=== PATIENT | female | born 1940 | race Caucasian/White ===

== ENCOUNTER 2021-02-28 09:11 | Outpatient (REF) | payer MEDICARE, MEDICAID, SELFPAY ==
[2021-02-28 10:56] LABS: MANUAL DIFF FLAG NO
[2021-02-28 11:04] LABS: Basophils Percent Auto 0.4 % (0-2); Eosinophils Absolute Auto 0.2 X10*3/uL (0.0-0.4); Eosinophils Percent Auto 2.7 % (0-4); Hematocrit 40.5 % (37-47); Hemoglobin 13.1 g/dl (12.0-16.0); Imm Gran Abs Auto 0.03 X10*3/uL (0.00-0.03); Imm Gran Pct Auto 0.4 % (0.0-0.4); Lymphocytes Absolute Auto 2.5 X10*3/uL (1.2-4.9); Lymphocytes Percent Auto 31.7 % (20-40); Mean Corpuscular HGB Conc 32.3 g/dl (31.0-35.0); Mean Corpuscular Hemoglobin 31.6 pg (27.0-33.0); Mean Corpuscular Volume 97.6 fL (80-98); Mean Platelet Volume 11.1 fL (9.4-12.3); Monocytes Absolute Auto 0.6 X10*3/uL (0.1-1.2); Monocytes Percent Auto 7.5 % (2-11); Neutrophils Absolute Auto 4.5 X10*3/uL (2.0-8.3); Neutrophils Percent Auto 57.3 % (45-73); Platelet Count 240 X10*3/uL (160-400); Red Blood Count 4.15 X10*6/uL (4.20-5.50); White Blood Count 7.9 X10*3/uL (4.8-10.8)
[2021-02-28 11:58] LABS: Alanine Aminotransferase 20 U/L (0-31); Albumin Level 4.1 g/dL (3.5-5.0); Alkaline Phosphatase 103 U/L (39-117); Anion Gap 14 (12-20); Aspartate Amino Transferase 18 U/L (5-31); Bilirubin Total 0.6 mg/dL (0.0-1.0); Blood Urea Nitrogen 16 mg/dL (9-16); Calcium 9.3 mg/dL (8.4-10.2); Carbon Dioxide 29 mmol/L (22-29); Chloride 104 mmol/L (96-108); Cholesterol 158 mg/dL; Estimated Glomerular Filt Rate > 60; Glucose Fasting 97 mg/dL (60-99); HDL Cholesterol 40 mg/dL; LDL Cholesterol Calculated 69 mg/dl; Potassium 4.3 mmol/L (3.3-5.1); Sodium 143 mmol/L (135-145); Triglycerides 247 mg/dL
[2021-02-28 12:26] LABS: Free T4 (Free Thyroxine) 0.93 ng/dL (0.71-1.85); Thyroid Stimulating Hormone 0.35 uIU/mL (0.32-4.0)
== END 2021-02-28 09:12 | disposition home or self-care (01) ==
LOC: HO.MANLDS 09:11
PROVIDERS: PCP Internal Medicine; Visit Provider Physician Assistant
DX: E03.9 Hypothyroidism, unspecified (principal); E78.00 Pure hypercholesterolemia, unspecified
CPT/HCPCS: 36415; 80053; 80061; 84439; 84443; 85025

== ENCOUNTER 2021-08-08 11:35 | Outpatient (REF) | payer MEDICARE, OTHER, SELFPAY ==
[2021-08-08 12:44] LABS: MANUAL DIFF FLAG NO
[2021-08-08 12:49] LABS: Basophils Percent Auto 0.4 % (0-2); Eosinophils Absolute Auto 0.3 X10*3/uL (0.0-0.4); Eosinophils Percent Auto 3.9 % (0-4); Hematocrit 38.1 % (37-47); Hemoglobin 12.6 g/dl (12.0-16.0); Imm Gran Abs Auto 0.02 X10*3/uL (0.00-0.03); Imm Gran Pct Auto 0.2 % (0.0-0.4); Lymphocytes Absolute Auto 3.1 X10*3/uL (1.2-4.9); Lymphocytes Percent Auto 36.9 % (20-40); Mean Corpuscular HGB Conc 33.1 g/dl (31.0-35.0); Mean Corpuscular Hemoglobin 31.9 pg (27.0-33.0); Mean Corpuscular Volume 96.5 fL (80-98); Mean Platelet Volume 10.9 fL (9.4-12.3); Monocytes Absolute Auto 0.7 X10*3/uL (0.1-1.2); Monocytes Percent Auto 8.5 % (2-11); Neutrophils Absolute Auto 4.2 X10*3/uL (2.0-8.3); Neutrophils Percent Auto 50.1 % (45-73); Platelet Count 224 X10*3/uL (160-400); Red Blood Count 3.95 X10*6/uL (4.20-5.50); Red Cell Distribution Width 13.3 % (11.0-16.0); White Blood Count 8.4 X10*3/uL (4.8-10.8)
[2021-08-08 13:01] LABS: Prothrombin Time 11.4 SEC (9.9-13.0)
[2021-08-08 13:24] LABS: Iron 86 mcg/dL (30-160)
[2021-08-08 13:38] LABS: Percent Iron Saturation 28 % (15-50); Total Iron Binding Capacity 312 mcg/dL (228-428); Unsaturated Iron Binding 226 ug/dL
[2021-08-08 13:50] LABS: Folate 12.3 ng/mL (> or = 4.0); Vitamin B12 1957 pg/mL (200-900)
[2021-08-08 13:58] LABS: Ferritin 153 ng/mL (10-250)
== END 2021-08-08 11:36 | disposition home or self-care (01) ==
LOC: HO.MANLDS 11:35
PROVIDERS: PCP Physician Assistant; Visit Provider Physician Assistant
DX: R58 Hemorrhage, not elsewhere classified (principal)
CPT/HCPCS: 36415; 82306; 82607; 82728; 82746; 83540; 85025; 85610

== ENCOUNTER 2023-05-07 10:25 | Outpatient (REF) | payer MEDICARE, OTHER, SELFPAY ==
[2023-05-07 13:05] LABS: MANUAL DIFF FLAG NO
[2023-05-07 13:41] LABS: Basophils Absolute Auto 0.1 X10*3/uL (0.0-0.2); Basophils Percent Auto 0.6 % (0-2); Eosinophils Absolute Auto 0.3 X10*3/uL (0.0-0.4); Eosinophils Percent Auto 3.4 % (0-4); Hematocrit 38.7 % (37.0-47.0); Hemoglobin 12.5 g/dl (12.0-16.0); Imm Gran Abs Auto 0.02 X10*3/uL (0.00-0.03); Imm Gran Pct Auto 0.3 % (0.0-0.4); Lymphocytes Absolute Auto 2.6 X10*3/uL (1.2-4.9); Lymphocytes Percent Auto 33.1 % (20-40); Mean Corpuscular HGB Conc 32.3 g/dl (31.0-35.0); Mean Corpuscular Hemoglobin 31.7 pg (27.0-33.0); Mean Corpuscular Volume 98.2 fL (80.0-98.0); Mean Platelet Volume 12.3 fL (9.4-12.3); Monocytes Absolute Auto 0.8 X10*3/uL (0.1-1.2); Monocytes Percent Auto 10.4 % (2-11); Neutrophils Absolute Auto 4.1 x10*3/uL (2.0-8.3); Neutrophils Percent Auto 52.2 % (45-73); Platelet Count 218 X10*3/uL (160-400); Red Blood Count 3.94 X10*6/uL (4.20-5.50); Red Cell Distribution Width 13.4 % (11.0-16.0); White Blood Count 7.9 X10*3/uL (4.8-10.8)
[2023-05-07 15:20] LABS: Estimated Average Glucose 120 mg/dL; Hemoglobin A1c % 5.8 %
[2023-05-08 01:56] LABS: Alanine Aminotransferase 19 U/L (0-31); Albumin Level 3.8 g/dL (3.5-5.0); Alkaline Phosphatase 106 U/L (39-117); Anion Gap 11 (12-20); Aspartate Amino Transferase 24 U/L (5-31); Bilirubin Total 0.4 mg/dL (0.0-1.0); Blood Urea Nitrogen 15 mg/dL (9-16); Carbon Dioxide 28 mmol/L (22-29); Chloride 104 mmol/L (96-108); Estimated Glomerular Filt Rate > 60; Glucose Random 92 mg/dL (60-115); Sodium 139 mmol/L (135-145)
[2023-05-08 02:22] LABS: Free T4 (Free Thyroxine) 0.99 ng/dL (0.71-1.85)
== END 2023-05-07 10:26 | disposition home or self-care (01) ==
LOC: HO.MANLDS 10:25
PROVIDERS: Visit Provider Physician Assistant
DX: E78.2 Mixed hyperlipidemia (principal); E03.8 Other specified hypothyroidism; R73.01 Impaired fasting glucose
CPT/HCPCS: 36415; 80053; 83036; 84439; 84443; 85025

== ENCOUNTER 2024-01-28 14:05 | Outpatient (REF) | payer MEDICARE, OTHER, SELFPAY ==
[2024-01-28 17:45] LABS: MANUAL DIFF FLAG NO
[2024-01-28 17:54] LABS: Basophils Percent Auto 0.4 % (0-2); Eosinophils Absolute Auto 0.6 X10*3/uL (0.0-0.4); Eosinophils Percent Auto 6.7 % (0-4); Hematocrit 40.3 % (37.0-47.0); Hemoglobin 13.2 g/dl (12.0-16.0); Imm Gran Abs Auto 0.03 X10*3/uL (0.00-0.03); Imm Gran Pct Auto 0.4 % (0.0-0.4); Lymphocytes Absolute Auto 2.6 X10*3/uL (1.2-4.9); Lymphocytes Percent Auto 30.9 % (20-40); Mean Corpuscular HGB Conc 32.8 g/dl (31.0-35.0); Mean Corpuscular Hemoglobin 31.1 pg (27.0-33.0); Mean Corpuscular Volume 94.8 fL (80.0-98.0); Mean Platelet Volume 11.6 fL (9.4-12.3); Monocytes Absolute Auto 0.4 X10*3/uL (0.1-1.2); Monocytes Percent Auto 5.2 % (2-11); Neutrophils Absolute Auto 4.8 x10*3/uL (2.0-8.3); Neutrophils Percent Auto 56.4 % (45-73); Platelet Count 211 X10*3/uL (160-400); Red Blood Count 4.25 X10*6/uL (4.20-5.50); Red Cell Distribution Width 13.7 % (11.0-16.0); White Blood Count 8.5 X10*3/uL (4.8-10.8)
[2024-01-28 18:39] LABS: Parathyroid Hormone Intact 77.6 pg/mL (8.7-77.1)
[2024-01-28 18:42] LABS: Erythrocyte Sedimentation Rate 20 MM/HR (0-20)
[2024-01-28 18:44] LABS: Alanine Aminotransferase 18 U/L (0-31); Albumin Level 4.2 g/dL (3.5-5.0); Alkaline Phosphatase 113 U/L (39-117); Anion Gap 13 (12-20); Aspartate Amino Transferase 21 U/L (5-31); Bilirubin Total 0.5 mg/dL (0.0-1.0); Blood Urea Nitrogen 17 mg/dL (9-16); C Reactive Protein 1.09 mg/dL (< or = 0.50); Calcium 9.8 mg/dL (8.4-10.2); Carbon Dioxide 27 mmol/L (22-29); Chloride 105 mmol/L (96-108); Estimated Glomerular Filt Rate > 60; Magnesium 2.1 mg/dL (1.6-2.6); Sodium 141 mmol/L (135-145); Total Protein 7.7 g/dL (6.5-8.0)
[2024-01-28 19:04] LABS: Free T4 (Free Thyroxine) 0.63 ng/dL (0.71-1.85); Thyroid Stimulating Hormone 2.84 uIU/mL (0.32-4.0); Vitamin D 25-OH Total 43.8 ng/mL (>30)
[2024-01-28 19:05] LABS: Folate 8.9 ng/mL (> or = 4.0); Vitamin B12 > 2000 pg/mL (200-900)
[2024-01-28 19:28] LABS: Glucose Random 90 mg/dL (60-115)
== END 2024-01-28 14:06 | disposition home or self-care (01) ==
LOC: HO.MANLDS 14:05
PROVIDERS: Visit Provider Physician Assistant
DX: G25.81 Restless legs syndrome (principal); R25.2 Cramp and spasm
CPT/HCPCS: 36415; 80053; 82306; 82550; 82607; 82746; 83735; 83970; 84439; 84443; 85025; 85652; 86140

== ENCOUNTER 2024-01-30 13:30 | Outpatient (REF) | payer MEDICARE, OTHER, SELFPAY ==
[2024-01-30 17:58] LABS: Appearance Urine Clear; Color Urine Yellow; Glucose Urine UA Negative (Negative); Leukocyte Esterase Urine Trace (Negative); Nitrite Urine Negative (Negative); PH 5.5 (5.0-9.0); UMIC TRIGGER UACC YES; Urine Blood Negative (Negative); Urine Ketones Negative (Negative); Urine Protein Negative (Neg-Trace)
[2024-01-30 18:00] LABS: Bacteria Urine None Seen (None Seen); Hyaline Casts Urine 0-2 /LPF (0-2); RBC Urine 0-2 /HPF (0-2); WBC Urine 0-5 /HPF (0-5)
== END 2024-01-30 13:31 | disposition home or self-care (01) ==
LOC: HO.MANLNP 13:30
PROVIDERS: Visit Provider Physician Assistant
DX: G25.81 Restless legs syndrome (principal)
CPT/HCPCS: 81001

== ENCOUNTER 2024-06-25 08:55 | Outpatient (AMB) | payer MEDICARE, SELFPAY ==
--- NOTE | 2024-06-25 08:59 | HO.SPINEOV ---
Intake Visit Reasons: lumbar radiculopathy Intake Note: Ms. Andrade is here today c/o Jumping nerves. 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 She is a very nice 83-year-old female underwent an L4-5, L5-S1 posterior lumbar interbody fusion in [address] Valentino and Dr[address] Medina. Preoperatively she had back pain that was going down her right leg into her big toe. Immediately after surgery she said she has an relief of the symptoms for a number of months but ultimately the symptoms came back. She has bilateral buttock pain as well as right leg pain that goes down into her big toe. It is particularly worse as the day goes on. She was seen postoperatively by Dr. Valentino, subsequent MRIs showed no residual compression of the nerves. She was sent to therapy, it sounds like she was also sent to pain management, chiropractic and acupuncture as well. Nothing gives her significant relief. She is a difficult historian. Her daughter is here with her today who helps with some of the details. It sounds like she may have tried gabapentin at 1 point but I believe there may have been some side effects. 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 There are some mention of seeing a neurologist and it sounds like she had a nerve conduction study and was told there is old damage to the nerve but nothing new currently going on. I do not have that EMG in front of me to confirm this however. PMH: The patient reports a history of high cholesterol, depression, arthritis, hypothyroidism, GERD, back surgery, eye surgeries Social hx: She has not smoke, drink use any recreational drugs Medications: Lipitor, baclofen, Celebrex, citalopram, diazepam, diclofenac, dicyclomine, levothyroxine, mirabegron, Motegrity, torsemide, tramadol, omeprazole, vitamin B12 and vitamin B12 Allergies: None Physical exam: She is awake alert oriented no acute distress, she is able to get up out of a chair on her own walk to the examining table and get up independently. Strength in bilateral upper and lower extremities is full. Reflexes 3+ and symmetric in the upper extremities, 2+ in the patella and the Achilles. No clonus, no Rivera's sign. Negative straight leg raise. Imaging review: Lumbar MRI done at [facility] shows postsurgical changes from L4-S1 with evidence of decompression centrally as well as in both foramina. There appears to be a solid fusion construct in the interbody spaces. There is no residual central foraminal canal stenosis at this level despite with the radiology report says, I can easily see perineural fat around the nerves on both sides so while there may be some residual narrowing there is no nerve compression. 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 Probably more mild to moderate. I do not see any evidence of nerve compression anywhere in the rest of the spine. Impression: 83-year-old female presents for evaluation of persistent right leg pain and bilateral buttock pain after posterior lumbar interbody fusion done from L4-S1 in 2019. This is the same pain that she had before surgery. It does correlate with the L5 dermatome so that would make sense. Per the daughter's report there was some kind of nerve conduction study done showing chronic nerve damage this area. That is what it sounds like based on her story and the postoperative imaging that does not show any evidence of recurrent compression of nerves. The radiology report think is slightly over exaggerated when they report the amount of stenosis seen above fusion. I agree with Dr. Valentino and Dr. Gallegos, there is nothing residual here to operate on her fix. 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 There is a device called a spinal cord stimulator which is a possible option for her, bu the patient does not want to consider any operations at her age and I think this is certainly reasonable if the pain is manageable and livable. Thank you for allowing us to care for your patient. The total time spent with this visit with this patient was 45 minutes reviewing history, physical exam, lumbar imaging review, and implementation of treatment plan or further diagnostic testing Nikolay Hull MD,PhD [facility] Coding Level of Care Code New Pt Level 4 (81616) Diagnoses Lumbar degenerative disc disease M51.36
== END 2024-06-25 09:46 | disposition home or self-care (01) ==
PROVIDERS: PCP Physician Assistant; Referring Provider Physician Assistant; Visit Provider Physician Assistant
DX: M51.36 Other intervertebral disc degeneration, lumbar region (principal)
CPT/HCPCS: 99204

== ENCOUNTER → 2024-06-25 08:55 | Outpatient (BNVA) | payer MEDICARE, OTHER, SELFPAY | PROVIDERS: PCP Physician Assistant; Visit Provider Physician Assistant | DX: M54.16 Radiculopathy, lumbar region (principal) | CPT/HCPCS: 99202 ==

== ENCOUNTER 2025-02-24 11:05 | Outpatient (REF) | payer MEDICARE, SELFPAY | END 2025-02-24 11:06 | disposition home or self-care (01) | LOC: HO.LAB 11:05 | PROVIDERS: PCP Physician Assistant; Visit Provider Urology | DX: N81.10 Cystocele, unspecified (principal); N32.81 Overactive bladder; R33.9 Retention of urine, unspecified; R35.1 Nocturia; R32 Unspecified urinary incontinence; Z13.9 Encounter for screening, unspecified | CPT/HCPCS: 51702; 81003; 99202 ==

== ENCOUNTER 2025-02-24 11:05 | Outpatient (AMB) | payer MEDICARE, SELFPAY ==
--- NOTE | 2025-02-24 11:27 | MHC.OFFVIS ---
Intake Visit Reasons: OAb with bladder prolapse Intake Note: New patient presents today for initial visit for OAB with bladder prolapse Urology Medication:Vitamin B12 Blood Thinner:None Antibiotic Allergies:None PVR:186ml Allergies No Known Allergies Allergy (Verified 02/24/25 11:36) Results AMB Urinalysis, Automated UA Leukoctes 0 Freddy/uL Last Edit by Karen Petersen on 02/24/25 16:46 UA Nitrite Negative Last Edit by Karen Petersen on 02/24/25 16:46 UA Urobilinogen 0.2 mg/dL Last Edit by Karen Petersen on 02/24/25 16:46 UA Protein 15 mg/dL Last Edit by Karen Petersen on 02/24/25 16:46 UA pH 6.0 Last Edit by Karen Petersen on 02/24/25 16:46 UA Blood 0 Leonel/uL Last Edit by Karen Petersen on 02/24/25 16:46 UA Specific [place] 1.015 Last Edit by Karen Petersen on 02/24/25 16:46 UA Ketone Negative Last Edit by Karen Petersen on 02/24/25 16:46 UA Bilirubin 0 mg/dL Last Edit by Karen Petersen on 02/24/25 16:46 UA Glucose 0 mg/dL Last Edit by Karen Petersen on 02/24/25 16:46 Assessment & Plan Assessment & Plan Orders: Orders AMB Urinalysis Automated Today Z13.9 - Encounter for screening, unspecified Urine Culture Today N39.0 - Urinary tract infection, site not specified Coding
--- OUTSIDE RECORDS SUMMARY | 2025-02-24 12:36 | XMS_ITS | Data Portability ---
Author Organization [facility], [facility] Address [address] [place] [address] Care Team Providers Care Emr Analyst Name Role Phone ESTHER CLIFFORD Phys. Med. & Rehab Unavailable BOB CASTILLO Primary Care Provide r Assessment Encounter Date Assessment Date Assessment LastModified by Organization Details LastModified Time 05/12/2014 05/12/2014 A: Persistent shoulder pain which pt. attributes to a lot of yardwork, unable to tolerate much in the way of strengthening, manual treatment provided with min. gains. P: Cont. Not available 05/12/2014 09:52:47 05/25/2014 05/25/2014 A:? ? ?Reports she can have days without pain and then days with pain in L upper arm.? ? ?Tension L upper trap/neck, limited ROM with L neck? ? ?rotation.? ? ? As much as her neck could be contributing to this, there is definitely pain with isolated L shoulder PROM as well (ER loss).? ? ? May need to address tension in L neck.? ? ? Needs guidance to do HEP correctly. P: Cont. Not available 05/25/2014 10:08:09 Plan of Treatment Reminders Order Date Submit Date Provider Last Modified By Organization Details Last Modified Time Details Appointments None recorde d. Lab PPD (purifi ed protein derivat jerson), skin test [email or web address] [place] [address], [address] [place] [address], [address], 5 09:32:55 lipid panel, serum 2013 015 [facility], [address] [place], [address], 5 11:24:31 BMP, serum or plasma 2013 014 [facility], [address] [place], [address], 4 10:49:46 TSH, serum or plasma 2013 014 [facility], [address] [place], [address], 4 12:55:33 Referral None recorde d. Procedures None recorde d. Surgeries None recorde d. Imaging bone density study - prolong ed use of PPI 2013 014 [facility] (Imaging), [address], [place], [address], 5 23:07:06 Medication Orders None recorde d. Patient TargetsNo targets recorded. Patient Instructions Encounter Date Encounter Id Patient Instructions Last Modified By Organization Details Last Modified Time 06/23/2014 [id number] advance directives: care instructions [email or web address] Not available 06/23/2014 18:43:03 preventing falls: care instructions [email or web address] Not available 06/23/2014 18:43:03 hearing loss: care instructions [email or web address] Not available 06/23/2014 18:43:03 well visit, over 65: care instructions [email or web address] Not available 06/23/2014 18:43:03 My Health To Do List As we discussed and agreed upon at your visit please work on the followin. discussed TSH - not in range; please take your thyroid medicine at bedtime by itself with only water; and repeat labs? ? ?in 6 wks. 2. discussed labs elevated triglycerides, pt will decrease intake of carbohydrates - breads, pasta, rice, baked goods. repeat labs in 6 mos. 3. will take ibuprofen with meals for now for shoulder pain and if continues to persists after 2 wks will refer to orthopedics. 4 pt will go to [facility] for shingles vaccine 5. updated flu shot today at [facility] 6. PHA next year; bone density this year 7. pt information on gas and bloating, will try pepto-bismol 8. depression - stable on citalopram 9. GERD - stable on omeprazole. shanna Not available 06/23/2014 10:46:15 12/01/2014 [id number] 1. discussed all questions on form, specially physical capability of patient and how it would affect her at her job. 2. form filled for caregiver , copy in chart, will get PPD at nurse visit. 3. more than 50% of 15 min spent on discussing and completing form,? ? ? shanna Not available 12/02/2014 17:49:39 Reason for Referral None Reported. Results Created Date Observation Date Name Description Value Unit Range Abnormal Flag Note LastModifiedBy Organization Detail LastModifiedTime 06/16/20 14 06/16/2014 lipid panel , serum cholesterol 129 mg/dL <200 mg/dl Dk able 200-2 39 mg/dl Borde rline High >240 mg/dl High Not Available [address], [address], 06/16/2014 11:20:45 06/16/20 14 06/16/2014 lipid panel , serum triglyceride s 204 mg/dL <150 mg/dL Jazmyn l 150-1 99 mg/dL Borde rline High 200-4 99 mg/dL High >500 mg/dL Very High Not Available [address], [address], 06/16/2014 11:20:45 06/16/20 14 06/16/2014 lipid panel , serum direct HDL 39 mg/dL Not Available [address], [address], 06/16/2014 11:20:45 06/16/20 14 06/16/2014 LDL, calcu lated , serum (OBS) LDL - calculated 49.2 RISK CATEG ORY LDL GOAL _ CHD or CHD Risk Equiv alent s <100 mg/dl (10-y ear risk >20%) 2+ Risk Facto rs <130 mg/dl (10-y ear risk <= 20%) 0-1 Risk Facto r? <160 mg/dl ? Almos t all peopl e with 0-1 risk facto r have a 10 year risk <10%, thus 10 year risk asses ment in peopl e with 0-1 risk facto r is not patrick dailey. Not Available [address], [address], 06/16/2014 11:20:47 06/16/20 14 06/16/2014 TSH, serum or plasm a TSH 0.01 uIU/m L 0.50-6 .00 low The Ameri can Colle ge of Endoc rinol ogy and Ameri can Thyro id Assoc iatio n recom mend goal TSH value s betwe en 1.0-2 .5 mIU/m L. Not Available [address], [address], 06/16/2014 11:37:56 08/01/20 14 08/01/2014 BMP, serum or plasm a glucose 89 mg/dL 70-100 Not Available [address], [address], 08/01/2014 10:49:46 08/01/20 14 08/01/2014 BMP, serum or plasm a BUN 15 mg/dL 7-18 Not Available [address], [address], 08/01/2014 10:49:46 08/01/20 14 08/01/2014 BMP, serum or plasm a creatinine 1.1 mg/dL 0.8-1. 3 Not Available [address], [address], 08/01/2014 10:49:46 08/01/20 14 08/01/2014 BMP, serum or plasm a B/C 13.6 ratio Not Available [address], [address], 08/01/2014 10:49:46 08/01/20 14 08/01/2014 BMP, serum or plasm a GFR 54.2 mL/mi n Recom summer d GFR by the Natio nal Kidne y Found ation >60 mL/mi n/1.7 3m2 - Jazmyn l <60 mL/mi n/1.7 3m2 - Chron ic Kidne y Disea se <15 mL/mi n/1.7 3m2 - Kidne y Failu re Not Available [address], [address], 08/01/2014 10:49:46 08/01/20 14 08/01/2014 BMP, serum or plasm a GFR - if 62.4 mL/mi n For Afric an Ameri can patie nts: Resul ts Multi plied by 1.21 Not Available [address], [address], 08/01/2014 10:49:46 08/01/20 14 08/01/2014 BMP, serum or plasm a sodium 144 mmol/ L 136-14 5 Not Available [address], [address], 08/01/2014 10:49:46 08/01/20 14 08/01/2014 BMP, serum or plasm a potassium 4.2 mmol/ L 3.5-5. 1 Not Available [address], [address], 08/01/2014 10:49:46 08/01/20 14 08/01/2014 BMP, serum or plasm a chloride 105 mmol/ L 96-107 Not Available [address], [address], 08/01/2014 10:49:46 08/01/20 14 08/01/2014 BMP, serum or plasm a anion gap 8.2 5.0-15 .0 Not Available [address], [address], 08/01/2014 10:49:46 08/01/20 14 08/01/2014 BMP, serum or plasm a CO2 31 mmol/ L 21-32 Not Available [address], [address], 08/01/2014 10:49:46 08/01/20 14 08/01/2014 BMP, serum or plasm a calcium 9.2 mg/dL 8.5-10 .3 Not Available [address], [address], 08/01/2014 10:49:46 08/01/20 14 08/01/2014 TSH, serum or plasm a TSH 0.05 uIU/m L 0.50-6 .00 low The Ameri can Colle ge of Endoc rinol ogy and Ameri can Thyro id Assoc iatio n recom mend goal TSH value s betwe en 1.0-2 .5 mIU/m L. Not Available [address], [address], 08/01/2014 12:55:33 09/13/20 14 09/13/2014 TSH, serum or plasm a TSH 1.59 uIU/m L 0.50-6 .00 The Ameri can Colle ge of Endoc rinol ogy and Ameri can Thyro id Assoc iatio n recom mend goal TSH value s betwe en 1.0-2 .5 mIU/m L. Not Available [address], [address], 09/13/2014 13:49:24 12/09/19 15 12/09/2014 PPD (ruth fied prote in deriv ative ), skin test TB negati ve Not Available [address], [address], 12/07/2014 09:32:24 12/30/19 15 12/29/2014 lipid panel , serum cholesterol 139 mg/dL <200 mg/dl Dk able 200-2 39 mg/dl Borde rline High >240 mg/dl High Not Available [address], [address], 12/29/2014 11:24:31 12/30/19 15 12/29/2014 lipid panel , serum triglyceride s 222 mg/dL <150 mg/dL Jazmyn l 150-1 99 mg/dL Borde rline High 200-4 99 mg/dL High >500 mg/dL Very High Not Available [address], [address], 12/29/2014 11:24:31 12/30/19 15 12/29/2014 lipid panel , serum direct HDL 39 mg/dL Not Available [address], [address], 12/29/2014 11:24:31 12/30/19 15 12/29/2014 LDL, calcu lated , serum (OBS) LDL - calculated 55.6 RISK CATEG ORY LDL GOAL _ CHD or CHD Risk Equiv alent s <100 mg/dl (10-y ear risk >20%) 2+ Risk Facto rs <130 mg/dl (10-y ear risk <= 20%) 0-1 Risk Facto r? <160 mg/dl ? Almos t all peopl e with 0-1 risk facto r have a 10 year risk <10%, thus 10 year risk asses ment in peopl e with 0-1 risk facto r is not neces asim. Not Available [address], [address], 12/29/2014 11:24:32 02/27/20 15 02/22/2015 bone densi ty study OBSERV ATION: Your patien t comple zina a bone minera l densit y test at our facili ty on 2014. The indica tions were bilate ral oophor ectomy and hyster ectomy , Caucas gonzalo race, rheuma toid arthri tis, and post menopa use. There were no prior studie s availa ble for compar sharron. Her AP lumbar spine T score averag e is -1.0. Her femora l neck T score mean is -1.3. At this time, your patien t is in an osteop enic range. Her FRAX data shows a 10 year probab ility of a major osteop orotic fractu re at 13.9%, and risk of hip fractu re at 2.8%. This is below the thresh old for consid eratio n of antire sorpti ve therap y. A repeat study in 5 years should be done to assess for stabil ity. is -1.0. Her femora l neck T score mean is -1.3. At this time, your patien t is in an osteop enic range. Her FRAX data shows a 10 year probab ility of a major osteop orotic fractu re at 13.9%, and risk of hip fractu re at 2.8%. This is below the thresh old for consid eratio n of antire sorpti ve therap y. A repeat study in 5 years should be done to assess for stabil ity. FRAX data shows a 10 year probab ility of a major osteop orotic fractu re at 13.9%, and risk of hip fractu re at 2.8%. This is below the thresh old for consid eratio n of antire sorpti ve therap y. A repeat study in 5 years should be done to assess for stabil ity. Electr onical ly signed Christelle ames Physic gonzalo: Efrain Marrero MD [facility] (Imaging) [address] [place] [address] , [place], [address], 03/16/2015 16:19:10 Result Notes None recorded. Problems Name Problem SNOMED Code Status Onset Date Resolution Date Notes Provider Name and Address Organization Details Recorded Time Sprain of sacroiliac ligament 08527635 Completed 09/08/2013 Not Available [facility] 3 02:04:08 Sciatica 37532854 Active Not Available [facility] 3 03:15:29 Mixed hyperlipid emia 751596939 Active Bob Valladares MD [address] [place] [address], [address] , [facility] 4 18:43:03 Nervous system symptoms Completed 09/08/2013 Not Available [facility] 3 02:03:49 Benign paroxysmal positional vertigo 450825555 Active Not Available [facility] 3 03:15:29 Low back pain 621261325 Active Not Available [facility] 3 03:15:29 Allergic rhinitis 20478464 Active Not Available [facility] 3 03:15:29 Hypothyroi dism 07500788 Active Bob Valladares MD [address] [place], [address] , [facility] 4 15:59:19 Problem Notes None recorded. Procedures Surgical History Date Name Laterality Status Provider Name and Address Organization Details Recorded Time 06/23/20 14 Medicare Wellness Visit completed Tasha Kauffman CMA [facility] 06/23/2014 09:54:13 04/27/20 14 Treatment and Advice completed Esther Clifford Ms, PT [address] [place], [address], [facility] 04/27/2014 08:01:30 06/15/20 13 Medicare Wellness Visit completed Tasha Kauffman CMA [facility] 06/15/2013 11:09:42 Total Hysterectomy completed Not Available [facility] 09/05/2011 06:06:16 Imaging Results Imaging Date Name Status LastModified by Organiz ation Details LastModified Time 02/22/2015 bone density study completed [facility] ([facility]) [address], [place], [address], 03/16/2015 16:19:10 Procedure Notes None recorded. Medical Equipment None Reported. Allergies Allergen ID Allergen Name Allergen Category Reaction Reaction Severity Criticality Documentation Date Start Date Code Code System Note Provider Name and Address Organization Details Recorded Time 68554 naproxen medicatio n vomiting Not available Not available 04/23/20112010 7258 RxNorm Not Available [facility] 1 06:05:41 10235 ibuprofen medicatio n vomiting Not available Not available 05/06/2011 5640 RxNorm Tasha Kauffman CMA [facility] 4 07:44:15 Medications Name Sig Start Date Stop Date Status Note LastModified by Organization Details LastModified Time Miralax 17 gram/dose oral powder Take 17 grams powder mixed with 8 oz. water, juice, soda, coffee, or tea by oral route once daily. 2010 active Not Available Not Available Not Avai lable levothyro xine 137 mcg tablet take 1 tablet by mouth once daily active Not Available Not Available No t Available ofloxacin 0.3 % eye drops active Not Available Not Available Not Available citalopra m 10 mg tablet take 1 tablet by mouth once daily active Not Available Not Available No t Available simvastat in 40 mg tablet TAKE 1 TABLET BY MOUTH ONCE A DAY FOR 90 DAYS active Not Available Not Available No t Available levothyro xine 100 mcg tablet take 1 tablet by mouth once daily active Not Available Not Available No t Available prednisol one acetate 1 % eye drops,akshat pension active Not Available Not Available Not Available meclizine 25 mg tablet Take 1 tablet 3 times a day by oral route as needed for 5 days. 08/07 completed Not Available Not Available Not Available gemfibroz il 600 mg tablet Take 1 tablet twice a day by oral route for 30 days. active Not Available Not Available No t Available levothyro xine 125 mcg tablet Take 1 tablet every day by oral route for 90 days. active Not Available Not Available No t Available omeprazol e 20 mg capsule,d elayed release TAKE 1 CAPSULE BY MOUTH TWICE A DAY FOR 90 DAYS active Not Available Not Available No t Available gabapenti n 100 mg capsule Take 1 capsule 3 times a day by oral route for 60 days. 2010 active Not Available Not Available Not Avai lable ibuprofen 600 mg tablet Take 1 tablet every 6-8 hours by oral route with meals. 2010 active Not Available Not Available Not Avai lable Tessalon 200 mg capsule Take 1 capsule 3 times a day by oral route as needed for 10 days. 03/07 completed Not Available Not Available Not Available Percocet 5 mg-325 mg tablet Take 1 tablet every 6 hours by oral route as needed for 15 days. 08/09 completed pt wants call when this is done Not Available Not Available Not Available fluticaso ne propionat e 50 mcg/actua tion nasal spray,akshat pension 2 sprays each nostril once daily during allergy season active Not Available Not Available No t Available ketorolac 0.4 % eye drops active Not Available Not Available Not Available Zostavax (PF) 19,400 unit/0.65 mL subcutane ous suspensio n active Not Available Not Available Not Available krill oil 3 times a day 300 mg active switched to fish oil once a day 1200 mg Not Available Not Available Not Available Vitals Date Recorded Body weight Heart rate Body mass index (BMI) Body height Systolic blood pressure Diastolic blood pressure Provider Name and Address Organization Details Last Updated DateTime 4 40522.5 52316 g 72 /min 32.2 kg/m2 146.05 cm 114 mm[Hg] 62 mm[Hg] Tasha Kauffman [facility] 4 09:58:04 Date Recorded Body height Body mass index (BMI) Body weight Heart rate Systolic blood pressure Diastolic blood pressure Provider Name and Address Organization Details Last Updated DateTime 5 146.05 cm 32.2 kg/m2 82861.5 52639 g 68 /min 100 mm[Hg] 60 mm[Hg] Tasah Kauffman [facility] 5 14:01:14 Social History Question Answer Notes LastModified by Organizat ion Details LastModified Time Tobacco Smoking Status Never Smoker Not Available [facility] 09/05/2011 04:56:30 What Is Your Level Of Alcohol Consumption? 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 Information not available 06/23/2014 How Many Days In The Past Year Have You Had A Heavy Drinking Consumption (4+ Female, 5+ Male)? 0 Information not available 06/15/2013 Live Alone Or With Others? With Others Rivera Loev (both Are Disabled). yolanda Information not available 04/15/2011 Patient Has Health Care Proxy Signed And In Chart Yes Daughter Lyric [id number] Information not available 09/05/2011 Marital Status Has Partner X 17 Yrs Information not available 06/15/2013 How Many Children Do You Have? 6 Had 7, 1 Was Killed In MVA [email or web address] Information not available 04/15/2011 Sex: Unknown Functional Status None recorded. Mental Status None recorded. Family History Relationship Description Onset Age of this Age Resolved Age Notes LastModified by Organization Details LastModified Time Daughter Seizure previo usly record ed as Seizur es klopezdelcast illo Not available 06/23/2014 10:21:40 Daughter Diabetes mellitus previo usly record ed as Diabet es klopezdelcast illo Not available 06/23/2014 10:21:40 Father Problem 36 indust rial accide nt klopezdelcast illo Not available 06/23/2014 10:21:40 Mother Asthma 90 klopezdelcast illo Not available 06/23/2014 10:21:40 Medical History Condition Response Hyperlipidemia Y Thyroid Disease Y Hypothyroid Y Depression Y GERD Y Gynecological History Statement/Question Response Hysterectomy Y History of Abnormal Pap N Obstetrics History GPAL:G 0 P 0 0 0 0 Immunizations Vaccine Type Date Status Note Provider Nam e and Address Organization Details Recorded Time Td (adult), 5 Lf tetanus toxoid, preservative free, adsorbed 1 completed Not Available [facility] 11/06/2019 02:16:59 Influenza, split virus, trivalent, preservative 1 completed Not Available [facility] 11/06/2019 02:39:39 Influenza, split virus, trivalent, preservative 2 completed Not Available [facility] 11/06/2019 02:18:37 Tdap 3 completed Not Available [facility] 11/06/2019 02:16:07 Influenza, split virus, quadrivalent, PF 3 completed Not Available [facility] 11/06/2019 02:37:18 Influenza, split virus, quadrivalent, PF 4 completed Not Available [facility] 11/06/2019 02:36:27 Past Encounters Encounter ID Performer Location Encounter Start Date Encounter Closed Date Diagnosis/Indication Diagnosis SNOMED-CT Code Diagnosis ICD10 Code Diagnosis Note [id number] Terrell Lord MD FP, [facility], OFFICE [address] [place] [address] 04/15/2011 09:10:27 04/15/2011 10:26:37 [id number] [facility] HAND Radiology , [facility] [address] [place] [address] 04/16/2011 13:06:50 04/17/2011 11:08:09 [id number] Cami Robles NP FP, [facility], OFFICE [address] [facility] [address] 04/23/2011 16:16:03 04/25/2011 13:57:43 [id number] Maggy Keith PT Physical Therapy, [facility] [address] [place] [place] [address] 05/02/2011 08:43:49 05/02/2011 12:31:42 [id number] Bob Valladares MD FP, [facility], OFFICE [address] [place] [facility] [address] 05/06/2011 13:29:27 05/06/2011 14:01:38 [id number] Maggy Keith, PT Physical Therapy, [facility] [address] [place] [facility] [address] 05/07/2011 08:13:36 05/07/2011 09:28:26 [id number] Maggy Keith, PT Physical Therapy, [facility] [address] [place] [facility] [address] 05/10/2011 10:41:11 05/10/2011 11:38:17 [id number] Maggy Keith, PT Physical Therapy, [facility] [address] [place] [facility] [address] 05/14/2011 10:20:42 05/14/2011 11:03:39 [id number] Maggy Keith, PT Physical Therapy, [facility] [address] [place] [facility] [address] 05/16/2011 11:40:25 05/16/2011 14:00:43 [id number] Bob Valladares MD , [facility], OFFICE [address] [place] [address] 05/20/2011 13:05:20 05/20/2011 13:48:51 [id number] [facility] STRUCTURAL DRAFTER Radiology , [facility] [address] [place] [facility] [address] 05/20/2011 13:51:40 05/22/2011 13:32:48 [id number] MD LALA Mendez, [facility], OFFICE [address] [place] [facility] [address] 06/20/2011 10:40:31 06/20/2011 11:49:50 [id number] [facility] FP TREATMENT NURSE FP, [facility], OFFICE [address] [facility] on [facility] [place] [address] 08/23/2011 09:23:33 08/26/2011 14:37:35 [id number] Bob Valladares MD FP, [facility], OFFICE [address] [facility] on [facility] [place] [address] 12/10/2011 15:05:10 12/10/2011 16:04:51 [id number] Lucina Tomas MD FP, [facility], OFFICE [address] [facility] on [facility] [place] [address] 01/14/2012 15:14:21 01/14/2012 16:26:52 [id number] Dina Clark Mph, LPT Physical Therapy, [address] on [facility] [place] [address] 01/16/2012 15:10:31 01/17/2012 07:59:19 [id number] Bob Valladares MD , [facility], OFFICE [address] [facility] on [facility] [place] [address] 03/10/2012 15:00:26 03/10/2012 18:51:24 [id number] Bob Valladares MD , [facility], OFFICE [address] [facility] on [facility] [place] [address] 04/27/2012 13:38:28 04/27/2012 14:32:23 [id number] [facility] FP TREATMENT NURSE , [facility], OFFICE [address] [place] [address] on [facility] [address] 09/25/2012 14:09:17 09/25/2012 15:21:39 [id number] Bob Valladares MD FP, [facility], OFFICE [address] [facility] on [facility] [place] [address] 02/16/2013 09:53:58 02/16/2013 10:38:19 [id number] MD LALA Mendez, [facility], OFFICE [address] [facility] on [facility] [place] [address] 06/15/2013 10:36:30 06/15/2013 12:13:50 Adult health examination [id number] see Risk Assessment and Lifestyle Change Counseling section above Counseling [id number] Screening mammography 80272807 Flatulence symptom 072861773 Hypothyroidism 92683184 Administra tion of diphtheria, pertussis, and tetanus vaccine [id number] Kinga Dutton NP FP, [facility], OFFICE [address] [place] [address] 06/18/2013 16:00:57 06/18/2013 16:40:52 Vaccine adverse reaction 303721842 Local reaction to Tdap. [id number] Bob Valladares MD , [facility], OFFICE [address] [place] [address] 08/13/2013 06:46:48 08/13/2013 11:48:08 Influenza vaccine needed [id number] Bob Valladares MD , [facility], OFFICE [address] [place] [address] 12/07/2013 11:36:19 12/07/2013 12:50:48 Muscle strain 78704812 Tight chest 21039445 [id number] Bob Valladares MD , [facility], OFFICE [address] [place] [address] 04/14/2014 07:31:49 04/14/2014 08:07:27 Shoulder joint painful on movement [id number] Esther Clifford Ms, PT Physical Therapy, [address] [address] 04/27/2014 07:25:01 04/27/2014 12:22:10 Shoulder joint painful on movement 639828774 [id number] Esther Clifford Ms, PT Physical Therapy, [address] [address] 05/10/2014 07:33:01 05/10/2014 08:37:47 Shoulder joint painful on movement [id number] Esther Clifford Ms, PT Physical Therapy, [address] [address] 05/12/2014 07:30:55 05/12/2014 10:19:50 Shoulder joint painful on movement 127280768 [id number] Esther Clifford Ms, PT Physical Therapy, [facility] [address] [place] [address] 05/25/2014 07:40:39 05/25/2014 10:50:22 Shoulder joint painful on movement [id number] Bob Valladares MD , [facility], OFFICE [address] [place] [phone] 6 06/23/2014 09:31:53 06/23/2014 10:46:09 Adult health examination [id number] see Risk Assessment and Lifestyle Change Counseling section above Counseling [id number] Influenza vaccine needed 6508213036 106 Shoulder j oint painful on movement 540228513 Hypothyroidism 72205346 Mixed hyperlipidemia 926335459 Recurrent major depression 39117314 Gastroesop hageal reflux disease 687445212 [id number] Bob Valladares MD , [facility], OFFICE [address] [place] [phone] 6 12/01/2014 13:37:29 12/01/2014 14:26:39 [id number] Bob Valladares MD , [facility], OFFICE [address] [place] [phone] 6 12/07/2014 09:03:59 12/07/2014 12:01:35 Tuberculosis screening 692856543 Health Concerns Section Related Observation LastModified by Organization Detai ls LastModified Time None Recorded Concern Status LastModified by Organization Details LastModified Time None Recorded Advance Directives Directive None Recorded Payers Encounter Date Sequence Insurance Name Policy Number Policy Cordova Covered Member ID Cordova Member ID Guarantor Name 05/12/2014 1 [facility]: MEDICARE PPO BLUE (MEDICARE REPLACEMENT PPO) [id number] Joycegrace Roaana [id number] Joyce Lupe 05/25/2014 1 [facility]: MEDICARE PPO BLUE (MEDICARE REPLACEMENT PPO) [id number] Joycegrace Roaana [id number] Joyce Lupe 06/23/2014 1 [facility]: MEDICARE PPO BLUE (MEDICARE REPLACEMENT PPO) [id number] Joycegrace Roaana [id number] Joyce Lupe 12/01/2014 1 [place] PPO) [id number] Joyce Andrade [id number] Joyce Andrade 12/07/2014 1 [facility] ([place]ICARE [place]PLACEMENT PPO) [id number] Joyce Roaana [id number] Joyce Andrade Notes Date Note Type Note Provider Name and Address Organization Details Recorded Time 05/12/2014 text/html I think I may nelson ve overdone it yesterday with yardwork and moving around the patio furniture, L arm sore today. Esther Clifford Ms, PT [address] [place], [address], [facility] 05/12/2014 09:53:21 05/25/2014 text/html Some days no keyshawn n at all and then days with pain. I feel it right now in the biceps and I tend to feel it more there than anywhere else. I was fine when I got up this morning but since sitting in the waiting room it started in the arm. Esther Clifford Ms, PT [address] [place], [address], [facility] 05/25/2014 10:09:12 12/01/2014 text/html Pt here for fill out a form from a caregiver agency. 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 Independent, lives with her, works during the day. Pt states all she has to do is supervise him, drive him to places and appointments, cook his meals and do laundry for him and make sure he washes out all the soap in his hair. She takes care of her son, who does everything himself, ambulatory. Pt does not have to lift her client or do any personal hygiene care. Bob Valladares MD [address] [place], [address], [facility] 12/02/2014 17:49:41 OBGyn Episode No OBEpisode recorded.
--- OUTSIDE RECORDS SUMMARY | 2025-02-24 12:36 | XMS_ITS | Data Portability ---
Author Organization [facility] [employer] [facility], Main Office Address [address], [address] [place] [address] Care Team Providers Care Economics Lecturer Name Role Phone LEO AVILA ([facility]) OTHER Assessment Encounter Date Assessment Date Assessment LastModified by Organization Details LastModified Time 01/01/2019 01/01/2019 3/: wbc 14.97, hgb 8.6, hct 25.9 glord Not available 01/01/2019 11:33:15 Plan of Treatment Reminders Order Date Submit Date Provider Last Modified By Organization Details Last Modified Time Details Appointments None record ed. Lab None record ed. Referral None record ed. Procedures None record ed. Surgeries None record ed. Imaging None record ed. Medication Orders None record ed. Patient TargetsNo targets recorded. Patient InstructionsNo instructions recorded. Reason for Referral None Reported. Problems Name Problem SNOMED Code Status Onset Date Resolution Date Notes Provider Name and Address Organization Details Recorded Time Spinal stenosis 38698753 Active [address], [address], [place], [address], [facility] [employer] [facility] 9 11:21:13 Arthritis 0528521 Active [address], [address], [place], [address], [facility] [employer] [facility] 9 11:21:34 Gastroesoph ageal reflux disease 554895636 Active [address], [address], [place], [address], [facility] [employer] 9 11:21:38 Hyperlipide montez 38400060 Active [address], [address], [place], [address], [facility] [employer] 9 11:21:45 Hypothyroid ism 74191310 Active [address], [address], [place], [address], [facility] 9 11:21:51 Pain of right hip joint 0696810772767 02 Active [address], [address], [place], [address], [facility] 9 11:22:02 Inflammatio n of sacroiliac joint 39147106 Active [address], [address], [place], [address], [facility] 9 11:23:14 Seasonal allergy 800539793 Active [address], [address], [place], [address], [facility] 9 11:23:25 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 Procedures Surgical History Date Name Laterality Status Provider Name and Address Organization Details Recorded Time 3 hysterectomy completed [address], [address], [place], [address], [facility] 01/01/2019 11:23:53 Imaging Results None recorded. Procedure Notes None recorded. Medical Equipment None Reported. Allergies No known drug allergies Vitals Date Recorded Heart rate Respiratory rate Body temperature Oxygen saturation Oxygen saturation in Arterial blood by Pulse oximetry Body height Body mass index (BMI) Body weight Systolic blood pressure Diastolic blood pressure Provider Name and Address Organization Details Last Updated DateTime 9 86 /min 20 /min 98.8 [degF] 91 % 91 % 147.32 cm 33.2 kg/m2 64713.1 9 g 122 mm[Hg] 64 mm[Hg] VLADISLAV [address], [address], [place], [address], [facility] 9 11:19:24 Date Recorded Body height Heart rate Respiratory rate Body temperature Systolic blood pressure Diastolic blood pressure Provider Name and Address Organization Details Last Updated DateTime 9 147.32 cm 61 /min 20 /min 98.4 [degF] 100 mm[Hg] 45 mm[Hg] [address], [address], [place], [address], [facility] 9 08:54:35 Date Recorded Body height Systolic blood pressure Diastolic blood pressure Provider Name and Address Organization Details Last Updated DateTime 01/05/2019 147.32 cm 108 mm[Hg] 58 mm[Hg] Lavon Bowie MD [address] [facility], [address], [place], [address], [facility] 01/05/2019 11:44:03 Date Recorded Body height Heart rate Respiratory rate Body temperature Systolic blood pressure Diastolic blood pressure Provider Name and Address Organization Details Last Updated DateTime 9 147.32 cm 61 /min 20 /min 99.1 [degF] 108 mm[Hg] 45 mm[Hg] [address], [facility] [address], [place], [address], [facility] 9 16:04:03 Social History Question Answer Notes LastModified by Organizat ion Details LastModified Time Tobacco Smoking Status Never Smoker Not Available [employer] 08/15/2020 03:13:20 Do You Have An Advance Directive? Yes Full Code [id number] Information not available 08/15/2020 What Is Your Level Of Alcohol Consumption? None [id number] Information not available 08/15/2020 How Much Tobacco Do You Chew? None [id number] Information not available 08/15/2020 What Was The Date Of Your Most Recent Tobacco Screening? 01/11/2019 [id number] Information not available 08/15/2020 How Much Tobacco Do You Smoke? No [id number] Information not available 08/15/2020 Has Tobacco Cessation Counseling Been Provided? No [id number] Information not available 08/15/2020 How Many Years Have You Smoked Tobacco? 0 [id number] Information not available 08/15/2020 Sex: Unknown Functional Status None recorded. Mental Status None recorded. Family History Relationship Description Onset Age of this Age Resolved Age Notes LastModified by Organization Details LastModified Time Father No current problems or disability glord Not available 01/04 08:59:44 Mother No current problems or disability glord Not available 01/04 08:59:44 Notes:N/C Medical History No medical history recorded. Gynecological HistoryNo gynecological history recorded. Obstetrics History GPAL:G 0 P 0 0 0 0 Past Encounters Encounter ID Performer Location Encounter Start Date Encounter Closed Date Diagnosis/Indication Diagnosis SNOMED-CT Code Diagnosis ICD10 Code Diagnosis Note [id number] VLADISLAV [address] [place] [address] 01/01/2019 11:16:40 01/07/2019 11:38:30 Pain of right hip joint 1763327161 88746 M25.551 See HPI s/p fusionPT/O T eval and treat-alex ent appears very drowsy and sedated today, will decrease oxycodone to only 5 mg q 4 hours PRN, had 10 this morning and overnight. Spinal stenosis 58346891 M48.04 gabapentin 100 mg TIDoxycodo ne as needed, monitor for pain control Hypothyroidism 80805521 E03.8 levothyrox ine 50 mcg daily, monitor TSH as needed Gastroesop hageal reflux disease 965220756 K21.9 Prilosec 20 mg daily, monitor for reflux Depressive disorder 3548 9007 F33.8 Celexa 10 mg daily, monitor mood and consult NEG if needed Constipation 61325971 K5 9.03 Add colace 100 mg BID [id number] VLADISLAV [address]A [address] [place] [address] 01/04/2019 08:46:18 01/07/2019 11:53:38 Pain of right hip joint 3105398173 45852 M25.551 See HPI s/p fusionObta in STAT xrays of lumbo sacral region 2 viewsCall ortho and inform him of pain statusgive one time increased oxy dose of 10 mg now [id number] MD LEO Griffin [address] [place] [address] 01/05/2019 11:16:35 01/07/2019 12:46:07 Spinal stenosis 48467093 M48.062 see HPILumbar spinal stenosis with radiculopa thyunderwe ntexcision of L4-5 extradural massexcisi on of right L5-S1 foraminal disc herniation L4-5 and L5-S1 posterior and lateral fusion with segmental screw fixation and bone graftfollo w surgery recsmonito r for pain control and constipati onPT OT eval and treat Anemia due to blood loss 674752586 D50.0 Post op anemiarepe at cbcmonitor need for tx Unsteady gait 974295933 R26.81 PT OT eval and treatmonit or fall risk Gastroesop hageal reflux disease 346932253 K21.9 omeprazole 20 mg qdmonitor for sx relief Hypothyroidism 57691811 E03.8 synthroid 50 mcg qdmonitor tsh prn Hyperlipidemia 34456647 E78.49 carrying dxnot maintained on statin at baselineap pears diet controlled [id number] VLADISLAV LORD LEO AVILA [address] [place] [address] 01/11/2019 15:35:26 01/21/2019 13:36:24 Spinal stenosis 19496664 M48.062 see HPILumbar spinal stenosis with radiculopa thyunderwe nt excision of L4-5 extradural mass, excision of right L5-S1 foraminal disc herniation L4-5 and L5-S1 posterior and lateral fusion with segmental screw fixation and bone graftoxyco done 5 mg q 6 hours PRN for pain control, pt was taking prior to admission at home, should taper off this outpt as ableVNA to continue PT/OT at home Anemia due to blood loss 187513310 D50.0 resolved Gastroesop hageal reflux disease 161283977 K21.9 omeprazole 20 mg qd Hypothyroidism 33554823 E03.8 synthroid 50 mcg qdmonitor tsh outpt Hyperlipidemia 42419299 E78.49 carrying dxnot maintained on statin at baselineap pears diet controlled Health Concerns Section Related Observation LastModified by Organization Detai ls LastModified Time None Recorded Concern Status LastModified by Organization Details LastModified Time None Recorded Advance Directives Directive Y: Full Code Payers Encounter Date Sequence Insurance Name Policy Number Policy Cordova Covered Member ID Cordova Member ID Guarantor Name 01/01/2019 1 [facility] - MEDICARE PREFERRED (MEDICARE REPLACEMENT HMO) HAMPS Joyce Lupe [id number] Joyce Lupe 01/04/2019 1 [facility] - MEDICARE PREFERRED (MEDICARE REPLACEMENT HMO) HAMPS Joyce Lupe [id number] Joyce Lupe 01/05/2019 1 [facility] - MEDICARE PREFERRED (MEDICARE REPLACEMENT HMO) HAMPS Joyce Lupe [id number] Joyce Lupe 01/11/2019 1 [facility] - MEDICARE PREFERRED (MEDICARE REPLACEMENT HMO) HAMPS Joyce Lupe [id number] Joyce Lupe Notes Date Note Type Note Provider Name and Address Organization Details Recorded Time 01/01/2019 text/html This is an 78 ye ar old female seen today for initial intake visit. She underwent elective fusion of L4-5, L5-S1 with iliac crest bone graft with cages and screws. She tolerated the procedure well, pain in leg immediately went away after procedure. She did well with therapy but it was felt she needed inpatient rehab. Admitted to facility for continued care and therapy PMH significant for allergies, hypothyroid, HLD, GERD, arthritis and spinal stenosis VLADISLAV ABEBE [address] [place] [address], [address], [place], [address], [facility] 01/05/2019 16:30:48 01/04/2019 text/html This is an 78 ye ar old female seen today for acute rounding visit. Nursing staff reports she had a fall over the weekend and they found her on her right side lying on the floor. She is complaining of severe pain in her mid low back today and is concerned she disrupted her healing. She is s/p elective fusion of L4-5, L5-S1 with iliac crest bone graft with cages and screws. Her ortho was called over the weekend and he asked they just do watchful waiting as pain was to be expected. VLADISLAV ABEBE [address] [place] [address], [address], [place], [address], [facility] 01/04/2019 08:59:48 01/05/2019 text/html Patient is an 78 yo female admit from hospital after presenting with lumbar spinal stenosis and right lumbar radiculopathy. Under the care of Dr. Chan underwent excision of L4-5 extradural mass, excision of right L5-S1 foraminal disc herniation, L4-5 and L5-S1 posterior and lateral fusion, with segmental screw fixation and bone graft. Hct post op 26.6 however does not appear to have required transfusion. Symptoms by report improved post operatively. Of note patient had fall shortly after arrival at SNF, ortho was updated and x ray negative for acute change PMH significant forOA gerdhldhypothyroid spinal stenosis admit to facility for continued care and therapy Lavon Bowie MD [address] [place] [address], [place], [address], [facility] 01/05/2019 11:44:28 01/11/2019 text/html This patient is an 78 yo female admit from the hospital after presenting with lumbar spinal stenosis and right lumbar radiculopathy. Under the care of Dr. Chan underwent excision of L4-5 extradural mass, excision of right L5-S1 foraminal disc herniation, L4-5 and L5-S1 posterior and lateral fusion, with segmental screw fixation and bone graft. Patient had fall shortly after arrival at [facility], ortho was updated and x ray negative for acute change. Since then her stay has been uneventful, she did well with therapy but did have continued pain. She feels the pain is most likely due to her moving so much but she feels it is much better than before her surgery. She would like to go home with her oxy as she was taking it before and feels like she needs it just for a little longer while she is adjusting back home. Otherwise no concerns at this visit, ok to discharge home tomorrow with meds, narcs and services. PMH significant for OA, gerd, hld, hypothyroid, spinal stenosis, VLADISLAV LORD [address] [facility], [address], [place], [address], [facility] 01/21/2019 12:41:10 OBGyn Episode No OBEpisode recorded.
--- OUTSIDE RECORDS SUMMARY | 2025-02-24 12:36 | XMS_ITS | Data Portability ---
Author Organization [facility], Home Service Address [address] [place] [address] Assessment Encounter Date Assessment Date Assessment LastModified by Organization Details LastModified Time 05/07/2023 05/07/2023 The patient denies recent falls or recurrent falls. Denies instability, weakness, abnormal gait, or difficulties with movement. The patient wears correct, supportive shoes and is not otherwise severely visually impaired. The patient is full weight bearing and if using the assistance of a cane or walker feels supported and stable with the use of such devices. All medical conditions have been taken into account that may pose a risk for the patient for falls. Home umesh, carpets and/or rugs do not pose a challenge for the patient. The patient has been educated about the use of vitamin D supplementation for bone health and prevention of hypotensive episodes that may increase risk for fall. All question and concerns were answered to the patient's satisfaction. [email or web address] Not available 05/07/2023 10:16:45 Plan of Treatment Reminders Order Date Submit Date Provider Last Modified By Organization Details Last Modified Time Details Appointments None recorded . Lab magnesiu m, serum or plasma 2023 [facility], [address] [place] [address], [address], 4 13:49:03 PTH (parathy roid hormone) , intact + calcium, serum or plasma 2023 [facility], [address] [place] [address], [address], 4 13:49:03 phosphor us, serum or plasma 2023 [facility], [address] [place] [address], [address], 4 13:49:02 TSH + free T4, serum 2023 [facility], [address] [place] [address], [address], 4 13:49:03 ESR (erythro cyte sediment ation rate), blood 2023 [facility], [address] [place] [address], [address], 4 13:49:03 C reactive protein, QN, serum or plasma 2023 [facility], [address] [place] [address], [address], 4 13:49:03 urinalys is complete , reflex culture 2023 [facility], [address] [place] [address], [address], 4 11:16:26 vitamin B12 + folate, serum or blood 2023 [facility], [address] [place] [address], [address], 4 11:39:15 vitamin D, 25-hydro xy, total, serum 2023 [facility], [address] [place] [address], [address], 4 13:55:47 CK (creatin e kinase), total, serum 2023 [facility], [address] [place] [address], [address], 4 13:49:03 CMP, serum or plasma 2023 024 [facility], [address] [place] [address], [address], 4 13:49:02 CBC w/ diff 2023 024 [facility], [address] [place] [address], [address], 4 08:11:27 CMP, serum or plasma 2023 024 [facility], [address] [place] [address], [address], 4 09:29:41 BNP (B-type natriure tic peptide) , serum or plasma 2023 024 [facility], [address] [place] [address], 67[address], 4 11:17:33 ESR (erythro cyte sediment ation rate), blood 2023 024 [facility], [address] [place] [address], [address], 4 14:26:39 C reactive protein, QN, serum or plasma 2023 024 [facility], [address] [place] [address], 99[address], 4 11:18:41 hemoglob in A1c, QN, blood 2022 023 [facility], [address] [place] [address], 98[address], 3 10:20:35 CMP, serum or plasma 2022 023 [facility], [address] [place] [address], [address], 3 11:27:09 CBC w/ auto diff 2022 023 [facility], [address] [place] [address], [place], [address], 3 11:27:09 lipid panel, blood 2022 023 [facility], [address] [place] [address], [place], [address], 3 10:20:35 TSH + free T4, serum 2022 023 [facility], [address] [place] [address], [address], 3 11:27:09 Referral dermatol ogist referral 2023 024 [email or web address] 10 [facility], [address] , [place], [address], 4 08:31:32 neurolog ical surgeon referral - hx of lumbar surgery 2023 024 allen Anthony MD, [address], [address], [address], 4 09:19:38 Procedures None recorded . Surgeries None recorded . Imaging XR, shoulder , 2 or more view 2023 024 [email or web address] Not available 4 13:15:48 MRI, lumbar spine, w/o contrast 2023 024 allen Not available 4 09:17:43 electrom yogram + nerve conducti on study 2023 024 allen Kwong MD, [address] [place] [address], [address], 4 08:11:51 US, duplex, arterial , lower extremit y, complete 2023 024 [email or web address] [facility], [address], [place], [address], 4 14:25:19 XR, lumbosac ral spine, 2 or 3 view 2023 024 [email or web address] Not available 4 14:25:19 US, bladder 2022 023 [email or web address] Not available 3 08:20:00 Medication Orders diclofen ac sodium 75 mg tablet,d elayed release 2023 024 [facility] #2024, [address] [place], [address], 4 16:33:29 levothyr oxine 75 mcg tablet 2023 024 [facility] [address] [place], [address], 4 16:38:42 celecoxi b 100 mg capsule 2023 024 [facility] [address] [place], [address], 4 16:28:11 diazepam 2 mg tablet 2023 024 [facility] [address] [place], [address], 4 14:53:21 baclofen 10 mg tablet 2023 024 [email or web address] [facility]acy #2024, [address] [place], [address], 4 16:37:23 torsemid e 10 mg tablet 2023 024 [facility] #2024, [address] [place], [address], 4 16:38:19 tramadol 50 mg tablet 2023 024 [email or web address] [facility], [address] [place], [address], 16:27:52 dicyclom ine 20 mg tablet 2022 023 POPPY [facility], [address] [place], [address], 10:09:54 atorvast atin 80 mg tablet 2022 023 POPPY [facility], [address] [place], [address], 10:08:05 Patient TargetsNo targets recorded. 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 [address], [address], 07/04/2023 13:32:39 12/13/19 24 12/12/2023 XR, lumbo sacra l spine , 2 or 3 view No observ ation record ed. [address], [address], 12/15/2023 09:59:57 02/13/20 24 02/12/2024 XR, lumbo sacra l spine , 2 or 3 view No observ ation record ed. [facility] (Scheduling Dept) [address] [place] [address], [address], 02/13/2024 08:59:36 02/13/20 24 02/12/2024 US, duple x, arter ial, lower extre mity, compl ete No observ ation record ed. [address] [facility] [address] [place] [address], [address], 02/13/2024 09:29:31 03/10/20 24 03/07/2024 MRI, lumba r spine , w/o contr ast No observ ation record ed. [address], [address], 03/10/2024 08:51:16 03/10/20 24 03/07/2024 MRI, lumba r spine , w/o contr ast No observ ation record ed. [facility] (Scheduling Dept) [address] [place] [address], [address], 03/10/2024 15:10:01 03/10/20 24 03/07/2024 MRI, lumba r spine , w/o contr ast No observ ation record ed. [email or web address] [facility] [address] [place] [address], [address], 03/10/2024 16:19:33 03/19/20 24 03/18/2024 elect romyo gram + nerve condu ction study No observ ation record ed. [email or web address] Not Available 2023 08:40:39 04/21/20 24 04/21/2024 XR, shoul patricia, 2 or more view No observ ation record ed. [address], [address], 06/14/2024 16:43:21 09/20/20 24 09/20/2024 XR, knee, 3 view No observ ation record ed. [email or web address] [address], [address], 09/20/2024 15:45:56 11/04/19 25 03/07/2024 MRI, lumba r spine , w/o contr ast No observ ation record ed. [email or web address] [facility] (Scheduling Dept) [address] [place] [address], [address], 11/05/2024 11:57:55 01/05/20 25 12/31/2024 MRI, pancr eas, w/wo contr ast No observ ation record ed. [email or web address] [address], [address], 01/04/2025 13:50:08 Result Notes None recorded. Problems Name Problem SNOMED Code Status Onset Date Resolution Date Notes Provider Name and Address Organization Details Recorded Time Restless legs 45086620 Active 2021 Not Available [facility] 4 06:50:20 Osteoarth ritis 113200721 Active 2022 Not Available [facility] 4 06:50:20 Hyperchol esterolem ia 67519511 Active 2017 Not Available [facility] 4 06:50:20 Hypothyro idism 37987526 Active 2017 Not Available [facility] 4 06:50:20 Gastroeso phageal reflux disease 041698736 Active 2017 Not Available [facility] 4 06:50:20 Anxiety 76408418 Active 2017 Not Available [facility] 4 06:50:20 Depressiv e disorder 89592755 Active 2017 Not Available [facility] 4 06:50:20 History of total hysterect frieda with bilateral salpingo- oophorect frieda 726503522 Active 2017 1984 Not Available [facility] 4 06:50:20 Rheumatic fever 31615459 Active 03/27/ 2018 age 26 Not Available [facility] 4 06:50:20 Arthritis 1869118 Active 2017 Not Available [facility] 4 06:50:20 Mild recurrent major depressio n 17283273 Active 2022 Not Available [facility] 4 06:50:20 Transient cerebral ischemia 862346972 Active 2022 Not Available [facility] 4 06:50:20 Abdominal pain 31623064 Active 2022 Not Available [facility] 4 06:50:20 Urinary incontine nce 229964970 Active 2022 Not Available [facility] 4 06:50:20 Impaired fasting glycemia 016607305 Active 2022 Not Available [facility] 4 06:50:20 Diarrhea 78166187 Active 2022 Not Available [facility] 4 06:50:20 Retention of urine 425879845 Active 2022 Not Available [facility] 4 06:50:20 Pain of bilateral hip joints 678540084395 [address] Active 2023 Not Available [facility] 4 06:50:20 Swelling of bilateral lower limbs 604402631 Active 2023 LISA JONES [address] [place], [address], [facility] 4 11:11:16 Lumbar radiculop athy 840521576 Active 2023 LISA JONES [address] [place], [address], [facility] 4 10:00:42 Spasm 11714285 Active 2023 LISA JONES [address] [place], [address], [facility] 4 13:38:08 Spasm of back muscles 886996628 Active 2023 LISA JONES [address] [place], [address], [facility] 4 16:02:30 Elderly fall 099827879 Active 2023 LISA JONES [address] [place], [address], [facility] 4 14:50:58 Pain of left shoulder joint 099795550102 33022 Active 2023 LISA JONES [address] [place], [address], [facility] 4 14:58:59 Spinal stenosis of lumbar region 58085964 Active 2023 LISA JONES [address] [place], [address], [facility] 4 15:01:55 Seborrhei c keratosis 266005860 Active 2023 LISA JONES [address] [place], [address], [facility] 4 16:28:37 Actinic keratosis 344408028 Active 2023 LISA JONES [address] [place], [address], [facility] 4 16:29:46 Nocturia 932481947 Active 2023 LISA JONES [address] [place] [address], [address], [facility] 4 16:34:28 Pain of left hip joint 605315965797 100 Active 2023 LISA JONES [address] [place], [address], [facility] 4 11:28:57 Pain of left knee joint 531480976024 107 Active 2023 LISA JONES [address] [place], [address], [facility] 4 10:31:31 Cyst of pancreas 84831783 Active 2024 LISA JONES [address] [place], [address], 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 12:46:11 Notes:Some problems listed i n Documents: #[id number], #[id number], #[id number], #[id number], #[id number], #[id number] could not be added to this patient's chart. Please review these documents and add these problems to the patient's chart manually as needed. Problem Notes None recorded. Procedures Surgical History Date Name Laterality Status Provider Name and Address Organization Details Recorded Time 12/30/19 19 lumbar spinal fusion completed Maggie Engel NP, [address] [place] [address], [address], [facility] 01/01/2019 08:54:15 Total Hysterectomy completed Maggie Engel NP, S [address] [place] [address], [address], [facility] 12/23/2018 13:26:02 Imaging Results Imaging Date Name Status LastModified by Organization Details LastModified Time 07/03/2023 US, bladder completed [address], [address], 07/04/2023 13:32:39 12/12/2023 XR, lumbosacral spine, 2 or 3 view completed [address], [address], 12/15/2023 09:59:57 02/12/2024 XR, lumbosacral spine, 2 or 3 view completed [facility] (Scheduling Dept) [address] [place] [address], [address], 02/13/2024 08:59:36 02/12/2024 US, duplex, arterial, lower extremity, complete completed [email or web address] [facility] [address] , [place], [address], 02/13/2024 09:29:31 03/07/2024 MRI, lumbar spine, w/o contrast completed [address], [address], 03/10/2024 08:51:16 03/07/2024 MRI, lumbar spine, w/o contrast completed [facility] (Scheduling Dept) [address] [place] [address], [address], 03/10/2024 15:10:01 03/07/2024 MRI, lumbar spine, w/o contrast [email or web address] [address] [place] [address], [address], 03/10/2024 16:19:33 03/18/2024 electromyogram + nerve conduction study completed [email or web address] Information not available 03/19/2024 08:40:39 04/21/2024 XR, shoulder, 2 or more view completed [address], [address], 06/14/2024 16:43:21 09/20/2024 XR, knee, 3 view completed [address], [address], 09/20/2024 15:45:56 03/07/2024 MRI, lumbar spine, w/o contrast completed [facility] (Scheduling Dept) [address] [place] [address], [address], 11/05/2024 11:57:55 12/31/2024 MRI, pancreas, w/wo contrast completed [address], [address], 01/04/2025 13:50:08 Procedure Notes None recorded. Medical Equipment None Reported. Allergies No known drug allergies Medications Name Sig Start Date Stop Date Status Note LastModified by Organization Details LastModified Time vitamin b-12 1000mcg time rel tabs TAKE 2 TABLETS BY MOUTH EVERY DAY active Not Available Not Available No t Available pramipexole 1 mg tablet TAKE 1 TABLET TWICE A DAY BY ORAL ROUTE FOR 90 DAYS. 2023 active Not Available Not Available Not Avai lable cyanocobala min (vit B-12) ER 1,000 mcg tablet,exte nded release TAKE 2 TABLETS BY MOUTH DAILY 2023 active Not Available Not Available Not Avai lable atorvastati n 80 mg tablet TAKE 1 TABLET BY MOUTH EVERY DAY 2024 active Not Available Not Available Not Avai lable prednisone 10 mg tablet take 4 tabs x 7 daystake 3 tabs x 1 daytake 2 tabs x 1 daytake 1 tab x 1 day 06/30 completed Not Available Not Available Not Available ropinirole 1 mg tablet TAKE 1 TABLET BY MOUTH TWICE DAILY 04/03 completed Not Available Not Available Not Available clindamycin HCl 300 mg capsule TAKE 1 TABLET BY MOUTH EVERY 8 HOURS UNTIL GONE 12/12 completed Not Available Not Available Not Available ofloxacin 0.3 % eye drops INSTILL 1 DROP IN LEFT EYE FOUR TIMES DAILY. START 3 DAYS BEFORE SURGERY AND. CONTINUE FOR 1 WEEK TOTAL 12/12 completed Not Available Not Available Not Available citalopram 10 mg tablet TAKE 1 TABLET BY MOUTH EVERY DAY 2024 active Not Available Not Available Not Avai lable meloxicam 15 mg tablet Take 1 tablet every day by oral route for 30 days. 06/30 completed Not Available Not Available Not Available torsemide 10 mg tablet 06/14 completed Not Available Not Available Not Available acetaminoph en 300 mg-codeine 30 mg tablet 12/25 completed Not Available Not Available Not Available tramadol 50 mg tablet TAKE 1 TABLET BY MOUTH EVERY 6 HOURS NEEDED FOR HIP AND KNEE PAIN FOR 7 DAYS active Not Available Not Available No t Available simvastatin 40 mg tablet take 1 tablet by mouth once daily 06/14 completed Not Available Not Available Not Available levothyroxi ne 25 mcg tablet 07/06 completed Not Available Not Available Not Available levothyroxi ne 75 mcg tablet TAKE 1 TABLET BY MOUTH EVERY DAY active Not Available Not Available No t Available oxycodone-a cetaminophe n 5 mg-325 mg tablet 02/24 completed Not Available Not Available Not Available alprazolam 0.5 mg tablet TAKE ONE TABLET NEEDED 05/07 completed Not Available Not Available Not Available prednisolon e acetate 1 % eye drops,suspe nsion INSTILL 1 DROP IN LEFT EYE DAILY 12/12 completed Not Available Not Available Not Available Vitamin C 1,000 mg tablet Take 1 tablet every day by oral route. active Not Available Not Available No t Available ropinirole 0.25 mg tablet TAKE 1 TABLET BY MOUTH AT BEDTIME. 02/20 completed Not Available Not Available Not Available dicyclomine 20 mg tablet TAKE 1 TABLET TWICE A DAY BY ORAL ROUTE FOR 90 DAYS. active Not Available Not Available No t Available diazepam 2 mg tablet TAKE 1 TABLET BY MOUTH THREE TIMES A DAY NEEDED FOR 30 DAYS active Not Available Not Available No t Available baclofen 10 mg tablet TAKE 2 TABLETS BY MOUTH EVERY DAY DIRECTED 06/14 completed Not Available Not Available Not Available levothyroxi ne 50 mcg tablet take 1 tablet by mouth once daily 02/20 completed Not Available Not Available Not Available ropinirole 2 mg tablet TAKE 1 TABLET BY MOUTH TWICE A DAY active Not Available Not Available No t Available ropinirole 0.5 mg tablet TAKE 1 TABLET BY MOUTH EVERY DAY 12/24 completed Not Available Not Available Not Available omeprazole 20 mg capsule,del ayed release TAKE 1 CAPSULE BY MOUTH TWICE DAILY active Not Available Not Available No t Available diclofenac sodium 75 mg tablet,blessing yed release TAKE 1 TABLET BY MOUTH TWICE A DAY 2024 active Not Available Not Available Not Avai lable gabapentin 100 mg capsule Take 1 capsule every day by oral route. 05/07 completed Not Available Not Available Not Available polyethylen e glycol 3350 17 gram/dose oral powder Take 8.5 g every day by oral route. 03/29 completed Not Available Not Available Not Available methylpredn isolone 4 mg tablets in a dose pack 24 mg PO on day 1, then decr. by 4 mg/day x5 days per dose pack instructi ons 07/06 completed Not Available Not Available Not Available celecoxib 100 mg capsule TAKE 1 CAPSULE BY MOUTH EVERY DAY active Not Available Not Available No t Available Vitamin B-12 1,000 mcg tablet TAKE 2 TABLET BY MOUTH EVERY DAY 2020 active Not Available Not Available Not Avai lable nabumetone 500 mg tablet Take 1 tablet twice a day by oral route for 14 days. 12/25 completed Not Available Not Available Not Available oxycodone 5 mg tablet TAKE 1 TABLET BY MOUTH EVERY 4 HOURS NEEDED FOR PAIN 11/28 completed Not Available Not Available Not Available nitrofurant oin monohydrate /macrocryst als 100 mg capsule 05/15 completed Not Available Not Available Not Available Aspir-81 qd active Not Available Not Avai lable Not Available Iron with C qd active Not Available Not A vailable Not Available ProAir HFA 90 mcg/actuati on aerosol inhaler Inhale 2 puffs every 4 hours by inhalatio n route as needed. 06/30 completed Not Available Not Available Not Available diclofenac 1 % topical gel APPLY 2 GRAMS TOPICALLY TO THE AFFECTED AREA(S) 4 TIMES PER DAY NEEDED 05/07 completed Not Available Not Available Not Available Vitamin D3 50 mcg (2,000 unit) capsule Take 1 capsule every day by oral route. active Not Available Not Available No t Available mirabegron ER 25 mg tablet,exte nded release 24 hr TAKE 1 TABLET BY MOUTH EVERY DAY active Not Available Not Available No t Available Fluad 65yr up(PF)45 mcg(15 mcgx3)/0.5 mL intramuscul ar syringe 02/20 completed Not Available Not Available Not Available Vitals Date Recorded Body height Body mass index (BMI) Body weight Heart rate Oxygen saturation Oxygen saturation in Arterial blood by Pulse oximetry Systolic blood pressure Diastolic blood pressure Provider Name and Address Organization Details Last Updated DateTime 3 144.78 cm 35.7 kg/m2 73318.1 g 83 /min 93 % 93 % 166 mm[Hg] 62 mm[Hg] LISA JONES [address] [place], [address] [place], [place] - [facility] 3 09:47:39 Date Recorded Body height Body mass index (BMI) Body weight Systolic blood pressure Diastolic blood pressure Provider Name and Address Organization Details Last Updated DateTime 12/12/2023 144.78 cm 35.7 kg/m2 47724.74 g 120 mm[Hg] 70 mm[Hg] Sayda Merlos [facility] 4 10:57:39 Date Recorded Body height Body mass index (BMI) Body weight Heart rate Oxygen saturation Oxygen saturation in Arterial blood by Pulse oximetry Body temperature Systolic blood pressure Diastolic blood pressure Provider Name and Address Organization Details Last Updated DateTime 4 144.78 cm 34.2 kg/m2 63045.5 9 g 63 /min 96 % 96 % 97.2 [degF] 118 mm[Hg] 78 mm[Hg] Bubba Hansen [facility] 4 13:31:10 Date Recorded Body height Body mass index (BMI) Body weight Heart rate Oxygen saturation Oxygen saturation in Arterial blood by Pulse oximetry Systolic blood pressure Diastolic blood pressure Provider Name and Address Organization Details Last Updated DateTime 4 144.78 cm 34.2 kg/m2 55017.5 9 g 74 /min 97 % 97 % 130 mm[Hg] 60 mm[Hg] Sayda Merlos [facility] 4 14:48:47 Date Recorded Body height Body mass index (BMI) Body weight Heart rate Oxygen saturation Oxygen saturation in Arterial blood by Pulse oximetry Systolic blood pressure Diastolic blood pressure Provider Name and Address Organization Details Last Updated DateTime 4 144.78 cm 34.9 kg/m2 49591.7 3 g 71 /min 93 % 93 % 118 mm[Hg] 72 mm[Hg] Dorothy Junior [facility] 4 16:20:23 Social History Question Answer Notes LastModified by Organizat ion Details LastModified Time Tobacco Smoking Status Never Smoker Not Available [facility] 08/22/2020 03:36:24 What Was The Date Of Your Most Recent Tobacco Screening? 06/14/2024 [email or web address] Information not available 06/14/2024 Do You Or Have You Ever Used Any Other Forms Of Tobacco Or Nicotine? No [email or web address] Information not available 12/12/2023 Sex: Unknown Functional Status None recorded. Mental Status None recorded. Family History Nothing Reported. Medical History No medical history recorded. Gynecological HistoryNo gynecological history recorded. Obstetrics History GPAL:G 0 P 0 0 0 0 Immunizations Vaccine Type Date Status Note Provider Nam e and Address Organization Details Recorded Time COVID-19, mRNA, LNP-S, PF, 30 mcg/0.3 mL dose 1 completed Not Available [facility] 12/01/2023 06:50:20 COVID-19, mRNA, LNP-S, PF, 30 mcg/0.3 mL dose 1 completed Not Available [facility] 12/01/2023 06:50:20 COVID-19, mRNA, LNP-S, PF, 30 mcg/0.3 mL dose 1 completed Not Available [facility] 12/01/2023 06:50:20 Tdap 6 completed Not Available [facility] 12/01/2023 06:50:20 pneumococcal polysaccharide PPV23 4 completed Not Available [facility] 12/01/2023 06:50:20 Pneumococcal conjugate PCV 13 7 completed Not Available [facility] 12/01/2023 06:50:20 zoster, unspecified formulation 5 completed Not Available [facility] 12/01/2023 06:50:20 Influenza, split virus, quadrivalent, preservative 9 completed Not Available [facility] 12/01/2023 06:50:20 Past Encounters Encounter ID Performer Location Encounter Start Date Encounter Closed Date Diagnosis/Indication Diagnosis SNOMED-CT Code Diagnosis ICD10 Code Diagnosis Note [id number] Aric Espinoza [facility] Internal Medicine [address] [place] [address], [place] [address] 05/15/2018 15:14:20 05/18/2018 07:57:41 Pain of multiple joints 50977994 M25.50 Anxiety 08208487 F41.9 [id number] Aric Espinoza [facility] Internal Medicine [address] [facility], [place] [address] 06/30/2018 09:03:45 06/30/2018 09:44:55 Chronic low back pain 298078358 M54.5 ? SI joint OA Pain of ri ght hip joint 8777302147 37404 M25.551 ? related to low back pain rather than right hip joint Anxiety 01968761 F41.9 she tried to taper off the citalopram but ended up having a headache every day so she went back up to 10 mg and felt better. she has no desire to change dose at this point Hypercholesterolemia 136 63033 E78.00 Hypothyroidism 19283276 E03.9 [id number] Aric Espinoza [facility] Internal Medicine [address] [facility],[place] [facility] [address] 07/06/2018 09:47:56 07/06/2018 10:34:37 Chronic low back pain 396524214 M54.5 improved with medrol dose pack will have f/u with ortho/back spec this friday Pain of ri ght hip joint 5399449155 59429 M25.551 improved with medrol dose pack Anxiety 10764081 F41.9 well controlled Hypercholesterolemia 136 41218 E78.00 due to have labs Hypothyroidism 31365063 E03.9 due to have labs [id number] Aric Espinoza [facility] Internal [facility] [address] [facility], [place] [address] 08/24/2018 08:47:09 08/24/2018 10:28:06 Chronic low back pain 318502593 M54.5 no change in pain since injection and now having paresthesi as/radicul opathy, needs to f/u with orhto Pain of ri ght hip joint 5330329639 68944 M25.551 no change since injection - needs to f/u with ortho Anxiety 28190556 F41.9 well controlled Hypercholesterolemia 136 92907 E78.00 within range Hypothyroidism 93453666 E03.9 labs one 07/07 normal [id number] Aric Espinoza [facility] Internal Medicine [address] [facility],[place]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
--- OUTSIDE RECORDS SUMMARY | 2025-02-24 12:36 | XMS_ITS | Clinical Summary ---
Author Organization [address] [facility] Address [address] [place] [address] Phone Care Team Providers Care Chief Airline Radio Operator Name Role Phone Glenn Emma GONZALEZ Primary Care Provider [phone] Allergies No known active allergies Medications atorvastatin (LIPITOR) 80 mg tablet Take 1 tablet (80 mg total) by mouth 1 (one) time each day. 10/21/2024 Active citalopram (CeleXA) 10 mg tablet Take 1 tablet (10 mg total) by mouth 1 (one) time each day. 10/21/2024 Active cyanocobalamin (VIT B-12) 1,000 mcg tablet extended release ER tablet Take 2 tablets (2,000 mcg total) by mouth 1 (one) time each day. 09/25/2024 Active diazePAM (VALIUM) 2 mg tablet take 1 tablet by mouth three times a day as needed for 30 days 04/16/2024 Active diclofenac (VOLTAREN) 75 mg EC tablet Take 1 tablet (75 mg total) by mouth 2 (two) times a day. 09/06/2024 Active dicyclomine (BENTYL) 20 mg tablet Take 1 tablet (20 mg total) by mouth 2 (two) times a day. 03/19/2024 Active levothyroxine (SYNTHROID, LEVOTHROID) 75 mcg tablet Take 1 tablet (75 mcg total) by mouth 1 (one) time each day. 10/21/2024 Active mirabegron (MYRBETRIQ) 25 mg 24 hr tablet Take 1 tablet (25 mg total) by mouth 1 (one) time each day. 09/06/2024 Active omeprazole (PriLOSEC) [address] capsule Take 1 capsule (20 mg total) by mouth 2 (two) times a day. 09/11/2024 Active pramipexole (MIRAPEX) 1 mg tablet Take 1 tablet (1 mg total) by mouth 2 (two) times a day. 06/12/2024 Active cholecalciferol (VITAMIN D-3) 50 mcg (2,000 unit) tablet Take 1 tablet (2,000 Units total) by mouth 1 (one) time each day. Active ascorbic acid (VITAMIN C) 1,000 mg tablet Take 1 tablet (1,000 mg total) by mouth 1 (one) time each day. Active Active Problems Problem Noted Date Diagnosed Date S/P lumbar fusion 11/04/2024 Assessment & Plan (11/04/2024 5:34 PM EST): Patient is s/p L4-5, L5-S1 fusion 01/05/[address] Chan and Chicho. She states preop she had constant low back pain, it somewhat improved after her fusion surgery. However one of her main concerns is since surgery she gets random episodes where her body will jump and shake, seems to start in the mid back and both arms and legs will jump with her torso. She is not experiencing any tremors. It seems to happen when she is either sitting too long, long car drives, laying flat in bed. At times it keeps her from sleeping. However there are some days where she feels fine, can go a couple days without any of these episodes. She does not feel that it is related to any medication. She also notes numbness from the knees down to the feet after sitting for a while. She feels her ability to walk distances is going down with time. Today her back pain is not bad, but recently was flared up, she seems to point to the SI joints as her area of pain. She tried physical therapy a couple times over the last 5 years, at least once postop. A few years ago saw chiropractor. Last year tried acupuncture, it did help temporarily, is slow down her episodes of body jumping, she went for 4 months, but it was difficult to get daytime appointments and she does not drive well at night. Pain management notes mention that patient did have a brain MRI that was negative. Patient had lumbar spine MRI 03/07/2024 ordered from [facility]. She has pedicle screws and hardware from L4-S1. Radiologist states compared to 2018 MRI her alignment is improved. She has some adjacent segment degenerative changes at L3-4, moderate-severe central stenosis, DJD and thickening of the ligamentum flavum. 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 This was never followed up on, patient was not aware of this finding. I reviewed MRI images in detail with the patient. Patient had EMG 03/18/[address] 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 Ms. Andrade is approximately 6 years s/p L4-S1 fusion, experiencing low back pain, progressive difficulty walking distances. I will review her MRI with Dr. Soriano, see if she recommends any surgery. Neurology note with Dr. Lester 05/29/2020 reviewed, patient had described these episodes of body jumpiness, he recommended referral to sleep medicine, we will look into this for her. I sent a message to her PCP about the pancreatic cystic structure and needing 6-month follow-up MRI/MRCP, which is overdue. Patient is aware as well and will follow-up with PCP for this. I cannot explain the body jumping episodes, she did not have hyperreflexia or describes symptoms that would be related to cord compression, she does not recall if she had any cervical or thoracic MRIs ordered. I asked her to try to keep a diary and see if there is anything that tends to consistently flareup the symptoms. She has mild neck pain, we could consider checking cervical MRI. I asked her to call if she has any worsening symptoms, all questions answered. Encounters Date Type Department Care Team Description 12/03/2024 Telephone Neurosurgery [facility] - [address] [place] [address] Shalonda Hill PA from Last 3 Months Immunizations Name Administration Dates Next Due Influenza Quadravalent, 0.5m l (Fluzone High-dose) 65yo and older 06/04/2022 Influenza Quadrivalent, 0.5m l, preservative free (Fluarix; FluLaval; Fluzone) ages 6mo and older (Afluria) 3yo and older 06/23/2014,08/13/2013 Influenza trivalent, 0.5mL (Fluad) 65yo and olde r 07/01/2016 Influenza trivalent, with pr eservative (Fluzone; Afluria) 6mo and older 09/25/2012,06/20/2011 Pneumococcal conjugate 13 va lent (Prevnar 13, PCV13) 2mo and older 12/10/2016 Td Tetanus diptheria, preser vative free (Tenivac) 7yo and older 06/20/2011 Tdap Tetanus diptheria acell ular pertussis (Boostrix; Adacel) 7yo and older 06/15/2013 Surgical History Surgery Date Site/Laterality Comments HYSTERECTOMY N/A Hx of total hysterectomy w/bilateral salpingo-oophorectomy - onset: 01/13/18 - 1984 LUMBAR FUSION Lumbar spinal fusion - 12/29/18 - with decompression laminectomy Medical History Medical History Date Comments Hypothyroidism Hypercholesterolemia Anxiety Depressive disorder Transient cerebral ischemia Gastroesophageal reflux disease Actinic keratosis Seborrheic keratosis Osteoarthritis Arthritis Spinal stenosis of lumbar region Lumbar radiculopathy Social History Tobacco Use Types Packs/Day Years Used Date Smoking Tobacco: Never Smokeless Tobacco: Never Comments Unknown Sex and Gender Information Value Date Recorded Sex Assigned at Not on file Legal Sex Female 3:49 PM EST Gender Identity Not on file Sexual Orientation Not on file Obstetrics History Last Filed Vital Signs Vital Sign Reading Time Taken Comments Blood Pressure - - Pulse - - Temperature - - Respiratory Rate - - Oxygen Saturation - - Inhaled Oxygen Concentration - - Weight 72.6 kg (160 lb) 11/04/2024 10:19 AM EST Height 147.3 cm (4' 10 ) 11/04/2024 10:19 AM EST Body Mass Index 33.44 11/04/2024 10:19 AM EST Plan of Treatment Health Maintenance Due Date Last Done Comments Zoster Vaccines (1 of 2) 1959 10/20/2014 RSV Immunization Adult Patients (1 - 1-dose 75+ series) 2013 COVID-19 Vaccine ( season) 2024 06/04/2022, 10/19/2021, 12/14/2020, Additional history exists Cholesterol Screening (Lipid Panel) 10/29/2024 Depression Screening 10/29/2024 Falls Risk Assessment 10/29/2024 Medicare Annual Wellness Visit 10/29/2024 Osteoporosis Screening (Bone Density Screening) 10/29/2024 Social Influencers of Health Screening 10/29/2024 Influenza Vaccine (Season Ended) 2025 06/04/2022, 09/27/2019, 07/01/2016, Additional history exists DTaP,Tdap,and Td Vaccines (4 - Td or Tdap) 12/19/2025 12/20/2015, 06/15/2013, 06/20/2011 Pneumococcal Vaccine: 50+ Years Completed 12/10/2016, 10/20/2013 HIB Vaccines Aged Out No longer eligi ble based on patient's age to complete this topic HPV Vaccines Aged Out No longer eligi ble based on patient's age to complete this topic Hepatitis A Vaccines Aged Out No long er eligible based on patient's age to complete this topic Hepatitis B Vaccines Aged Out No long er eligible based on patient's age to complete this topic IPV Vaccines Aged Out No longer eligi ble based on patient's age to complete this topic MMR Vaccines Aged Out No longer eligi ble based on patient's age to complete this topic Meningococcal ACWY Vaccine Aged Out N o longer eligible based on patient's age to complete this topic Meningococcal B Vaccine Aged Out No l onger eligible based on patient's age to complete this topic RSV Immunization Patients Under 20 months Aged Out No longer eligible based on patient's age to complete this topic Varicella Vaccines Aged Out No longer eligible based on patient's age to complete this topic Insurance [id number] Care Teams Chief Airline Radio Operator Relationship Specialty Start Date End Date Emma Elizabeth PA [address] [place] [id number] PCP - General 10/28/24
== END 2025-02-24 12:31 | disposition home or self-care (01) ==
LOC: HO.HUSH 11:05
PROVIDERS: PCP Physician Assistant; Visit Provider Urology
DX: Z13.9 Encounter for screening, unspecified (principal)

== ENCOUNTER 2025-02-28 10:02 | Outpatient (REF) | payer MEDICARE, SELFPAY ==
--- OUTSIDE RECORDS SUMMARY | 2025-02-28 10:29 | XMS_ITS | Data Portability ---
Author Organization [facility], FORMERLY [facility] Address [address] [place] [address] Care Team Providers Care Production Expert Name Role Phone ESTHER CLIFFORD Phys. Med. [...] protein derivat jerson), skin test [email or web address] [place] [address], [address] [place] [address], [address], 5 09:32:55 lipid panel, serum 2013 015 [facility], [address] [place], [address], 5 11:24:31 BMP, serum or plasma 2013 014 [facility], [address] [place], [address], 4 10:49:46 TSH, serum or plasma 2013 014 [facility], [address] [place], [address], 4 12:55:33 Referral None recorde d. Procedures None recorde d. Surgeries None recorde d. Imaging bone density study - prolong ed use of PPI 2013 014 [facility] (Imaging), [address], [place], [address], 5 23:07:06 Medication Orders None recorde d. Patient TargetsNo targets recorded. Patient Instructions Encounter Date Encounter Id Patient Instructions Last Modified By Organization Details Last Modified Time 06/23/2014 [id number] advance directives: care instructions [email or web address] Not available [...] vaccine 5. updated flu shot today at [facility] 6. PHA next year; bone density this year 7. pt information on gas and bloating, will try pepto-bismol 8. depression - stable on citalopram 9. GERD - stable on omeprazole. shanna Not available 06/23/2014 10:46:15 12/01/2014 [id number] 1. discussed all questions on form, specially [...] rline High >240 mg/dl High Not Available [address], [address], 06/16/2014 11:20:45 06/16/20 14 06/16/2014 lipid panel , serum triglyceride s 204 mg/dL <150 mg/dL Jazmyn l 150-1 99 mg/dL Borde rline High 200-4 99 mg/dL High >500 mg/dL Very High Not Available [address], [address], 06/16/2014 11:20:45 06/16/20 14 06/16/2014 lipid panel , serum direct HDL 39 mg/dL Not Available [address], [address], 06/16/2014 11:20:45 06/16/20 14 06/16/2014 LDL, calcu [...] r is not patrick dailey. Not Available [address], [address], 06/16/2014 11:20:47 06/16/20 14 06/16/2014 TSH, serum or plasm a TSH 0.01 uIU/m L 0.50-6 .00 low The Ameri can Colle ge of Endoc rinol ogy and Ameri can Thyro id Assoc iatio n recom mend goal TSH value s betwe en 1.0-2 .5 mIU/m L. Not Available [address], [address], 06/16/2014 11:37:56 08/01/20 14 08/01/2014 BMP, serum or plasm a glucose 89 mg/dL 70-100 Not Available [address], [address], 08/01/2014 10:49:46 08/01/20 14 08/01/2014 BMP, serum or plasm a BUN 15 mg/dL 7-18 Not Available [address], [address], 08/01/2014 10:49:46 08/01/20 14 08/01/2014 BMP, serum or plasm a creatinine 1.1 mg/dL 0.8-1. 3 Not Available [address], [address], 08/01/2014 10:49:46 08/01/20 14 08/01/2014 BMP, serum or plasm a B/C 13.6 ratio Not Available [address], [address], 08/01/2014 10:49:46 08/01/20 14 08/01/2014 BMP, serum or plasm a GFR 54.2 mL/mi n Recom summer d GFR by the Natio nal Kidne y Found ation >60 mL/mi n/1.7 3m2 - Jazmyn l <60 mL/mi n/1.7 3m2 - Chron ic Kidne y Disea se <15 mL/mi n/1.7 3m2 - Kidne y Failu re Not Available [address], [address], 08/01/2014 10:49:46 08/01/20 14 08/01/2014 BMP, serum or plasm a GFR - if 62.4 mL/mi n For Afric an Ameri can patie nts: Resul ts Multi plied by 1.21 Not Available [address], [address], 08/01/2014 10:49:46 08/01/20 14 08/01/2014 BMP, serum or plasm a sodium 144 mmol/ L 136-14 5 Not Available [address], [address], 08/01/2014 10:49:46 08/01/20 14 08/01/2014 BMP, serum or plasm a potassium 4.2 mmol/ L 3.5-5. 1 Not Available [address], [address], 08/01/2014 10:49:46 08/01/20 14 08/01/2014 BMP, serum or plasm a chloride 105 mmol/ L 96-107 Not Available [address], [address], 08/01/2014 10:49:46 08/01/20 14 08/01/2014 BMP, serum or plasm a anion gap 8.2 5.0-15 .0 Not Available [address], [address], 08/01/2014 10:49:46 08/01/20 14 08/01/2014 BMP, serum or plasm a CO2 31 mmol/ L 21-32 Not Available [address], [address], 08/01/2014 10:49:46 08/01/20 14 08/01/2014 BMP, serum or plasm a calcium 9.2 mg/dL 8.5-10 .3 Not Available [address], [address], 08/01/2014 10:49:46 08/01/20 14 08/01/2014 TSH, serum or plasm a TSH 0.05 uIU/m L 0.50-6 .00 low The Ameri can Colle ge of Endoc rinol ogy and Ameri can Thyro id Assoc iatio n recom mend goal TSH value s betwe en 1.0-2 .5 mIU/m L. Not Available [address], [address], 08/01/2014 12:55:33 09/13/20 14 09/13/2014 TSH, serum or plasm a TSH 1.59 uIU/m L 0.50-6 .00 The Ameri can Colle ge of Endoc rinol ogy and Ameri can Thyro id Assoc iatio n recom mend goal TSH value s betwe en 1.0-2 .5 mIU/m L. Not Available [address], [address], 09/13/2014 13:49:24 12/09/19 15 12/09/2014 PPD (ruth fied prote in deriv ative ), skin test TB negati ve Not Available [address], [address], 12/07/2014 09:32:24 12/30/19 15 12/29/2014 lipid panel , serum cholesterol 139 mg/dL <200 mg/dl Dk able 200-2 39 mg/dl Borde rline High >240 mg/dl High Not Available [address], [address], 12/29/2014 11:24:31 12/30/19 15 12/29/2014 lipid panel , serum triglyceride s 222 mg/dL <150 mg/dL Jazmyn l 150-1 99 mg/dL Borde rline High 200-4 99 mg/dL High >500 mg/dL Very High Not Available [address], [address], 12/29/2014 11:24:31 12/30/19 15 12/29/2014 lipid panel , serum direct HDL 39 mg/dL Not Available [address], [address], 12/29/2014 11:24:31 12/30/19 15 12/29/2014 LDL, calcu [...] r is not neces asim. Not Available [address], [address], 12/29/2014 11:24:32 02/27/20 15 02/22/2015 bone densi [...] Christelle ames Physic gonzalo: Efrain Marrero MD [facility] [address] [place] [address] , [place], [address], 03/16/2015 16:19:10 Result Notes None recorded. Problems Name Problem SNOMED Code Status Onset Date Resolution Date Notes Provider Name and Address Organization Details Recorded Time Sprain of sacroiliac ligament 40612093 Completed 09/08/2013 Not Available [facility] 3 02:04:08 Sciatica 79009320 Active Not Available [facility] 3 03:15:29 Mixed hyperlipid emia 811497112 Active Bob Valladares MD [address] [place] [address], [address] , [facility] 4 18:43:03 Nervous system symptoms Completed 09/08/2013 Not Available [facility] 3 02:03:49 Benign paroxysmal positional vertigo 851283416 Active Not Available [facility] 3 03:15:29 Low back pain 012984099 Active Not Available [facility] 3 03:15:29 Allergic rhinitis 33788555 Active Not Available [facility] 3 03:15:29 Hypothyroi dism 21737737 Active Bob Valladares MD [address] [place], [address] , [facility] 4 15:59:19 Problem Notes None recorded. Procedures Surgical History Date Name Laterality Status Provider Name and Address Organization Details Recorded Time 06/23/20 14 Medicare Wellness Visit completed Tasha Kauffman CMA [facility] 06/23/2014 09:54:13 04/27/20 14 Treatment and Advice completed Esther Clifford Ms, PT [address] [place], [address], [facility] 04/27/2014 08:01:30 06/15/20 13 Medicare Wellness Visit completed Tasha Kauffman CMA [facility] 06/15/2013 11:09:42 Total Hysterectomy completed Not Available [facility] 09/05/2011 06:06:16 Imaging Results Imaging Date Name Status LastModified by Organiz ation Details LastModified Time 02/22/[address] [facility]) [address], [place], [address], 03/16/2015 16:19:10 Procedure Notes None recorded. Medical Equipment None Reported. Allergies Allergen ID Allergen Name Allergen Category Reaction Reaction Severity Criticality Documentation Date Start Date Code Code System Note Provider Name and Address Organization Details Recorded Time 07327 naproxen medicatio n vomiting Not available Not available 04/23/20112010 7258 RxNorm Not Available [facility] 1 06:05:41 75953 ibuprofen medicatio n vomiting Not available Not available 05/06/2011 5640 RxNorm Tasha Kauffman CMA [facility] 4 07:44:15 Medications Name Sig Start [...] Address Organization Details Last Updated DateTime 4 71604.5 32216 g 72 /min 32.2 kg/m2 146.05 cm 114 mm[Hg] 62 mm[Hg] Tasha Kauffman [facility] 4 09:58:04 Date Recorded Body height Body mass index (BMI) Body weight Heart rate Systolic blood pressure Diastolic blood pressure Provider Name and Address Organization Details Last Updated DateTime 5 146.05 cm 32.2 kg/m2 72021.5 51470 g 68 /min 100 mm[Hg] 60 mm[Hg] Tasha Kauffman [facility] 5 14:01:14 Social History Question Answer Notes LastModified by [employer] Details LastModified Time Tobacco Smoking Status Never Smoker Not Available [facility] 09/05/2011 04:56:30 How Many Days In The Past Year Have You Had A Heavy Drinking Consumption (4+ Female, 5+ Male)? 0 Information no t available 06/15/2013 Live Alone Or With Others? With Others Rivera Love (both Are Disabled). [email or web address] Information not available 04/15/2011 Patient Has Health Care Proxy Signed And In Chart Yes Daughter Lyric Information not available 09/05/2011 Marital Status Has Partner X 17 Yrs Information not available 06/15/2013 How Many Children Do You Have? 6 Had 7, 1 Was Killed In MVA [email or web address] Information not available 04/15/2011 Sex: Unknown Functional Status Question Answer Note LastModified by [employer] Details LastModified Time What is your level of alcohol consumption? 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 Information not available 06/23/2014 Mental Status None recorded. Family History Relationship [...] preservative free, adsorbed 1 completed Not Available [facility] 11/06/2019 02:16:59 Influenza, split virus, trivalent, preservative 1 completed Not Available [facility] 11/06/2019 02:39:39 Influenza, split virus, trivalent, preservative 2 completed Not Available [facility] 11/06/2019 02:18:37 Tdap 3 completed Not Available [facility] 11/06/2019 02:16:07 Influenza, split virus, quadrivalent, PF 3 completed Not Available [facility] 11/06/2019 02:37:18 Influenza, split virus, quadrivalent, PF 4 completed Not Available [facility] 11/06/2019 02:36:27 Past Encounters Encounter ID Performer Location Encounter Start Date Encounter Closed Date Diagnosis/Indication Diagnosis SNOMED-CT Code Diagnosis ICD10 Code Diagnosis Note [id number] Terrell Lord MD FP, [facility], OFFICE [address] [place] [address] 04/15/2011 09:10:27 04/15/2011 10:26:37 [id number] [facility] FOOD STOREROOM CLERK Radiology , [facility] [address] [place] [address] 04/16/2011 13:06:50 04/17/2011 11:08:09 [id number] OSKAR Cutler, [facility], OFFICE [address] [place] [address] 04/23/2011 16:16:03 04/25/2011 13:57:43 [id number] Maggy Keith, PT Physical Therapy, [facility] [address] [place] [place] [address] 05/02/2011 08:43:49 05/02/2011 12:31:42 [id number] Bob Valladares MD , [facility], OFFICE [address] [place] [address] 05/06/2011 13:29:27 05/06/2011 14:01:38 [id number] Maggy Keith, PT Physical Therapy, [facility] [address] [place] [place] [address] 05/07/2011 08:13:36 05/07/2011 09:28:26 [id number] Maggy Keith, PT Physical Therapy, [facility] [address] [place] [place] [address] 05/10/2011 10:41:11 05/10/2011 11:38:17 [id number] Maggy Keith, PT Physical Therapy, [facility] [address] [place] [place] [address] 05/14/2011 10:20:42 05/14/2011 11:03:39 [id number] Maggy Keith, PT Physical Therapy, [facility] [address] [place] [place] [address] 05/16/2011 11:40:25 05/16/2011 14:00:43 [id number] MD LALA Mendez, [facility], OFFICE [address] [place] [place] [address] 05/20/2011 13:05:20 05/20/2011 13:48:51 [id number] [facility] REPAIRER SASH AND DOOR Radiology , [facility] [address] [place] [address] 05/20/2011 13:51:40 05/22/2011 13:32:48 [id number] Bob Valladares MD , [facility], OFFICE [address] [place] [address] 06/20/2011 10:40:31 06/20/2011 11:49:50 [id number] [facility] FP TREATMENT NURSE FP, [facility], OFF[address] [facility] [place] [place] [address] 08/23/2011 09:23:33 08/26/2011 14:37:35 [id number] Bob Valladares MD FP, [facility], OFFICE [address] [facility] [place] [address] 12/10/2011 15:05:10 12/10/2011 16:04:51 [id number] Lucina Tomas MD FP, [facility], OFFICE [address] [facility] [place] [address] 01/14/2012 15:14:21 01/14/2012 16:26:52 [id number] Dina Clark Mph, LPT Physical Therapy, [facility] [address] [facility] [place] [address] 01/16/2012 15:10:31 01/17/2012 07:59:19 [id number] Bob Valladares MD , [facility], OFFICE [address] [facility] [place] [address] 03/10/2012 15:00:26 03/10/2012 18:51:24 [id number] Bob Valladares MD FP, [facility], OFFICE [address] [facility] [place] [address] 04/27/2012 13:38:28 04/27/2012 14:32:23 [id number] [facility] FP TREATMENT NURSE , [facility], OFFICE [address] [facility] [place] [address] 09/25/2012 14:09:17 09/25/2012 15:21:39 [id number] Bob Valladares MD FP, [facility], OFFICE [address] [facility] [place] [address] 02/16/2013 09:53:58 02/16/2013 10:38:19 [id number] MD LALA Mendez, [facility], OFFICE [address] [facility] [place] [address] 06/15/2013 10:36:30 06/15/2013 12:13:50 Adult health examination 422458423 see Risk Assessment and Lifestyle Change Counseling section above Counseling [id number] Screening mammography 95340415 Flatulence symptom 447676238 Hypothyroidism 64919250 Administra tion of diphtheria, pertussis, and tetanus vaccine 296285257 [id number] Kinga Dutton NP FP, [facility], OFFICE [address] [place] [address] 06/18/2013 16:00:57 06/18/2013 16:40:52 Vaccine adverse reaction 344905935 Local reaction to Tdap. [id number] Bob Valladares MD , [facility], OFFICE [address] [place] [address] 08/13/2013 06:46:48 08/13/2013 11:48:08 Influenza vaccine needed 7772581768 [id number] Bob Valladares MD , [facility], OFFICE [address] [place] [address] 12/07/2013 11:36:19 12/07/2013 12:50:48 Muscle strain 94142256 Tight chest 38930370 [id number] Bob Valladares MD , [facility], OFFICE [address] [place] [address] 04/14/2014 07:31:49 04/14/2014 08:07:27 Shoulder joint painful on movement 245496213 [id number] Esther Clifford Ms, PT Physical Therapy, [address] [address] 04/27/2014 07:25:01 04/27/2014 12:22:10 Shoulder joint painful on movement 920791603 [id number] Esther Clifford Ms, PT Physical Therapy, [address] [address] 05/10/2014 07:33:01 05/10/2014 08:37:47 Shoulder joint painful on movement 113354694 [id number] Esther Clifford Ms, PT Physical Therapy, [address] [address] 05/12/2014 07:30:55 05/12/2014 10:19:50 Shoulder joint painful on movement 597143773 [id number] Esther Clifford Ms, PT Physical Therapy, [address] [address] 05/25/2014 07:40:39 05/25/2014 10:50:22 Shoulder joint painful on movement 793043646 [id number] Bob Valladares MD , [facility], OFFICE [address] [place] [address] 06/23/2014 09:31:53 06/23/2014 10:46:09 Adult health examination 028724663 see Risk Assessment and Lifestyle Change Counseling section above Counseling [id number] Influenza vaccine needed 7225527001 106 Shoulder j oint painful on movement 939418226 Hypothyroidism 87944488 Mixed hyperlipidemia 685387482 Recurrent major depression 98464329 Gastroesop hageal reflux disease 784001056 [id number] Bob Valladares MD , [facility], OFFICE [address] [place] [address] 12/01/2014 13:37:29 12/01/2014 14:26:39 [id number] Bob Valladares MD , [facility], OFFICE [address] [place] [address] 12/07/2014 09:03:59 12/07/2014 12:01:35 Tuberculosis screening 182025037 Health Concerns Section Related Observation LastModified by Organization Detai ls LastModified Time None Recorded Concern Status LastModified by Organization Details LastModified Time None Recorded Advance Directives Directive None Recorded Payers Encounter Date Sequence Insurance Name Policy Number Policy Cordova Covered Member ID Cordova Member ID Guarantor Name 05/12/2014 1 [facility]: MEDICARE PPO BLUE (MEDICARE REPLACEMENT PPO) [id number] Joyce Roaana [id number] Joyce Lupe 05/25/2014 1 [facility]: MEDICARE PPO BLUE (MEDICARE REPLACEMENT PPO) [id number] Joyce Roaana [id number] Joyce Lupe 06/23/2014 1 [facility]: MEDICARE PPO BLUE (MEDICARE REPLACEMENT PPO) [id number] Joycegrace Roaana [id number] Joyce Lupe 12/01/2014 1 [facility]: MEDICARE PPO BLUE (MEDICARE REPLACEMENT PPO) [id number] Joyce Roaana [id number] Joyce Andrade 12/07/2014 1 [facility]: MEDICARE PPO BLUE (MEDICARE REPLACEMENT PPO) [id number] Joyce Andrade [id number] Joyce Andrade Notes Date Note Type Note Provider Name and Address Organization Details Recorded Time 05/12/2014 text/html I think I may nelson ve overdone it yesterday with yardwork and moving around the patio furniture, L arm sore today. Esther Clifford Ms, PT [address] [place], [address], [facility] 05/12/2014 09:53:21 05/25/2014 text/html Some days no keyshawn n at all and then days with pain. I feel it right now in the biceps and I tend to feel it more there than anywhere else. I was fine when I got up this morning but since sitting in the waiting room it started in the arm. Esther Clifford Ms, PT [address] [place], [address], [facility] 05/25/2014 10:09:12 12/01/2014 text/html Pt here for [...] personal hygiene care. Bob Valladares MD [address] [place], [address], [facility] 12/02/2014 17:49:41 OBGyn Episode No OBEpisode recorded.
--- OUTSIDE RECORDS SUMMARY | 2025-02-28 10:29 | XMS_ITS | Clinical Summary ---
Author Organization [address] [facility] Address [address] [place] [address] Phone Care Team Providers Care Hand Stapler Name Role Phone Glenn Emma GONZALEZ Primary Care Provider [phone] Allergies No known active allergies Medications atorvastatin [...] had lumbar spine MRI 03/07/2024 ordered from [facility]. She has pedicle screws and hardware from [...] Department Care Team Description 12/03/2024 Telephone Neurosurgery [place] - [address] [place] [address] Shalonda Hill PA from Last [...] to complete this topic Insurance MEDICAID - [place] MEDICARE ADVANTAGE Care Teams Hand Stapler Relationship Specialty Start Date End Date Emma Elizabeth PA [address] [place] [phone] PCP - General 10/28/24
--- OUTSIDE RECORDS SUMMARY | 2025-02-28 10:29 | XMS_ITS | Data Portability ---
Author Organization [facility] [employer] [facility], Main Office Address [address], [address] [place] [address] Care Team Providers Care [employer] Supervisor Name Role Phone LEO AVILA ([place]) OTHER Assessment Encounter Date Assessment Date Assessment LastModified by Organization Details LastModified Time 01/01/2019 01/01/2019 3: wbc 14.97, hgb 8.6, hct 25.9 glord [...] Address Organization Details Recorded Time Spinal stenosis 93697237 Active [address], [address], [place], [address], [facility] [employer] [facility] 9 11:21:13 Arthritis 4477853 Active [address], [address], [place], [address], [facility] [employer] [facility] 9 11:21:34 Gastroesoph ageal reflux disease 299954126 Active [address], [address], [place], [address], [facility] [employer] 9 11:21:38 Hyperlipide montez 66601483 Active [address], [address], [place], [address], [facility] [employer] 9 11:21:45 Hypothyroid ism 56139715 Active [address], [address], [place], [address], [facility] 9 11:21:51 Pain of right hip joint 2444526278793 02 Active [address], [address], [place], [address], [facility] 9 11:22:02 Inflammatio n of sacroiliac joint 71912921 Active [address], [address], [place], [address], [facility] 9 11:23:14 Seasonal allergy 606943435 Active [address], [address], [place], [address], [facility] 9 11:23:25 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 Procedures Surgical History Date Name Laterality Status Provider Name and Address Organization Details Recorded Time 3 hysterectomy completed [address], [address], [place], [address], [facility] 01/01/2019 11:23:53 Imaging Results None recorded. Procedure [...] % 91 % 147.32 cm 33.2 kg/m2 59227.1 9 g 122 mm[Hg] 64 mm[Hg] VLADISLAV [address], [address], [place], [address], [facility] 9 11:19:24 Date Recorded Body height Heart rate Respiratory rate Body temperature Systolic blood pressure Diastolic blood pressure Provider Name and Address Organization Details Last Updated DateTime 9 147.32 cm 61 /min 20 /min 98.4 [degF] 100 mm[Hg] 45 mm[Hg] [address], [address], [place], [address], [facility] 9 08:54:35 Date Recorded Body height Systolic blood pressure Diastolic blood pressure Provider Name and Address Organization Details Last Updated DateTime 01/05/2019 147.32 cm 108 mm[Hg] 58 mm[Hg] Lavon Bowie MD [address] [facility], [address], [place], [address], [facility] 01/05/2019 11:44:03 Date Recorded Body height Heart rate Respiratory rate Body temperature Systolic blood pressure Diastolic blood pressure Provider Name and Address Organization Details Last Updated DateTime 9 147.32 cm 61 /min 20 /min 99.1 [degF] 108 mm[Hg] 45 mm[Hg] [address], [facility] [address], [place], [address], [facility] 9 16:04:03 Social History Question Answer Notes LastModified by Organizat ion Details LastModified Time Tobacco Smoking Status Never Smoker Not Available [employer] 08/15/2020 03:13:20 Do You Have An Advance Directive? Yes Full Code [id number] Information not available 08/15/2020 How Much Tobacco Do You Chew? None [id number] Information not available 08/15/2020 What Was The Date Of Your Most Recent Tobacco Screening? 01/11/2019 [id number] Information not available 08/15/2020 How Much Tobacco Do You Smoke? No [id number] Information not available 08/15/2020 Has Tobacco Cessation Counseling Been Provided? No [id number] Information not available 08/15/2020 How Many Years Have You Smoked Tobacco? 0 [id number] Information not available 08/15/2020 Sex: Unknown Functional Status Question Answer Note LastModified by Organization D etails LastModified Time What is your level of alcohol consumption? None [id number] Information not available 08/15/2020 Mental Status None recorded. Family History Relationship [...] SNOMED-CT Code Diagnosis ICD10 Code Diagnosis Note [id number] VLADISLAV [place] [address] [place] [address] 01/01/2019 11:16:40 01/07/2019 11:38:30 Pain of right hip joint 1472510043 58782 M25.551 See HPI s/p fusionPT/O T eval and treat-alex ent appears very drowsy and sedated today, will decrease oxycodone to only 5 mg q 4 hours PRN, had 10 this morning and overnight. Spinal stenosis 43819283 M48.04 gabapentin 100 mg TIDoxycodo ne as needed, monitor for pain control Hypothyroidism 42340846 E03.8 levothyrox ine 50 mcg daily, monitor TSH as needed Gastroesop hageal reflux disease 407629429 K21.9 Prilosec 20 mg daily, monitor for reflux Depressive disorder 6468 9007 F33.8 Celexa 10 mg daily, monitor mood and consult NEG if needed Constipation 10804541 K5 9.03 Add colace 100 mg BID [id number] VLADISLAV [address] [place] [address] 01/04/2019 08:46:18 01/07/2019 11:53:38 Pain of right hip joint 1612856081 67661 M25.551 See HPI s/p fusionObta in STAT xrays of lumbo sacral region 2 viewsCall ortho and inform him of pain statusgive one time increased oxy dose of 10 mg now [id number] MD LEO Griffin [address] [place] [address] 01/05/2019 11:16:35 01/07/2019 12:46:07 Spinal stenosis 23036738 M48.062 see HPILumbar spinal stenosis with radiculopa thyunderwe ntexcision of L4-5 extradural massexcisi on of right L5-S1 foraminal disc herniation L4-5 and L5-S1 posterior and lateral fusion with segmental screw fixation and bone graftfollo w surgery recsmonito r for pain control and constipati onPT OT eval and treat Anemia due to blood loss 795430694 D50.0 Post op anemiarepe at cbcmonitor need for tx Unsteady gait 319172630 R26.81 PT OT eval and treatmonit or fall risk Gastroesop hageal reflux disease 129881773 K21.9 omeprazole 20 mg qdmonitor for sx relief Hypothyroidism 82612250 E03.8 synthroid 50 mcg qdmonitor tsh prn Hyperlipidemia 57644929 E78.49 carrying dxnot maintained on statin at baselineap pears diet controlled [id number] VLADISLAV LORD LEO AVILA [address] [place] [address] 01/11/2019 15:35:26 01/21/2019 13:36:24 Spinal stenosis 89517785 M48.062 see HPILumbar spinal stenosis with radiculopa [...] at home Anemia due to blood loss 363173700 D50.0 resolved Gastroesop hageal reflux disease 961290118 K21.9 omeprazole 20 mg qd Hypothyroidism 96574763 E03.8 synthroid 50 mcg qdmonitor tsh outpt Hyperlipidemia 66393900 E78.49 carrying dxnot maintained on statin at baselineap pears diet controlled Health Concerns Section Related Observation LastModified by Organization Detai ls LastModified Time None Recorded Concern Status LastModified by Organization Details LastModified Time None Recorded Advance Directives Directive Y: Full Code Payers Encounter Date Sequence Insurance Name Policy Number Policy [place] Covered Member ID [place] Member ID Guarantor Name 01/01/2019 1 [facility] - MEDICARE PREFERRED (MEDICARE REPLACEMENT HMO) HAMPS Joyce Lupe [id number] Joyce Lupe 01/04/2019 1 [facility] - MEDICARE PREFERRED (MEDICARE REPLACEMENT HMO) HAMPS Joyce Lpue [id number] Joyce Lupe 01/05/2019 1 [facility] - MEDICARE PREFERRED (MEDICARE REPLACEMENT HMO) HAMPS Joyce Lupe [id number] Joyce Lupe 01/11/2019 1 [facility] - MEDICARE PREFERRED (MEDICARE REPLACEMENT HMO) HAMPS Joyce Lupe [id number] Joyce Lupe Notes Date Note Type [...] GERD, arthritis and spinal stenosis VLADISLAV ABEBE [address] [place] [address], [address], [place], [address], [facility] 01/05/2019 16:30:48 01/04/2019 text/html This [...] as pain was to be expected. VLADISLAV LORD [address] [place] [address], [address], [place], [address], [facility] [employer] 01/04/2019 08:59:48 01/05/2019 text/html Patient is an [...] continued care and therapy Lavon Bowie MD [address] [facility], [facility] [address], [place], [address], [facility] [employer] 01/05/2019 11:44:28 01/11/2019 text/html This patient is [...] Patient had fall shortly after arrival at , ortho was updated and x ray negative [...] OA, gerd, hld, hypothyroid, spinal stenosis, VLADISLAV ABEBE [address] [facility], [address], [place], [address], [facility] [employer] 01/21/2019 12:41:10 OBGyn Episode No OBEpisode recorded.
--- OUTSIDE RECORDS SUMMARY | 2025-02-28 10:29 | XMS_ITS | Data Portability ---
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 [id number] Aric Espinoza [facility] [address] [facility], [place] [facility] [place] [address] 12/12/2023 10:48:19 12/15/2023 14:25:19 Swelling of bilateral lower limbs 501396106 M79.89 will set up with lab work in addition to US arterial and XR low back to determine exact cause Pain of bi lateral hip joints 4101601831 5280921 M25.551 needs refills [id number] Aric Espinoza [facility] [address] [facility], [place] [address] 01/28/2024 13:25:17 01/28/2024 13:51:50 Pain of bilateral hip joints 4382575150 3464361 M25.551 needs refills Restless legs 67338432 G 25.81 needs refills Spasm 30192398 R25.2 agreed to lab work Lumbar radiculopathy 128 544237 M54.16 will set up with MRI [id number] Aric Espinoza [facility] [address] [facility],[place] [address] 04/16/2024 14:41:41 04/16/2024 15:12:31 Depression screening 359063595 Z13.31 neg Elderly fall 468934749 R 29.6 agreed to XR Depressive disorder 3548 9007 F32.0 stable Spasm of back muscles 20 7777220 M62.830 will increased dosage to TID Osteoarthritis 570372439 M19.90 stable Pain of le ft shoulder joint 9478608615 6713509 M25.512 will set up with XR's 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 second referral, Elenita did the EMG, no f/uwill set up with neuro surg for consult given the severity of the symptoms/p ain [id number] Aric Espinoza [facility] [address] [facility],[place] [address] 06/14/2024 15:47:35 06/14/2024 16:48:30 Seborrheic keratosis 921140726 L82.1 sent in Derm referral Actinic keratosis 141381 007 L57.0 sent in Derm referral Pain of le ft shoulder joint 0150393452 9584502 M25.512 celebrex and tramadol caused side effects Nocturia 244918848 R35.1 told her to double, if that doesn't work will try an alt for her instead of seeing uro again Hypothyroidism 11200747 E03.8 needs refill Health Concerns Section Related Observation LastModified by Organization Detai ls LastModified Time None Recorded Concern Status LastModified by Organization Details LastModified Time None Recorded Advance Directives Directive None Recorded Payers Encounter Date Sequence Insurance Name Policy Number Policy [place] Covered Member ID [place] Member ID Guarantor Name 05/07/2023 1 [facility] - MEDICARE PREFERRED (MEDICARE REPLACEMENT HMO) HAMPS Joyce M Lupe [id number] Joyce M Lupe 05/07/2023 2 [place] Joyce M Lupe [id number] Joyce M Lupe 12/12/2023 1 [facility] - MEDICARE PREFERRED (MEDICARE REPLACEMENT HMO) HAMPS Joyce M Lupe [id number] Joyce M Lupe 12/12/2023 2 [place] Joyce M Lupe [id number] Joyce M Lupe 01/28/2024 1 [facility] - MEDICARE PREFERRED (MEDICARE REPLACEMENT HMO) HAMPS Joyce M Lupe [id number] Joyce M Lupe 01/28/2024 2 [place] Joyce M Lupe [id number] Joyce M Lupe 04/16/2024 1 [facility] - MEDICARE PREFERRED (MEDICARE REPLACEMENT HMO) HAMPS Joyce M Lupe [id number] Joyce M Lupe 04/16/2024 2 [place] Joyce M Lupe [id number] Joyce M Lupe 06/14/2024 1 [facility] - MEDICARE PREFERRED (MEDICARE REPLACEMENT HMO) HAMPS Joyce M Lupe [id number] Joyce M Lupe 06/14/2024 2 [place] Joyce M Lupe [id number] Joyce M Lupe Notes Date Note Type [...] needs 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 LISA JONES [address] [place], [address], [facility] 05/07/2023 10:21:41 4 text/html c/o [...] work and imaging done LISA JONES [address] [place], [address], [facility] 12/12/2023 11:25:28 4 text/html f/u appt the patient is getting a lot of jumping legs at nighthave tried pramipexole and ropinirole will set up with lab work for the patient and MRI of her lumbar spine agreed to plan will start on baclofen in the meantime for patient LISA JONES [address] [place], [address], [facility] 01/28/2024 13:50:32 4 text/html c/o [...] neuro surg for consult LISA JONES [address] [place], [address], [facility] Medicine 04/16/2024 15:10:36 4 text/html c/o lesion [...] see if it works better LISA JONES [address] [place] [address], [place], [address], [facility] 06/14/2024 16:43:34 OBGyn Episode No OBEpisode recorded.
== END 2025-02-28 10:03 | disposition home or self-care (01) ==
LOC: HO.10HDL 10:02
PROVIDERS: Visit Provider Urology
DX: Z13.89 Encounter for screening for other disorder (principal)

== ENCOUNTER 2025-03-01 11:48 | Outpatient (REF) | payer MEDICARE, SELFPAY ==
--- OUTSIDE RECORDS SUMMARY | 2025-03-01 13:14 | XMS_ITS | Data Portability ---
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 refills Spasm 84200631 R25.2 agreed to lab work Lumbar radiculopathy 128 195525 M54.16 will set up with MRI [id number] Aric Espinoza [facility] [address] [address] 04/16/2024 14:41:41 04/16/2024 15:12:31 Depression screening 056039992 Z13.31 neg Elderly fall 661192512 R 29.6 agreed to XR Depressive disorder 3548 9007 F32.0 stable Spasm of back muscles 20 6081185 M62.830 will increased dosage to TID Osteoarthritis 713033893 M19.90 stable Pain of le ft shoulder joint 2751501138 8857785 M25.512 will set up with XR's Spinal lidia nosis of lumbar region 29301653 M48.061 second referral, Elenita did the EMG, no f/uwill set up with neuro surg for consult given the severity of the symptoms/p ain [id number] Aric Espinoza [facility] [address],[place] [address] 06/14/2024 15:47:35 06/14/2024 16:48:30 Seborrheic keratosis 111271653 L82.1 sent in Derm referral Actinic keratosis 073427 007 L57.0 sent in Derm referral Pain of le ft shoulder joint 6878125930 5062862 M25.512 celebrex and tramadol caused side effects Nocturia 481407514 R35.1 told her to double, if that doesn't work will try an alt for her instead of seeing uro again Hypothyroidism 71133746 E03.8 needs refill Health Concerns Section Related Observation LastModified by Organization Detai ls LastModified Time None Recorded Concern Status LastModified by Organization Details LastModified Time None Recorded Advance Directives Directive None Recorded Payers Encounter Date Sequence Insurance Name Policy Number Policy [place] Covered Member ID [place] Member ID Guarantor Name 05/07/2023 1 [facility] - MEDICARE PREFERRED (MEDICARE REPLACEMENT HMO) HAMPS Joyce M Lupe [id number] Joyce M Lupe 05/07/2023 2 [place] Joyce M Lupe [id number] Joyce M Lupe 12/12/2023 1 [facility] - MEDICARE PREFERRED (MEDICARE REPLACEMENT HMO) HAMPS Joyce M Lupe [id number] Joyce M Lupe 12/12/2023 2 [place] Joyec M Lupe [id number] Joyce M Luep 01/28/2024 1 [facility] - MEDICARE PREFERRED (MEDICARE REPLACEMENT HMO) HAMPS Joyce M Lupe [id number] Joyce M Lupe 01/28/2024 2 [place] Joyce M Lupe [id number] Joyce M Lupe 04/16/2024 1 [facility] - MEDICARE PREFERRED (MEDICARE REPLACEMENT HMO) HAMPS Joyce M Lupe [id number] Joyce M Lupe 04/16/2024 2 [place] Joyce M Lupe [id number] Joyce M Lupe 06/14/2024 1 [facility] - MEDICARE PREFERRED (MEDICARE REPLACEMENT HMO) HAMPS Joyce M Lupe [id number] Joyce M Lupe 06/14/2024 2 [place] Joyce M Lupe [id number] Joyce M Lupe Notes Date Note Type [...] needs 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 LISA JONES [address] [place], [address], [facility] 05/07/2023 10:21:41 4 text/html [...] work and imaging done LISA JONES [address] [place], [address], [facility] 12/12/2023 11:25:28 4 text/html f/u appt the patient is getting a lot of jumping legs at nighthave tried pramipexole and ropinirole will set up with lab work for the patient and MRI of her lumbar spine agreed to plan will start on baclofen in the meantime for patient LISA JONES [address] [place], [address], [facility] 01/28/2024 13:50:32 4 text/html [...] neuro surg for consult LISA JONES [address] [place], [address], [facility] 04/16/2024 15:10:36 4 text/html c/o [...] see if it works better LISA JONES [address] [place] [address], [place], [address], [facility] 06/14/2024 16:43:34 OBGyn Episode No OBEpisode recorded.
--- OUTSIDE RECORDS SUMMARY | 2025-03-01 13:14 | XMS_ITS | Data Portability ---
Author Organization [facility], [facility] Address [address] [place] [address] Care Team Providers Care Insulator Tester Name Role Phone ESTHER CLIFFORD Phys. Med. [...] protein derivat jerson), skin test [email or web address] [place] [address], [address] [place] [address], [address], 5 09:32:55 lipid panel, serum 2013 015 [facility], [address] [place], [address], 5 11:24:31 BMP, serum or plasma 2013 014 [facility], [address] [place], [address], 4 10:49:46 TSH, serum or plasma 2013 014 [facility], [address] [place], [address], 4 12:55:33 Referral None recorde d. Procedures None recorde d. Surgeries None recorde d. Imaging bone density study - prolong ed use of PPI 2013 014 [facility] ([facility]), [address], [place], [address], 5 23:07:06 Medication Orders None recorde d. Patient TargetsNo targets recorded. Patient Instructions Encounter Date Encounter Id Patient Instructions Last Modified By Organization Details Last Modified Time 06/23/2014 [id number] advance directives: care instructions [email or web address] Not available [...] vaccine 5. updated flu shot today at [facility] 6. PHA next year; bone density this year 7. pt information on gas and bloating, will try pepto-bismol 8. depression - stable on citalopram 9. GERD - stable on omeprazole. shanna Not available 06/23/2014 10:46:15 12/01/2014 [id number] 1. discussed all questions on form, specially [...] rline High >240 mg/dl High Not Available [address], [address], 06/16/2014 11:20:45 06/16/20 14 06/16/2014 lipid panel , serum triglyceride s 204 mg/dL <150 mg/dL Jazmyn l 150-1 99 mg/dL Borde rline High 200-4 99 mg/dL High >500 mg/dL Very High Not Available [address], [address], 06/16/2014 11:20:45 06/16/20 14 06/16/2014 lipid panel , serum direct HDL 39 mg/dL Not Available [address], [address], 06/16/2014 11:20:45 06/16/20 14 06/16/2014 LDL, calcu [...] r is not patrick dailey. Not Available [address], [address], 06/16/2014 11:20:47 06/16/20 14 06/16/2014 TSH, serum or plasm a TSH 0.01 uIU/m L 0.50-6 .00 low The Ameri can Colle ge of Endoc rinol ogy and Ameri can Thyro id Assoc iatio n recom mend goal TSH value s betwe en 1.0-2 .5 mIU/m L. Not Available [address], [address], 06/16/2014 11:37:56 08/01/20 14 08/01/2014 BMP, serum or plasm a glucose 89 mg/dL 70-100 Not Available [address], [address], 08/01/2014 10:49:46 08/01/20 14 08/01/2014 BMP, serum or plasm a BUN 15 mg/dL 7-18 Not Available [address], [address], 08/01/2014 10:49:46 08/01/20 14 08/01/2014 BMP, serum or plasm a creatinine 1.1 mg/dL 0.8-1. 3 Not Available [address], [address], 08/01/2014 10:49:46 08/01/20 14 08/01/2014 BMP, serum or plasm a B/C 13.6 ratio Not Available [address], [address], 08/01/2014 10:49:46 08/01/20 14 08/01/2014 BMP, serum or plasm a GFR 54.2 mL/mi n Recom summer d GFR by the Natio nal Kidne y Found ation >60 mL/mi n/1.7 3m2 - Jazmyn l <60 mL/mi n/1.7 3m2 - Chron ic Kidne y Disea se <15 mL/mi n/1.7 3m2 - Kidne y Failu re Not Available [address], [address], 08/01/2014 10:49:46 08/01/20 14 08/01/2014 BMP, serum or plasm a GFR - if 62.4 mL/mi n For Afric an Ameri can patie nts: Resul ts Multi plied by 1.21 Not Available [address], [address], 08/01/2014 10:49:46 08/01/20 14 08/01/2014 BMP, serum or plasm a sodium 144 mmol/ L 136-14 5 Not Available [address], [address], 08/01/2014 10:49:46 08/01/20 14 08/01/2014 BMP, serum or plasm a potassium 4.2 mmol/ L 3.5-5. 1 Not Available [address], [address], 08/01/2014 10:49:46 08/01/20 14 08/01/2014 BMP, serum or plasm a chloride 105 mmol/ L 96-107 Not Available [address], [address], 08/01/2014 10:49:46 08/01/20 14 08/01/2014 BMP, serum or plasm a anion gap 8.2 5.0-15 .0 Not Available [address], [address], 08/01/2014 10:49:46 08/01/20 14 08/01/2014 BMP, serum or plasm a CO2 31 mmol/ L 21-32 Not Available [address], [address], 08/01/2014 10:49:46 08/01/20 14 08/01/2014 BMP, serum or plasm a calcium 9.2 mg/dL 8.5-10 .3 Not Available [address], [address], 08/01/2014 10:49:46 08/01/20 14 08/01/2014 TSH, serum or plasm a TSH 0.05 uIU/m L 0.50-6 .00 low The Ameri can Colle ge of Endoc rinol ogy and Ameri can Thyro id Assoc iatio n recom mend goal TSH value s betwe en 1.0-2 .5 mIU/m L. Not Available [address], [address], 08/01/2014 12:55:33 09/13/20 14 09/13/2014 TSH, serum or plasm a TSH 1.59 uIU/m L 0.50-6 .00 The Ameri can Colle ge of Endoc rinol ogy and Ameri can Thyro id Assoc iatio n recom mend goal TSH value s betwe en 1.0-2 .5 mIU/m L. Not Available [address], [address], 09/13/2014 13:49:24 12/09/19 15 12/09/2014 PPD (ruth fied prote in deriv ative ), skin test TB negati ve Not Available [address], [address], 12/07/2014 09:32:24 12/30/19 15 12/29/2014 lipid panel , serum cholesterol 139 mg/dL <200 mg/dl Dk able 200-2 39 mg/dl Borde rline High >240 mg/dl High Not Available [address], [address], 12/29/2014 11:24:31 12/30/19 15 12/29/2014 lipid panel , serum triglyceride s 222 mg/dL <150 mg/dL Jazmyn l 150-1 99 mg/dL Borde rline High 200-4 99 mg/dL High >500 mg/dL Very High Not Available [address], [address], 12/29/2014 11:24:31 12/30/19 15 12/29/2014 lipid panel , serum direct HDL 39 mg/dL Not Available [address], [address], 12/29/2014 11:24:31 12/30/19 15 12/29/2014 LDL, calcu [...] r is not neces asim. Not Available [address], [address], 12/29/2014 11:24:32 02/27/20 15 02/22/2015 bone densi [...] Christelle ames Physic gonzalo: Efrain Marrero MD [facility] ([facility]) [address] [place] [address] , [place], [address], 03/16/2015 16:19:10 Result Notes None recorded. Problems Name Problem SNOMED Code Status Onset Date Resolution Date Notes Provider Name and Address Organization Details Recorded Time Sprain of sacroiliac ligament 20701007 Completed 09/08/2013 Not Available [facility] 3 02:04:08 Sciatica 30770508 Active Not Available [facility] 3 03:15:29 Mixed hyperlipid emia 334329960 Active Bob Valladares MD [address] [place] [address], [address] , [facility] 4 18:43:03 Nervous system symptoms Completed 09/08/2013 Not Available [facility] 3 02:03:49 Benign paroxysmal positional vertigo 589535484 Active Not Available [facility] 3 03:15:29 Low back pain 418044761 Active Not Available [facility] 3 03:15:29 Allergic rhinitis 67601113 Active Not Available [facility] 3 03:15:29 Hypothyroi dism 08030352 Active Bob Valladares MD [address] [place], [address] , [facility] 4 15:59:19 Problem Notes None recorded. Procedures Surgical History Date Name Laterality Status Provider Name and Address Organization Details Recorded Time 06/23/20 14 Medicare Wellness Visit completed Tasha Kauffman CMA [facility] 06/23/2014 09:54:13 04/27/20 14 Treatment and Advice completed Esther Clifford Ms, PT [address] [place], [address], [facility] 04/27/2014 08:01:30 06/15/20 13 Medicare Wellness Visit completed Tasha Kauffman CMA [facility] 06/15/2013 11:09:42 Total Hysterectomy completed Not Available [facility] 09/05/2011 06:06:16 Imaging Results Imaging Date Name Status LastModified by Organiz ation Details LastModified Time 02/22/2015 bone density study completed [facility] ([facility]) [address], [place], [address], 03/16/2015 16:19:10 Procedure Notes None recorded. Medical Equipment None Reported. Allergies Allergen ID Allergen Name Allergen Category Reaction Reaction Severity Criticality Documentation Date Start Date Code Code System Note Provider Name and Address Organization Details Recorded Time 59010 naproxen medicatio n vomiting Not available Not available 04/23/20112010 7258 RxNorm Not Available [facility] 1 06:05:41 83312 ibuprofen medicatio n vomiting Not available Not available 05/06/2011 5640 RxNorm Tasha Kauffman CMA [facility] 4 07:44:15 Medications Name Sig Start [...] Address Organization Details Last Updated DateTime 4 39032.5 96176 g 72 /min 32.2 kg/m2 146.05 cm 114 mm[Hg] 62 mm[Hg] Tasha Kauffman [facility] 4 09:58:04 Date Recorded Body height Body mass index (BMI) Body weight Heart rate Systolic blood pressure Diastolic blood pressure Provider Name and Address Organization Details Last Updated DateTime 5 146.05 cm 32.2 kg/m2 36313.5 92708 g 68 /min 100 mm[Hg] 60 mm[Hg] Tasha Kauffman [facility] 5 14:01:14 Social History Question Answer Notes LastModified by [employer] Details LastModified Time Tobacco Smoking Status Never Smoker Not Available [facility] 09/05/2011 04:56:30 How Many Days In The Past Year Have You Had A Heavy Drinking Consumption (4+ Female, 5+ Male)? 0 Information no t available 06/15/2013 Live Alone Or With Others? With Others Rivera Love (both Are Disabled). [email or web address] Information not available 04/15/2011 Patient Has Health Care Proxy Signed And In Chart Yes Daughter Lyric Information not available 09/05/2011 Marital Status Has Partner X 17 Yrs Information not available 06/15/2013 How Many Children Do You Have? 6 Had 7, 1 Was Killed In MVA [email or web address] Information not available 04/15/2011 Sex: Unknown Functional Status Question Answer Note LastModified by [employer] Details LastModified Time What is your level of alcohol consumption? 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 Information not available 06/23/2014 Mental Status None [...] preservative free, adsorbed 1 completed Not Available [facility] 11/06/2019 02:16:59 Influenza, split virus, trivalent, preservative 1 completed Not Available [facility] 11/06/2019 02:39:39 Influenza, split virus, trivalent, preservative 2 completed Not Available [facility] 11/06/2019 02:18:37 Tdap 3 completed Not Available [facility] 11/06/2019 02:16:07 Influenza, split virus, quadrivalent, PF 3 completed Not Available [facility] 11/06/2019 02:37:18 Influenza, split virus, quadrivalent, PF 4 completed Not Available [facility] 11/06/2019 02:36:27 Past Encounters Encounter ID Performer Location Encounter Start Date Encounter Closed Date Diagnosis/Indication Diagnosis SNOMED-CT Code Diagnosis ICD10 Code Diagnosis Note [id number] Terrell Lord MD FP, [facility], OFFICE [address] [place] [address] 04/15/2011 09:10:27 04/15/2011 10:26:37 [id number] [facility] TRIAL JUDGE Radiology , [facility] [address] [place] [address] 04/16/2011 13:06:50 04/17/2011 11:08:09 [id number] OSKAR Cutler, [facility], OFF[address] [facility] [place] [address] 04/23/2011 16:16:03 04/25/2011 13:57:43 [id number] Maggy Keith, PT Physical Therapy, [facility] [address] [facility] [place] [address] 05/02/2011 08:43:49 05/02/2011 12:31:42 [id number] Bob Valladares MD , [facility], OFFICE [address] [facility] [place] [address] 05/06/2011 13:29:27 05/06/2011 14:01:38 [id number] Maggy Keith, PT Physical Therapy, [facility] [address] [facility] [place] [address] 05/07/2011 08:13:36 05/07/2011 09:28:26 [id number] Maggy Keith, PT Physical Therapy, [facility] [address] [facility] [place] [address] 05/10/2011 10:41:11 05/10/2011 11:38:17 [id number] Maggy Keith, PT Physical Therapy, [facility] [address] [facility] [place] [address] 05/14/2011 10:20:42 05/14/2011 11:03:39 [id number] Maggy Keith, PT Physical Therapy, [facility] [address] [facility] [place] [address] 05/16/2011 11:40:25 05/16/2011 14:00:43 [id number] MD LALA Mendez, [facility], OFFICE [address] [facility] [place] [address] 05/20/2011 13:05:20 05/20/2011 13:48:51 [id number] [facility] HORTICULTURAL SPECIALTY GROWER INSIDE Radiology , [facility] [address] [facility] [place] [address] 05/20/2011 13:51:40 05/22/2011 13:32:48 [id number] Bob Valladares MD , [facility], OFFICE [address] [facility] [place] [address] 06/20/2011 10:40:31 06/20/2011 11:49:50 [id number] [facility] FP TREATMENT NURSE FP, [facility], OFFICE [address] [facility] [place] [facility] [place] [address] 08/23/2011 09:23:33 08/26/2011 14:37:35 [id number] Bob Valladares MD FP, [facility], OFFICE [address] [facility] [place] [facility] [place] [address] 12/10/2011 15:05:10 12/10/2011 16:04:51 [id number] Lcuina Tomas MD FP, [facility], OFFICE [address] [facility] [place] [facility] [place] [address] 01/14/2012 15:14:21 01/14/2012 16:26:52 [id number] Dina Clark Mph, LPT Physical Therapy, [facility] [address] [facility] [place] [facility] [place] [address] 01/16/2012 15:10:31 01/17/2012 07:59:19 [id number] Bob Valladares MD , [facility], OFFICE [address] [facility] [place] [facility] [place] [address] 03/10/2012 15:00:26 03/10/2012 18:51:24 [id number] Bob Valladares MD FP, [facility], OFFICE [address] [facility] [place] [facility] [place] [address] 04/27/2012 13:38:28 04/27/2012 14:32:23 [id number] [facility] FP TREATMENT NURSE , [facility], OFFICE [address] [facility] [place] [facility] [place] [address] 09/25/2012 14:09:17 09/25/2012 15:21:39 [id number] Bob Valladares MD FP, [facility], OFFICE [address] [facility] [place] [facility] [place] [address] 02/16/2013 09:53:58 02/16/2013 10:38:19 [id number] MD LALA Mendez, [facility], OFFICE [address] [facility] [place] [facility] [place] [address] 06/15/2013 10:36:30 06/15/2013 12:13:50 Adult health examination 794876981 see Risk Assessment and Lifestyle Change Counseling section above Counseling [id number] Screening mammography 74752803 Flatulence symptom 581824296 Hypothyroidism 93474170 Administra tion of diphtheria, pertussis, and tetanus vaccine 986889725 [id number] Kinga Dutton NP FP, [facility], OFFICE [address] [place] [address] 06/18/2013 16:00:57 06/18/2013 16:40:52 Vaccine adverse reaction 857152058 Local reaction to Tdap. [id number] Bob Valladares MD , [facility], OFFICE [address] [place] [address] 08/13/2013 06:46:48 08/13/2013 11:48:08 Influenza vaccine needed 4583816031 [id number] [id number] Bob Valladares MD , [facility], OFFICE [address] [place] [address] 12/07/2013 11:36:19 12/07/2013 12:50:48 Muscle strain 58702334 Tight chest 92226413 [id number] Bob Valladares MD , [facility], OFFICE [address] [place] [address] 04/14/2014 07:31:49 04/14/2014 08:07:27 Shoulder joint painful on movement 318629215 [id number] Esther Clifford Ms, PT Physical Therapy, [address] [address] 04/27/2014 07:25:01 04/27/2014 12:22:10 Shoulder joint painful on movement 852784819 [id number] Esther Clifford Ms, PT Physical Therapy, [address] [address] 05/10/2014 07:33:01 05/10/2014 08:37:47 Shoulder joint painful on movement 527003746 [id number] Esther Clifford Ms, PT Physical Therapy, [address] [address] 05/12/2014 07:30:55 05/12/2014 10:19:50 Shoulder joint painful on movement 475242257 [id number] Esther Clifford Ms, PT Physical Therapy, [address] [address] 05/25/2014 07:40:39 05/25/2014 10:50:22 Shoulder joint painful on movement 083794279 [id number] Bob Valladares MD , [facility], OFFICE [address] [place] [address] 06/23/2014 09:31:53 06/23/2014 10:46:09 Adult health examination 364703878 see Risk Assessment and Lifestyle Change Counseling section above Counseling 701215282 Influenza vaccine needed 3319700604 106 Shoulder j oint painful on movement 404543311 Hypothyroidism 97660343 Mixed hyperlipidemia 761005441 Recurrent major depression 27907523 Gastroesop hageal reflux disease 429050690 [id number] Bob Valladares MD , [facility], OFFICE [address] [place] [address] 12/01/2014 13:37:29 12/01/2014 14:26:39 [id number] Bob Valladares MD , [facility], OFFICE [address] [place] [address] 12/07/2014 09:03:59 12/07/2014 12:01:35 Tuberculosis screening 022531882 Health Concerns Section Related Observation LastModified by Organization Detai ls LastModified Time None Recorded Concern Status LastModified by Organization Details LastModified Time None Recorded Advance Directives Directive None Recorded Payers Encounter Date Sequence Insurance Name Policy Number Policy Cordova Covered Member ID Cordova Member ID Guarantor Name 05/12/2014 1 [facility]: MEDICARE PPO BLUE (MEDICARE REPLACEMENT PPO) [id number] Joyce Roaana [id number] Joyce Lupe 05/25/2014 1 [facility]: MEDICARE PPO BLUE (MEDICARE REPLACEMENT PPO) [id number] Joyce Roaana [id number] Joyce Lupe 06/23/2014 1 [facility]: MEDICARE PPO BLUE (MEDICARE REPLACEMENT PPO) [id number] Joycegrace Roaana [id number] Joyce Lupe 12/01/2014 1 [facility]: MEDICARE PPO BLUE (MEDICARE REPLACEMENT PPO) [id number] Joyce Roaana [id number] Joyce Andrade 12/07/2014 1 [facility]: MEDICARE PPO BLUE (MEDICARE REPLACEMENT PPO) [id number] Joyce Andrade [id number] Joyce Andrade Notes Date Note Type Note Provider Name and Address Organization Details Recorded Time 05/12/2014 text/html I think I may nelson ve overdone it yesterday with yardwork and moving around the patio furniture, L arm sore today. Esther Clifford Ms, PT [address] [place], [address], [facility] 05/12/2014 09:53:21 05/25/2014 text/html Some days no keyshawn n at all and then days with pain. I feel it right now in the biceps and I tend to feel it more there than anywhere else. I was fine when I got up this morning but since sitting in the waiting room it started in the arm. Esther Clifford Ms, PT [address] [place], [address], [facility] 05/25/2014 10:09:12 12/01/2014 text/html Pt here for [...] personal hygiene care. Bob Valladares MD [address] [place], [address], [facility] 12/02/2014 17:49:41 OBGyn Episode No OBEpisode recorded.
== END 2025-03-01 11:49 | disposition home or self-care (01) ==
LOC: HO.10HDLNP 11:48
PROVIDERS: Visit Provider Urology
DX: N39.0 Urinary tract infection, site not specified (principal)
CPT/HCPCS: 87086

== ENCOUNTER 2025-03-30 09:48 | Outpatient (REF) | payer MEDICARE, SELFPAY ==
--- OUTSIDE RECORDS SUMMARY | 2025-03-30 10:46 | XMS_ITS | Data Portability ---
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 passive immunization 488969635 Z23 stable Adult heal th examination 943369480 Z00.00 BP is excellent Spasm 31934264 R25.2 will adjust dose [id number] Aric Espinoza [facility] Internal Medicine [address],[place] [address] 08/13/2022 14:43:39 08/13/2022 15:47:55 Pre-surgery evaluation 524658769 Z01.818 The patient was seen in the office today for pre-op evaluation . All medical conditions on patient's problem list were addressed and are currently stable, no interventi on needed at this time. Based on history and physical performed, the patient is cleared for surgery. Restless legs 02607368 G 25.81 needs refills [id number] Aric Espinoza [facility] Internal Medicine [address] [place] [address] 05/07/2023 09:43:13 05/07/2023 10:34:03 Hypercholesterolemia 90378543 E78.2 needs recheck Gastroesop hageal reflux disease 790274133 K21.9 stablecont with two omeprazole Depressive disorder 3548 9007 F32.0 stable Hypothyroidism 74581832 E03.8 needs recheck Transient cerebral ischemia 984798073 G45.8 has an incident a few months ago where she started slurring her words, resolved in 30 minutes AB put her on aspirin and she has not had an episode since then Mild recur rent major depression 10984269 F33.0 stable Abdominal pain 96050245 R10.0 trial as needed for the abdominal pain Urinary incontinence 165 594445 N39.3 will set up with US bladder to r/o prolapsed bladder, falling bladderif that is negative agreed to set up with an overactive bladder medication Impaired f asting glycemia 116410897 R73.01 stab [id number] Aric Espinoza [facility] Internal Medicine [address], [place] [address] 12/12/2023 10:48:19 12/15/2023 14:25:19 Swelling of bilateral lower limbs 932830993 M79.89 will set up with lab work in addition to US arterial and XR low back to determine exact cause Pain of bi lateral hip joints 7533407592 8874576 M25.551 needs refills [id number] Aric Espinoza [facility] Internal Medicine [address], [email or web address] [address] 01/28/2024 13:25:17 01/28/2024 13:51:50 Pain of bilateral hip joints 9087467299 9849325 M25.551 needs refills Restless legs 26035425 G 25.81 needs refills Spasm 44590884 R25.2 agreed to lab work Lumbar radiculopathy 128 919193 M54.16 will set up with MRI [id number] Aric Espinoza [facility] Internal Medicine [address], [place] [address] 04/16/2024 14:41:41 04/16/2024 15:12:31 Depression screening 568369414 Z13.31 neg Elderly fall 614035107 R 29.6 agreed to XR Depressive disorder 3548 9007 F32.0 stable Spasm of back muscles 20 3747807 M62.830 will increased dosage to TID Osteoarthritis 363970607 M19.90 stable Pain of le ft shoulder joint 0255095343 7354943 M25.512 will set up with XR's Spinal lidia nosis of lumbar region 55027815 M48.061 second referral, Elenita did the EMG, no f/uwill set up with neuro surg for consult given the severity of the symptoms/p ain [id number] Aric Espinoza DO [facility] Internal Medicine [address],[place] [address] 06/14/2024 15:47:35 06/14/2024 16:48:30 Seborrheic keratosis 681057221 L82.1 sent in Derm referral Actinic keratosis 632243 007 L57.0 sent in Derm referral Pain of le ft shoulder joint 4344034361 4217648 M25.512 celebrex and tramadol caused side effects Nocturia 723546671 R35.1 told her to double, if that doesn't work will try an alt for her instead of seeing uro again Hypothyroidism 39834824 E03.8 needs refill [id number] Aric Espinoza [facility] Internal Medicine [address],[place] [address] [address] 03/29/2025 11:54:36 03/29/2025 14:10:38 Fatigue 64950042 R53.83 work up added Arthritis 7299309 M19.90 stable Muscle pain 00604104 M79 .10 Health Concerns Section Related Observation LastModified by Organization Detai ls LastModified Time None Recorded Concern Status LastModified by Organization Details LastModified Time None Recorded Advance Directives Directive None Recorded Payers Encounter Date Sequence Insurance Name Policy Number Policy [place] Covered Member ID [place] Member ID Guarantor Name 12/12/2023 1 [facility] - MEDICARE PREFERRED (MEDICARE REPLACEMENT HMO) CHANDU Andrade [id number] Joyce Andrade 12/12/2023 2 [place] [facility] Joyce Hackett Lupe [id number] Joyce Hackett Lupe 01/28/2024 1 [facility] MEDICARE PREFERRED (MEDICARE REPLACEMENT HMO) CHANDU Andrade [id number] Joyce Hackett Lupe 01/28/2024 2 [place] [facility] Joyce Hackett Lupe [id number] Joyce Andrade 04/16/2024 1 [facility] MEDICARE PREFERRED (MEDICARE REPLACEMENT HMO) CHANDU Andrade [id number] Joyce Andrade 04/16/2024 2 [place] Joyce Hackett Lupe [id number] Joyce Hackett Lupe 06/14/2024 1 [facility] - MEDICARE PREFERRED (MEDICARE REPLACEMENT HMO) CHANDU Andrade [id number] Joyce Hackett Lupe 06/14/2024 2 [place] Joyce Hackett Lupe [id number] Joyce Roaana 03/29/2025 1 [facility] - MEDICARE PREFERRED (MEDICARE REPLACEMENT HMO) CHANDU Andrade [id number] Joyce Andrade 03/29/2025 2 [place] Joyce Roaana [id number] Joyce Andrade Notes Date Note Type Note Provider Name a nd Address Organization Details Recorded Time 4 text/html c/o lower extremity pain and [...] work and imaging done LISA JONES [address] [place], [address] 12/12/2023 11:25:28 4 text/html f/u appt the patient is getting a lot of jumping legs at nighthave tried pramipexole and ropinirole will set up with lab work for the patient and MRI of her lumbar spine agreed to plan will start on baclofen in the meantime for patient LISA JONES [address] [place], [address], [facility] 01/28/2024 13:50:32 4 text/html c/o [...] neuro surg for consult LISA JONES [address] [place], [address], [facility], [place] Internal Medicine 04/16/2024 15:10:36 4 text/html c/o [...] see if it works better LISA JONES [address] [place], [address], [facility], [place] Internal Medicine 06/14/2024 16:43:34 5 text/html c/o fatigue and hip pain the patient reports that she is still very fatiguedher thyroid levels were w/n/l recommended additional lab workalso has her ortho fu coming up for the hip injection recommended possibly a rheum appt given hx of arthritis and rheumatic fever the patient will fu with my afterwards LISA JONES [address] [place], [address], [facility], [place] Internal Medicine 03/29/2025 12:51:58 OBGyn Episode No OBEpisode recorded.
[2025-03-30 13:23] LABS: MANUAL DIFF FLAG NO
[2025-03-30 13:39] LABS: Basophils Percent Auto 0.4 % (0-2); Eosinophils Absolute Auto 0.3 X10*3/uL (0.0-0.4); Eosinophils Percent Auto 3.8 % (0-4); Hematocrit 37.4 % (37.0-47.0); Hemoglobin 12.2 g/dl (12.0-16.0); Imm Gran Abs Auto 0.02 X10*3/uL (0.00-0.03); Imm Gran Pct Auto 0.3 % (0.0-0.4); Lymphocytes Absolute Auto 2.6 X10*3/uL (1.2-4.9); Lymphocytes Percent Auto 32.9 % (20-40); Mean Corpuscular HGB Conc 32.6 g/dl (31.0-35.0); Mean Corpuscular Hemoglobin 30.7 pg (27.0-33.0); Mean Corpuscular Volume 94.2 fL (80.0-98.0); Mean Platelet Volume 11.3 fL (9.4-12.3); Monocytes Absolute Auto 0.6 X10*3/uL (0.1-1.2); Monocytes Percent Auto 7.2 % (2-11); Neutrophils Absolute Auto 4.4 x10*3/uL (2.0-8.3); Neutrophils Percent Auto 55.4 % (45-73); Platelet Count 225 X10*3/uL (160-400); Red Blood Count 3.97 X10*6/uL (4.20-5.50); Red Cell Distribution Width 13.2 % (11.0-16.0)
[2025-03-30 13:49] LABS: C Reactive Protein 0.25 mg/dL (< or = 0.50); Iron 64 mcg/dL (30-160); Magnesium 2.1 mg/dL (1.6-2.6); Percent Iron Saturation 26 % (15-50); Total Iron Binding Capacity 249 mcg/dL (228-428); Unsaturated Iron Binding 185 ug/dL; Uric Acid 7.1 mg/dL (2.4-5.7)
[2025-03-30 13:55] LABS: Rheumatoid Factor < 13.0 IU/mL (<15.0)
[2025-03-30 14:17] LABS: Ferritin 112 ng/mL (10-250); Vitamin D 25-OH Total 83.5 ng/mL (>30)
[2025-03-30 14:21] LABS: Folate 9.5 ng/mL (> or = 4.0); Vitamin B12 > 2000 pg/mL (200-900)
[2025-03-30 14:45] LABS: Erythrocyte Sedimentation Rate 16 MM/HR (0-20)
[2025-04-01 15:03] LABS: Cyclic Citrullinated Peptide <16 UNITS
[2025-04-04 14:04] LABS: Anti DNA DS Antibody <1 IU/mL
[2025-04-05 11:15] LABS: Anti Nuclear Antibody Pattern Nuclear, Homogeneous; Anti Nuclear Antibody Screen POSITIVE (NEGATIVE); Anti Nuclear Antibody Titer 1:40 titer
== END 2025-03-30 09:49 | disposition home or self-care (01) ==
LOC: HO.MANLDS 09:48
PROVIDERS: Visit Provider Physician Assistant
DX: M19.90 Unspecified osteoarthritis, unspecified site (principal); R53.83 Other fatigue; M79.10 Myalgia, unspecified site
CPT/HCPCS: 36415; 82306; 82550; 82607; 82728; 82746; 83540; 83735; 84550; 85025; 85652; 86038; 86039; 86140; 86200; 86225; 86431

== ENCOUNTER 2025-04-05 15:20 | Outpatient (REF) | payer MEDICARE, SELFPAY ==
--- NOTE | ~2025-04-05 | US_ITS ---
EXAMINATION: US RETROPERITONEAL COMPLETE (RENAL) CLINICAL INFORMATION: Urinary incontinence. Unable to void.. COMPARISON: None available. TECHNIQUE: Real-time imaging of the kidneys and bladder. FINDINGS: RIGHT KIDNEY: 8.3 x 4.1 x 3.8 cm (SAG x AP x TRV). The kidney is normal in size, contour, and echogenicity. Renal cortical thickness is normal. No calculi or focal parenchymal lesions. No hydronephrosis. LEFT KIDNEY: 0.8 x 3.3 x 3.8 cm (SAG x AP x TRV). The kidney is normal in size, contour, and echogenicity. Renal cortical thickness is normal. No calculi or focal parenchymal lesions. No hydronephrosis. BLADDER: Well distended with mild bladder wall thickening. No focal lesion seen. Bilateral ureteral jets are demonstrated. Prevoid bladder volume is 57.2 mL. Postvoid bladder volume is 132.9 mL. US/US retroperitoneal comp IMPRESSION: Unremarkable renal ultrasound. Moderate to large post void residual bladder volume. Normal bilateral ureteral jets seen. Suspect mild bladder wall thickening. Electronically signed by: Joesph Jose MD 04/06/2025 07:18 AM EDT
--- OUTSIDE RECORDS SUMMARY | 2025-04-05 17:52 | XMS_ITS | Data Portability ---
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 ischemia 779877910 G45.8 has an incident a few months ago where she started slurring her words, resolved in 30 minutes AB put her on aspirin and she has not had an episode since then Mild recur rent major depression 53656291 F33.0 stable Abdominal pain 94969170 R10.0 trial as needed for the abdominal pain Urinary incontinence 165 865661 N39.3 will set up with US bladder to r/o prolapsed bladder, falling bladderif that is negative agreed to set up with an overactive bladder medication Impaired f asting glycemia 327739041 R73.01 stab [id number] Aric Espinoza [facility] Internal Medicine [address] [facility],[place] [address] 12/12/2023 10:48:19 12/15/2023 14:25:19 Swelling of bilateral lower limbs 917698781 M79.89 will set up with lab work in addition to US arterial and XR low back to determine exact cause Pain of bi lateral hip joints 6051586009 2724333 M25.551 needs refills [id number] Aric Espinoza [facility] Internal Medicine [address] [facility],[place] [address] 01/28/2024 13:25:17 01/28/2024 13:51:50 Pain of bilateral hip joints 6840574953 4056331 M25.551 needs refills Restless legs 27968675 G 25.81 needs refills Spasm 20039108 R25.2 agreed to lab work Lumbar radiculopathy 128 613018 M54.16 will set up with MRI [id number] Aric Espinoza [facility] Internal Medicine [address] [facility], [facility] [place] [address] 04/16/2024 14:41:41 04/16/2024 15:12:31 Depression screening 922425345 Z13.31 neg Elderly fall 702021461 R 29.6 agreed to XR Depressive disorder 3548 9007 F32.0 stable Spasm of back muscles 20 7733561 M62.830 will increased dosage to TID Osteoarthritis 888310585 M19.90 stable Pain of le ft shoulder joint 5733412507 8450351 M25.512 will set up with XR's Spinal lidai nosis of lumbar region 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 second referral, Elenita did the EMG, no f/uwill set up with neuro surg for consult given the severity of the symptoms/p ain [id number] Aric Espinoza [facility] Internal Medicine [address] [facility], [place] [address] 06/14/2024 15:47:35 06/14/2024 16:48:30 Seborrheic keratosis 204067690 L82.1 sent in Derm referral Actinic keratosis 728514 007 L57.0 sent in Derm referral Pain of le ft shoulder joint 6358435319 7910006 M25.512 celebrex and tramadol caused side effects Nocturia 869145977 R35.1 told her to double, if that doesn't work will try an alt for her instead of seeing uro again Hypothyroidism 79613521 E03.8 needs refill [id number] Aric Espinoza [facility] Internal Medicine [address] [facility], [facility] [place] [address] 03/29/2025 11:54:36 03/29/2025 14:10:38 Fatigue 50344515 R53.83 work up added Arthritis 8147431 M19.90 stable Muscle pain 97040116 M79 .10 Health Concerns Section Related Observation LastModified by Organization Detai ls LastModified Time None Recorded Concern Status LastModified by Organization Details LastModified Time None Recorded Advance Directives Directive None Recorded Payers Insurance Date Sequence Insurance Name Policy Number Policy [place] Covered Member ID [place] Member ID Guarantor Name 03/26/2025 1 [facility] - MEDICARE PREFERRED (MEDICARE REPLACEMENT HMO) CHANDU Andrade [id number] Joyce Roaana 03/29/2025 2 [place] [facility] Joyce Andrade [id number] Joyce Andrade Notes Date Note Type Note [...] work and imaging done LISA JONES [address] [place], [address], [facility] Internal Medicine 12/12/2023 11:25:28 4 text/html f/u appt the patient is getting a lot of jumping legs at nighthave tried pramipexole and ropinirole will set up with lab work for the patient and MRI of her lumbar spine agreed to plan will start on baclofen in the meantime for patient LISA JONES [address] [place], [address], [facility] Medicine 01/28/2024 13:50:32 4 [...] neuro surg for consult LISA JONES [address] [place], [address], [facility] Internal Medicine 04/16/2024 15:10:36 4 text/html c/o [...] if it works better LISA JONES [address] [place], [address], [facility] 06/14/2024 16:43:34 5 text/html c/o fatigue and hip pain the patient reports that she is still very fatiguedher thyroid levels were w/n/l recommended additional lab workalso has her ortho fu coming up for the hip injection recommended possibly a rheum appt given hx of arthritis and rheumatic fever the patient will fu with my afterwards LISA JONES [address] [place], [address], [facility] Medicine 03/29/2025 12:51:58 OBGyn Episode No OBEpisode recorded.
== END 2025-04-05 15:21 | disposition home or self-care (01) ==
LOC: HO.US 15:20
PROVIDERS: PCP Physician Assistant; Visit Provider Urology
DX: R32 Unspecified urinary incontinence (principal); R35.1 Nocturia; R33.9 Retention of urine, unspecified; N81.10 Cystocele, unspecified; N32.81 Overactive bladder
CPT/HCPCS: 76770

== ENCOUNTER → 2025-04-05 15:23 | Outpatient (BNV) | payer MEDICARE, SELFPAY | PROVIDERS: PCP Physician Assistant; Visit Provider Radiology Diagnostic Radiology | DX: R33.8 Other retention of urine (principal) | CPT/HCPCS: 76770 ==

== ENCOUNTER 2025-04-11 13:29 | Outpatient (AMB) | payer MEDICARE, SELFPAY ==
--- NOTE | 2025-04-11 13:43 | MHC.OFFVIS ---
Intake Visit Reasons: Cysto/ US/ Pessary Intake Note: Patient presents today for cysto/US/pessary 04/05 Renal US Urology Medication:Vitamin B12 Blood Thinner:None Antibiotic Allergies:None Allergies No Known Allergies Allergy (Verified 04/15/25 14:53) HPI Comments Details: 04/11/25 History of Present Illness - The patient is an 84-year-old female presenting with bladder prolapse and urinary frequency. - Bladder prolapse: The patient experiences discomfort and frequent urination, especially at night. - The ultrasound showed bladder wall thickening, which will be further evaluated during the examination. - The patient has a history of a complete hysterectomy, which may contribute to the prolapse. - The patient has had seven children, which may have contributed to the weakening of pelvic muscles. Results - Ultrasound: Bladder wall thickening observed Discussion Notes I discussed with the patient the findings of bladder wall thickening and the potential impact of bladder prolapse on her symptoms. We talked about the use of a pessary to support the bladder and alleviate symptoms. I explained the procedure for inserting the pessary and the importance of monitoring its fit and effectiveness. Plan - Inserted a size 3 pessary to support the bladder and alleviate prolapse symptoms. - Advised the patient to attempt urination with the pessary in place to assess its effectiveness. - Planned to perform a post-void residual PVR) test to evaluate bladder emptying. - Instructed the patient to return if the pessary falls out or if symptoms persist. 02/24/25-- 84-year-old female presenting with overactive bladder and bladder prolapse. She reports several years of progressively worsening urinary symptoms, including urgency and significant nocturia necessitating voiding every hour at night. There is discomfort, described as bladder prolapse particularly noticeable in the evening, along with occasional incontinence. She has used Myrbetriq 25 mg previously with short duration. A bladder ultrasound in 2022 demonstrated large post void residuals. Plan-Initiate local estrogen therapy to address symptoms of overactive bladder and prolapse. Perform cystoscopy to inspect bladder health further. Propose a pessary refitting as a conservative option for cystocele management. Conduct a renal and bladder ultrasound for comprehensive evaluation. Urinary Symptoms Review - Nocturia: Voiding every hour at night - Urgency: Frequent, urgent need to urinate during the day - Incontinence: Occasional, particularly noted at night when urgency is not addressed quickly - Pain: Discomfort when voiding noted, exacerbated by bladder prolapse - Past Treatment: Myrbetriq 25 mg daily for short term Results - Bladder Scan PVR: 186 mL - Pelvic exam- grade 3 cystocele, catheterized Urine: 160 mL - Urinalysis: Negative for leukocytes or blood Office Procedures Cystoscopy Consent Discussed risk and benefit or proposed procedure with the patient. Information consent for procedure given to the patient. Discussed technical aspects, risks, benefits and alternatives in full. Addressed all of the patient's questions and concerns regarding the procedure. The patient demonstrated knowledge and understanding. They wish to proceed with this procedure. Preparation The patient was prepped in the usual manner. A side trimmer was present and in the room. Genitalia was prepped with betadine solution in a sterile manner. Lidocaine Jelly 2% was placed into the urethra and 16Fr flexible Olympus cystoscope was inserted into the meatus after adequate lubrication. 60243-Jqatxspolv DISPOSABLE SCOPE URO-G FLEXIBLE SCOPE Procedure code (CPT) selection complete Pessary Device Insert Details: Pessary size 3 ring with support was placed vaginally. 87076-Erxejtz device insert Office Meds lidocaine HCl 2 % mucosal jelly in applicator Performing Provider: Maria G Valiente MD Performing Location: [facility] Administered by: Shruti Mcgovern RN on 04/11/25 14:10 Dose Route Admin Location Dispensed Lot Number Expiration Date NDC Security Site Supervisor 10 mL intra-urethral 20 mL nitrofurantoin monohydrate/macrocrystals 100 mg capsule Performing Provider: Maria G Valiente MD Performing Location: [facility] Administered by: Shruti Mcgovern RN on 04/11/25 14:10 Dose Route Admin Location Dispensed Lot Number Expiration Date NDC Security Site Supervisor 100 mg PO 1 cap phenazopyridine 200 mg tablet Performing Provider: Maria G Valiente MD Performing Location: [facility] Administered by: Shruti Mcgovern RN on 04/11/25 14:10 Dose Route Admin Location Dispensed Lot Number Expiration Date NDC Security Site Supervisor 200 mg PO 1 tab Results Reviewed Results Reviewed: Date of Service: 04/05/25 Procedure(s): US retroperitoneal comp Accession Number(s): [id number] cc: Maria G Valiente MD; Emma Elizabeth~ EXAMINATION: US RETROPERITONEAL COMPLETE (RENAL) CLINICAL INFORMATION: Urinary incontinence. Unable to void.. COMPARISON: None available. TECHNIQUE: Real-time imaging of the kidneys and bladder. FINDINGS: RIGHT KIDNEY: 8.3 x 4.1 x 3.8 cm (SAG x AP x TRV). The kidney is normal in size, contour, and echogenicity. Renal cortical thickness is normal. No calculi or focal parenchymal lesions. No hydronephrosis. LEFT KIDNEY: 0.8 x 3.3 x 3.8 cm (SAG x AP x TRV). The kidney is normal in size, contour, and echogenicity. Renal cortical thickness is normal. No calculi or focal parenchymal lesions. No hydronephrosis. BLADDER: Well distended with mild bladder wall thickening. No focal lesion seen. Bilateral ureteral jets are demonstrated. Prevoid bladder volume is 57.2 mL. Postvoid bladder volume is 132.9 mL. US/US retroperitoneal comp IMPRESSION: Unremarkable renal ultrasound. Moderate to large post void residual bladder volume. Normal bilateral ureteral jets seen. Suspect mild bladder wall thickening. Assessment & Plan Assessment & Plan (1) Female cystocele: Code(s): N81.10 - Cystocele, unspecified Category: Medical Plan Patient was able to urinate in the bathroom pessary stated we will have her follow-up in 2 months to re-evaluate I want her to continue the estrogen cream small amount on her fingertip applied to vaginal mucosa daily at bedtime Orders: Orders AMB Cystoscopy 04/11/25 N32.81 - Overactive bladder US retroperitoneal comp 04/05/25 N32.81 - Overactive bladder, N81.10 - Cystocele, unspecified, R32 - Unspecified urinary incontinence, R33.9 - Retention of urine, unspecified, R35.1 - Nocturia AMB Intravaginal Support Device Insertion 04/11/25 N81.10 - Cystocele, unspecified Patient Instructions: The patient had an opportunity to ask questions regarding treatment plan. The patient expressed understanding and agreement with the above treatment plan. The patient is aware they should contact our office by phone for worsening of their current condition or the appearance of new symptoms. Compliance is encouraged with any medications and followup testing that is ordered. It is a privilege to be allowed the opportunity to participate in the urologic care of your patient. If you have any questions or concerns regarding treatment for the above conditions please do not hesitate to contact me. The office telephone contact is [phone]. This note is constructed in part using voice recognition software. While every effort has been made to ensure accuracy hair rooting machine operator errors may have been included. Yours sincerely, Maria G Valiente MD Scribe Plan - Not visible on output: Patient was informed and verbally consented to the use of an ambient scribe for clinic note documentation during this visit. Coding Diagnoses Female cystocele N81.10 CPT Codes Cystoscopy - CPT: 88517-Zkwetojxfd ([id number]) Pessary Device Insert - CPT: 53836-Roklqca device insert ([id number])
--- OUTSIDE RECORDS SUMMARY | 2025-04-11 14:52 | XMS_ITS | Data Portability ---
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 [id number] Aric Espinoza [facility] Internal Medicine [address],[place] [address] 12/12/2023 10:48:19 12/15/2023 14:25:19 Swelling of bilateral lower limbs 876165631 M79.89 will set up with lab work in addition to US arterial and XR low back to determine exact cause Pain of bi lateral hip joints 1337325879 9367616 M25.551 needs refills [id number] Aric Espinoza [facility] Internal Medicine [address],[place] [address] 01/28/2024 13:25:17 01/28/2024 13:51:50 Pain of bilateral hip joints 9543031485 9064141 M25.551 needs refills Restless legs 37765663 G 25.81 needs refills Spasm 42495860 R25.2 agreed to lab work Lumbar radiculopathy 128 316192 M54.16 will set up with MRI [id number] Aric Espinoza [facility] Internal Medicine [address],[place] [address] 04/16/2024 14:41:41 04/16/2024 15:12:31 Depression screening 825830816 Z13.31 neg Elderly fall 704381485 R 29.6 agreed to XR Depressive disorder 3548 9007 F32.0 stable Spasm of back muscles 20 9709579 M62.830 will increased dosage to TID Osteoarthritis 259756375 M19.90 stable Pain of le ft shoulder joint 2954540362 1435832 M25.512 will set up with XR's 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 second referral, Elenita did the EMG, no f/uwill set up with neuro surg for consult given the severity of the symptoms/p ain [id number] Aric Espinoza [facility] Internal Medicine [address],[place] [address] 06/14/2024 15:47:35 06/14/2024 16:48:30 Seborrheic keratosis 487671031 L82.1 sent in Derm referral Actinic keratosis 689337 007 L57.0 sent in Derm referral Pain of le ft shoulder joint 0812717830 0493904 M25.512 celebrex and tramadol caused side effects Nocturia 767828004 R35.1 told her to double, if that doesn't work will try an alt for her instead of seeing uro again Hypothyroidism 78919814 E03.8 needs refill [id number] Aric Espinoza [facility] Internal Medicine [address], [place] [address] 03/29/2025 11:54:36 03/29/2025 14:10:38 Fatigue 97373026 R53.83 work up added Arthritis 9000320 M19.90 stable Muscle pain 48272035 M79 .10 Health Concerns Section Related Observation LastModified by Organization Detai ls LastModified Time None Recorded Concern Status LastModified by Organization Details LastModified Time None Recorded Advance Directives Directive None Recorded Payers Insurance Date Sequence Insurance Name Policy Number Policy [place] Covered Member ID [place] Member ID Guarantor Name 03/26/2025 1 [facility] PL[facility] - MEDICARE PREFERRED (MEDICARE REPLACEMENT HMO) CHANDU Andrade [id number] Joyce Andrade 03/29/2025 2 [place] [facility] Joyce Andrade [id number] Joyce Andrade Notes Date Note Type Note [...] work and imaging done LISA JONES [address] [place], [address], [facility] Internal Medicine 12/12/2023 11:25:28 4 text/html f/u appt the patient is getting a lot of jumping legs at nighthave tried pramipexole and ropinirole will set up with lab work for the patient and MRI of her lumbar spine agreed to plan will start on baclofen in the meantime for patient LISA JONES [address] [place], [address], [facility] Internal Medicine 01/28/2024 13:50:32 4 [...] neuro surg for consult LISA JONES [address] [place], [address], [facility] Internal Medicine 04/16/2024 15:10:36 4 [...] if it works better LISA JONES [address] [place], [address], [facility] Internal Medicine 06/14/2024 16:43:34 5 text/html c/o fatigue and hip pain the patient reports that she is still very fatiguedher thyroid levels were w/n/l recommended additional lab workalso has her ortho fu coming up for the hip injection recommended possibly a rheum appt given hx of arthritis and rheumatic fever the patient will fu with my afterwards LISA JONES [address] [place], [address], [facility] Internal Medicine 03/29/2025 12:51:58 OBGyn Episode No OBEpisode recorded.
== END 2025-04-11 15:01 | disposition home or self-care (01) ==
LOC: HO.HUSH 13:30
PROVIDERS: PCP Physician Assistant; Visit Provider Urology
DX: N81.10 Cystocele, unspecified (principal)
CPT/HCPCS: 57160

== ENCOUNTER → 2025-04-11 | Outpatient (BNVA) | payer MEDICARE, SELFPAY | PROVIDERS: PCP Physician Assistant; Visit Provider Urology | DX: N81.10 Cystocele, unspecified (principal); N32.81 Overactive bladder; R35.1 Nocturia; R32 Unspecified urinary incontinence; R33.9 Retention of urine, unspecified; Z90.710 Acquired absence of both cervix and uterus | CPT/HCPCS: 52000; 57160 ==

== ENCOUNTER 2025-04-15 14:19 | Outpatient (AMB) | payer MEDICARE, SELFPAY ==
--- NOTE | 2025-04-15 14:26 | MHC.OFFVIS ---
Intake Visit Reasons: pessary Intake Note: Patient presents today for pessary follow up Urology Medication:Vitamin B12 Blood Thinner:None Antibiotic Allergies:None Allergies No Known Allergies Allergy (Verified 04/15/25 14:53) Medication List - Last Reconciled 04/15/25 by Maria G Valiente MD atorvastatin 80 mg PO DAILY citalopram 10 mg PO DAILY cyanocobalamin (vitamin B-12) ER 2,000 mcg PO DAILY diclofenac sodium 75 mg PO BID dicyclomine 20 mg PO BID estradiol 0.01%(0.1mg/gram) 1 g vaginal 2XW levothyroxine 75 mcg PO DAILY omeprazole 20 mg PO BID HPI Comments Details: 04/15/25-- History of Present Illness - The patient is an 84-year-old female presenting with vaginal prolapse. - She has a history of complete hysterectomy and seven vaginal deliveries. - Initially evaluated on 04/11/25 for vaginal prolapse, a size 3 pessary with support was placed. - The pessary fell out after returning home, despite urinating after pessary placement without issue in the office. - Options discussed included using a Gellhorn pessary or increasing the ring size. - As the patient is sexual active, a size 4 ring with support was placed instead of a gelhorn at this time, as a size 5 ring was too large and did not fit correctly. - The patient was instructed on reinserting the pessary if it dislodges during activities involving abdominal pressure. Discussion Notes I discussed with the patient the use of different pessary shapes and sizes to address her vaginal prolapse, considering her sexual activity. We decided to try a larger ring size, and I instructed her on how to manage the pessary if it dislodges during daily activities. Follow-up is scheduled in two months to evaluate the effectiveness of the current pessary. Review of Systems Const All systems reviewed & are unremarkable except as noted in HPI and below Reports no additional complaints Eyes Reports no additional complaints ENT Reports no additional complaints Card Reports no additional complaints Resp Reports no additional complaints GI Reports no additional complaints Reports as per HPI Musc Reports no additional complaints Skin/Breast Reports system reviewed and no additional complaints, except as documented Neuro Reports no additional complaints Psych Reports no additional complaints Endo Reports no additional complaints Taiwo/Lymph Reports no additional complaints Aller/Immun Reports no additional complaints Office Procedures Pessary Device Insert Details: A size 4 ring with support was placed vaginally, a size 5 ring/wo support was large and did not fit correctly. 30015-[id number] device insert Results AMB Urinalysis, Automated UA Leukoctes 15 Freddy/uL Last Edit by JUAN Thakkar on 04/15/25 16:32 UA Nitrite Negative Last Edit by JUAN Thakkar on 04/15/25 16:32 UA Urobilinogen 3.5 mg/dL Last Edit by JUAN Thakkar on 04/15/25 16:32 UA Protein 15 mg/dL Last Edit by JUAN Thakkar on 04/15/25 16:32 UA pH 6.0 Last Edit by JUAN Thakkar on 04/15/25 16:32 UA Blood 0 Leonel/uL Last Edit by JUAN Thakkar on 04/15/25 16:32 UA Specific [place] 1.015 Last Edit by JUAN Thakkar on 04/15/25 16:32 UA Ketone Negative Last Edit by JUAN Thakkar on 04/15/25 16:32 UA Bilirubin 17 mg/dL Last Edit by JUAN Thakkar on 04/15/25 16:32 UA Glucose 0 mg/dL Last Edit by JUAN Thakkar on 04/15/25 16:32 Results Reviewed Results Reviewed: Laboratory Last Values Urine pH (Auto) 6.0 04/15/25 16:32 Specific [place] (Auto) 1.015 04/15/25 16:32 Urine Protein (Auto) 15 mg/dL 04/15/25 16:32 Glucose (UA)(Auto) 0 mg/dL 04/15/25 16:32 Urine Ketones (Auto) Negative 04/15/25 16:32 Urine Blood (Auto) 0 Leonel/uL 04/15/25 16:32 Urine Nitrite (Auto) Negative 04/15/25 16:32 Urine Bilirubin (Auto) 17 mg/dL 04/15/25 16:32 Urine Urobilinogen (Auto) 3.5 mg/dL 04/15/25 16:32 Leukocyte Esterase (Auto) 15 Freddy/uL 04/15/25 16:32 Date of Service: 04/05/25 US RETROPERITONEAL COMPLETE (RENAL) CLINICAL INFORMATION: Urinary incontinence. Unable to void.. COMPARISON: None available. TECHNIQUE: Real-time imaging of the kidneys and bladder. FINDINGS: RIGHT KIDNEY: 8.3 x 4.1 x 3.8 cm (SAG x AP x TRV). The kidney is normal in size, contour, and echogenicity. Renal cortical thickness is normal. No calculi or focal parenchymal lesions. No hydronephrosis. LEFT KIDNEY: 0.8 x 3.3 x 3.8 cm (SAG x AP x TRV). The kidney is normal in size, contour, and echogenicity. Renal cortical thickness is normal. No calculi or focal parenchymal lesions. No hydronephrosis. BLADDER: Well distended with mild bladder wall thickening. No focal lesion seen. Bilateral ureteral jets are demonstrated. Prevoid bladder volume is 57.2 mL. Postvoid bladder volume is 132.9 mL. US/US retroperitoneal comp IMPRESSION: Unremarkable renal ultrasound. Moderate to large post void residual bladder volume. Normal bilateral ureteral jets seen. Suspect mild bladder wall thickening. Assessment & Plan Assessment & Plan (1) Female cystocele: Code(s): N81.10 - Cystocele, unspecified Category: Medical Plan Plan - Educated the patient on reinserting the pessary if it dislodges during activities involving abdominal pressure. - Scheduled follow-up in two months to assess the effectiveness of the current pessary. Orders: Orders AMB Intravaginal Support Device Insertion 04/15/25 N81.10 - Cystocele, unspecified AMB Urinalysis Automated 04/15/25 Z13.9 - Encounter for screening, unspecified Patient Instructions: The patient had an opportunity to ask questions regarding treatment plan. The patient expressed understanding and agreement with the above treatment plan. The patient is aware they should contact our office by phone for worsening of their current condition or the appearance of new symptoms. Compliance is encouraged with any medications and followup testing that is ordered. It is a privilege to be allowed the opportunity to participate in the urologic care of your patient. If you have any questions or concerns regarding treatment for the above conditions please do not hesitate to contact me. The office telephone contact is [phone]. This note is constructed in part using voice recognition software. While every effort has been made to ensure accuracy stable cleaner errors may have been included. Yours sincerely, Maria G Valiente MD Scribe Plan - Not visible on output: Patient was informed and verbally consented to the use of an ambient scribe for clinic note documentation during this visit. Coding Level of Care Code Est Pt Level 3 (73759) Diagnoses Female cystocele N81.10 CPT Codes Pessary Device Insert - CPT: 01588-Odbtsxq device insert ([id number])
--- OUTSIDE RECORDS SUMMARY | 2025-04-15 14:46 | XMS_ITS | Data Portability ---
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 bladder, falling bladderif that is negative agreed to set up with an overactive bladder medication Impaired f asting glycemia 732576644 R73.01 stab [id number] Aric Espinoza [facility] [address],[place] [address] 12/12/2023 10:48:19 12/15/2023 14:25:19 Swelling of bilateral lower limbs 393729384 M79.89 will set up with lab work in addition to US arterial and XR low back to determine exact cause Pain of bi lateral hip joints 7339193792 6582285 M25.551 needs refills [id number] Aric Espinoza [facility] [address],[place] [address] 01/28/2024 13:25:17 01/28/2024 13:51:50 Pain of bilateral hip joints 9331424408 3525776 M25.551 needs refills Restless legs 37137127 G 25.81 needs refills Spasm 48244567 R25.2 agreed to lab work Lumbar radiculopathy 128 265118 M54.16 will set up with MRI [id number] Aric Espinoza [facility] [address],[place] [address] 04/16/2024 14:41:41 04/16/2024 15:12:31 Depression screening 637278583 Z13.31 neg Elderly fall 851797874 R 29.6 agreed to XR Depressive disorder 3548 9007 F32.0 stable Spasm of back muscles 20 0811407 M62.830 will increased dosage to TID Osteoarthritis 905302121 M19.90 stable Pain of le ft shoulder joint 3197741984 0852410 M25.512 will set up with XR's 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 second referral, Elenita did the EMG, no f/uwill set up with neuro surg for consult given the severity of the symptoms/p ain [id number] Aric Espinoza [facility] [address],[place] [address] 06/14/2024 15:47:35 06/14/2024 16:48:30 Seborrheic keratosis 726918034 L82.1 sent in Derm referral Actinic keratosis 219021 007 L57.0 sent in Derm referral Pain of le ft shoulder joint 6390189936 7019288 M25.512 celebrex and tramadol caused side effects Nocturia 013127890 R35.1 told her to double, if that doesn't work will try an alt for her instead of seeing uro again Hypothyroidism 05140723 E03.8 needs refill [id number] Aric Espinoza [facility] [address], [place] [address] 03/29/2025 11:54:36 03/29/2025 14:10:38 Fatigue 14163548 R53.83 work up added Arthritis 2021241 M19.90 stable Muscle pain 29638702 M79 .10 Health Concerns Section Related Observation LastModified by Organization Detai ls LastModified Time None Recorded Concern Status LastModified by Organization Details LastModified Time None Recorded Advance Directives Directive None Recorded Payers Insurance Date Sequence Insurance Name Policy Number Policy Cordova Covered Member ID Cordova Member ID Guarantor Name 03/26/2025 1 [facility] PLAN - MEDICARE PREFERRED (MEDICARE REPLACEMENT HMO) CHANDU Andrade [id number] Joyce Andrade 03/29/2025 2 [place] [facility] Joyce Andrade [id number] Joyce Andrade Notes Date Note Type Note [...] work and imaging done LISA JONES [address] [place], [address], [facility] 12/12/2023 11:25:28 4 text/html f/u appt the patient is getting a lot of jumping legs at nighthave tried pramipexole and ropinirole will set up with lab work for the patient and MRI of her lumbar spine agreed to plan will start on baclofen in the meantime for patient LISA JONES [address] [place], [address], [facility] 01/28/2024 13:50:32 4 text/html [...] neuro surg for consult LISA JONES [address] [place], [address], [facility] 04/16/2024 15:10:36 4 text/html [...] if it works better LISA JONES [address] [place], [address], [facility] 06/14/2024 16:43:34 5 text/html c/o fatigue and hip pain the patient reports that she is still very fatiguedher thyroid levels were w/n/l recommended additional lab workalso has her ortho fu coming up for the hip injection recommended possibly a rheum appt given hx of arthritis and rheumatic fever the patient will fu with my afterwards LISA JONES [address] [place], [address], [facility] 03/29/2025 12:51:58 OBGyn Episode No OBEpisode recorded.
== END 2025-04-15 15:22 | disposition home or self-care (01) ==
LOC: HO.HUSH 14:19
PROVIDERS: PCP Physician Assistant; Visit Provider Urology
DX: N81.10 Cystocele, unspecified (principal)
CPT/HCPCS: 57160; 99213

== ENCOUNTER → 2025-04-15 14:19 | Outpatient (BNVA) | payer MEDICARE, SELFPAY | PROVIDERS: PCP Physician Assistant; Visit Provider Urology | DX: Z46.6 Encounter for fitting and adjustment of urinary device (principal); N81.10 Cystocele, unspecified; N32.81 Overactive bladder; Z96.0 Presence of urogenital implants | CPT/HCPCS: 57160; 81003; 99212 ==

== ENCOUNTER 2025-06-23 11:01 | Outpatient (AMB) | payer MEDICARE, SELFPAY ==
--- NOTE | 2025-06-23 11:09 | MHC.OFFVIS ---
Intake Visit Reasons: pessary 2m Intake Note: Patient presents today for 2m pessary maintanence Urology Medication:Vitamin B12 Blood Thinner:None Antibiotic Allergies:None PVR:125ml/100ml urine Allergies No Known Allergies Allergy (Verified 06/23/25 11:22) Medication List - Last Reconciled 06/23/25 by Maria G Valiente MD atorvastatin 80 mg PO DAILY citalopram 10 mg PO DAILY cyanocobalamin (vitamin B-12) ER 2,000 mcg PO DAILY diclofenac sodium 75 mg PO BID dicyclomine 20 mg PO BID estradiol 0.01%(0.1mg/gram) 1 g vaginal 2XW levothyroxine 75 mcg PO DAILY omeprazole 20 mg PO BID HPI Comments Details: 06/23/25-patient states that pessary fell out. History of Present Illness The patient is an 84-year-old female presenting with vaginal prolapse. Two months ago, a ring pessary number 4 with support was placed, but it subsequently fell out. Today, a Gellhorn pessary #4 was placed, and the patient was instructed to attempt urination to ensure it stays in place. A bladder scan conducted prior to the pessary placement indicated a post-void residual of 125 mL. The patient was able to urinate 100 mL after placement of pessary. Plan 1. Vaginal Prolapse - A Gellhorn pessary #4 was placed to manage the prolapse. - The patient was advised to attempt urination to ensure the pessary remains in place. - Follow-up in 10 weeks if the pessary remains in place; otherwise, contact the clinic if it falls out. 04/15/25-- History of Present Illness - The patient is an 84-year-old female presenting with vaginal prolapse. - She has a history of complete hysterectomy and seven vaginal deliveries. - Initially evaluated on 04/11/25 for vaginal prolapse, a size 3 pessary with support was placed. - The pessary fell out after returning home, despite urinating after pessary placement without issue in the office. - Options discussed included using a Gellhorn pessary or increasing the ring size. - As the patient is sexual active, a size 4 ring with support was placed instead of a gelhorn at this time, as a size 5 ring was too large and did not fit correctly. - The patient was instructed on reinserting the pessary if it dislodges during activities involving abdominal pressure. Discussion Notes I discussed with the patient the use of different pessary shapes and sizes to address her vaginal prolapse, considering her sexual activity. We decided to try a larger ring size, and I instructed her on how to manage the pessary if it dislodges during daily activities. Follow-up is scheduled in two months to evaluate the effectiveness of the current pessary. Review of Systems Const All systems reviewed & are unremarkable except as noted in HPI and below Reports no additional complaints Eyes Reports no additional complaints ENT Reports no additional complaints Card Reports no additional complaints Resp Reports no additional complaints GI Reports no additional complaints Reports as per HPI Musc Reports no additional complaints Skin/Breast Reports system reviewed and no additional complaints, except as documented Neuro Reports no additional complaints Psych Reports no additional complaints Endo Reports no additional complaints Taiwo/Lymph Reports no additional complaints Aller/Immun Reports no additional complaints Office Procedures Pessary Device Insert Details: Gellhorn pessary size 4 placed. The patient was able to urinate 100 mL after placement [id number] device insert Assessment & Plan Assessment & Plan (1) Female cystocele: Code(s): N81.10 - Cystocele, unspecified Category: Medical (2) Incomplete bladder emptying: Code(s): R33.9 - Retention of urine, unspecified Category: Medical Plan Gellhorn size 4 pessary placed. Patient tolerated well. Orders: Orders AMB Intravaginal Support Device Insertion Today N81.10 - Cystocele, unspecified, R33.9 - Retention of urine, unspecified Patient Instructions: The patient had an opportunity to ask questions regarding treatment plan. The patient expressed understanding and agreement with the above treatment plan. The patient is aware they should contact our office by phone for worsening of their current condition or the appearance of new symptoms. Compliance is encouraged with any medications and followup testing that is ordered. It is a privilege to be allowed the opportunity to participate in the urologic care of your patient. If you have any questions or concerns regarding treatment for the above conditions please do not hesitate to contact me. The office telephone contact is [phone]. This note is constructed in part using voice recognition software. While every effort has been made to ensure accuracy optical mechanic apprentice errors may have been included. Yours sincerely, Maria G Valiente MD Scribe Plan - Not visible on output: Patient was informed and verbally consented to the use of an ambient scribe for clinic note documentation during this visit. Coding Level of Care Code Est Pt Level 3 (18330) Diagnoses Female cystocele N81.10 Incomplete bladder emptying R33.9 CPT Codes Pessary Device Insert - CPT: 71067-Czsocvs device insert ([id number])
--- OUTSIDE RECORDS SUMMARY | 2025-06-23 12:39 | XMS_ITS | Encounter Summary ---
Author Organization [place] [phone] Phone Care Team Providers Care Social Worker Palliative Care Name Role Phone Aric Espinoza DO Primary Care Provider [phone] Emma Elizabeth Primary Care Provider [phone] Aric Espinoza DO Unavailable Aric Espinoza DO Primary Care Provider [phone] Encounter Details Date Type Department Care Team (Late Contact Info) Description 12/29/2018 Procedure Pass OR Admitting Dept - Virtual Department [address] [place] [address] Social History Tobacco Use Types Packs/Day Years Used Date Smoking Tobacco: Never Smokeless Tobacco: Never Alcohol Use Standard Drinks/Week Comments No 0 (1 standard drink = 0.6 oz pur e alcohol) Comments Unknown Sex and Gender Information Value Date Recorded Sex Assigned at Not on file Legal Sex Female 10:13 PM EDT Gender Identity Not on file Sexual Orientation Not on file documented as of this encounter Plan of Treatment Upcoming Encounters Date Type Department Care Team (Late Contact Info) Description 07/19/2025 9:45 AM EDT Office Visit [facility] Orthopedics & Sports Medicine [address] [place] [address] Cain Christiansen MD [address] [place] [address] Orthopedics & Sports Medicine, [facility] [place], [place] [id number] [email or web address] documented as of this encounter Visit Diagnoses Not on filedocumented in this encounter Care Teams Social Worker Palliative Care Relationship Specialty Start Date End Date Aric Espinoza DO PCP - General Internal Medicine 10/01/17 09/05/21 Emma Elizabeth PA [address] [place] [address] PCP - General 09/06/21 04/29/22 Aric Espinoza DO PCP - General Internal Medicine 04/30/22 Aric Espinoza DO Insurance Assigned Provider Internal Medicine 10/24/21 documented as of this encounter Additional Source Comments The information contained in this document represents components of the legal health record. It is not the complete legal health record.[facility]
--- OUTSIDE RECORDS SUMMARY | 2025-06-23 12:39 | XMS_ITS | Encounter Summary ---
Author Organization [facility] Address [address] [place] [address] Phone Care Team Providers Care Print Developer Automatic Name Role Phone Olga Aric Davila DO Primary Care Provider [phone] Emma Elizabeth Primary Care Provider [phone] Aric Espinoza DO Unavailable Olga, Aric Davila DO Primary Care Provider [phone] Reason for Referral * MRI/CAT Scan - Closed Specialty Diagnoses / Procedures Referred By Sid cisneros Referred To Contact Radiology Diagnoses Lumbosacral radiculopathy Procedures MRI Lumbar Spine MRI Lumbar Spine Eleazar Guerra NP Phone: tel: fax: [email or web address] Referral ID Status Reason Start Date Expiration Date Visits Re quested Visits Authorized [id number] Closed 08/28/2018 08/28/2019 1 1 Encounter Details Date Type Department Care Team (Latest Contact Info) Description 08/28/2018 Ancillary Orders Virtual Department [address] [place] [address] Eleazar Guerra NP [address] [place] [address] [email or web address] Lumbosacral radiculopathy Social History Tobacco Use Types Packs/Day [...] Encounters Date Type Department Care Team (Late st Contact Info) Description 07/19/2025 9:45 AM EDT Office Visit [facility] Orthopedics & Sports Medicine [address] [place] [address] Cain Christiansen MD [address] [place] [address] Orthopedics & Sports Medicine, [facility] [place] [address] [email or web address] documented as of this encounter Results * MRI LUMBAR SPINE (NEURO) WITHOUT CONTRAST (09/11/2018 12:38 PM EST) Anatomical Region Laterality Modality L-spine Magnetic Resonan ce 09/11/2018 3:50 PM EST Impressions 09/11/2018 4:42 PM EST 1. Grade 1 spondylolisthesis at L4-5 and L5-S1. 2. Broad disc bulge without focal protrusion but moderately severe central stenosis at L4-5. 3. Large right foraminal focal disc protrusion at L5-S1 significantly displacing the nerve root. POS - [id number] Edited by: Carmen Pitt on 09/11/2018 4:09 PM Narrative 09/11/2018 4:42 PM EST TECHNIQUE: 1.5 My high-field MRI scanner. Sagittal T1, T2 and STIR, axial T1 and T2 sequences. Compare to plain films 06/30/2018. FINDINGS: 5-6 mm of anterolisthesis of L4 on L5 and L5 on S1 is unchanged. The other vertebral bodies are well-aligned. No marrow changes worrisome for bony trauma, tumor or infection. Normal conus position and appearance. T10-T11 and T11-12: No disc bulge or protrusion nor stenosis. T12-L1: Very minimal broad disc bulge. No focal protrusion or stenosis. L1-2: No disc bulge or protrusion nor stenosis. L2-3: Very minimal broad disc bulge. No focal protrusion or stenosis. L3-4: Very minimal left-eccentric broad disc bulge slightly effacing the thecal sac without root displacement or focal disc protrusion. No stenosis. L4-5: The anterolisthesis uncovers the posterior disc margin and there is mild broad bulge but no focal disc protrusion is apparent. Prominent facet and ligamentous hypertrophy combine with the spondylolisthesis to produce moderately severe central stenosis with a trefoil-shaped canal. L5-S1: In addition to the anterolisthesis uncovering the posterior disc margin, there is broad disc bulge and a moderate sized right foraminal focal disc protrusion with significant displacement of the mid and peripheral right nerve root. Despite exuberant facet and ligamentous hypertrophy, only minimal central stenosis is present. Procedure Note Vaibhav Recio MD - 09/11/2018 TECHNIQUE: 1.5 My high-field MRI scanner. Sagittal T1, T2 and STIR, axial T1 and T2 sequences. Compare to plain films 06/30/2018. FINDINGS: 5-6 mm of anterolisthesis of L4 on L5 and L5 on S1 is unchanged. The othervertebral bodies are well-aligned. No marrow changes worrisome for bony trauma, tumor or infection. Normal conus position and appearance. T10-T11 and T11-12: No disc bulge or protrusion nor stenosis. T12-L1: Very minimal broad disc bulge. No focal protrusion or stenosis. L1-2: No disc bulge or protrusion nor stenosis. L2-3: Very minimal broad disc bulge. No focal protrusion or stenosis. L3-4: Very minimal left-eccentric broad disc bulge slightly effacing thethecal sac without root displacement or focal disc protrusion. Nostenosis. L4-5: The anterolisthesis uncovers the posterior disc margin and there ismild broad bulge but no focal disc protrusion is apparent. Prominent facetand ligamentous hypertrophy combine with the spondylolisthesis to producemoderately severe central stenosis with a trefoil-shaped canal. L5-S1: In addition to the anterolisthesis uncovering the posterior discmargin, there is broad disc bulge and a moderate sized right foraminalfocal disc protrusion with significant displacement of the mid andperipheral right nerve root. Despite exuberant facet and ligamentoushypertrophy, only minimal central stenosis is present. IMPRESSION: 1. Grade 1 spondylolisthesis at L4-5 and L5-S1. 2. Broad disc bulge without focal protrusion but moderately severe centralstenosis at L4-5. 3. Large right foraminal focal disc protrusion at L5-S1 significantlydisplacing the nerve root. POS - [id number] Edited by: Carmen Pitt on 09/11/2018 4:09 PM Eleazar Guerra AUTOMATION TEST DEVELOPER IMG MR XSPECIALTY Final R esult documented in this encounter Visit Diagnoses Diagnosis Lumbosacral radiculopathy Thoracic or lumbosacral neuritis or radiculitis, unspecified Lumbosacral radiculopathy Thoracic or lumbosacral neuritis or radiculitis, unspecified documented in this encounter Care Teams Print Developer Automatic Relationship Specialty Start Date End Date Aric Espinoza DO PCP - General Internal Medicine 10/01/17 09/05/21 Emma Elizabeth PA [address] [place] [address] PCP - General 09/06/21 04/29/22 Aric Espinoza DO PCP - General Internal Medicine 04/30/22 Aric Espinoza DO Insurance Assigned Provider Internal Medicine 10/24/21 documented as of this encounter Additional Source Comments The information contained in this document represents components of the legal health record. It is not the complete legal health record.[facility]
--- OUTSIDE RECORDS SUMMARY | 2025-06-23 12:39 | XMS_ITS | Encounter Summary ---
Author Organization [facility] Address [address] [place], [place] [id number] Phone Care Team Providers Care Master Lay Out Specialist Name Role Phone Olga Aric Davila DO Primary Care Provider [phone] Emma Elizabeth Primary Care Provider [phone] Olga Aric Davila DO Unavailable Olga, Aric Davila DO Primary Care Provider [phone] Reason for Referral * MRI/CAT Scan - Closed Specialty Diagnoses / Procedures Referred By Sid cisneros Referred To Contact Radiology Diagnoses Transient cerebral ischemia, unspecified type Procedures MRI Brain Oumou Farooq PA-C Phone: tel: fax: Referral ID Status Reason Start Date Expiration Date Visits Re quested Visits Authorized [id number] Closed 05/31/2019 05/30/2020 1 1 Encounter Details Date Type Department Care Team (Latest Contact Info) Description 05/31/2019 Transcribe Orders Virtual Department [address] [place] [address] Oumou Farooq PA-C [address] [place] [address] Transient cerebral ischemia, unspecified type (Primary Dx) Social History Tobacco Use Types Packs/Day Years [...] Description 07/19/2025 9:45 AM EDT Office Visit [facility] Orthopedics & Sports Medicine [address] [place] [address] Cain Christiansen MD [address] [place] [address] Orthopedics & Sports Medicine, [place] [address] [email or web address] documented as of this encounter Results * MRI BRAIN WITHOUT CONTRAST (06/08/2019 8:07 AM EDT) Anatomical Region Laterality Modality Head Magnetic Resonan ce 06/08/2019 8:31 AM EDT Impressions 06/08/2019 8:37 AM EDT Mildly progressive white matter changes by the posterior horns of the lateral ventricles, most commonly associated with small vessel disease. No acute ischemic changes, mass, or or hemorrhage is identified. Mild multi-sinus inflammatory change, similar to prior. POS - [id number] Narrative 06/08/2019 8:37 AM EDT HISTORY: Aphasia and dysarthria. TIA. COMPARISON: 02/23/2008 TECHNIQUE: Exam performed on a 1.5 My high-field MRI scanner. Axial T1, T2, T2*, T2 FLAIR and diffusion-weighted imaging with ADC map, sagittal T1 sequences were obtained. FINDINGS: No restricted diffusion apparent to suggest ischemia or recent infarction. There are some progressive white matter signal changes in the white matter by the posterior horns of the lateral ventricles, slightly more confluent on right than left. Some was present previously but this is more pronounced than previous. Slight volume loss suggested since prior study with likely increase in size of ventricles. No abnormal intra or extra-axial blood or fluid collection, mass, or mass effect is seen. No areas of worrisome susceptibility effect. 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 No orbital mass is identified. There is some mild mucosal thickening in paranasal sinuses, evident previously with a trace amount of fluid in the right maxillary sinus, also present previously. There appears to be preserved flow voids in the major intracranial arteries and veins. Procedure Note Paula Shi MD - 06/08/2019 HISTORY: Aphasia and dysarthria. TIA. COMPARISON: 02/23/2008 TECHNIQUE: Exam performed on a 1.5 My high-field MRI scanner. AxialT1, T2, T2*, T2 FLAIR and diffusion-weighted imaging with ADC map,sagittal T1 sequences were obtained. FINDINGS: No restricted diffusion apparent to suggest ischemia or recent infarction.There are some progressive white matter signal changes in the white matterby the posterior horns of the lateral ventricles, slightly more confluenton right than left. Some was present previously but this is morepronounced than previous. Slight volume loss suggested since prior studywith likely increase in size of ventricles. No abnormal intra orextra-axial blood or fluid collection, mass, or mass effect is seen. Noareas of worrisome susceptibility effect. Pituitary is not enlarged withsome progressive flattening of the pituitary since prior study suggestingincompetent diaphragm of the sella. No orbital mass is identified. Thereis some mild mucosal thickening in paranasal sinuses, evident previouslywith a trace amount of fluid in the right maxillary sinus, also presentpreviously. There appears to be preserved flow voids in the majorintracranial arteries and veins. IMPRESSION: Mildly progressive white matter changes by the posterior horns of thelateral ventricles, most commonly associated with small vessel disease. Noacute ischemic changes, mass, or or hemorrhage is identified. Mildmulti-sinus inflammatory change, similar to prior. POS - [id number] January Oseas PELAEZ IMG MR HEAD/NECK Final Resul t documented in this encounter Visit Diagnoses Diagnosis Transient cerebral ischemia, unspecified type- Primary Transient cerebral ischemia, unspecified type documented in this encounter Care Teams Master Lay Out Specialist Relationship Specialty Start Date End Date Aric Espinoza DO [email or web address] PCP - General Internal Medicine 10/01/17 09/05/21 Emma Elizabeth PA [address] [facility] [place] [address] [place] [address] PCP - General 09/06/21 04/29/22 Aric Espinoza DO [email or web address] PCP - General Internal Medicine 04/30/22 rAic Espinoza DO [email or web address] Insurance Assigned Provider Internal Medicine 10/24/21 documented as of this encounter Additional Source Comments The information contained in this document represents components of the legal health record. It is not the complete legal health record.[facility]
--- OUTSIDE RECORDS SUMMARY | 2025-06-23 12:39 | XMS_ITS | Encounter Summary ---
Author Organization [facility] Address [address] [place] [address] Phone Care Team Providers Care Sugar Grinder Name Role Phone Aric Espinoza DO Unavailable Aric Espinoza DO Primary Care Provider [phone] Reason for Referral * MRI/CAT Scan - Closed Specialty Diagnoses / Procedures Referred By Sid cisneros Referred To Contact Radiology Diagnoses Cyst of pancreas Procedures MRI Cholangiopancreatography (MRCP) MRI Abdomen Emma lEizabeth PA 6 [facility] [place] [address] Phone: tel: fax: Referral ID Status Reason Start Date Expiration Date Visits Re quested Visits Authorized [id number] Closed 11/05/2024 11/05/2025 1 1 Encounter Details Date Type Department Care Team (Latest Contact Info) Description 11/05/2024 Transcribe Orders Virtual Department [address] [place] [phone] Emma Elizabeth PA 6 [facility] [place] [address] Cyst of pancreas (Primary Dx) Social History Tobacco Use Types Packs/Day Years Used Date Smoking Tobacco: Never Smokeless Tobacco: Never Alcohol Use Standard Drinks/Week Comments No 0 (1 standard drink = 0.6 oz pur e alcohol) Education Answer Date Recorded Are you interested in more education? Not on kendra e 02/14/2023 Are you concerned about learning? Not on file 02/14/2023 No 02/14/2023 No 02/14/2023 Digital Access Answer Date Recorded No 03/15/2023 No 03/15/2023 Reliable internet access at home? Not on file 03/15/2023 Device with a working camera? Not on file Comments No Sex and Gender Information Value Date Recorded Sex Assigned at Not on file Legal Sex Female 10:13 PM EDT Gender Identity Not on file Sexual Orientation Not on file documented as of this encounter Plan of Treatment Upcoming Encounters Date Type Department Care Team (Late st Contact Info) Description 07/19/2025 9:45 AM EDT Office Visit [facility] Orthopedics & Sports Medicine [address] [place] [address] Cain Christinasen MD [address] [place] [address] Orthopedics & Sports Medicine, [facility] 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 *Hepatic steatosis. *0.6 cm left lower lobe pulmonary nodule. RECOMMENDATION: Consider chest CT. Narrative 01/04/2025 7:20 AM EDT MRI CHOLANGIOPANCREATOGRAPHY (MRCP) WITH AND WITHOUT CONTRAST Referring clinician's provided indication for this examination in Epic: * Pancreatic cyst/pseudocyst; Outside Radiology Order TECHNIQUE: Multiplanar MR imaging of the abdomen was performed using T1, T2, fat saturated, and diffusion weighted techniques. 2D and 3D MRCP sequences were performed. Dynamic multiphase imaging was also performed after administration of an intravenous gadolinium contrast agent. COMPARISON: MRI LUMBAR SPINE (NEURO) WITHOUT CONTRAST ; Chest FINDINGS: Lower chest: No effusions. 0.6 cm left lower lobe pulmonary nodule (11:85) Liver: Hepatic steatosis. No suspicious focal lesions. Biliary: No biliary ductal dilation. Gallstones measuring up to 1.2 cm. Noninflamed gallbladder. Spleen: No splenomegaly. T2 hypointense signal along the periphery of the spleen, suggestive of prior insult. Pancreas: No masses or main ductal dilatation. A 3 mm cystic lesion at the pancreatic head (700:1), without enhancement. Adrenal glands: No nodules. Kidneys/ureters: No solid masses or hydronephrosis. Bowel: No distention or wall thickening. Periampullary 3.2 cm duodenal diverticulum. Peritoneum/retroperitoneum: No masses or fluid. Trabeculated urinary bladder contour. Lymph nodes: No lymphadenopathy. Vessels: No abdominal aortic aneurysm. Bones/soft tissues: No marrow replacing lesions. L4-L5 posterior spinal fusion. Procedure Note Cami Braxton MD - 01/04/2025 MRI CHOLANGIOPANCREATOGRAPHY (MRCP) WITH AND WITHOUT CONTRAST Referring clinician's provided indication for this examination in Epic: *Pancreatic cyst/pseudocyst; Outside Radiology Order TECHNIQUE: Multiplanar MR imaging of the abdomen was performed using T1,T2, fat saturated, and diffusion weighted techniques. 2D and 3D MRCPsequences were performed. Dynamic multiphase imaging was also performedafter administration of an intravenous gadolinium contrast agent. COMPARISON: MRI LUMBAR SPINE (NEURO) WITHOUT CONTRAST ; [id number] FINDINGS: Lower chest: No effusions. 0.6 cm left lower lobe pulmonary nodule(11:85) Liver: Hepatic steatosis. No suspicious focal lesions. Biliary: No biliary ductal dilation. Gallstones measuring up to 1.2 cm.Noninflamed gallbladder. Spleen: No splenomegaly. T2 hypointense signal along the periphery of thespleen, suggestive of prior insult. Pancreas: No masses or main ductal dilatation. A 3 mm cystic lesion at thepancreatic head (700:1), without enhancement. Adrenal glands: No nodules. Kidneys/ureters: No solid masses or hydronephrosis. Bowel: No distention or wall thickening. Periampullary 3.2 cm duodenaldiverticulum. Peritoneum/retroperitoneum: No masses or fluid. Trabeculated urinarybladder contour. Lymph nodes: No lymphadenopathy. Vessels: No abdominal aortic aneurysm. Bones/soft tissues: No marrow replacing lesions. L4-L5 posterior spinalfusion. 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 *Hepatic steatosis. *0.6 cm left lower lobe pulmonary nodule. RECOMMENDATION: Consider chest CT. Emma GONZALEZ IMG MR ABDOMEN Final Resul t documented in this encounter Visit Diagnoses Diagnosis Cyst of pancreas- Primary Cyst and pseudocyst of pancreas Cyst of pancreas Cyst and pseudocyst of pancreas documented in this encounter Care Teams Sugar Grinder Relationship Specialty Start Date End Date Aric Espinoza DO [email or web address] PCP - General Internal Medicine 04/30/22 Aric Espinoza DO [email or web address] Insurance Assigned Provider Internal Medicine 10/24/21 documented as of this encounter Additional Source Comments The information contained in this document represents components of the legal health record. It is not the complete legal health record.[facility]
--- OUTSIDE RECORDS SUMMARY | 2025-06-23 12:39 | XMS_ITS | Encounter Summary ---
Author Organization [facility] Address [address] [place] [address] [place] [address] Phone Care Team Providers Care Instructor Weaving Name Role Phone AnthonyAric abernathy Primary Care Provider [phone] Emma Elizabeth Primary Care Provider [phone] AnthonyAric abernathy DO Unavailable Anthonyda, Aric Lola DO Primary Care Provider [phone] Encounter Details Date Type Department Care Team (Latest Contact Info) Description 08/28/2018 Ancillary Orders Virtual Department [address] [place] [address] Eleazar Guerra, INSULATION WORKER FURNACE INSTALLER [address] [place] [address] [email or web address] Left lumbosacral radiculopathy Social History Tobacco Use Types Packs/Day [...] Description 07/19/2025 9:45 AM EDT Office Visit [facility] Orthopedics & Sports Medicine [address] [place] [address] Cain Christiansen MD [address] [place] [address] Orthopedics & Sports [place] [place] [address] documented as of this encounter Visit Diagnoses Diagnosis Left lumbosacral radiculopathy documented in this encounter Care Teams Instructor Weaving Relationship Specialty Start Date End Date Aric Espinoza DO PCP - General Internal Medicine 10/01/17 09/05/21 Emma Elizabeth PA [address] [place] [address] [place] [address] PCP - General 09/06/21 04/29/22 Aric Espinoza DO PCP - General Internal Medicine 04/30/22 Aric Espinoza DO Insurance Assigned Provider Internal Medicine 10/24/21 documented as of this encounter Additional Source Comments The information contained in this document represents components of the legal health record. It is not the complete legal health record.[facility]
--- OUTSIDE RECORDS SUMMARY | 2025-06-23 12:39 | XMS_ITS | Encounter Summary ---
Author Organization [facility] Address [address] [place] [address] Phone Care Team Providers Care Plumbing Foreman Name Role Phone Anthonyjosemanuel Aric Lola Primary Care Provider [phone] Emma Elizabeth Primary Care Provider [phone] Olga Aric Lola DO Unavailable Olga, Aric Lola DO Primary Care Provider [phone] Encounter Details Date Type Department Care Team (Late Contact Info) Description 05/31/2019 Procedure [facility], [address] [address] Social History Tobacco Use Types Packs/Day Years [...] on file documented as of this encounter Last Filed Vital Signs Vital Sign Reading Time Taken Comments Blood Pressure - - Pulse - - Temperature - - Respiratory Rate - - Oxygen Saturation - - Inhaled Oxygen Concentration - - Weight 72.6 kg (160 lb) 06/03/2019 3:51 PM EDT Height 147.3 cm (4' 10 ) 06/03/2019 3:51 PM EDT Body Mass Index 33.44 06/03/2019 3:51 PM EDT documented in this encounter Plan of Treatment Upcoming Encounters Date Type Department Care Team (Late Contact Info) Description 07/19/2025 9:45 AM EDT Office Visit [facility] Orthopedics & Sports Medicine [address] [place] [address] Cain Christiansen MD [address] [place] [address] Orthopedics & Sports Medicine, [facility] [place] [address] [email or web address] documented as of this encounter Visit Diagnoses Not on filedocumented in this encounter Care Teams Plumbing Foreman Relationship Specialty Start Date End Date Aric Espinoza DO PCP - General Internal Medicine 10/01/17 09/05/21 Emma Elizabeth PA [address] [place] [address] [place] [address] PCP - General 09/06/21 04/29/22 Aric Espinoza DO PCP - General Internal Medicine 04/30/22 Aric Espinoza DO Insurance Assigned Provider Internal Medicine 10/24/21 documented as of this encounter Additional Source Comments The information contained in this document represents components of the legal health record. It is not the complete legal health record.[facility]
--- OUTSIDE RECORDS SUMMARY | 2025-06-23 12:39 | XMS_ITS | Encounter Summary ---
Author Organization [facility] Address [address] [facility] [address] [place] [address] Phone Care Team Providers Care Consulting Practice Director Name Role Phone Aric Espinoza DO Unavailable Aric Espionza DO Primary Care Provider [phone] Encounter Details Date Type Department Care Team (Late Contact Info) Description 12/12/2023 Ancillary Orders [facility], X-Ray - [address] [address] Emma Elizabeth PA [address] [place] [address] [place] [address] Other specified soft tissue disorders (Primary Dx) Social History Tobacco Use Types [...] Description 07/19/2025 9:45 AM EDT Office Visit [facility] Orthopedics & Sports Medicine [address] [place] [address] Cain Christiansen MD [address] [place] [address] Orthopedics & Sports Medicine, [place] [address] [email or web address] documented as of this encounter Results * XR LUMBOSACRAL SPINE 2-3 VIEWS (12/12/2023 12:15 PM EST) Anatomical Region Laterality Modality L-spine Computed Radiogr aphy 12/13/2023 12:5 2 AM EST Impressions 12/13/2023 12:56 AM EST L4 and possibly L5 posterior decompression and fusion with carolina and pedicle screw constructs. Hardware intact. Similar sagittal alignment abnormalities when compared to 2019. Worsening discogenic degenerative changes most pronounced at L2-3. Narrative 12/13/2023 12:56 AM EST XR LUMBOSACRAL SPINE 2-3 VIEWS Referring clinician's provided indication for this examination in Epic: Pain COMPARISON: MRI LUMBAR SPINE (NEURO) WITHOUT CONTRAST ; XR LUMBOSACRAL SPINE 2-3 VIEWS FINDINGS: ALIGNMENT: 4 mm L4-5 anterolisthesis. 3 mm L5-S1 anterolisthesis. VERTEBRAE: Surgical changes from L4 and possibly L5 posterior decompression and fusion with carolina and pedicle screw constructs and interbody fusion devices. Hardware is intact and in unchanged alignment. No periprosthetic fracture or lucency. DISCS: Mild disc height loss at L1-2 and L2-3. FACETS: Facets normally aligned. PARASPINAL SOFT TISSUES: Constipation. Mild associated bony proliferative change. Procedure Note Yudi Martinez MD - 12/13/2023 XR LUMBOSACRAL SPINE 2-3 VIEWS Referring clinician's provided indication for this examination in [facility]:Pain COMPARISON: MRI LUMBAR SPINE (NEURO) WITHOUT CONTRAST ; XRLUMBOSACRAL SPINE 2-3 VIEWS FINDINGS: ALIGNMENT: 4 mm L4-5 anterolisthesis. 3 mm L5-S1 anterolisthesis. VERTEBRAE: Surgical changes from L4 and possibly L5 posteriordecompression and fusion with carolina and pedicle screw constructs andinterbody fusion devices. Hardware is intact and in unchanged alignment.No periprosthetic fracture or lucency. DISCS: Mild disc height loss at L1-2 and L2-3. FACETS: Facets normally aligned. PARASPINAL SOFT TISSUES: Constipation. Mild associated bony proliferativechange. IMPRESSION: L4 and possibly L5 posterior decompression and fusion with carolina and pediclescrew constructs. Hardware intact. Similar sagittal alignment abnormalities when compared to 2019. Worsening discogenic degenerative changes most pronounced at L2-3. Emma GONZALEZ IMG XR SPINE Final Resul t documented in this encounter Visit Diagnoses Diagnosis Other specified soft tissue disorders- Primary Other specified soft tissue disorders documented in this encounter Care Teams Consulting Practice Director Relationship Specialty Start Date End Date Aric Espinoza DO [email or web address] PCP - General Internal Medicine 04/30/22 Aric Espinoza DO Insurance Assigned Provider Internal Medicine 10/24/21 documented as of this encounter Additional Source Comments The information contained in this document represents components of the legal health record. It is not the complete legal health record.[facility]
--- OUTSIDE RECORDS SUMMARY | 2025-06-23 12:39 | XMS_ITS | Encounter Summary ---
Author Organization [facility] Address [address] [place] [address] [place] [address] Phone Care Team Providers Care Director Of Elementary Education Name Role Phone AnthonyAric abernathy Primary Care Provider [phone] Emma Elizabeth Primary Care Provider [phone] Aric Espinoza DO Unavailable Anthonyda, Aric Lola DO Primary Care Provider [phone] Encounter Details Date Type Department Care Team (Late Contact Info) Description 06/30/2018 Ancillary Orders Virtual Department [address] [place] [address] Oumou Farooq PA-C [address] [place] [address] Chronic low back pain, unspecified back pain laterality, with sciatica presence unspecified Social History Tobacco Use Types Packs/Day Years [...] [facility] [address] [place] [address] Cain Christiansen MD [address] [place] [address] [facility] [place] [address] [email or web address] documented as of this encounter Results * XR LUMBOSACRAL SPINE 4 OR MORE VIEWS (06/30/2018 10:48 AM EDT) Anatomical Region Laterality Modality L-spine Radiographic Yas ging 06/30/2018 11:5 2 AM EDT Impressions 06/30/2018 5:38 PM EDT Moderate diffuse degenerative changes. Grade 1 spondylolisthesis at L4-5 secondary to severe facet arthropathy is a new finding compared with a remote CT report. Grade 1 spondylolisthesis at L5-S1 has likely progressed since the prior exam. Minimal spondylolisthesis now present at L3-4. POS - [id number] Edited by: Corina Marcelo on 06/30/2018 12:06 PM Narrative 06/30/2018 5:38 PM EDT HISTORY: Lower back pain for months. Pain radiating down right leg. COMPARISON: None, correlation made with lumbar spine CT report dated 02/13/2000. FINDINGS: Five views of lumbar spine are performed. Five lumbar type vertebral bodies. Bones are osteopenic. No compression deformities. No evidence of spondylolysis. Diffuse facet arthropathy, severe from L3-4 to L5-S1. 8 mm of anterolisthesis of L5 on S1, not described previously. 8 mm of anterolisthesis of L4 on L5, previously minimal grade 1 anterolisthesis was described. 1-2 mm of anterolisthesis of L3 on L4. These levels of spondylolisthesis are likely related to facet arthropathy. Moderate to severe disc space narrowing at L4-5 and L5-S1 and moderate at the other levels. Scattered atherosclerotic calcifications of the aorta. Procedure Note Aftab Stock MD - 06/30/2018 HISTORY: Lower back pain for months. Pain radiating down right leg. COMPARISON: None, correlation made with lumbar spine CT report date02/13/2000. FINDINGS: Five views of lumbar spine are performed. Five lumbar type vertebral bodies. Bones are osteopenic. No compressiondeformities. No evidence of spondylolysis. Diffuse facet arthropathy, severe from L3-4 to L5-S1. 8 mm ofanterolisthesis of L5 on S1, not described previously. 8 mm ofanterolisthesis of L4 on L5, previously minimal grade 1 anterolisthesiswas described. 1-2 mm of anterolisthesis of L3 on L4. These levels ofspondylolisthesis are likely related to facet arthropathy. Moderate to severe disc space narrowing at L4-5 and L5-S1 and moderate atthe other levels. Scattered atherosclerotic calcifications of theaorta. IMPRESSION: Moderate diffuse degenerative changes. Grade 1 spondylolisthesis at L4-5 secondary to severe facet arthropathy amina new finding compared with a remote CT report. Grade 1 spondylolisthesis at L5-S1 has likely progressed since the priorexam. Minimal spondylolisthesis now present at L3-4. POS - [id number] Edited by: Corina Marcelo on 06/30/2018 12:06 PM January Oseas PELAEZ IMG XR SPINE Final Result documented in this encounter Visit Diagnoses Diagnosis Chronic low back pain, unspecified back pain laterality, with sciatica presence unspecified Chronic low back pain, unspecified back pain laterality, with sciatica presence unspecified documented in this encounter Care Teams Director Of Elementary Education Relationship Specialty Start Date End Date Aric Espinoza DO PCP - General Internal Medicine 10/01/17 09/05/21 Emma Elizabeth PA [address] [place] [address] PCP - General 09/06/21 04/29/22 Aric Espinoza DO [email or web address] PCP - General Internal Medicine 04/30/22 Aric Espinoza DO Insurance Assigned Provider Internal Medicine 10/24/21 documented as of this encounter Additional Source Comments The information contained in this document represents components of the legal health record. It is not the complete legal health record.[facility]
--- OUTSIDE RECORDS SUMMARY | 2025-06-23 12:39 | XMS_ITS | Encounter Summary ---
Author Organization [facility] Address [address] [place] [address] [place] [address] Phone Care Team Providers Care Operations Executive Name Role Phone Aric Espinoza DO Unavailable Aric Espinoza DO Primary Care Provider [phone] Encounter Details Date Type Department Care Team (Late Contact Info) Description 11/05/2024 Procedure Pass [facility], [address] [address] Social History Tobacco Use Types Packs/Day Years [...] Description 07/19/2025 9:45 AM EDT Office Visit [facility] Medicine [address] [place] [address] Cain Christiansen MD [address] [place] [address] [facility] [place] [address] [email or web address] documented as of this encounter Visit Diagnoses Not on filedocumented in this encounter Care Teams Operations Executive Relationship Specialty Start Date End Date AnthonyAric abernathyDO [email or web address] PCP - General Internal Medicine 04/30/22 Aric Espinoza DO [email or web address] Insurance Assigned Provider Internal Medicine 10/24/21 documented as of this encounter Additional Source Comments The information contained in this document represents components of the legal health record. It is not the complete legal health record.[facility]
--- OUTSIDE RECORDS SUMMARY | 2025-06-23 12:39 | XMS_ITS | Encounter Summary ---
[place] [address] Phone Care Team Providers Care Dietary Internship Name Role Phone Aric Espinoza DO Primary Care Provider [phone] Emma Elizabeth Primary Care Provider [phone] Aric Espinoza DO Unavailable Aric Espinoza DO Primary Care Provider [phone] Encounter Details Date Type Department Care Team (Late Contact Info) Description 08/28/2018 Procedure Pass [facility], [address] [address] Social History Tobacco Use Types Packs/Day Years [...] Description 07/19/2025 9:45 AM EDT Office Visit [facility] Medicine [address] [place] [address] Cain Christiansen MD [address] [place] [address] Orthopedics & Sports Medicine, [facility] [place] [address] [email or web address] documented as of this encounter Visit Diagnoses Not on filedocumented in this encounter Care Teams Dietary Internship Relationship Specialty Start Date End Date Aric Espinoza DO PCP - General Internal Medicine 10/01/17 09/05/21 Emam Elizabeth PA [address] [facility] [place] [address] PCP - General 09/06/21 04/29/22 Aric Espinoza DO PCP - General Internal Medicine 04/30/22 Aric Espinoza DO Insurance Assigned Provider Internal Medicine 10/24/21 documented as of this encounter Additional Source Comments The information contained in this document represents components of the legal health record. It is not the complete legal health record.[facility]
--- OUTSIDE RECORDS SUMMARY | 2025-06-23 12:39 | XMS_ITS | Encounter Summary ---
Author Organization [facility] Address [address] [place] [address] Phone Care Team Providers Care Regional Sales Consultant Name Role Phone AnthonyAric abernathy Primary Care Provider [phone] Emma Elizabeth Primary Care Provider [phone] Aric Espinoza DO Unavailable Olga, Aric Lloa DO Primary Care Provider [phone] Encounter Details Date Type Department Care Team (Latest Contact Info) Description 08/08/2021 Transcribe Orders Virtual Department [address] [place] [address] Emma Elizabeth PA [address] [place] [address] [place] [address] Left knee pain, unspecified chronicity (Primary Dx); Left leg pain Social History Tobacco Use Types Packs/Day Years [...] [facility] [address] [place] [address] Cain Christiansen MD [address] [place] [address] [facility] [place] [address] [email or web address] documented as of this encounter Results * XR KNEE 4 OR MORE VIEWS (LEFT) (08/09/2021 9:45 AM EDT) Anatomical Region Laterality Modality Knee Left Computed Radiogr aphy 08/09/2021 9:52 AM EDT Impressions 08/09/2021 9:53 AM EDT No acute bony abnormality apparent. POS - [id number] Narrative 08/09/2021 9:53 AM EDT COMPARISON: None FINDINGS: AP, bilateral oblique, and crosstable lateral views disclose no fracture, subluxation, or other acute bony abnormality. Upper pole patellar spurring is noted at the quadriceps tendon insertion point. No gross suprapatellar effusion. Procedure Note Rafiq Rocha MD - 08/09/2021 COMPARISON: None FINDINGS: AP, bilateral oblique, and crosstable lateral views disclose no fracture,subluxation, or other acute bony abnormality. Upper pole patellar spurringis noted at the quadriceps tendon insertion point. No gross suprapatellareffusion. IMPRESSION: No acute bony abnormality apparent. POS - [id number] Emma GONZALEZ IMG XR LOWER EXTREMITY Chikis l Result * XR Tibia Fibula 2 Views (Left) (08/09/2021 9:44 AM EDT) Anatomical Region Laterality Modality Leg Left Computed Radiogr aphy 08/09/2021 9:53 AM EDT Impressions 08/09/2021 9:53 AM EDT No acute bony abnormality. POS [id number] Narrative 08/09/2021 9:53 AM EDT Frontal and lateral views disclose no fracture, subluxation, or other significant abnormality involving the visualized regional skeletal structures. Procedure Note Rafiq Rocha MD - 08/09/2021 Frontal and lateral views disclose no fracture, subluxation, or othersignificant abnormality involving the visualized regional skeletalstructures. IMPRESSION: No acute bony abnormality. POS [id number] Emma GONZALEZ IMG XR LOWER EXTREMITY Chikis l Result documented in this encounter Visit Diagnoses Diagnosis Left knee pain, unspecified chronicity- Primary Left leg pain Pain in soft tissues of limb Left knee pain, unspecified chronicity Left leg pain Pain in soft tissues of limb Left knee pain, unspecified chronicity Left leg pain Pain in soft tissues of limb documented in this encounter Care Teams Regional Sales Consultant Relationship Specialty Start Date End Date Aric Espinoza DO [email or web address] PCP - General Internal Medicine 10/01/17 09/05/21 Emma Elizabeth PA [address] [facility] [place] [address] PCP - General 09/06/21 04/29/22 Aric Espinoza DO PCP - General Internal Medicine 04/30/22 Aric Espinoza DO Insurance Assigned Provider Internal Medicine 10/24/21 documented as of this encounter Additional Source Comments The information contained in this document represents components of the legal health record. It is not the complete legal health record.[facility]
--- OUTSIDE RECORDS SUMMARY | 2025-06-23 12:39 | XMS_ITS | Encounter Summary ---
Author Organization [facility] Address [address] [facility] [address] [place] [address] Phone Care Team Providers Care Stator Plate Washer Name Role Phone Aric Espinoza DO Unavailable Aric Espinoza DO Primary Care Provider [phone] Encounter Details Date Type Department Care Team (Latest Contact Info) Description 09/20/2024 Transcribe Orders Virtual Department [address] [place] [address] Emma Elizabeth PA [address] [place] [address] [place] [address] Left knee pain, unspecified chronicity (Primary Dx) Social History Tobacco Use Types [...] Upcoming Encounters Date Type Department Care Team ( Contact Info) Description 07/19/2025 9:45 AM EDT Office Visit [facility] Sports Medicine [address] [place] [address] Cain Christiansen MD [address] [place] [address] Orthopedics & Sports [place], [place] [address] [email or web address] documented as of this encounter Results * XR KNEE 4 OR MORE VIEWS (LEFT) (09/20/2024 12:42 PM EST) Anatomical Region Laterality Modality Knee Left Computed Radiogr aphy 09/20/2024 3:04 PM EST Impressions 09/20/2024 3:06 PM EST Mild degenerative changes of the left knee. Narrative 09/20/2024 3:06 PM EST XR KNEE 4 OR MORE VIEWS (LEFT) Referring clinician's provided indication for this examination in [facility]: Outside Radiology Order; knee pain COMPARISON: XR KNEE 4 OR MORE VIEWS (LEFT) FINDINGS: Left Knee: No acute fracture or dislocation. There are mild tricompartmental degenerative changes. No joint effusion. Superior patellar enthesophyte. Procedure Note Rivera Mccabe MD - 09/20/2024 XR KNEE 4 OR MORE VIEWS (LEFT) Referring clinician's provided indication for this examination in Epic:Outside Radiology Order; knee pain COMPARISON: XR KNEE 4 OR MORE VIEWS (LEFT) FINDINGS: Left Knee: No acute fracture or dislocation. There are mildtricompartmental degenerative changes. No joint effusion. Superiorpatellar enthesophyte. 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 Emma GONZALEZ IMG XR LOWER EXTREMITY Chikis l Result documented in this encounter Visit Diagnoses Diagnosis Left knee pain, unspecified chronicity- Primary Left knee pain, unspecified chronicity documented in this encounter Care Teams Stator Plate Washer Relationship Specialty Start Date End Date Aric Espinoza DO [email or web address] PCP - General Internal Medicine 04/30/22 Aric Espinoza DO [email or web address] Assigned Provider Internal Medicine 10/24/21 documented as of this encounter Additional Source Comments The information contained in this document represents components of the legal health record. It is not the complete legal health record.[facility]
--- OUTSIDE RECORDS SUMMARY | 2025-06-23 12:39 | XMS_ITS | Encounter Summary ---
Author Organization [facility] Address [address] [place] [address] Phone Care Team Providers Care Receiving Operator Name Role Phone Aric Espinoza DO Primary Care Provider [phone] Emma Elizabeth Primary Care Provider [phone] Aric Espinoza DO Unavailable Olga, Aric Davila DO Primary Care Provider [phone] Reason for Referral * MRI/CAT Scan - Closed Specialty Diagnoses / Procedures Referred By Sid cisneros Referred To Contact Radiology Diagnoses Contusion of left knee, initial encounter Procedures MRI Knee (Left) Emma Elizabeth PA Phone: tel: fax: Referral ID Status Reason Start Date Expiration Date Visits Re quested Visits Authorized [id number] Closed 08/10/2021 08/10/2022 1 1 Encounter Details Date Type Department Care Team (Latest Contact Info) Description 08/10/2021 Transcribe Orders Virtual Department 30 [place] [address] Emma Elizabeth PA [address] [place] [address] [place] [address] Contusion of left knee, initial encounter (Primary Dx) Social History Tobacco Use Types [...] Description 07/19/2025 9:45 AM EDT Office Visit [facility] Medicine [address] [place] [address] Cain Christiansen MD [address] [place] [address] Orthopedics & Sports Medicine, [place] [address] [email or web address] documented as of this encounter Results * MRI KNEE WITHOUT CONTRAST (LEFT) (09/04/2021 10:40 AM EST) Anatomical Region Laterality Modality Knee Left Magnetic Resonan ce 09/04/2021 10:4 7 AM EST Impressions 09/04/2021 11:25 AM EST Findings suspicious for tear at the upper margin posterior horn medial meniscus with nearby inflammatory changes. No other specific source of pain. Narrative 09/04/2021 11:25 AM EST HISTORY: Pain and swelling. Injury several months ago. COMPARISON: Radiographs August 09 TECHNIQUE: Exam performed on a 1.5 My high-field MRI scanner. 3 plane axial proton density with fat saturation, sagittal T2 with fat saturation, and sagittal T1-weighted sequences are obtained. FINDINGS: Cruciate ligaments intact. Medial and fibular collateral ligament intact. Extensor tendon mechanism intact. Apical fraying noted anterior horn lateral meniscus. Irregularity with possible posterior corner tear at the base of medial meniscus near junction mid-body and posterior horn with some mild edema in the region. Pes anserine tendons unremarkable. Trace amount of fluid in the semimembranosus-gastrocnemius bursa. No osteochondral lesions. Mild medial compartment cartilage loss and irregularity. Overall cartilage appears very well preserved for age, however. No worrisome marrow signal changes. Procedure Note Kike Feliciano MD - 09/04/2021 HISTORY: Pain and swelling. Injury several months ago. COMPARISON: Radiographs August 09 TECHNIQUE: Exam performed on a 1.5 My high-field MRI scanner. 3 planeaxial proton density with fat saturation, sagittal T2 with fat saturation,and sagittal T1- weighted sequences are obtained. FINDINGS: Cruciate ligaments intact. Medial and fibular collateral ligament intact.Extensor tendon mechanism intact. Apical fraying noted anterior horn lateral meniscus. Irregularity withpossible posterior corner tear at the base of medial meniscus nearjunction mid-body and posterior horn with some mild edema in the region.Pes anserine tendons unremarkable. Trace amount of fluid in thesemimembranosus-gastrocnemius bursa. No osteochondral lesions. Mild medial compartment cartilage loss andirregularity. Overall cartilage appears very well preserved for age,however. No worrisome marrow signal changes. IMPRESSION: Findings suspicious for tear at the upper margin posterior horn medialmeniscus with nearby inflammatory changes. No other specific source ofpain. Emma GONZALEZ IMG MR EXTREMITY Final Resu lt documented in this encounter Visit Diagnoses Diagnosis Contusion of left knee, initial encounter- Primary Contusion of left knee, initial encounter documented in this encounter Care Teams Receiving Operator Relationship Specialty Start Date End Date Aric Espinoza DO [email or web address] PCP - General Internal Medicine 10/01/17 09/05/21 Emma Elizabeth PA [address] [facility] [place] [address] PCP - General 09/06/21 04/29/22 Aric Espinoza DO [email or web address] PCP - General Internal Medicine 04/30/22 Aric Espinoza DO [email or web address] Insurance Assigned Provider Internal Medicine 10/24/21 documented as of this encounter Additional Source Comments The information contained in this document represents components of the legal health record. It is not the complete legal health record.[facility]
--- OUTSIDE RECORDS SUMMARY | 2025-06-23 12:40 | XMS_ITS | Encounter Summary ---
Author Organization [facility] Address [address] [place] [address] Phone Care Team Providers Care Fisher Eel Spear Name Role Phone Emma Elizabeth Primary Care Provider [phone] Aric Espinoza DO Unavailable Aric Espinoza DO Primary Care Provider [phone] Encounter Details Date Type Department Care Team (Late Contact Info) Description 04/15/2022 Procedure Pass [facility], [address] [address] Social History Tobacco Use Types Packs/Day Years Used Date Smoking Tobacco: Never Smokeless Tobacco: Never Alcohol Use Standard Drinks/Week Comments No 0 (1 standard drink = 0.6 oz pur e alcohol) Comments No Sex and Gender Information Value Date Recorded Sex Assigned at Not on file Legal Sex Female 10:13 PM EDT Gender Identity Not on file Sexual Orientation Not on file documented as of this encounter Plan of Treatment Upcoming Encounters Date Type Department Care Team ([facility] Contact Info) Description 07/19/2025 9:45 AM EDT Office Visit [facility] Orthopedics & Sports Medicine [address] [place] [address] Cain Christiansen MD [address] [place] [address] Orthopedics & Sports Medicine, [facility] [place] [address] [email or web address] documented as of this encounter Visit Diagnoses Not on filedocumented in this encounter Care Teams Fisher Eel Spear Relationship Specialty Start Date End Date Emma Elizabeth PA [address] [place] [address] PCP - General 09/06/21 04/29/22 Aric Espinoza DO [address] [place] [address] [email or web address] PCP - General Internal Medicine 04/30/22 Aric Espinoza DO [address] [place] [address] [email or web address] Insurance Assigned Provider Internal Medicine 10/24/21 documented as of this encounter Additional Source Comments The information contained in this document represents components of the legal health record. It is not the complete legal health record.[facility]
--- OUTSIDE RECORDS SUMMARY | 2025-06-23 12:40 | XMS_ITS | Clinical Summary ---
Author Organization [facility] Address [address] [place] [address] Phone Care Team Providers Care Steel Crane Operator Name Role Phone Glenn Emma GONZALEZ Primary Care Provider [phone] Allergies No known active allergies Medications atorvastatin [...] had lumbar spine MRI 03/07/2024 ordered from [facility]. She has pedicle screws and hardware [...] has any worsening symptoms, all questions answered. Immunizations Name Administration Dates Next Due Influenza [...] Patients (1 - 1-dose 75+ series) 2013 Depression Screening 10/20/2024 Cholesterol Screening (Lipid Panel) 10/29/2024 Falls Risk Assessment 10/29/2024 Medicare Annual Wellness Visit 10/29/2024 Osteoporosis Screening (Bone Density Screening) 10/29/2024 Social Influencers of Health Screening 10/29/2024 COVID-19 Vaccine ( season) 2025 06/04/2022, 10/19/2021, 12/14/2020, Additional history exists Influenza Vaccine (#1) 2025 2, 09/27/2019, 07/01/2016, Additional history exists DTaP,Tdap,and Td [...] to complete this topic Insurance [place] Care Teams Steel Crane Operator Relationship Specialty Start Date End Date Emma Elizabeth PA [address] [place] [address] PCP - General 10/28/24
--- OUTSIDE RECORDS SUMMARY | 2025-06-23 12:40 | XMS_ITS | Encounter Summary ---
Author Organization [facility] Address [address] [facility] [address] [place] [address] Phone Care Team Providers Care Sign Erector Name Role Phone Aric Espinoza DO Unavailable Aric Espinoza DO Primary Care Provider [phone] Reason for Referral * - Closed Specialty Diagnoses / Procedures Referred By Contpat t Referred To Contact Radiology Diagnoses Claudication Procedures US Lower Extremity Arteries (YOKASTA) Physio Complete Bilat Emma Elizabeth PA [address] [place] [address] Phone: tel: fax: Referral ID Status Reason Start Date Expiration Date Visits Re quested Visits Authorized [id number] Closed 02/12/2024 02/11/2025 1 1 Encounter Details Date Type Department Care Team (Latest Contact Info) Description 02/12/2024 Ancillary Orders [facility] [place] [address] Emma Elizabeth PA [address] [facility] [address] Claudication (Primary Dx) Social History Tobacco Use Types [...] Description 07/19/2025 9:45 AM EDT Office Visit [facility] Orthopedics & Sports Medicine [address] [place] [address] Cain Christiansen MD [address] [place] [address] Orthopedics & Sports Medicine, [facility] [place] [address] [email or web address] documented as of this encounter Results * US Lower Extremity Arteries (YOKASTA) Physio Complete Bilat (02/12/2024 1:13 PM EDT) Arm 130 mmHg Posterior Tibial 150 mmHg Posterior Tibial Index 1.15 Dorsalis Pedis 140 mmHg Dorsalis Pedis Index 1.08 Arm 130 mmHg Posterior Tibial 140 mmHg Posterior Tibial Index 1.08 Dorsalis Pedis 150 mmHg Dorsalis Pedis Index 1.15 Anatomical Region Laterality Modality Ultrasound Narrative 02/13/2024 8:09 AM EDT Right Side: Ankle/Brachial index on the right side is 1.15 Left Side: Ankle/Brachial index on the left side is 1.15 There is no prior exam available for comparison YOKASTA is normal bilaterally. No evidence of significant obstructive peripheral arterial disease. Emma GONZALEZ CV US VASCULAR Final Resul t documented in this encounter Visit Diagnoses Diagnosis Bilateral lower extremity edema Claudication Unspecified peripheral vascular disease Claudication- Primary Unspecified peripheral vascular disease documented in this encounter Care Teams Sign Erector Relationship Specialty Start Date End Date Aric Espinoza DO [email or web address] PCP - General Internal Medicine 04/30/22 Aric Espinoza DO Insurance Assigned Provider Internal Medicine 10/24/21 documented as of this encounter Additional Source Comments The information contained in this document represents components of the legal health record. It is not the complete legal health record.[facility]
--- OUTSIDE RECORDS SUMMARY | 2025-06-23 12:40 | XMS_ITS | Encounter Summary ---
Author Organization [facility] Address [address] [place] [address] Phone Care Team Providers Care Rag Baler Name Role Phone Aric Espinoza Unavailable Aric Espinoza DO Primary Care Provider [phone] Encounter Details Date Type Department Care Team (Late Contact Info) Description 05/02/2022 Procedure Pass [facility], [address] [address] Social History Tobacco Use Types Packs/Day Years [...] 07/19/2025 9:45 AM EDT Office Visit [facility] Orthopedics & Sports Medicine [address] [place] [address] Cain Christiansen MD [address] [place] [address] [facility] [place] [address] documented as of this encounter Visit Diagnoses Not on filedocumented in this encounter Care Teams Rag Baler Relationship Specialty Start Date End Date Aric Espinoza DO PCP - General Internal Medicine 04/30/22 Aric Espinoza DO [email or web address] Insurance Assigned Provider Internal Medicine 10/24/21 documented as of this encounter Additional Source Comments The information contained in this document represents components of the legal health record. It is not the complete legal health record.[facility]
--- OUTSIDE RECORDS SUMMARY | 2025-06-23 12:40 | XMS_ITS | Encounter Summary ---
Author Organization [facility] Address [address] [place] [address] [place] [address] Phone Care Team Providers Care Hair Or Beauty Salon Assistant Name Role Phone AnthonyAric abernathy Primary Care Provider [phone] Emma Elizabeth Primary Care Provider [phone] Aric Espinoza DO Unavailable Olga, Aric Lola DO Primary Care Provider [phone] Encounter Details Date Type Department Care Team (Latest Contact Info) Description 11/02/2019 Transcribe Orders Virtual Department [address] [place] [address] Oumou Farooq PA-C [address] [place] [address] Cervicalgia (Primary Dx) Social History Tobacco Use Types [...] [facility] Orthopedics & Sports Medicine [address] [place] [address] Cain Christiansen MD [address] [place] [address] [facility] [place] [address] [email or web address] documented as of this encounter Results * XR CERVICAL SPINE 4-5 VIEWS (11/03/2019 10:31 AM EST) Anatomical Region Laterality Modality C-spine Radiographic Yas ging 11/03/2019 11:0 1 AM EST Impressions 11/03/2019 11:50 AM EST No acute findings. Multilevel degenerative cervical spondylosis with stable minimal anterolisthesis C3 on C4, similar changes of discogenic endplate changes, facet arthritic changes and neural foraminal stenosis. POS - [id number] Edited by: Corina Marcelo on 11/03/2019 11:10 AM Narrative 11/03/2019 11:50 AM EST XR CERVICAL SPINE 4-5 VIEWS HISTORY: N/A no indication applies (use free text below) TECHNIQUE: AP, lateral, open-mouth odontoid, bilateral oblique views cervical spine. COMPARISON: 03/11/2019. FINDINGS: Normal prevertebral soft tissue outline. Again seen are degenerative changes at multiple levels, most severe at C5-C6 and C6-C7, slightly lesser degree C4-C5. Stable minimal anterolisthesis C3 on C4. Multilevel facet arthrosis, most advanced on the LEFT at C2-C3 and C3-C4, most advanced on the RIGHT at C2-C3, C3-C4 and C4-C5. Stable mild and moderate bony neural foraminal stenosis, most pronounced at C4- C5 and C5-C6 on the RIGHT, C5-C6 and C6-C7 on the LEFT. Normal odontoid process, normal C1-C2 alignment. Procedure Note Zainab Teixeira MD - 11/03/2019 XR CERVICAL SPINE 4-5 VIEWS HISTORY: N/A no indication applies (use free text below) TECHNIQUE: AP, lateral, open-mouth odontoid, bilateral oblique viewscervical spine. COMPARISON: 03/11/2019. FINDINGS: Normal prevertebral soft tissue outline. Again seen are degenerative changes at multiple levels, most severe atC5-C6 and C6-C7, slightly lesser degree C4-C5. Stable minimalanterolisthesis C3 on C4. Multilevel facet arthrosis, most advanced on theLEFT at C2-C3 and C3-C4, most advanced on the RIGHT at C2-C3, C3-C4 andC4-C5. Stable mild and moderate bony neural foraminal stenosis, most pronouncedat C4-C5 and C5-C6 on the RIGHT, C5-C6 and C6-C7 on the LEFT. Normal odontoid process, normal C1-C2 alignment. IMPRESSION: No acute findings. Multilevel degenerative cervical spondylosis with stable minimalanterolisthesis C3 on C4, similar changes of discogenic endplate changes,facet arthritic changes and neural foraminal stenosis. POS - [id number] Edited by: Corina Marcelo on 11/03/2019 11:10 AM January Oseas PELAEZ IMG XR SPINE Final Result documented in this encounter Visit Diagnoses Diagnosis Cervicalgia- Primary Cervicalgia documented in this encounter Care Teams Hair Or Beauty Salon Assistant Relationship Specialty Start Date End Date Aric Espinoza DO PCP - General Internal Medicine 10/01/17 09/05/21 Emma Elizabeth PA 6 [facility] [place] [address] PCP - General 09/06/21 04/29/22 Aric Espinoza DO PCP - General Internal Medicine 04/30/22 Aric Espinoza DO Insurance Assigned Provider Internal Medicine 10/24/21 documented as of this encounter Additional Source Comments The information contained in this document represents components of the legal health record. It is not the complete legal health record.[facility]
--- OUTSIDE RECORDS SUMMARY | 2025-06-23 12:40 | XMS_ITS | Encounter Summary ---
Author Organization [facility] Address [address] [place] [address] Phone Care Team Providers Care Collaborating Supervising Physician Name Role Phone AnthonyAric abernathy Primary Care Provider [phone] Emma Elizabeth Primary Care Provider [phone] Aric Espinoza DO Unavailable Anthonyda, Aric Lola DO Primary Care Provider [phone] Encounter Details Date Type Department Care Team (Late Contact Info) Description 01/14/2019 Ancillary Orders [facility], X-Ray - [address] [address] Michael Farrell PA [address] [place] [address] [email or web address] Spinal stenosis, lumbar region with neurogenic claudication; Spondylolisthesis, lumbar region Social History Tobacco Use Types Packs/Day Years [...] Description 07/19/2025 9:45 AM EDT Office Visit [facility] Orthopedics & Sports Medicine [address] [place] [address] Cain Christiansen MD [address] [place] [address] Orthopedics & Sports Medicine, [facility] [place] [address] [email or web address] documented as of this encounter Results * XR LUMBOSACRAL SPINE 2-3 VIEWS (01/14/2019 12:07 PM EDT) Anatomical Region Laterality Modality L-spine Radiographic Yas ging 01/14/2019 1:30 PM EDT Impressions 01/14/2019 1:32 PM EDT Status post L4-S1 fusion as above. POS - [id number] Narrative 01/14/2019 1:32 PM EDT AP, lateral, cone-down lateral views lumbar spine obtained and compared to 06/30/2018 and MRI of 09/11/2018. Patient is status-post posterior decompression and fusion from L4 to S1. Intervertebral spacers in place with posterior fusion hardware. Slightly increased sclerosis across the upper margin of S1. No bony incorporation currently apparent. No compression deformity. No progressive degenerative changes seen. Procedure Note Paula Shi MD - 01/14/2019 AP, lateral, cone-down lateral views lumbar spine obtained and compared to06/30/2018 and MRI of 09/11/2018. Patient is status-post posteriordecompression and fusion from L4 to S1. Intervertebral spacers in placewith posterior fusion hardware. Slightly increased sclerosis across theupper margin of S1. No bony incorporation currently apparent. Nocompression deformity. No progressive degenerative changes seen. IMPRESSION: Status post L4-S1 fusion as above. POS - [id number] Michael GONZALEZ IMG XR SPINE Final Resul t documented in this encounter Visit Diagnoses Diagnosis Spinal stenosis, lumbar region with neurogenic claudication Spondylolisthesis, lumbar region Spinal stenosis, lumbar region with neurogenic claudication Spondylolisthesis, lumbar region documented in this encounter Care Teams Collaborating Supervising Physician Relationship Specialty Start Date End Date Aric Espinoza DO [email or web address] PCP - General Internal Medicine 10/01/17 09/05/21 Emma Elizabeth PA 6 [facility] [place] [address] PCP - General 09/06/21 04/29/22 Aric Espinoza DO PCP - General Internal Medicine 04/30/22 Aric Espinoza DO Insurance Assigned Provider Internal Medicine 10/24/21 documented as of this encounter Additional Source Comments The information contained in this document represents components of the legal health record. It is not the complete legal health record.[facility]
--- OUTSIDE RECORDS SUMMARY | 2025-06-23 12:40 | XMS_ITS | Encounter Summary ---
Author Organization [facility] Address [address] [facility] [address] [place] [address] Phone Care Team Providers Care Videotape Editor Name Role Phone Aric Espinoza DO Unavailable Aric Espinoza DO Primary Care Provider [phone] Encounter Details Date Type Department Care Team (Latest Contact Info) Description 05/07/2023 Transcribe Orders Virtual Department [address] [place] [address] Emma Elizabeth PA [address] [place] [address] [place] [address] Urinary incontinence, unspecified type (Primary Dx) Social History Tobacco [...] Encounters Date Type Department Care Team ( st Contact Info) Description 07/19/2025 9:45 AM EDT Office Visit [facility] Orthopedics & Sports Medicine [address] [place] [address] Cain Christiansen MD [address] [place] [address] Orthopedics & Sports Medicine, [facility] [place] [address] [email or web address] documented as of this encounter Results * US Bladder (07/03/2023 1:35 PM EDT) Anatomical Region Laterality Modality Abdomen, Kidney Ultrasound 07/03/2023 1:43 PM EDT Impressions 07/03/2023 11:25 PM EDT Post void residual volume 280 mL. Narrative 07/03/2023 11:25 PM EDT US BLADDER TECHNIQUE: Bladder Ultrasound. COMPARISON: None FINDINGS: Bladder: No focal wall thickening. Prevoid volume 255 mL. Postvoid volume 280 mL (accumulation during the course the examination was more than the little that was voided). Procedure Note Aric Valentino MD - 07/03/2023 US BLADDER TECHNIQUE: Bladder Ultrasound. COMPARISON: None FINDINGS: Bladder: No focal wall thickening. Prevoid volume 255 mL. Postvoid edpsjg912 mL (accumulation during the course the examination was more than thelittle that was voided). IMPRESSION: Post void residual volume 280 mL. Emma GONZALEZ IMG US RENAL Final Resul t documented in this encounter Visit Diagnoses Diagnosis Urinary incontinence, unspecified type- Primary Urinary incontinence, unspecified type documented in this encounter Care Teams Videotape Editor Relationship Specialty Start Date End Date Aric Espinoza DO [email or web address] PCP - General Internal Medicine 04/30/22 Aric Espinoza DO Insurance Assigned Provider Internal Medicine 10/24/21 documented as of this encounter Additional Source Comments The information contained in this document represents components of the legal health record. It is not the complete legal health record.[facility]
--- OUTSIDE RECORDS SUMMARY | 2025-06-23 12:40 | XMS_ITS | Encounter Summary ---
Author Organization [facility] Address [address] [place] [address] [place] [address] Phone Care Team Providers Care Staff Appraiser Name Role Phone Aric Espinoza DO Unavailable Aric Espinoza DO Primary Care Provider [phone] Encounter Details Date Type Department Care Team (Late Contact Info) Description 04/30/2022 Ancillary Orders [facility] - [address] [address] Maggy Buitrago, OSKAR [address] [place] [phone] [email or web address] Pain Social History Tobacco Use Types Packs/Day Years [...] Description 07/19/2025 9:45 AM EDT Office Visit [facility] Orthopedics & Sports Medicine [address] [place] [address] Cain Christiansen MD [address] [place] [address] Orthopedics & Sports Medicine, [facility]. [place], [place] [id number] documented as of this encounter Results * XR THORACIC SPINE 3 VIEW (04/30/2022 9:10 AM EDT) Anatomical Region Laterality Modality T-spine Computed Radiogr aphy 04/30/2022 11:2 5 AM EDT Impressions 04/30/2022 11:27 AM EDT Upper thoracic scoliotic curvature with moderate lower cervical degenerative disc disease and mild thoracic degenerative disc changes/spondylosis. No acute bony abnormality suggested. POS - [id number] Narrative 04/30/2022 11:27 AM EDT COMPARISON: None FINDINGS: Frontal, lateral, and swimmer's views were obtained. No vertebral body fracture or subluxation apparent. I'll degenerative disc changes are present in the mid and lower thoracic spine with a right convex cervicothoracic scoliotic curvature noted. Degenerative disc changes are present in the lower cervical spine. Visualized paraspinal soft tissues are within normal limits. Procedure Note Rafiq Rocha MD - 04/30/2022 COMPARISON: None FINDINGS: Frontal, lateral, and swimmer's views were obtained. No vertebral bodyfracture or subluxation apparent. I'll degenerative disc changes arepresent in the mid and lower thoracic spine with a right convexcervicothoracic scoliotic curvature noted. Degenerative disc changes arepresent in the lower cervical spine. Visualized paraspinal soft tissuesare within normal limits. IMPRESSION: Upper thoracic scoliotic curvature with moderate lower cervicaldegenerative disc disease and mild thoracic degenerative discchanges/spondylosis. No acute bony abnormality suggested. POS - [id number] us Maggy Buitrago [employer] CONSULTANT IMG XR SPINE Final Result documented in this encounter Visit Diagnoses Diagnosis Pain Generalized pain Pain Generalized pain documented in this encounter Care Teams Staff Appraiser Relationship Specialty Start Date End Date Aric Espinoza DO PCP - General Internal Medicine 04/30/22 Aric Espinoza DO [email or web address] Insurance Assigned Provider Internal Medicine 10/24/21 documented as of this encounter Additional Source Comments The information contained in this document represents components of the legal health record. It is not the complete legal health record.[facility]
--- OUTSIDE RECORDS SUMMARY | 2025-06-23 12:40 | XMS_ITS | Encounter Summary ---
Author Organization [facility] Address [address] [place] [address] [place] [address] Phone Care Team Providers Care Morphologist Name Role Phone Aric Espinoza DO Unavailable Aric Espinoza DO Primary Care Provider [phone] Encounter Details Date Type Department Care Team (Late Contact Info) Description 02/05/2024 Procedure Pass [facility], [address] [address] Social History Tobacco Use Types Packs/Day Years [...] Description 07/19/2025 9:45 AM EDT Office Visit [facility] Orthopedics & Sports Medicine [address] [place] [address] Cain Christiansen MD [address] [place] [address] Orth[facility] [place] [place] [address] [email or web address] documented as of this encounter Visit Diagnoses Not on filedocumented in this encounter Care Teams Morphologist Relationship Specialty Start Date End Date AnthonyAric [email or web address] [email or web address] PCP - General Internal Medicine 04/30/22 Aric Espinoza DO Insurance Assigned Provider Internal Medicine 10/24/21 documented as of this encounter Additional Source Comments The information contained in this document represents components of the legal health record. It is not the complete legal health record.[facility]
--- OUTSIDE RECORDS SUMMARY | 2025-06-23 12:40 | XMS_ITS | Clinical Summary ---
Author Organization [facility] Address [address] [place] [address] Phone Care Team Providers Care Crew Leader/Control Room Operator Name Role Phone Aric Espinoza DO Unavailable Aric Espinoza DO Primary Care Provider [phone] Allergies No known active allergies Medications omeprazole (PRILOSEC) 20 mg TbEC Take 20 mg by mouth daily before breakfast. Active levothyroxine (SYNTHROID, LEVOTHROID) 50 MCG tablet Take 50 mcg by mouth every morning. Active aspirin (ASPIR-81 ORAL) Aspir-81 qd Active omeprazole (PRILOSEC) 20 MG capsule omeprazole 20 mg capsule,delayed release TAKE 1 TABLET BY MOUTH TWICE A DAY Active ascorbic acid (VITAMIN C ORAL) Take 500 mg by mouth. Active cholecalciferol (VITAMIN D3) 2,000 unit capsule Take by mouth daily. Active cyanocobalamin, vitamin B-12, 1000 MCG tablet Take 1,000 mcg by mouth daily. Active atorvastatin (LIPITOR) 80 MG tablet atorvastatin 80 mg tablet TAKE 1 TABLET BY MOUTH ONCE DAILY Active citalopram (CELEXA) 10 MG tablet citalopram 10 mg tablet Active celecoxib (CELEBREX) 100 MG capsule Take 1 capsule by mouth every morning. 3 Active rOPINIRole (REQUIP) 2 MG tablet Take 1 tablet by mouth 2 (two) times a day. 3 Active prednisoLONE acetate (PRED FORTE) 1 % ophthalmic suspension INSTILL 1 DROP IN LEFT EYE DAILY Active baclofen (LIORESAL) 10 MG tablet TAKE 2 TABLETS BY MOUTH EVERY DAY DIRECTED Active diazePAM (VALIUM) 2 MG tablet TAKE 1 TABLET BY MOUTH THREE TIMES A DAY NEEDED FOR 30 DAYS 4 Active diclofenac sodium (VOLTAREN) 75 MG EC tablet Take 75 mg by mouth 2 (two) times a day. 4 Active estradioL (ESTRACE) 0.01 % (0.1 mg/gram) vaginal cream APPLY 1 GRAM VAGINALLY 2 TIMES A WEEK APPLY PEA SIZE AMOUNT ON URETHRA TWICE WEEKLY Active dicyclomine (BENTYL) 20 mg tablet TAKE 1 TABLET TWICE A DAY BY ORAL ROUTE FOR 90 DAYS. 4 Active mirabegron (MYRBETRIQ) 25 mg Tb24 Take 25 mg by mouth daily. 4 Active pramipexole (MIRAPEX) 1 MG tablet TAKE 1 TABLET TWICE A DAY BY ORAL ROUTE FOR 90 DAYS. 4 Active torsemide (DEMADEX) 10 MG tablet Take 1 tablet every day by oral route in the morning for 14 days, for Lower Extremity Edema. 4 Active traMADoL (ULTRAM) 50 mg tablet TAKE 1 TABLET EVERY 6 HOURS BY ORAL ROUTE NEEDED FOR 14 DAYS, FOR HIP AND KNEE PAIN. 4 Active propranoloL (INDERAL LA) 120 mg 24 hr capsule Take 120 mg by mouth daily. Active Hospital, Clinic, or Other Facility Administered Medication Ordered Dose Route Frequency Start Date End Date Status lidocaine (XYLOCAINE) 1% injection 1 mLIndications:Greate r trochanteric bursitis of right hip 1 mL See Adm Inst Once 05/17/2025 08/15/2025 Active triamcinolone acetonide (KENALOG-40) 40 mg/mL injection 40 mgIndications:Greate r trochanteric bursitis of right hip 40 mg See Adm Inst Once 05/17/2025 08/15/2025 Active ROPivacaine (PF) (NAROPIN) 0.5% injection 3 mLIndications:Greate r trochanteric bursitis of right hip 3 mL See Adm Inst Once 05/17/2025 08/15/2025 Active Active Problems Problem Noted Date Diagnosed Date Retention of urine 07/04/2023 07/26/2023 Impaired fasting glucose 05/07/2023 023 Osteoarthritis 11/11/2022 07/26/2023 Restless legs 08/13/2022 07/26/2023 Hyperlipidemia 01/01/2019 07/26/2023 Seasonal allergies 01/01/2019 07/26/2023 Spinal stenosis 12/29/2018 Hypothyroidism 01/13/2018 07/26/2023 History of total hysterectom y with bilateral salpingo-oophorectomy (BSO) 01/13/2018 07/26/2023 Overview (07/26/2023): 1984 Gastroesophageal reflux disease 01/13/2018 07/26/2023 Depressive disorder 01/13/2018 07/26/2023 Anxiety 01/13/2018 07/26/2023 Right hip pain 10/02/2017 Encounters Date Type Department Care Team Description 05/17/2025 11:00 AM EDT Office Visit [facility] Orthopedics & Sports Medicine [address] [place] [address] Cain Christiansen MD Right hip pain (Primary Dx); Greater trochanteric bursitis of right hip; Primary osteoarthritis of left hip; Lumbar radiculopathy 04/04/2025 Transcribe Orders [facility] Orthopedics & Sports Medicine [address] [place] [address] Emma Elizabeth PA from Last 3 Months Family History Medical History Relation Comments No Known Problems Brother No Known Problems Father No Known Problems Maternal Aunt No Known Problems Maternal Grandfather No Known Problems Maternal Grandmother No Known Problems Maternal Uncle No Known Problems Mother No Known Problems Paternal Aunt No Known Problems Paternal Grandfather No Known Problems Paternal Grandmother No Known Problems Paternal Uncle No Known Problems Sister Gout Son Cancer Neg Hx Clotting disorder Neg Hx Collagen disease Neg Hx Depression Neg Hx Diabetes Neg Hx Dislocations Neg Hx Infl. arthritis Neg Hx Osteoporosis Neg Hx Scoliosis Neg Hx Relation Status Comments Brother Father Maternal Aunt Maternal Grandfather Maternal Grandmother Maternal Uncle Mother Paternal Aunt Paternal Grandfather Paternal Grandmother Paternal Uncle Sister Son Social History Tobacco Use Types Packs/Day Years [...] on file Sexual Orientation Not on file Last Filed Vital Signs Vital Sign Reading Time Taken Comments Blood Pressure 109/65 07/26/2023 9:15 AM EDT Pulse 75 07/26/2023 9:15 AM EDT Temperature 36.6 C (97.8 F) 07/26/2023 9:15 AM EDT Respiratory Rate 16 07/26/2023 9:15 AM EDT Oxygen Saturation 96% 07/26/2023 9:35 AM EDT Inhaled Oxygen Concentration - - Weight 73.9 kg (163 lb) 05/17/2025 10:54 AM EDT Height 147.3 cm (4' 10 ) 05/17/2025 10:54 AM EDT Body Mass Index 34.07 05/17/2025 10:54 AM EDT Plan of Treatment Upcoming Encounters Date Type Department Care Team (Late st Contact Info) Description 07/19/2025 9:45 AM EDT Office Visit [facility] Orthopedics & Sports Medicine [address] [place] [address] Cain Christiansen MD [address] [place] [address] Orthopedics & Sports Medicine, [facility] [place] [address] Health Maintenance Due Date Last Done Comments DEPRESSION SCREENING 1950 ZOSTER VACCINES (1 of 2) 1988 10/20/2014 OSTEOPOROSIS SCREENING INITIAL (ONE-TIME) 2003 RSV VACCINE (1 - 1-dose 75+ series) 2013 INFLUENZA VACCINE (#1) 2025 , 09/27/2019, 07/01/2016, Additional history exists COVID-19 VACCINE ( season) 2025 06/04/2022, 10/19/2021, 12/14/2020, Additional history exists Adult Td,Tdap Booster 12/19/2025 12/20/2015 , 06/15/2013, 06/20/2011 TSH LEVEL 03/22/2026 03/22/2025 PNEUMOCOCCAL VACCINES (50+ years) Completed 12/10/2016, 10/20/2013 HEPATITIS A VACCINES Aged Out No long er eligible based on patient's age to complete this topic HIB VACCINES Aged Out No longer eligi ble based on patient's age to complete this topic MENINGOCOCCAL VACCINES (ACWY) Aged Out No longer eligible based on patient's age to complete this topic MENINGOCOCCAL VACCINES (B) Aged Out N o longer eligible based on patient's age to complete this topic Medical Devices Implanted Type Area Rn Obgyn Device Identifier Shelf Expiration Date Model / Serial / Lot Putty Bone Graft 5cc I-Factor Peptide Enhanced - [id number] Implanted:Qty: 1 on 12/29/2018 by Alfa Chan MD at [facility] Right: Spine Lumbar [employer] 09/18/2021 [id number] / / [id number] Thoracolumbar Spacer [id number] Capstone Peek Implant - [id number] Implanted:Qty: 1 on 12/29/2018 by Alfa Chan MD at [facility] N/A: Spine Lumbar [employer] 04/04/2025 [id number] / / [id number] Thoracolumbar Spacer [id number] Verte Stack Peek - [id number] Implanted:Qty: 1 on 12/29/2018 by Alfa Chan MD at [facility] N/A: Spine Lumbar [employer] 12/07/2019 [id number] / / [id number] Screw Spine Cd Horizon Sextant Ii Ss Hexagonal Break Off - [id number] Implanted:Qty: 6 on 12/29/2018 by Alfa Chan MD at [facility] [employer] [id number] / / Screw Bone 6.5x35mm Spine Cannulated Cd Horizon Legacy Multiaxial Titanium Osteogrip Dual Lead Thread Pedicle - [id number] Implanted:Qty: 1 on 12/29/2018 by Alfa Chan MD at [facility] [employer] [id number] / / Screw Bone 40x6.5mm Spine Cannulated Cd [employer] Legacy Multiaxial Titanium Osteogrip Dual Lead Thread Pedicle - [id number] Implanted:Qty: 1 on 12/29/2018 by Alfa Chan MD at [facility] [employer] [id number] / / Screw Bone 6.5x45mm Spine Cannulated Cd [employer] Legacy Multiaxial Titanium Osteogrip Dual Lead Thread Pedicle - [id number] Implanted:Qty: 3 on 12/29/2018 by Alfa Chan MD at [facility] [employer] [id number] / / Lumbar Gumaro 5.5x55mm Sextant Titanium Prebent - [id number] Implanted:Qty: 2 on 12/29/2018 by lAfa Chan MD at [facility] [employer] [id number] / / Screw Bone 6.5x30mm Spine Multi Axial Cannulated Legacy - [id number] Implanted:Qty: 1 on 12/29/2018 by Alfa Chan MD at [facility] N/A: Spine Lumbar [employer] [id number] / / Procedures Procedure Name Priority Date/Time Associated Diagnosis Comments TSH Routine 03/22/2025 10:20 AM EDT Hypothyroidism, unspecified type from Last 3 Months or Most Recently Relevant to Health Maintenance Results * TSH (03/22/2025 10:20 AM EDT) TSH 1.49 0.27 - 4.20 uIU/mL [facility] Blood 03/22/2025 10:2 0 AM EDT 03/22/2025 10:22 AM EDT us Emma GONZALEZ LAB BLOOD ORDERABLES Final Result [facility] [address] [place] [address] from Last 3 Months or Most Recently Relevant to Health Maintenance Insurance [employer] MEDICARE PART A & B [employer] MEDICARE PART A & B MEDICARE PREFERRED HMO REPLACEMENT [employer] MEDICARE PREFERRED HMO REPLACEMENT MEDICARE PART A & B [employer] MEDICARE PART A & B Member Subscriber Plan / Payer (Ef fective 2003-Present) Name:Joyce Andrade Member ID:[id number] Relation to Subscriber:Self Name:Joyce Andrade Subscriber ID:[id number] Payer ID:[id number] Group ID:Not on file Type:Medicare Address: [employer] [address] [place] [id number] [employer]REF[employer]ED [employer] REPLACEMENT MEDICARE PART A & B [employer] [place] [id number] Advance Directives For more information, please contact: [phone] (9AM - 5PM [facility], Friday-Friday) * Full Code (Presumed) (Latest Code Status on File) Date Activated Date Inactivated Comments 12/29/2018 4:07 PM 12/31/2018 8:08 PM Care Teams Crew Leader/Control Room Operator Relationship Specialty Start Date End Date Aric Espinoza DO [email or web address] PCP - General Internal Medicine 04/30/22 Aric Espinoza DO [email or web address] Insurance Assigned Provider Internal Medicine 10/24/21 Additional Source Comments The information contained in this document represents components of the legal health record. It is not the complete legal health record.[facility]
--- OUTSIDE RECORDS SUMMARY | 2025-06-23 12:40 | XMS_ITS | Encounter Summary ---
Author Organization [facility] Address [address] [place], [place] [id number] Phone Care Team Providers Care Insurance Underwriter Name Role Phone Aric Espinoza DO Primary Care Provider [phone] Emma Elizabeth Primary Care Provider [phone] Aric Espinoza DO Unavailable Aric Espinoza DO Primary Care Provider [phone] Encounter Details Date Type Department Care Team (Late st Contact Info) Description 08/10/2021 Procedure Pass [facility], [address] [address] Social History Tobacco Use Types Packs/Day Years [...] Description 07/19/2025 9:45 AM EDT Office Visit [facility] Orthopedics & Sports Medicine [address] [place] [address] Cain Christiansen MD [address] [place] [address] Orthopedics & Sports Medicine, [facility] [place] [address] [email or web address] documented as of this encounter Visit Diagnoses Not on filedocumented in this encounter Care Teams Insurance Underwriter Relationship Specialty Start Date End Date Aric Espinoza DO [email or web address] PCP - General Internal Medicine 10/01/17 09/05/21 Emma Elizabeth PA [address] [facility] [place] [address] PCP - General 09/06/21 04/29/22 Aric Espinoza DO PCP - General Internal Medicine 04/30/22 Aric Espinoza DO Insurance Assigned Provider Internal Medicine 10/24/21 documented as of this encounter Additional Source Comments The information contained in this document represents components of the legal health record. It is not the complete legal health record.[facility]
--- OUTSIDE RECORDS SUMMARY | 2025-06-23 12:40 | XMS_ITS | Encounter Summary ---
Author Organization [facility] Address [address] [place] [address] Phone Care Team Providers Care Deaf Teacher Name Role Phone Anthonyjosemanuel Aric Lola Primary Care Provider [phone] Emma Elizabeth Primary Care Provider [phone] Olga Aric Lola Unavailable Ogla Aric Lola Primary Care Provider [phone] Encounter Details Date Type Department Care Team (Late Contact Info) Description 02/20/2021 Ancillary Orders Virtual Department [address] [place] [phone] Emma Elizabeth PA [address] [place] [address] [place] [address] Pain and swelling of right lower extremity Social History Tobacco Use Types Packs/Day Years [...] [facility] Orthopedics & Sports Medicine [address] [place] [address] Cain Christiansen MD [address] [place] [address] [facility] [place], [place] [id number] [email or web address] documented as of this encounter Results * US Lower Extremity Veins Duplex (Right) (02/20/2021 2:07 PM EDT) Anatomical Region Laterality Modality Hip Right, Thigh Right, Knee Right, Leg Right, Ankle Right, Foot Right Ultrasound 02/20/2021 2:15 PM EDT Impressions 02/20/2021 2:16 PM EDT 1.No evidence of right lower extremity deep venous thrombosis. 2.2.5 cm Walker's cyst. Narrative 02/20/2021 2:16 PM EDT COMPARISON: None. RIGHT LOWER EXTREMITY DOPPLER VENOUS ULTRASOUND FINDINGS: There is no evidence of right lower extremity deep venous thrombosis from the common femoral vein to the trifurcation veins. The contralateral common femoral vein is also patent. Deep veins are compressible with normal color flow and augmentation. 2.5 cm popliteal/Walker's cyst. Procedure Note Juan David [place] MD - 02/20/2021 COMPARISON: None. RIGHT LOWER EXTREMITY DOPPLER VENOUS ULTRASOUND FINDINGS: There is no evidence of right lower extremity deep venous thrombosis fromthe common femoral vein to the trifurcation veins. The contralateralcommon femoral vein is also patent. Deep veins are compressible withnormal color flow and augmentation. 2.5 cm popliteal/Walker's cyst. IMPRESSION: 1.No evidence of right lower extremity deep venous thrombosis. 2.2.5 cm Walker's cyst. us Emma GONZALEZ CV US VASCULAR Final Resul t documented in this encounter Visit Diagnoses Diagnosis Pain and swelling of right lower extremity Pain and swelling of right lower extremity documented in this encounter Care Teams Deaf Teacher Relationship Specialty Start Date End Date Aric Espinoza DO [email or web address] PCP - General Internal Medicine 10/01/17 09/05/21 Emma Elizabeth PA [address] [facility] [place] [address] PCP - General 09/06/21 04/29/22 Aric Espinoza DO PCP - General Internal Medicine 04/30/22 Aric Espinoza DO [email or web address] Insurance Assigned Provider Internal Medicine 10/24/21 documented as of this encounter Additional Source Comments The information contained in this document represents components of the legal health record. It is not the complete legal health record.[facility]
--- OUTSIDE RECORDS SUMMARY | 2025-06-23 12:40 | XMS_ITS | Encounter Summary ---
Author Organization [facility] Address [address] [place] [address] [place] [address] Phone Care Team Providers Care Cleaning Staff Supervisor Name Role Phone Emma Elizabeth Primary Care Provider [phone] Aric Espinoza DO Unavailable Aric Espinoza DO Primary Care Provider [phone] Reason for Referral * MRI/CAT Scan - Closed Specialty Diagnoses / Procedures Referred By Sid t Referred To Contact Radiology Diagnoses Spinal stenosis in cervical region Procedures MRI Cervical Spine Maggy Buitrago NP [address] [place] [address] Phone: tel: fax: [email or web address] Referral ID Status Reason Start Date Expiration Date Visits Re quested Visits Authorized [id number] Closed 04/15/2022 04/15/2023 1 1 Encounter Details Date Type Department Care Team (Latest Contact Info) Description 04/15/2022 Transcribe Orders Virtual Department [address] [place] [address] Maggy Buitrago NP [address] [place] [phone] [email or web address] Spinal stenosis in cervical region (Primary Dx) Social History Tobacco Use Types [...] Visit [facility] Orthopedics & Sports Medicine [address] [place] [address] Cain Christiansen MD [address] [place] [address] Orthopedics & Sports Medicine, [facility] [place] [address] [email or web address] documented as of this encounter Results * MRI CERVICAL SPINE (BONE) WITHOUT CONTRAST (05/21/2022 4:11 PM EDT) Anatomical Region Laterality Modality C-spine Magnetic Resonan ce 05/23/2022 8:06 AM EDT Impressions 05/23/2022 8:20 AM EDT 1.No evidence of myelitis. 2.Moderate disc protrusion at C3-C4 which is broad-based but slightly more prominent centrally. No other significant disc abnormalities. 3.Multilevel neuroforaminal narrowing, moderate-severe at C5-C6 and the left. 4.Severe degenerative disc and degenerative endplate changes at C6-C7 C5-C6. Narrative 05/23/2022 8:20 AM EDT MRI CERVICAL SPINE (BONE) WITHOUT CONTRAST HISTORY: Spasms, tremors and extremity weakness. TECHNIQUE: Multi-sequence, multi-planar MRI of the cervical spine was performed without intravenous contrast. COMPARISON: Spine x-ray 11/03/2019. FINDINGS: CERVICAL SPINE: Alignment and Vertebrae: Mild spondylolisthesis of C3 on C4 is stable. No new subluxations. No evidence of fractures. Marrow: No suspicious marrow signal abnormalities. Discs and Endplates: Severe degenerative disc and endplate changes at C6-C7. Moderate-severe degenerative disc and endplate changes at C5-C6. More mild degenerative disc and endplate changes at C3-C4 and C4-C5. Spinal Cord: No evidence of spinal cord lesions. Soft Tissue: No evidence of soft tissue masses. Findings by level: C2-C3: No focal disc abnormality. No evidence of spinal stenosis. C3-C4: Moderate size disc protrusion which is broad-based but slightly more prominent centrally. This approaches the anterior margin of the spinal cord. No central canal stenosis. Mild facet arthropathy on the left. Mild-moderate neuroforaminal narrowing on the left. Minimal neuroforaminal narrowing on the right. C4-C5: Minimal broad-based bulging of the disc. No central canal stenosis. Moderate facet arthropathy on the right. Moderate narrowing of the right neuroforamen. Minimal narrowing of the left neuroforamen. C5-C6: Broad-based disc-osteophyte complex slightly more prominent centrally. This approaches the anterior margin of the spinal cord. No central canal stenosis. Moderate-severe narrowing of the left neuroforamen. Mild narrowing of the right neuroforamen. C6-C7: Small broad-based disc-osteophyte complex. No central canal stenosis. Mild-moderate bilateral neuroforaminal narrowing slightly more on left than right. C7-T1: Minimal bulging the disc. No focal disc abnormality. No evidence of spinal stenosis. Procedure Note Shay Gutierrez MD - 05/23/2022 MRI CERVICAL SPINE (BONE) WITHOUT CONTRAST HISTORY: Spasms, tremors and extremity weakness. TECHNIQUE: Multi-sequence, multi-planar MRI of the cervical spine was performedwithout intravenous contrast. COMPARISON: Spine x-ray 11/03/2019. FINDINGS: CERVICAL SPINE: Alignment and Vertebrae: Mild spondylolisthesis of C3 on C4 is stable. Nonew subluxations. No evidence of fractures. Marrow: No suspicious marrow signal abnormalities. Discs and Endplates: Severe degenerative disc and endplate changes atC6-C7. Moderate-severe degenerative disc and endplate changes at C5-C6.More mild degenerative disc and endplate changes at C3-C4 and C4-C5. Spinal Cord: No evidence of spinal cord lesions. Soft Tissue: No evidence of soft tissue masses. Findings by level: C2-C3: No focal disc abnormality. No evidence of spinal stenosis. C3-C4: Moderate size disc protrusion which is broad-based but slightlymore prominent centrally. This approaches the anterior margin of thespinal cord. No central canal stenosis. Mild facet arthropathy on theleft. Mild-moderate neuroforaminal narrowing on the left. Minimalneuroforaminal narrowing on the right. C4-C5: Minimal broad-based bulging of the disc. No central canal stenosis.Moderate facet arthropathy on the right. Moderate narrowing of the rightneuroforamen. Minimal narrowing of the left neuroforamen. C5-C6: Broad-based disc-osteophyte complex slightly more prominentcentrally. This approaches the anterior margin of the spinal cord. Nocentral canal stenosis. Moderate-severe narrowing of the leftneuroforamen. Mild narrowing of the right neuroforamen. C6-C7: Small broad-based disc-osteophyte complex. No central canalstenosis. Mild-moderate bilateral neuroforaminal narrowing slightly moreon left than right. C7-T1: Minimal bulging the disc. No focal disc abnormality. No evidence ofspinal stenosis. IMPRESSION: 1.No evidence of myelitis. 2.Moderate disc protrusion at C3-C4 which is broad-based but slightly moreprominent centrally. No other significant disc abnormalities. 3.Multilevel neuroforaminal narrowing, moderate-severe at C5-C6 and theleft. 4.Severe degenerative disc and degenerative endplate changes at [id number]. Maggy Buitrago NP IM MR XSPECIALTY Final Result documented in this encounter Visit Diagnoses Diagnosis Spinal stenosis in cervical region- Primary Spinal stenosis in cervical region Cramp and spasm documented in this encounter Care Teams Cleaning Staff Supervisor Relationship Specialty Start Date End Date Emma Elizabeth PA [address] [place] [address] PCP - General 09/06/21 04/29/22 Aric Espinoza DO [address] [place] [address] [email or web address] PCP - General Internal Medicine 04/30/22 Aric Espinoza DO [address] [place] [address] (work) [email or web address] Insurance Assigned Provider Internal Medicine 10/24/21 documented as of this encounter Additional Source Comments The information contained in this document represents components of the legal health record. It is not the complete legal health record.[facility]
--- OUTSIDE RECORDS SUMMARY | 2025-06-23 12:40 | XMS_ITS | Encounter Summary ---
Author Organization [facility] Address [address] [place] [address] Phone Care Team Providers Care Vp Data Name Role Phone Aric Espinoza DO Unavailable Aric Espinoza DO Primary Care Provider [phone] Reason for Referral * MRI/CAT Scan - Closed Specialty Diagnoses / Procedures Referred By Sid cisneros Referred To Contact Radiology Diagnoses Radiculopathy, lumbar region Procedures MRI Lumbar Spine Maggy Buitrago NP Phone: tel: fax: [email or web address] Referral ID Status Reason Start Date Expiration Date Visits Re quested Visits Authorized [id number] Closed 02/05/2024 02/04/2025 1 1 Encounter Details Date Type Department Care Team (Latest Contact Info) Description 02/05/2024 Transcribe Orders Virtual Department [address] [place] [address] Maggy Buitrago NP [address] [place] [phone] [email or web address] Radiculopathy, lumbar region (Primary Dx) Social History Tobacco Use [...] Description 07/19/2025 9:45 AM EDT Office Visit [facility] Orth[facility]ics & Sports Medicine [address] [place] [address] [id number] Cain Christiansen MD [address] [place] [address] Orthopedics & Sports Medicine, [facility] [place] [address] documented as of this encounter Results * MRI LUMBAR SPINE (NEURO) WITHOUT CONTRAST (03/07/2024 10:17 AM EDT) Anatomical Region Laterality Modality L-spine Magnetic Resonan ce 03/10/2024 1:00 AM EDT Impressions 03/10/2024 1:12 AM EDT When compared to 09/11/2018: L4-5 right laminectomy with L4-S1 posterior fusion with carolina and pedicle screw constructs. Alignment improved when compared to 2018. New adjacent segment degeneration at L3-4 with moderate to severe spinal canal and mild to moderate neuroforaminal stenosis. Persistent severe right and moderate to severe left neuroforaminal stenosis at L5-S1. Additional mild neuroforaminal stenosis at L1-2 and L2-3. Incidental cystic structure in the pancreatic uncinate process, incompletely characterized RECOMMENDATION: Consider initial follow up MRI/MRCP in 6 months and if stable, repeat imaging every 2 years. For questions contact: . A clinically significant result was communicated on 03/10/2024 1:12 AM, Message ID [id number]. Narrative 03/10/2024 1:12 AM EDT MRI LUMBAR SPINE (NEURO) WITHOUT CONTRAST REQUESTED INDICATION: Outside Radiology Order; radiculopathy lumbar region TECHNIQUE: MRI LUMBAR SPINE (NEURO) WITHOUT CONTRAST COMPARISON: MRI LUMBAR SPINE (NEURO) WITHOUT CONTRAST ; XR LUMBOSACRAL SPINE 2-3 VIEWS FINDINGS: ALIGNMENT: 4 mm L4-5 anterolisthesis. MARROW: Post surgical changes from L4 and L5 right laminectomy with L4-S1 posterior fusion with carolina and pedicle screw constructs. No compression fracture or marrow replacing lesion. DISCS: Disc desiccation T10-T11 and T12-S1. Endplate marrow edema at T10-T11. CONUS: Normal appearance and terminates at L1. PARASPINAL SOFT TISSUES: Cholelithiasis. Pancreatic head and uncinate process cystic structure, possible IPMN and incompletely characterized (5:15). Mild posterior paraspinal muscle atrophy. FINDINGS BY LEVEL: Borderline congenitally short pedicles. T12-L1:Diffuse disc bulge and facet arthropathy. No spinal canal or neuroforaminal stenosis. L1-2: Diffuse disc bulge with facet arthropathy, and thickening of ligamentum flavum. Mild spinal canal stenosis. Mild neuroforaminal stenosis. L2-3: Diffuse disc bulge, facet arthropathy, and thickening of ligamentum flavum. Mild spinal canal stenosis. Mild neuroforaminal stenosis. L3-4: Diffuse disc bulge, facet arthropathy, and thickening of ligamentum flavum. Moderate to severe spinal canal stenosis. Mild to moderate neuroforaminal stenosis. L4-5: Posterior decompression. Posterior disc/graft uncovering and facet arthropathy. No spinal canal stenosis. No neuroforaminal stenosis. L5-S1: Diffuse disc/graft bulge, facet arthropathy, and epidural lipomatosis. No spinal canal stenosis. Severe right and moderate to severe left neuroforaminal stenosis. Procedure Note Yudi Martinez MD - 03/10/2024 MRI LUMBAR SPINE (NEURO) WITHOUT CONTRAST REQUESTED INDICATION: Outside Radiology Order; radiculopathy lumbarregion TECHNIQUE: MRI LUMBAR SPINE (NEURO) WITHOUT CONTRAST COMPARISON: MRI LUMBAR SPINE (NEURO) WITHOUT CONTRAST ; XRLUMBOSACRAL SPINE 2-3 VIEWS 23 FINDINGS: ALIGNMENT: 4 mm L4-5 anterolisthesis. MARROW: Post surgical changes from L4 and L5 right laminectomy with L4- F5lpvfznosn fusion with carolina and pedicle screw constructs. No compressionfracture or marrow replacing lesion. DISCS: Disc desiccation T10-T11 and T12-S1. Endplate marrow edema [id number]. CONUS: Normal appearance and terminates at L1. PARASPINAL SOFT TISSUES: Cholelithiasis. Pancreatic head and uncinateprocess cystic structure, possible IPMN and incompletely characterized(5:15). Mild posterior paraspinal muscle atrophy. FINDINGS BY LEVEL: Borderline congenitally short pedicles. T12-L1:Diffuse disc bulge and facet arthropathy. No spinal canal orneuroforaminal stenosis. L1-2: Diffuse disc bulge with facet arthropathy, and thickening ofligamentum flavum. Mild spinal canal stenosis. Mild neuroforaminalstenosis. L2-3: Diffuse disc bulge, facet arthropathy, and thickening of ligamentumflavum. Mild spinal canal stenosis. Mild neuroforaminal stenosis. L3-4: Diffuse disc bulge, facet arthropathy, and thickening of ligamentumflavum. Moderate to severe spinal canal stenosis. Mild to moderateneuroforaminal stenosis. L4-5: Posterior decompression. Posterior disc/graft uncovering and facetarthropathy. No spinal canal stenosis. No neuroforaminal stenosis. L5-S1: Diffuse disc/graft bulge, facet arthropathy, and epidurallipomatosis. No spinal canal stenosis. Severe right and moderate to severeleft neuroforaminal stenosis. IMPRESSION: When compared to 09/11/2018: L4-5 right laminectomy with L4-S1 posterior fusion with carolina and pediclescrew constructs. Alignment improved when compared to 2018. New adjacent segment degeneration at L3-4 with moderate to severe spinalcanal and mild to moderate neuroforaminal stenosis. Persistent severe right and moderate to severe left neuroforaminalstenosis at L5-S1. Additional mild neuroforaminal stenosis at L1-2 and L2-3. Incidental cystic structure in the pancreatic uncinate process,incompletely characterized RECOMMENDATION: Consider initial follow up MRI/MRCP in 6 months and if stable, repeatimaging every 2 years. For questions contact: . A clinically significant result was communicated on 03/10/2024 1:12 AM,Message ID [id number]. Maggy Buitrago FERRYBOAT OPERATOR CABLE IMG MR XSPECIALTY Final Result documented in this encounter Visit Diagnoses Diagnosis Radiculopathy, lumbar region- Primary Thoracic or lumbosacral neuritis or radiculitis, unspecified Radiculopathy, lumbar region Thoracic or lumbosacral neuritis or radiculitis, unspecified documented in this encounter Care Teams Vp Data Relationship Specialty Start Date End Date Aric Espinoza DO [email or web address] PCP - General Internal Medicine 04/30/22 Aric Espinoza DO [email or web address] Insurance Assigned Provider Internal Medicine 10/24/21 documented as of this encounter Additional Source Comments The information contained in this document represents components of the legal health record. It is not the complete legal health record.[facility]
--- OUTSIDE RECORDS SUMMARY | 2025-06-23 12:40 | XMS_ITS | Encounter Summary ---
Author Organization [facility] Address [address] [place] [address] Phone Care Team Providers Care Dice Table Person Name Role Phone Aric Espinoza DO Unavailable Aric Espinoza DO Primary Care Provider [phone] Encounter Details Date Type Department Care Team (Latest Contact Info) Description 04/16/2024 Transcribe Orders Virtual Department [address] [place] [address] Emma Elizabeth PA [address] [place] [address] [place] [address] Left shoulder pain, unspecified chronicity (Primary Dx) Social History [...] 07/19/2025 9:45 AM EDT Office Visit [facility] Orthopedics & Sports Medicine [address] [place] [address] Cain Christiansen MD [address] [place] [address] Orthopedics & Sports Medicine, [facility] [place] [address] [email or web address] documented as of this encounter Results * XR SHOULDER 2 VIEWS (LEFT) (04/21/2024 11:09 AM EDT) Anatomical Region Laterality Modality Shoulder Left Computed Radiogr aphy 04/21/2024 1:06 PM EDT Impressions 04/21/2024 1:07 PM EDT No acute osseous abnormality. Mild acromioclavicular joint degenerative changes. Narrative 04/21/2024 1:07 PM EDT XR SHOULDER 2 OR MORE VIEWS (LEFT) Referring clinician's provided indication for this examination in [facility]: Outside Radiology Order; left shoulder pain COMPARISON: None FINDINGS: No acute fracture or dislocation. The glenohumeral joint is maintained. Mild degenerative changes of the acromioclavicular joint. The acromiohumeral interval is maintained. Vascular calcifications. Procedure Note Rivera Mccabe MD - 04/21/2024 XR SHOULDER 2 OR MORE VIEWS (LEFT) Referring clinician's provided indication for this examination in [facility]:Outside Radiology Order; left shoulder pain COMPARISON: None FINDINGS: No acute fracture or dislocation. The glenohumeral joint is maintained.Mild degenerative changes of the acromioclavicular joint. Theacromiohumeral interval is maintained. Vascular calcifications. IMPRESSION: No acute osseous abnormality. Mild acromioclavicular joint degenerative changes. Emma GONZALEZ IMG XR UPPER EXTREMITY Chikis l Result documented in this encounter Visit Diagnoses Diagnosis Left shoulder pain, unspecified chronicity- Primary Left shoulder pain, unspecified chronicity documented in this encounter Care Teams Dice Table Person Relationship Specialty Start Date End Date Aric Espinoza DO [email or web address] PCP - General Internal Medicine 04/30/22 Aric Espinoza DO [email or web address] Insurance Assigned Provider Internal Medicine 10/24/21 documented as of this encounter Additional Source Comments The information contained in this document represents components of the legal health record. It is not the complete legal health record.[facility]
== END 2025-06-23 12:10 | disposition home or self-care (01) ==
LOC: HO.HUSH 11:02
PROVIDERS: PCP Physician Assistant; Visit Provider Urology
DX: R33.9 Retention of urine, unspecified (principal); N81.10 Cystocele, unspecified
CPT/HCPCS: 57160; 99213

== ENCOUNTER → 2025-06-23 11:01 | Outpatient (BNVA) | payer MEDICARE, SELFPAY | PROVIDERS: PCP Physician Assistant; Visit Provider Urology | DX: N81.10 Cystocele, unspecified (principal); R33.9 Retention of urine, unspecified | CPT/HCPCS: 57160; 99212 ==

== ENCOUNTER 2025-08-29 09:53 | Outpatient (AMB) | payer MEDICARE, SELFPAY ==
--- NOTE | 2025-08-29 10:01 | A.OFFVIS_ITS ---
Intake Visit Reasons: 10w/pessary eval/gelhorn #4 Intake Note: Patient presents today for a 10w pessary eval Urology Medication:Estradiol, Vitamin B12 Blood Thinner:None Antibiotic Allergies:None PVR:92ml Allergies No Known Allergies Allergy (Verified 08/29/25 10:01) Medication List - Last Reconciled 08/29/25 by Maria G Valiente MD atorvastatin 80 mg PO DAILY citalopram 10 mg PO DAILY cyanocobalamin (vitamin B-12) ER 2,000 mcg PO DAILY diclofenac sodium 75 mg PO BID dicyclomine 20 mg PO BID estradiol 0.01%(0.1mg/gram) 1 g vaginal 2XW levothyroxine 75 mcg PO DAILY omeprazole 20 mg PO BID HPI Comments Details: 08/29/25--Laura has failed pessary management for vaginal prolapse. She is prescribed estradiol. Bladder scan PVR today is 92 mL she has been refer to a straight and is awaiting referral appointment. History of Present Illness The patient is an 84-year-old female presenting with vaginal prolapse and urinary incontinence. The vaginal prolapse was initially managed with a pessary, which was ineffective as it did not remain in place. The patient is currently using estradiol cream, applied a couple of times a week with her finger, as recommended. She states the urinary leakage has improved. The patient is awaiting a referral appointment at [facility] for further evaluation. Results - Bladder scan: Post-void residual volume of 92 mL Plan 1. Vaginal Prolapse 2. Urinary Incontinence - Continue use of estradiol cream as prescribed. FU in 9 months - Await referral appointment at [facility] for further evaluation and management. 3. Incomplete Bladder Emptying - improved, pt knows how to manually push bladder into vaginal introitus 06/23/25-patient states that pessary fell out. History of Present Illness The patient is an 84-year-old female presenting with vaginal prolapse. Two months ago, a ring pessary number 4 with support was placed, but it subsequently fell out. Today, a Gellhorn pessary #4 was placed, and the patient was instructed to attempt urination to ensure it stays in place. A bladder scan conducted prior to the pessary placement indicated a post-void residual of 125 mL. The patient was able to urinate 100 mL after placement of pessary. Plan 1. Vaginal Prolapse - A Gellhorn pessary #4 was placed to manage the prolapse. - The patient was advised to attempt urination to ensure the pessary remains in place. - Follow-up in 10 weeks if the pessary remains in place; otherwise, contact the clinic if it falls out. 04/15/25-- History of Present Illness - The patient is an 84-year-old female presenting with vaginal prolapse. - She has a history of complete hysterectomy and seven vaginal deliveries. - Initially evaluated on 04/11/25 for vaginal prolapse, a size 3 pessary with support was placed. - The pessary fell out after returning home, despite urinating after pessary placement without issue in the office. - Options discussed included using a Gellhorn pessary or increasing the ring size. - As the patient is sexual active, a size 4 ring with support was placed instead of a gelhorn at this time, as a size 5 ring was too large and did not fit correctly. - The patient was instructed on reinserting the pessary if it dislodges during activities involving abdominal pressure. Discussion Notes I discussed with the patient the use of different pessary shapes and sizes to ad dress her vaginal prolapse, considering her sexual activity. We decided to try a larger ring size, and I instructed her on how to manage the pessary if it dislodges during daily activities. Follow-up is scheduled in two months to evaluate the effectiveness of the current pessary. Review of Systems Const All systems reviewed & are unremarkable except as noted in HPI and below Reports no additional complaints Eyes Reports no additional complaints ENT Reports no additional complaints Card Reports no additional complaints Resp Reports no additional complaints GI Reports no additional complaints Reports as per HPI Musc Reports no additional complaints Skin/Breast Reports system reviewed and no additional complaints, except as documented Neuro Reports no additional complaints Psych Reports no additional complaints Endo Reports no additional complaints Taiwo/Lymph Reports no additional complaints Aller/Immun Reports no additional complaints Assessment & Plan Assessment & Plan (1) 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 Vaginal Prolapse 2. Urinary Incontinence - Continue use of estradiol cream as prescribed. FU in 9 months - Await referral appointment at [facility] for further evaluation and management. 3. Incomplete Bladder Emptying - improved, pt knows how to manually push bladder into vaginal introitus Medications: Refilled estradiol 0.01%(0.1mg/gram) Apply pea size amount on urethra twice weekly 1 g vaginal 2XW 42.5 grams 1RF Patient Instructions: The patient had an opportunity to ask questions regarding treatment plan. The patient expressed understanding and agreement with the above treatment plan. The patient is aware they should contact our office by phone for worsening of their current condition or the appearance of new symptoms. Compliance is encouraged with any medications and followup testing that is ordered. It is a privilege to be allowed the opportunity to participate in the urologic care of your patient. If you have any questions or concerns regarding treatment for the above conditions please do not hesitate to contact me. The office telephone contact is [phone]. This note is constructed in part using voice recognition software. While every effort has been made to ensure accuracy water supervisor errors may have been included. Yours sincerely, Maria G Valiente MD Scribe Plan - Not visible on output: Patient was informed and verbally consented to the use of an ambient scribe for clinic note documentation during this visit. Coding Level of Care Code Est Pt Level 4 (21074) Complex EM visit Add On G2211 Diagnoses Female cystocele N81.10 Incomplete bladder emptying R33.9 Incontinence of urine in female R32
--- OUTSIDE RECORDS SUMMARY | 2025-08-29 11:18 | XMS_ITS | Encounter Summary ---
Author Organization [facility] Address [address] [place], [place] [id number] Phone Care Team Providers Care Fuel System Maintenance Supervisor Name Role Phone Anthonyjosemanuel, Aric Lola DO Primary Care Provider [phone] Emma Elizabeth Primary Care Provider [phone] Bigda, Aric A DO Unavailable Bigda, Aric A DO Primary Care Provider + Bigda, Aric A DO Primary Care Provider + Encounter Details Date Type Department Care Team (Late st Contact Info) Description 05/31/[address] [address] Social History Tobacco Use Types Packs/Day Years [...] Care Team (Late st Contact Info) Description 08/23/2025 Procedure Pass [address] [address] 10/01/2025 9:25 AM EST Appointment [address] [address] Cain Christiansen MD [address] [place] [address] Orthopedics & Sports Medicine, [place] [address] documented as of this encounter Visit Diagnoses Not on filedocumented in this encounter Care Teams Fuel System Maintenance Supervisor Relationship Specialty Start Date End Date Aric Espinoza DO PCP - General Internal Medicine 10/01/17 09/05/21 Emma Elizabeth PA [address] [place] [address] [place] [address] PCP - General 09/06/21 04/29/22 Aric Espinoza DO PCP - General Internal Medicine 04/30/22 07/12/25 Aric Espinoza DO [address] [place] [address] [place] [address] PCP - General Internal Medicine 07/13/25 Aric Espinoza DO Insurance Assigned Provider Internal Medicine 10/24/21 documented as of this encounter Additional Source Comments The information contained in this document represents components of the legal health record. It is not the complete legal health record.[facility]
--- OUTSIDE RECORDS SUMMARY | 2025-08-29 11:18 | XMS_ITS | Encounter Summary ---
Author Organization [facility] Address [address] [place] [address] Phone Care Team Providers Care Wheel Filler Name Role Phone Aric Espinoza DO Unavailable Olga, Aric Davila DO Primary Care Provider [phone] Bigda, Aric Davila DO Primary Care Provider [phone] Reason for Referral * MRI/CAT Scan - Closed Specialty Diagnoses / Procedures Referred By Contac t Referred To Contact Radiology Diagnoses Radiculopathy, lumbar region Procedures MRI Lumbar Spine Maggy Buitrago NP Phone: tel: fax: mailto:[email or web address] Referral ID Status Reason Start Date Expiration Date Visits Re quested Visits Authorized [id number] Closed 02/05/2024 02/04/2025 1 1 Encounter Details Date Type Department Care Team (Latest Contact Info) Description 02/05/2024 Transcribe Orders Virtual Department [address] [place] [address] Maggy Buitrago NP [address] [place] [phone] [email or web address] Radiculopathy, lumbar region (Primary Dx) Social History [...] st Contact Info) Description 08/23/2025 Procedure Pass [address] [address] 10/01/2025 9:25 AM EST Appointment [address] [address] Cain Christiansen MD [address] [place] [address] Orthopedics & Sports Medicine, [place] [address] documented as of this encounter Results * [...] communicated on 03/10/2024 1:12 AM, Message ID [id number]. Narrative 03/10/2024 1:12 AM EDT MRI LUMBAR [...] WITHOUT CONTRAST ; XRLUMBOSACRAL SPINE 2-3 VIEWS 2023- FINDINGS: ALIGNMENT: 4 mm L4-5 anterolisthesis. MARROW: Post surgical changes from L4 and L5 right laminectomy with L4- N5bfhwthhuh fusion with carolina and pedicle screw constructs. No compressionfracture or marrow replacing lesion. DISCS: Disc desiccation T10-T11 and T12-S1. Endplate marrow edema [id number]. CONUS: Normal appearance and terminates at L1. [...] was communicated on 03/10/2024 1:12 AM,Message ID [id number]. Maggy Buitrago NP IMG MR XSPECIALTY Final Result documented in this encounter Visit Diagnoses Diagnosis Radiculopathy, lumbar region- Primary Thoracic or lumbosacral neuritis or radiculitis, unspecified Radiculopathy, lumbar region Thoracic or lumbosacral neuritis or radiculitis, unspecified documented in this encounter Care Teams Wheel Filler Relationship Specialty Start Date End Date Aric Espinoza DO PCP - General Internal Medicine 04/30/22 07/12/25 Aric Espinoza DO [address] [place] [address] PCP - General Internal Medicine 07/13/25 Aric Espinoza DO Insurance Assigned Provider Internal Medicine 10/24/21 documented as of this encounter Additional Source Comments The information contained in this document represents components of the legal health record. It is not the complete legal health record.[facility]
--- OUTSIDE RECORDS SUMMARY | 2025-08-29 11:18 | XMS_ITS | Encounter Summary ---
Author Organization [facility] Address [address] [place] [address] Phone Care Team Providers Care Motor Generator Set Operator Name Role Phone Aric Espinoza DO Unavailable Anthonyda, Aric Davila DO Primary Care Provider [phone] Bigda, Aric Davila DO Primary Care Provider [phone] Encounter Details Date Type Department Care Team (Late st Contact Info) Description 02/05/2024 Procedure Pass [address] [address] Social History Tobacco Use Types Packs/Day Years [...] Department Care Team (Late Contact Info) Description 08/23/2025 Procedure Pass [address] [address] 10/01/2025 9:25 AM EST Appointment [facility], [address] [address] Cain Christiansen MD [address] [place] [address] Orthopedics & Sports Medicine, [place] [address] documented as of this encounter Visit Diagnoses Not on filedocumented in this encounter Care Teams Motor Generator Set Operator Relationship Specialty Start Date End Date Aric Espinoza DO PCP - General Internal Medicine 04/30/22 07/12/25 Aric Espinoza DO [address] [place] [address] PCP - General Internal Medicine 07/13/25 Aric Espinoza DO Insurance Assigned Provider Internal Medicine 10/24/21 documented as of this encounter Additional Source Comments The information contained in this document represents components of the legal health record. It is not the complete legal health record.[facility]
--- OUTSIDE RECORDS SUMMARY | 2025-08-29 11:18 | XMS_ITS | Encounter Summary ---
Author Organization [facility] Address [address] [place] [address] Phone Care Team Providers Care Near East Archeology Professor Name Role Phone Anthonyjosemanuel, Aric Lola DO Primary Care Provider [phone] Emma Elizabeth Primary Care Provider [phone] Bigda, Aric A DO Unavailable Bigda, Aric A DO Primary Care Provider [phone] Bigda, Aric A DO Primary Care Provider [phone] Encounter Details Date Type Department Care Team (Late st Contact Info) Description 08/28/2018 Procedure Pass [address] [address] Social History Tobacco Use Types Packs/Day Years [...] st Contact Info) Description 08/23/2025 Procedure Pass [address] [address] 10/01/2025 9:25 AM EST Appointment [address] [address] Cain Christiansen MD [address] [place] [address] Orthopedics & Sports Medicine, [place] [address] documented as of this encounter Visit Diagnoses Not on filedocumented in this encounter Care Teams Near East Archeology Professor Relationship Specialty Start Date End Date Aric Espinoza DO PCP - General Internal Medicine 10/01/17 09/05/21 Emma Elizabeth PA [address] [place] [address] [place] [address] PCP - General 09/06/21 04/29/22 Aric Espinoza DO PCP - General Internal Medicine 04/30/22 07/12/25 Aric Espinoza DO [address] [place] [address] [place] [address] PCP - General Internal Medicine 07/13/25 Aric Espinoza DO Insurance Assigned Provider Internal Medicine 10/24/21 documented as of this encounter Additional Source Comments The information contained in this document represents components of the legal health record. It is not the complete legal health record.[facility]
--- OUTSIDE RECORDS SUMMARY | 2025-08-29 11:18 | XMS_ITS | Encounter Summary ---
Author Organization [facility] Address [address] [place] [address] Phone Care Team Providers Care Almond Roaster Name Role Phone Anthonyjosemanuel, Aric Lola Primary Care Provider [phone] Emma Elizabeth Primary Care Provider [phone] Bigda, Aric A DO Unavailable Bigda, Aric A DO Primary Care Provider [phone] Bigda, Aric A DO Primary Care Provider [phone] Encounter Details Date Type Department Care Team (Late st Contact Info) Description 12/29/2018 Procedure Pass OR Admitting Dept - Virtual Department [address] [place] [address] Social History Tobacco Use Types Packs/Day Years [...] st Contact Info) Description 08/23/2025 Procedure Pass [address] [address] 10/01/2025 9:25 AM EST Appointment [address] [address] Cain Christiansen MD [address] [place] [address] Orthopedics & Sports Medicine, [place] [address] documented as of this encounter Visit Diagnoses Not on filedocumented in this encounter Care Teams Almond Roaster Relationship Specialty Start Date End Date Aric Espinoza DO PCP - General Internal Medicine 10/01/17 09/05/21 Emma Elizabeth PA [address] [place] [address] [place] [address] PCP - General 09/06/21 04/29/22 Aric Espinoza DO PCP - General Internal Medicine 04/30/22 07/12/25 Aric Espinoza DO [address] [place] [address] [place] [address] PCP - General Internal Medicine 07/13/25 Aric Espinoza DO Insurance Assigned Provider Internal Medicine 10/24/21 documented as of this encounter Additional Source Comments The information contained in this document represents components of the legal health record. It is not the complete legal health record.[facility]
--- OUTSIDE RECORDS SUMMARY | 2025-08-29 11:18 | XMS_ITS | Encounter Summary ---
Author Organization [facility] Address [address] [place] [address] Phone Care Team Providers Care Locomotive Firer Name Role Phone Anthonyjosemanuel, Aric Lola DO Primary Care Provider [phone] Emma Elizabeth Primary Care Provider [phone] Bigda, Aric A DO Unavailable Bigda, Aric A DO Primary Care Provider [phone] Bigda, Aric A DO Primary Care Provider [phone] Reason for Referral * MRI/CAT Scan - Closed Specialty Diagnoses / Procedures Referred By Sid cisneros Referred To Contact Radiology Diagnoses Contusion of left knee, initial encounter Procedures MRI Knee (Left) Emma Elizabeth PA Phone: tel: fax: Referral ID Status Reason Start Date Expiration Date Visits Re quested Visits Authorized [id number] Closed 08/10/2021 08/10/2022 1 1 Encounter Details Date Type Department Care Team (Latest Contact Info) Description 08/10/2021 Transcribe Orders Virtual Department 30 [place] [address] Emma Elizabeth PA [address] [place] [address] [place] [address] Contusion of left knee, initial encounter (Primary [...] st Contact Info) Description 08/23/2025 Procedure Pass [address] [address] 10/01/2025 9:25 AM EST Appointment [address] [address] Cain Christiansen MD [address] [place] [address] Orthopedics & Sports Medicine, [place] [address] [email or web address] documented as of this encounter Results * [...] inflammatory changes. No other specific source ofpain. us Emma GONZALEZ IMG MR EXTREMITY Final Resu lt documented in this encounter Visit Diagnoses Diagnosis Contusion of left knee, initial encounter- Primary Contusion of left knee, initial encounter documented in this encounter Care Teams Locomotive Firer Relationship Specialty Start Date End Date Aric Espinoza DO PCP - General Internal Medicine 10/01/17 09/05/21 Emma Elizabeth PA [address] [facility] [place] [address] PCP - General 09/06/21 04/29/22 Aric Espinoza DO PCP - General Internal Medicine 04/30/22 07/12/25 Aric Espinoza DO [address] [place] [address] [email or web address] PCP - General Internal Medicine 07/13/25 Aric Espinoza DO Insurance Assigned Provider Internal Medicine 10/24/21 documented as of this encounter Additional Source Comments The information contained in this document represents components of the legal health record. It is not the complete legal health record.[facility]
--- OUTSIDE RECORDS SUMMARY | 2025-08-29 11:18 | XMS_ITS | Encounter Summary ---
Author Organization [facility] Address [address] [place] [address] Phone Care Team Providers Care Referral Rn Name Role Phone Olga Aric Davila DO Primary Care Provider [phone] Emma Elizabeth Primary Care Provider [phone] Bigda, Aric Davila DO Unavailable Bigda, Aric A DO Primary Care Provider [phone] Bigda, Aric A DO Primary Care Provider [phone] Reason for Referral * MRI/CAT Scan - Closed Specialty Diagnoses / Procedures Referred By Sid cisneros Referred To Contact Radiology Diagnoses Transient cerebral ischemia, unspecified type Procedures MRI Brain Oumou Farooq PA-C Phone: tel: fax: [email or web address] Referral ID Status Reason Start Date Expiration Date Visits Re quested Visits Authorized [id number] Closed 05/31/2019 05/30/2020 1 1 Encounter Details Date Type Department Care Team (Latest Contact Info) Description 05/31/2019 Transcribe Orders Virtual Department 30 [place] [address] Oumou Farooq PA-C [address] [place] [address] [email or web address] Transient cerebral ischemia, unspecified type (Primary Dx) [...] st Contact Info) Description 08/23/2025 Procedure Pass [address] [address] 10/01/2025 9:25 AM EST Appointment [address] [address] Cain Christiansen MD [address] [place] [address] Orthopedics & Sports Medicine, [place] [address] [email or web address] documented as of this encounter Results * [...] inflammatory change, similar to prior. POS - [id number] Narrative 06/08/2019 8:37 AM EDT HISTORY: Aphasia [...] inflammatory change, similar to prior. POS - [id number] January Oseas PELAEZ IMG MR HEAD/NECK Final Resul t documented in this encounter Visit Diagnoses Diagnosis Transient cerebral ischemia, unspecified type- Primary Transient cerebral ischemia, unspecified type documented in this encounter Care Teams Referral Rn Relationship Specialty Start Date End Date Aric Espinoza DO [email or web address] PCP - General Internal Medicine 10/01/17 09/05/21 Emma Elizabeth PA [address] [facility] [place] [address] PCP - General 09/06/21 04/29/22 Aric Espinoza DO [email or web address] PCP - General Internal Medicine 04/30/22 07/12/25 Aric Espinoza DO [address] [place] [address] [email or web address] PCP - General Internal Medicine 07/13/25 Aric Espinoza DO [email or web address] Insurance Assigned Provider Internal Medicine 10/24/21 documented as of this encounter Additional Source Comments The information contained in this document represents components of the legal health record. It is not the complete legal health record.[facility]
--- OUTSIDE RECORDS SUMMARY | 2025-08-29 11:18 | XMS_ITS | Encounter Summary ---
Author Organization [facility] Address [address] [facility] [address] [place] [address] Phone Care Team Providers Care Cupola Tender Helper Name Role Phone Olga, Aric Davila DO Unavailable Bigda, Aric A DO Primary Care Provider [phone] Bigda, Aric A DO Primary Care Provider [phone] Encounter Details Date Type Department Care Team (Latest Contact Info) Description 09/20/2024 Transcribe Orders Virtual Department 30 [place] [address] Emma Elizabeth PA [address] [place] [address] [place] [address] Left knee pain, unspecified chronicity (Primary Dx) [...] st Contact Info) Description 08/23/2025 Procedure Pass [address] [address] 10/01/2025 9:25 AM EST Appointment [address] [address] Cain Christiansen MD [address] [place] [address] Orthopedics & Sports Medicine, [place] [address] [email or web address] documented [...] clinician's provided indication for this examination in [facility]: Outside Radiology Order; knee pain COMPARISON: XR KNEE 4 OR MORE VIEWS (LEFT) FINDINGS: Left Knee: No acute fracture or dislocation. There are mild tricompartmental degenerative changes. No joint effusion. [place] patellar enthesophyte. Procedure Note Rivera Mccabe MD - 09/20/2024 XR KNEE 4 OR MORE VIEWS (LEFT) Referring clinician's provided indication for this examination in [facility]:Outside Radiology Order; knee pain COMPARISON: XR KNEE [...] chronicity documented in this encounter Care Teams Cupola Tender Helper Relationship Specialty Start Date End Date Aric Espinoza DO [email or web address] PCP - General Internal Medicine 04/30/22 07/12/25 Aric Espinoza DO [address] [place] [address] [email or web address] PCP - General Internal Medicine 07/13/25 Aric Espinoza DO [email or web address] Insurance Assigned Provider Internal Medicine 10/24/21 documented as of this encounter Additional Source Comments The information contained in this document represents components of the legal health record. It is not the complete legal health record.[facility]
--- OUTSIDE RECORDS SUMMARY | 2025-08-29 11:18 | XMS_ITS | Encounter Summary ---
Author Organization [facility] Address [address] [place] [address] Phone Care Team Providers Care Hot Dip Plater Name Role Phone Anthonyjosemanuel, Aric Lola DO Primary Care Provider [phone] Emma Elizabeth Primary Care Provider [phone] Bigda, Aric A DO Unavailable Bigda, Aric A DO Primary Care Provider [phone] Bigda, Aric A DO Primary Care Provider [phone] Encounter Details Date Type Department Care Team (Late st Contact Info) Description 08/10/2021 Procedure Pass [address] [address] Social History Tobacco Use Types Packs/Day Years [...] st Contact Info) Description 08/23/2025 Procedure Pass [address] [address] 10/01/2025 9:25 AM EST Appointment [address] [address] Cain Christiansen MD [address] [place] [address] Orthopedics & Sports Medicine, [place] [address] documented as of this encounter Visit Diagnoses Not on filedocumented in this encounter Care Teams Hot Dip Plater Relationship Specialty Start Date End Date Aric Espinoza DO PCP - General Internal Medicine 10/01/17 09/05/21 Emma Elizabeth PA [address] [place] [address] [place] [address] PCP - General 09/06/21 04/29/22 Aric Espinoza DO PCP - General Internal Medicine 04/30/22 07/12/25 Aric Espinoza DO [address] [place] [address] [place] [address] PCP - General Internal Medicine 07/13/25 Aric Espinoza DO Insurance Assigned Provider Internal Medicine 10/24/21 documented as of this encounter Additional Source Comments The information contained in this document represents components of the legal health record. It is not the complete legal health record.[facility]
--- OUTSIDE RECORDS SUMMARY | 2025-08-29 11:18 | XMS_ITS | Encounter Summary ---
Author Organization [facility] Address [address] [place] [address] [place] [address] Phone Care Team Providers Care Pipeline Dispatch Operator Name Role Phone Aric Espinoza DO Unavailable Anthonyda, Aric Davila DO Primary Care Provider [phone] Bigda, Aric Davila DO Primary Care Provider [phone] Encounter Details Date Type Department Care Team (Late st Contact Info) Description 11/05/2024 Procedure Pass [address] [address] Social History Tobacco Use Types Packs/Day Years [...] (Late Contact Info) Description 08/23/2025 Procedure Pass [address] [address] 10/01/2025 9:25 AM EST Appointment [facility], [address] [address] Cain Christiansen MD [address] [place] [address] Orthopedics & Sports Medicine, [place] [address] documented as of this encounter Visit Diagnoses Not on filedocumented in this encounter Care Teams Pipeline Dispatch Operator Relationship Specialty Start Date End Date Aric Espinoza DO PCP - General Internal Medicine 04/30/22 07/12/25 Aric Espinoza DO [address] [place] [address] PCP - General Internal Medicine 07/13/25 Aric Espinoza DO Insurance Assigned Provider Internal Medicine 10/24/21 documented as of this encounter Additional Source Comments The information contained in this document represents components of the legal health record. It is not the complete legal health record.[facility]
--- OUTSIDE RECORDS SUMMARY | 2025-08-29 11:18 | XMS_ITS | Encounter Summary ---
Author Organization [facility] Address [address] [place] [address] Phone Care Team Providers Care Boiler Plant Worker Name Role Phone Anthonyjosemanuel, Aric A DO Primary Care Provider [phone] Emma Elizabeth Primary Care Provider [phone] Bigda, Aric A DO Unavailable Bigda, Aric A DO Primary Care Provider [phone] Bigda, Aric A DO Primary Care Provider [phone] Encounter Details Date Type Department Care Team (Latest Contact Info) Description 08/08/2021 Transcribe Orders Virtual Department [address] [place] [address] Emma Elizabeth PA [address] [place] [address] [place] [address] Left knee pain, unspecified chronicity (Primary Dx); [...] st Contact Info) Description 08/23/2025 Procedure Pass [address] [address] 10/01/2025 9:25 AM EST Appointment [address] [place] [address] Cain Christiansen MD [address] [place] [address] Orthopedics & Sports Medicine, [place] [address] [email or web address] documented as of this encounter Results * XR KNEE 4 OR MORE VIEWS (LEFT) (08/09/2021 9:45 AM EDT) Anatomical Region Laterality Modality Knee Left Computed Radiogr aphy 08/09/2021 9:52 AM EDT Impressions 08/09/2021 9:53 AM EDT No acute bony abnormality apparent. POS - [id number] Narrative 08/09/2021 9:53 AM EDT COMPARISON: None [...] No acute bony abnormality apparent. POS - [id number] Emma GONZALEZ IMG XR LOWER EXTREMITY Chikis l Result * XR Tibia Fibula 2 Views (Left) (08/09/2021 9:44 AM EDT) Anatomical Region Laterality Modality Leg Left Computed Radiogr aphy 08/09/2021 9:53 AM EDT Impressions 08/09/2021 9:53 AM EDT No acute bony abnormality. POS [id number] Narrative 08/09/2021 9:53 AM EDT Frontal and lateral views disclose no fracture, subluxation, or other significant abnormality involving the visualized regional skeletal structures. Procedure Note Rafiq Rocha MD - 08/09/2021 Frontal and lateral views disclose no fracture, subluxation, or othersignificant abnormality involving the visualized regional skeletalstructures. IMPRESSION: No acute bony abnormality. POS [id number] us Emma GONZALEZ IMG XR LOWER EXTREMITY Chikis [...] limb documented in this encounter Care Teams Boiler Plant Worker Relationship Specialty Start Date End Date Aric Espinoza DO PCP - General Internal Medicine 10/01/17 09/05/21 Emma Elizabeth PA [address] [facility] [place] [address] PCP - General 09/06/21 04/29/22 Aric Espinoza DO PCP - General Internal Medicine 04/30/22 07/12/25 Aric Espinoza DO [address] [place] [address] PCP - General Internal Medicine 07/13/25 Aric Espinoza DO [email or web address] Insurance Assigned Provider Internal Medicine 10/24/21 documented as of this encounter Additional Source Comments The information contained in this document represents components of the legal health record. It is not the complete legal health record.[facility]
--- OUTSIDE RECORDS SUMMARY | 2025-08-29 11:18 | XMS_ITS | Encounter Summary ---
Author Organization [facility] Address [address] [place] [address] [place] [address] Phone Care Team Providers Care Marketing Manager Health Communications Name Role Phone Aric Espinoza DO Unavailable Olga, Aric Davila DO Primary Care Provider [phone] Bigda, Aric Davila DO Primary Care Provider [phone] Reason for Referral * MRI/CAT Scan - Closed Specialty Diagnoses / Procedures Referred By Sid cisneros Referred To Contact Radiology Diagnoses Cyst of pancreas Procedures MRI Cholangiopancreatography (MRCP) MRI Abdomen Emma Elizabeth PA [address] [facility] [place] [address] Phone: tel: fax: Referral ID Status Reason Start Date Expiration Date Visits Re quested Visits Authorized [id number] Closed 11/05/2024 11/05/2025 1 1 Encounter Details Date Type Department Care Team (Latest Contact Info) Description 11/05/2024 Transcribe Orders Virtual Department [address] [place] [address] Emma Elizabeth PA [address] [facility] [place] [address] Cyst of pancreas (Primary Dx) Social History [...] st Contact Info) Description 08/23/2025 Procedure Pass [address] [address] 10/01/2025 9:25 AM EST Appointment [address] [address] Cain Christiansen MD [address] [place] [address] Orthopedics & Sports [place], [place] [address] [email or web address] documented as of this encounter Results * [...] MRI LUMBAR SPINE (NEURO) WITHOUT CONTRAST ; [id number] FINDINGS: Lower chest: No effusions. 0.6 cm [...] pancreas documented in this encounter Care Teams Marketing Manager Health Communications Relationship Specialty Start Date End Date Aric Espinoza DO PCP - General Internal Medicine 04/30/22 07/12/25 Aric Espinoza DO [address] [place] [address] [email or web address] PCP - General Internal Medicine 07/13/25 Aric Espinoza DO [email or web address] Insurance Assigned Provider Internal Medicine 10/24/21 documented as of this encounter Additional Source Comments The information contained in this document represents components of the legal health record. It is not the complete legal health record.[facility]
--- OUTSIDE RECORDS SUMMARY | 2025-08-29 11:18 | XMS_ITS | Data Portability ---
Author Organization [facility] [employer] [facility], Main Office Address [address] [place] [address] Care Team Providers Care Is Consultant Name Role Phone LEO AVILA ([place]) OTHER Assessment Encounter Date Assessment Date Assessment LastModified by Organization Details LastModified Time 01/01/2019 01/01/2019 3/13: wbc 14.97, hgb 8.6, hct 25.9 glord [...] Address Organization Details Recorded Time Spinal stenosis 68638603 Active [address], [address], [address], [facility] [employer] [facility] 9 11:21:13 Arthritis 5858209 Active [address], [address], [place], [address], [facility] [employer] 9 11:21:34 Gastroesoph ageal reflux disease 151679689 Active [address], [address], [place], [address], [facility] 9 11:21:38 Hyperlipide montez 58318833 Active [address], [address], [place], [address], [place] [employer] 9 11:21:45 Hypothyroid ism 67536273 Active [address], [address], [place], [address], [employer] 9 11:21:51 Pain of right hip joint 3556256077902 02 Active [address], [address], [place], [address], [employer] 9 11:22:02 Inflammatio n of sacroiliac joint 81086272 Active [address], [address], [place], [address], [employer] 9 11:23:14 Seasonal allergy 552459720 Active [address], [address], [place], [address], [employer] 9 11:23:25 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 Procedures Surgical History Date Name Laterality Status Provider Name and Address Organization Details Recorded Time 3 hysterectomy completed [address], [address], [place], [address], [employer] [employer] 01/01/2019 11:23:53 Imaging Results None recorded. Procedure Notes None recorded. Medical Equipment None Reported. Allergies No known drug allergies Vitals Date Recorded Heart rate Respiratory rate Body temperature Oxygen saturation Oxygen saturation in Arterial blood by Pulse oximetry Body height Body mass index (BMI) Body weight Systolic And Diastolic Provider Name and Address Organization Details Last Updated DateTime 9 86 /min 20 /min 98.8 [degF] 91 % 91 % 147.32 cm 33.2 kg/m2 92484.1 9 g 122/64 mm[Hg] VLADISLAV ABEBE [address] [place] [address], [address], [place], [address], [facility] 9 11:19:24 Date Recorded Body height Heart rate Respiratory rate Body temperature Systolic And Diastolic Provider Name and Address Organization Details Last Updated DateTime 9 147.32 cm 61 /min 20 /min 98.4 [degF] 100/45 mm[Hg] VLADISLAV[address], [address], [place], [address], [facility] [employer] [facility] 9 08:54:35 Date Recorded Body height Systolic And Diastolic Provider Name and Address Organization Details Last Updated DateTime 01/05/2019 147.32 cm 108/58 mm[Hg] Lavon Bowie MD [address] [facility], [address], [place], [address], [facility] [employer] [facility] 01/05/2019 11:44:03 Date Recorded Body height Heart rate Respiratory rate Body temperature Systolic And Diastolic Provider Name and Address Organization Details Last Updated DateTime 9 147.32 cm 61 /min 20 /min 99.1 [degF] 108/45 mm[Hg] VLADISLAV [address], [address], [place], [address], [facility] [employer] [facility] 9 16:04:03 Social History Question Answer Notes LastModified by Organizat ion Details LastModified Time Tobacco Smoking Status Never [facility]oker Not Available [facility] 08/15/2020 03:13:20 Do You Have An Advance Directive? Yes Full Code [id number] Information not available 08/15/2020 How Much Tobacco Do You Chew? None [id number] Information not available 08/15/2020 What Was The Date Of Your Most Recent Tobacco Screening? 01/11/2019 [id number] Information not available 08/15/2020 How Much Tobacco Do You Smoke? No [id number] Information not available 08/15/2020 Has Tobacco Cessation Counseling Been Provided? No [id number] Information not available 08/15/2020 How Many Years Have You Smoked Tobacco? 0 [id number] Information not available 08/15/2020 Sex: Unknown Functional Status Question Answer Note LastModified by Organization D etails LastModified Time What is your level of alcohol consumption? None [id number] Information not available 08/15/2020 Mental Status None [...] Diagnosis SNOMED-CT Code Diagnosis ICD10 Code Diagnosis IMO Codes Diagnosis Note 21254 VLADISLAV [place]ILA [address] [place] [address] 01/01/2019 11:16:40 01/07/2019 11:38:30 Pain of right hip joint 4420791998 31395 M25.551 See HPI s/p fusionPT/O T eval and treat-alex ent appears very drowsy and sedated today, will decrease oxycodone to only 5 mg q 4 hours PRN, had 10 this morning and overnight. Spinal stenosis 78848481 M48.04 gabapentin 100 mg TIDoxycodo ne as needed, monitor for pain control Hypothyroidism 63420207 E03.8 levothyrox ine 50 mcg daily, monitor TSH as needed Gastroesop hageal reflux disease 198643909 K21.9 Prilosec 20 mg daily, monitor for reflux Depressive disorder 2328 9007 F33.8 Celexa 10 mg daily, monitor mood and consult NEG if needed Constipation 30557889 K5 9.03 Add colace 100 mg BID 22881 VLADISLAV AVILA [address] [place] [address] 01/04/2019 08:46:18 01/07/2019 11:53:38 Pain of right hip joint 1675923611 25648 M25.551 See HPI s/p fusionObta in STAT xrays of lumbo sacral region 2 viewsCall ortho and inform him of pain statusgive one time increased oxy dose of 10 mg now 24440 MD LEO Griffin [address] [place] [address] 01/05/2019 11:16:35 01/07/2019 12:46:07 Spinal stenosis 16860867 M48.062 see HPILumbar spinal stenosis with radiculopa thyunderwe ntexcision of L4-5 extradural massexcisi on of right L5-S1 foraminal disc herniation L4-5 and L5-S1 posterior and lateral fusion with segmental screw fixation and bone graftfollo w surgery recsmonito r for pain control and constipati onPT OT eval and treat Anemia due to blood loss 817123581 D50.0 Post op anemiarepe at cbcmonitor need for tx Unsteady gait 089469197 R26.81 PT OT eval and treatmonit or fall risk Gastroesop hageal reflux disease 278703726 K21.9 omeprazole 20 mg qdmonitor for sx relief Hypothyroidism 88919744 E03.8 synthroid 50 mcg qdmonitor tsh prn Hyperlipidemia 32719876 E78.49 carrying dxnot maintained on statin at baselineap pears diet controlled [address] VLADISLAV LORD LEO AVILA [address] [place] [address] 01/11/2019 15:35:26 01/21/2019 13:36:24 Spinal stenosis 60895043 M48.062 see HPILumbar spinal stenosis with radiculopa [...] at home Anemia due to blood loss 000621324 D50.0 resolved Gastroesop hageal reflux disease 650860097 K21.9 omeprazole 20 mg qd Hypothyroidism 12239648 E03.8 synthroid 50 mcg qdmonitor tsh outpt Hyperlipidemia 44753470 E78.49 carrying dxnot maintained on statin at baselineap pears diet controlled Health Concerns Section Related Observation LastModified by Organization Detai ls LastModified Time None Recorded Concern Status LastModified by Organization Details LastModified Time None Recorded Advance Directives Directive Y: Full Code Payers Insurance Date Sequence Insurance Name Policy Number Policy Cordova Covered Member ID Cordova Member ID Guarantor Name 01/21/2019 1 [facility] - MEDICARE PREFERRED (MEDICARE REPLACEMENT HMO) CHANDU Andrade [id number] 1 Joyce Andrade Notes Date Note Type Note Provider Name and Address Organization Details Recorded Time 01/01/2019 text/html This is an 78 year old female seen today for initial intake [...] GERD, arthritis and spinal stenosis VLADISLAV ABEBE [address] [place] [address], [address], [place], [address], [employer] [facility] [employer] 01/05/2019 16:30:48 01/04/2019 text/html This is an 78 year old female seen today for acute rounding [...] as pain was to be expected. VLADISLAV [address] [facility], [address], [place], [address], [facility] 01/04/2019 08:59:48 01/05/2019 text/html Patient is an [...] care and therapy Lavon Bowie MD [address] [facility], [address], [place], [address], [facility] 01/05/2019 11:44:28 01/11/2019 text/html This patient is [...] Patient had fall shortly after arrival at [facility], ortho was updated and x ray [...] hld, hypothyroid, spinal stenosis, VLADISLAV LORD [address] [facility], [address], [place], [address], [employer] [facility] [employer] 01/21/2019 12:41:10 OBGyn Episode No OBEpisode recorded.
--- OUTSIDE RECORDS SUMMARY | 2025-08-29 11:18 | XMS_ITS | Encounter Summary ---
Author Organization [facility] Address [address] [facility] [address] [place] [address] Phone Care Team Providers Care Landscape Architecture Professor Name Role Phone Olga, Aric Davila DO Unavailable Bigda, Aric A DO Primary Care Provider [phone] Bigda, Aric A DO Primary Care Provider [phone] Encounter Details Date Type Department Care Team (Late Contact Info) Description 12/12/2023 Ancillary Orders [facility], X-Ray - [address] [address] Emma Elizabeth PA [address] [facility] [place] [address] Other specified soft tissue disorders (Primary Dx) [...] st Contact Info) Description 08/23/2025 Procedure Pass [facility], [address] [address] 10/01/2025 9:25 AM EST Appointment [address] [address] Cain Christiansen MD [address] [place] [address] Orthopedics & Sports Medicine, [place] [address] .Keep Me Certified documented as of this encounter Results * [...] clinician's provided indication for this examination in Epic:Pain COMPARISON: MRI LUMBAR SPINE (NEURO) WITHOUT CONTRAST [...] disorders documented in this encounter Care Teams Landscape Architecture Professor Relationship Specialty Start Date End Date Aric Espinoza DO [email or web address] PCP - General Internal Medicine 04/30/22 07/12/25 Aric Espinoza DO [address] [place] [address] PCP - General Internal Medicine 07/13/25 Aric Espinoza DO Insurance Assigned Provider Internal Medicine 10/24/21 documented as of this encounter Additional Source Comments The information contained in this document represents components of the legal health record. It is not the complete legal health record.[facility]
--- OUTSIDE RECORDS SUMMARY | 2025-08-29 11:18 | XMS_ITS | Encounter Summary ---
Author Organization [facility] Address [address] [place] [address] Phone Care Team Providers Care Reject Opener And Filler Name Role Phone Anthonyjosemanuel Aric Davila DO Primary Care Provider [phone] Emma Elizabeth Primary Care Provider [phone] Bigda, Aric Davila DO Unavailable Bigda, Aric A DO Primary Care Provider [phone] Bigda, Aric A DO Primary Care Provider [phone] Reason for Referral * MRI/CAT Scan - Closed Specialty Diagnoses / Procedures Referred By Sid cisneros Referred To Contact Radiology Diagnoses Lumbosacral radiculopathy Procedures MRI Lumbar Spine MRI Lumbar Spine Eleazar Guerra NP Phone: tel: fax: [email or web address] Referral ID Status Reason Start Date Expiration Date Visits Re quested Visits Authorized [id number] Closed 08/28/2018 08/28/2019 1 1 Encounter Details Date Type Department Care Team (Latest Contact Info) Description 08/28/2018 Ancillary Orders Virtual Department [address] [place] [address] Eleazar Guerra NP [address] [place] [address] [email or web address] Lumbosacral radiculopathy Social History Tobacco Use Types [...] st Contact Info) Description 08/23/2025 Procedure Pass [address] [address] 10/01/2025 9:25 AM EST Appointment [address] [address] Cain Christiansen MD [address] [place] [address] Orth[facility] Sports Medicine, [place] [address] documented as of this encounter Results * [...] minimal central stenosis is present. Procedure Note Filiberto Recio MD - 09/11/2018 TECHNIQUE: 1.5 My [...] Pitt on 09/11/2018 4:09 PM Eleazar Guerra NP IMG MR XSPECIALTY Final R esult documented in this encounter Visit Diagnoses Diagnosis Lumbosacral radiculopathy Thoracic or lumbosacral neuritis or radiculitis, unspecified Lumbosacral radiculopathy Thoracic or lumbosacral neuritis or radiculitis, unspecified documented in this encounter Care Teams Reject Opener And Filler Relationship Specialty Start Date End Date Aric Espinoza DO PCP - General Internal Medicine 10/01/17 09/05/21 Emma Elizabeth PA [address] [facility] [place] [address] PCP - General 09/06/21 04/29/22 Aric Espinoza DO PCP - General Internal Medicine 04/30/22 07/12/25 Aric Espinoza DO [address] [place] [address] PCP - General Internal Medicine 07/13/25 Aric Espinoza DO Insurance Assigned Provider Internal Medicine 10/24/21 documented as of this encounter Additional Source Comments The information contained in this document represents components of the legal health record. It is not the complete legal health record.[facility]
--- OUTSIDE RECORDS SUMMARY | 2025-08-29 11:18 | XMS_ITS | Encounter Summary ---
Author Organization [facility] Address [address] [place] [address] [place] [address] Phone Care Team Providers Care Retail Reset Merchandiser Name Role Phone Olga, Aric Lola DO Primary Care Provider [phone] Emma Elizabeth Primary Care Provider [phone] Bigda, Aric A DO Unavailable Bigda, Aric A DO Primary Care Provider + Bigda, Aric A DO Primary Care Provider + Encounter Details Date Type Department Care Team (Latest Contact Info) Description 03/10/2019 Transcribe Orders Virtual Department [address] [place] [address] Alfa Chan MD [address] [place] [address] [email or web address] Joseline (Primary Dx) Social History Tobacco Use Types [...] st Contact Info) Description 08/23/2025 Procedure Pass [address] [address] 10/01/2025 9:25 AM EST Appointment [address] [address] Cain Christiansen MD [address] [place] [address] Orthopedics & Sports Medicine, [place] [address] [email or web address] documented as of this encounter Results * XR CERVICAL SPINE 4-5 VIEWS (03/11/2019 10:58 AM EDT) Anatomical Region Laterality Modality C-spine Radiographic Yas ging 03/11/2019 11:0 9 AM EDT Impressions 03/11/2019 12:19 PM EDT Multilevel bone and disc degenerative change. Foraminal narrowing appears most pronounced at C4-5 on the right. POS - [id number] Edited by: Carmen Pitt on 03/11/2019 11:17 AM Narrative 03/11/2019 12:19 PM EDT Cervical spine 5 views. No prior. There is degenerative disc disease at multiple levels, most pronounced at C5-6 and C6-7. Lesser changes at C3-4. Facet arthropathy is also present at multiple levels, most pronounced on the left at C2-3 and C3-4 and on the right at C2-3, C3-4 and C4-5. There is some trace anterolisthesis of C3 on C4 as a result. There is some facet degenerative change also present at C7-T1. Bony neural foraminal encroachment is present at multiple levels. On the right it appears most pronounced at C4-5 with milder narrowing at C5-6. On the right there is mild narrowing at C3-4 and C6-7 with some moderate narrowing at C5-6 related to uncovertebral spurring. There is some mild degenerative change suggested at the C1-2 regions. No soft tissue findings of concern. Trachea slightly deviated to the left but not markedly so. Procedure Note Paula Shi MD - 03/11/2019 Cervical spine 5 views. No prior. There is degenerative disc disease at multiple levels, most pronounced atC5-6 and C6-7. Lesser changes at C3-4. Facet arthropathy is also presentat multiple levels, most pronounced on the left at C2-3 and C3-4 and onthe right at C2-3, C3-4 and C4-5. There is some trace anterolisthesis ofC3 on C4 as a result. There is some facet degenerative change also presentat C7-T1. Bony neural foraminal encroachment is present at multiplelevels. On the right it appears most pronounced at C4-5 with mildernarrowing at C5-6. On the right there is mild narrowing at C3-4 and C6- 7with some moderate narrowing at C5-6 related to uncovertebral spurring.There is some mild degenerative change suggested at the C1-2 regions. Nosoft tissue findings of concern. Trachea slightly deviated to the left butnot markedly so. IMPRESSION: Multilevel bone and disc degenerative change. Foraminal narrowing appearsmost pronounced at C4-5 on the right. POS - [id number] Edited by: Carmen Pitt on 03/11/2019 11:17 AM Alfa Chan MD IMG XR SPINE Final Res ult documented in this encounter Visit Diagnoses Diagnosis Jerking- Primary Abnormal involuntary movements Jerking Abnormal involuntary movements documented in this encounter Care Teams Retail Reset Merchandiser Relationship Specialty Start Date End Date Aric Espinoza DO [email or web address] PCP - General Internal Medicine 10/01/17 09/05/21 Emma Elizabeth PA 6 [facility] [place] [address] PCP - General 09/06/21 04/29/22 Aric Espinoza DO PCP - General Internal Medicine 04/30/22 07/12/25 Aric Espinoza DO [address] [facility] [place] [address] [email or web address] PCP - General Internal Medicine 07/13/25 Aric Espinoza DO [email or web address] Insurance Assigned Provider Internal Medicine 10/24/21 documented as of this encounter Additional Source Comments The information contained in this document represents components of the legal health record. It is not the complete legal health record.[facility]
--- OUTSIDE RECORDS SUMMARY | 2025-08-29 11:18 | XMS_ITS | Encounter Summary ---
Author Organization [facility] Address [address] [place] [address] [place] [address] Phone Care Team Providers Care Guidance And Control System Engineer Name Role Phone Anthonyjosemanuel, Aric Lola DO Primary Care Provider [phone] Emma Elizabeth Primary Care Provider [phone] Bigda, Aric A DO Unavailable Bigda, Aric A DO Primary Care Provider [phone] Bigda, Aric A DO Primary Care Provider [phone] Encounter Details Date Type Department Care Team (Late st Contact Info) Description 06/30/2018 Ancillary Orders Virtual Department [address] [place] [address] Oumou Farooq PA-C [address] Joe[address] [place] [address] [email or web address] Chronic low back pain, unspecified back pain [...] st Contact Info) Description 08/23/2025 Procedure Pass [facility] [address] [place] [address] 10/01/2025 9:25 AM EST Appointment [facility], [facility] [address] [place] [address] Cain Christiansen MD [address] [place] [address] Orthopedics & Sports Medicine, [facility] [place] [address] [email or web address] documented as of this encounter Results * [...] calcifications of the aorta. Procedure Note Aftab Sotck MD - 06/30/2018 HISTORY: Lower back pain [...] unspecified documented in this encounter Care Teams Guidance And Control System Engineer Relationship Specialty Start Date End Date Aric Espinoza DO PCP - General Internal Medicine 10/01/17 09/05/21 Emma Elizabeth PA [address] [place] [address] [place] [address] PCP - General 09/06/21 04/29/22 Aric Espinoza DO PCP - General Internal Medicine 04/30/22 07/12/25 Aric Espinoza DO [address] [place] [address] PCP - General Internal Medicine 07/13/25 Aric Espinoza DO Insurance Assigned Provider Internal Medicine 10/24/21 documented as of this encounter Additional Source Comments The information contained in this document represents components of the legal health record. It is not the complete legal health record.[facility]
--- OUTSIDE RECORDS SUMMARY | 2025-08-29 11:18 | XMS_ITS | Encounter Summary ---
Author Organization [facility] Address [address] [place] [address] [place] [address] Phone Care Team Providers Care Gas Distribution And Emergency Clerk Name Role Phone Anthonyjosemanuel, Aric Lola DO Primary Care Provider [phone] Emma Elizabeth Primary Care Provider [phone] Bigda, Aric A DO Unavailable Bigda, Aric A DO Primary Care Provider [phone] Bigda, Aric A DO Primary Care Provider [phone] Encounter Details Date Type Department Care Team (Latest Contact Info) Description 08/28/2018 Ancillary Orders Virtual Department [address] [place] [address] Eleazar Guerra, ELECTRICAL PROSPECTING OBSERVER [address] [place] [address] [email or web address] Records Left lumbosacral radiculopathy Social History Tobacco Use [...] st Contact Info) Description 08/23/2025 Procedure Pass [address] [address] 10/01/2025 9:25 AM EST Appointment [address] [place] [address] Cain Christiansen MD [address] [place] [address] Orth[facility] Sports Medicine, [place] [address] [email or web address] documented as of this encounter Visit Diagnoses Diagnosis Left lumbosacral radiculopathy documented in this encounter Care Teams Gas Distribution And Emergency Clerk Relationship Specialty Start Date End Date Aric Espinoza DO PCP - General Internal Medicine 10/01/17 09/05/21 Emma Elizabeth PA [address] [place] [address] [place] [address] PCP - General 09/06/21 04/29/22 Aric Espinoza DO PCP - General Internal Medicine 04/30/22 07/12/25 Aric Espinoza DO [address] [place] [address] [place] [address] [email or web address] PCP - General Internal Medicine 07/13/25 Aric Espinoza DO Insurance Assigned Provider Internal Medicine 10/24/21 documented as of this encounter Additional Source Comments The information contained in this document represents components of the legal health record. It is not the complete legal health record.[facility]
--- OUTSIDE RECORDS SUMMARY | 2025-08-29 11:19 | XMS_ITS | Encounter Summary ---
Author Organization [facility] Address [address] [place] [address] Phone Care Team Providers Care Skinner Pelts Name Role Phone Anthonyjosemanuel, Aric A DO Primary Care Provider [phone] Emma Elizabeth Primary Care Provider [phone] Bigda, Aric A DO Unavailable Bigda, Aric A DO Primary Care Provider [phone] Bigda, Aric A DO Primary Care Provider [phone] Encounter Details Date Type Department Care Team (Late st Contact Info) Description 01/14/2019 Ancillary Orders [facility] [place] [facility] - [address] [address] Michael Farrell PA [address] [place] [id number] [email or web address] Spinal stenosis, lumbar region with neurogenic claudication; [...] st Contact Info) Description 08/23/2025 Procedure Pass [facility], [facility] - [address] [address] 10/01/2025 9:25 AM EST Appointment [facility], [facility] [address] [place] [address] Cain Christiansen MD [address] [place] [address] Orthopedics & Sports Medicine, [place] [address] [email or web address] documented as of this encounter Results * [...] region documented in this encounter Care Teams Skinner Pelts Relationship Specialty Start Date End Date Aric Espinoza DO [email or web address] PCP - General Internal Medicine 10/01/17 09/05/21 Emma Elizabeth PA [address] [facility] [place] [address] PCP - General 09/06/21 04/29/22 Aric Espinoza DO [email or web address] PCP - General Internal Medicine 04/30/22 07/12/25 Aric Espinoza DO [address] [facility] [place] [address] [email or web address] PCP - General Internal Medicine 07/13/25 Aric Espinoza DO [email or web address] Insurance Assigned Provider Internal Medicine 10/24/21 documented as of this encounter Additional Source Comments The information contained in this document represents components of the legal health record. It is not the complete legal health record.[facility]
--- OUTSIDE RECORDS SUMMARY | 2025-08-29 11:19 | XMS_ITS | Encounter Summary ---
Author Organization [facility] Address [address] [place] [address] [place] [phone] Phone Care Team Providers Care Commercial Assistant Name Role Phone Aric Espinoza DO Unavailable Olga, Aric Davila DO Primary Care Provider [phone] Bigda, Aric Davila DO Primary Care Provider [phone] Reason for Referral * - Closed Specialty Diagnoses / Procedures Referred By Contac t Referred To Contact Radiology Diagnoses Claudication Procedures US Lower Extremity Arteries ([place]) Physio Complete Bilat Emma Elizabeth PA [address] [facility] [place] [address] [place] [address] Phone: tel: fax: Referral ID Status Reason Start Date Expiration Date Visits Re quested Visits Authorized [id number] Closed 02/12/2024 02/11/2025 1 1 Encounter Details Date Type Department Care Team (Latest Contact Info) Description 02/12/2024 Ancillary Orders [facility] [address] [place] [address] Emma Elizabeth PA [address] [facility] [place] [address] Claudication (Primary Dx) Social History Tobacco Use [...] st Contact Info) Description 08/23/2025 Procedure Pass [address] [address] 10/01/2025 9:25 AM EST Appointment [address] [address] Cain Christiansen MD [address] [place] [address] Orthopedics & Sports Medicine, [facility] [address] [email or web address] documented as of this encounter Results * [...] evidence of significant obstructive peripheral arterial disease. us Emma GONZALEZ CV US VASCULAR Final Resul t documented in this encounter Visit Diagnoses Diagnosis Bilateral lower extremity edema Claudication Unspecified peripheral vascular disease Claudication- Primary Unspecified peripheral vascular disease documented in this encounter Care Teams Commercial Assistant Relationship Specialty Start Date End Date Aric Espinoza DO [email or web address] PCP - General Internal Medicine 04/30/22 07/12/25 Aric Espinoza DO [address] [place] [address] [email or web address] PCP - General Internal Medicine 07/13/25 Aric Espinoza DO [email or web address] Insurance Assigned Provider Internal Medicine 10/24/21 documented as of this encounter Additional Source Comments The information contained in this document represents components of the legal health record. It is not the complete legal health record.[facility]
--- OUTSIDE RECORDS SUMMARY | 2025-08-29 11:19 | XMS_ITS | Data Portability ---
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 Z23 stable Adult heal th examination 696844562 Z00.00 BP is excellent Spasm 53434284 R25.2 will adjust dose 71160 Aric Espinoza DO [facility] [address] [facility], [place] [address] 08/13/2022 14:43:39 08/13/2022 15:47:55 Pre-surgery evaluation 683752390 Z01.818 The patient was seen in the office today for pre-op evaluation . All medical conditions on patient's problem list were addressed and are currently stable, no interventi on needed at this time. Based on history and physical performed, the patient is cleared for surgery. Restless l egs syndrome 68936836 G25.81 needs refills 44534 Aric Espinoza [facility] [address] [facility],[place] [address] 05/07/2023 09:43:13 05/07/2023 10:34:03 Hypercholesterolemia 43817768 E78.2 needs recheck Gastroesop hageal reflux disease 527839469 K21.9 stablecont with two omeprazole Depressive disorder 3548 9007 F32.0 stable Hypothyroidism 60905119 E03.8 needs recheck Transient cerebral ischemia 702491557 G45.8 has an incident a few months ago where she started slurring her words, resolved in 30 minutes AB put her on aspirin and she has not had an episode since then Mild recur rent major depression 52495257 F33.0 stable Abdominal pain 35766361 R10.0 trial as needed for the abdominal pain Urinary incontinence 165 657506 N39.3 will set up with US bladder to r/o prolapsed bladder, falling bladderif that is negative agreed to set up with an overactive bladder medication Impaired f asting glycemia 767158771 R73.01 stab 076048 Aric Espinoza [facility] [address] [facility],[place] [address] 12/12/2023 10:48:19 12/15/2023 14:25:19 Swelling of bilateral lower limbs 973657762 M79.89 will set up with lab work in addition to US arterial and XR low back to determine exact cause Pain of bi lateral hip joints 5156477083 5191455 M25.551 needs refills 034071 Aric Espinoza [facility] [address] [facility],[place] [address] 01/28/2024 13:25:17 01/28/2024 13:51:50 Pain of bilateral hip joints 9440178207 5037399 M25.551 needs refills Restless l egs syndrome 32364227 G25.81 needs refills Spasm 48315881 R25.2 agreed to lab work Lumbar radiculopathy 128 194252 M54.16 will set up with MRI 713379 Aric Espinoza [facility] [address] [facility],[place] [address] 04/16/2024 14:41:41 04/16/2024 15:12:31 Depression screening 185295518 Z13.31 neg Elderly fall 179993704 R 29.6 agreed to XR Depressive disorder 3548 9007 F32.0 stable Spasm of back muscles 20 9780757 M62.830 will increased dosage to TID Osteoarthritis 876585576 M19.90 stable Pain of le ft shoulder joint 9976780597 1567211 M25.512 will set up with XR's Spinal lidia nosis of lumbar region 67011937 M48.061 second referral, Elenita did the EMG, no f/uwill set up with neuro surg for consult given the severity of the symptoms/p ain 430561 Aric Espinoza [facility] [address] [facility],[place] [address] 06/14/2024 15:47:35 06/14/2024 16:48:30 Seborrheic keratosis 534259583 L82.1 sent in Derm referral Actinic keratosis 007 L57.0 sent in Derm referral Pain of le ft shoulder joint 2125487388 5575533 M25.512 celebrex and tramadol caused side effects Nocturia 097428597 R35.1 told her to double, if that doesn't work will try an alt for her instead of seeing uro again Hypothyroidism 89350281 E03.8 needs refill [id number] DO [facility] [address],[place] [address] 03/29/2025 11:54:36 03/29/2025 14:10:38 Fatigue 18699885 R53.83 0627286 work up added Arthritis 9101651 M19.90 97128 stable Muscle pain 85148274 M79 .10 71746 Health Concerns Section Related Observation LastModified by Organization Detai ls LastModified Time None Recorded Concern Status LastModified by Organization Details LastModified Time None Recorded Advance Directives Directive None Recorded Payers Insurance Date Sequence Insurance Name Policy Number Policy Cordova Covered Member ID Cordova Member ID Guarantor Name 08/22/2025 [employer] Joyce Andrade 08/28/2025 1 [facility] - MEDICARE PREFERRED (MEDICARE REPLACEMENT HMO) HAM Joyce Andrade [id number] Joyce Andrade 08/20/2025 2 [place] [facility] Joyce Andrade [id number] Joyce Andrade Notes Date Note Type Note Provider Name a nd Address Organization Details Recorded Time 4 text/html ROS as noted in the HPI c/o lower extremity pain and swelling the [...] work and imaging done LISA JONES [address] [place], [address], [facility] 12/12/2023 11:25:28 4 text/html ROS as noted in the HPI f/u appt the patient is getting a lot of jumping legs at nighthave tried pramipexole and ropinirole will set up with lab work for the patient and MRI of her lumbar spine agreed to plan will start on baclofen in the meantime for patient LISA JONES [address] [place], [address], [facility] 01/28/2024 13:50:32 4 text/html ROS as noted in the HPI c/o fall the patient reports that she [...] neuro surg for consult LISA JONES [address] [place], [address], [facility] 04/16/2024 15:10:36 4 text/html ROS as noted in the HPI c/o lesion on scalp SK: must have [...] if it works better LISA JONES [address] [place], [address], [facility] 06/14/2024 16:43:34 5 text/html ROS as noted in the HPI c/o fatigue and hip pain the patient reports that she is still very fatiguedher thyroid levels were w/n/l recommended additional lab workalso has her ortho fu coming up for the hip injection recommended possibly a rheum appt given hx of arthritis and rheumatic fever the patient will fu with my afterwards LISA JONES [address] [place] [address], [place], [address], [facility] 03/29/2025 12:51:58 OBGyn Episode No OBEpisode recorded.
--- OUTSIDE RECORDS SUMMARY | 2025-08-29 11:19 | XMS_ITS | Encounter Summary ---
Author Organization [facility] Address [address] [place] [address] [place] [address] Phone Care Team Providers Care Cementing Bulk Material Operator Name Role Phone Aric Espinoza DO Unavailable Olga, Aric A DO Primary Care Provider [phone] Bigda, Aric A DO Primary Care Provider [phone] Encounter Details Date Type Department Care Team (Late st Contact Info) Description 04/30/2022 Ancillary Orders [facility] X-Ray [address] [address] Maggy Buitrago NP [address] [place] [phone] [email or web address] Social History Tobacco Use Types Packs/Day [...] st Contact Info) Description 08/23/2025 Procedure Pass [address] [address] 10/01/2025 9:25 AM EST Appointment [address] [address] Cain Christiansen MD [address] [place] [address] [facility] [place] [address] documented as of this encounter Results * XR THORACIC SPINE 3 VIEW (04/30/2022 9:10 AM EDT) Anatomical Region Laterality Modality T-spine Computed Radiogr aphy 04/30/2022 11:2 5 AM EDT Impressions 04/30/2022 11:27 AM EDT Upper thoracic scoliotic curvature with moderate lower cervical degenerative disc disease and mild thoracic degenerative disc changes/spondylosis. No acute bony abnormality suggested. POS - [id number] Narrative 04/30/2022 11:27 AM EDT COMPARISON: None [...] No acute bony abnormality suggested. POS - [id number] Maggy Buitrago EDUCATION ANALYST IMG XR SPINE Final Result documented in this encounter Visit Diagnoses Diagnosis Pain Generalized pain Pain Generalized pain documented in this encounter Care Teams Cementing Bulk Material Operator Relationship Specialty Start Date End Date Aric Espinoza DO PCP - General Internal Medicine 04/30/22 07/12/25 Aric Espinoza DO [address] [place] [address] PCP - General Internal Medicine 07/13/25 Aric Espinoza DO Insurance Assigned Provider Internal Medicine 10/24/21 documented as of this encounter Additional Source Comments The information contained in this document represents components of the legal health record. It is not the complete legal health record.[facility]
--- OUTSIDE RECORDS SUMMARY | 2025-08-29 11:19 | XMS_ITS | Encounter Summary ---
Author Organization [facility] Address [address] [facility] [address] [place] [address] Phone Care Team Providers Care Foundry Supervisor Name Role Phone Olga, Aric Davila DO Unavailable Bigda, Aric A DO Primary Care Provider [phone] Bigda, Aric A DO Primary Care Provider [phone] Encounter Details Date Type Department Care Team (Latest Contact Info) Description 04/16/2024 Transcribe Orders Virtual Department [address] [place] [address] Emma Elizabeth PA [address] [facility] [place] [address] Left shoulder pain, unspecified chronicity (Primary Dx) [...] st Contact Info) Description 08/23/2025 Procedure Pass [address] [address] 10/01/2025 9:25 AM EST Appointment [address] [address] Cain Christiansen MD [address] [place] [address] [facility], [place] [address] [email or web address] documented as of this [...] clinician's provided indication for this examination in [facility]: Outside Radiology Order; left shoulder pain COMPARISON: None FINDINGS: No acute fracture or dislocation. The glenohumeral joint is maintained. Mild degenerative changes of the acromioclavicular joint. The acromiohumeral interval is maintained. Vascular calcifications. Procedure Note Rivera Mccabe MD - 04/21/2024 XR SHOULDER 2 OR MORE VIEWS (LEFT) Referring clinician's provided indication for this examination in Epic:Outside Radiology Order; left shoulder pain COMPARISON: None FINDINGS: No acute fracture or dislocation. The glenohumeral joint is maintained.Mild degenerative changes of the acromioclavicular joint. Theacromiohumeral interval is maintained. Vascular calcifications. IMPRESSION: No acute osseous abnormality. Mild acromioclavicular joint degenerative changes. Emma Butch Tryba PA IMG XR UPPER EXTREMITY Chikis l Result documented in this encounter Visit Diagnoses Diagnosis Left shoulder pain, unspecified chronicity- Primary Left shoulder pain, unspecified chronicity documented in this encounter Care Teams Foundry Supervisor Relationship Specialty Start Date End Date Aric Espinoza DO [email or web address] PCP - General Internal Medicine 04/30/22 07/12/25 Aric Espinoza DO [address] [place] [address] PCP - General Internal Medicine 07/13/25 Aric Espinoza DO Insurance Assigned Provider Internal Medicine 10/24/21 documented as of this encounter Additional Source Comments The information contained in this document represents components of the legal health record. It is not the complete legal health record.[facility]
--- OUTSIDE RECORDS SUMMARY | 2025-08-29 11:19 | XMS_ITS | Encounter Summary ---
Author Organization [facility] Address [address] [place] [address] [place] [address] Phone Care Team Providers Care [employer] Assistant Manager Name Role Phone Emma Elizabeth Primary Care Provider [phone] Bigda, Aric Davila DO Unavailable Anthonyda, Aric A DO Primary Care Provider [phone] Bigda, Aric A DO Primary Care Provider [phone] Reason for Referral * MRI/CAT Scan - Closed Specialty Diagnoses / Procedures Referred By Sid cisneros Referred To Contact Radiology Diagnoses Spinal stenosis in cervical region Procedures MRI Cervical Spine Maggy Buitrago NP [address] [place] [address] Phone: tel: fax: [email or web address] Referral ID Status Reason Start Date Expiration Date Visits Re quested Visits Authorized [id number] Closed 04/15/2022 04/15/2023 1 1 Encounter Details Date Type Department Care Team (Latest Contact Info) Description 04/15/2022 Transcribe Orders Virtual Department [address] [place] [address] Maggy Buitrago NP [address] [place] [address] [email or web address] Spinal stenosis in cervical region (Primary Dx) [...] st Contact Info) Description 08/23/2025 Procedure Pass [address] [address] 10/01/2025 9:25 AM EST Appointment [address] [address] Cain Christiansen MD [address] [place] [address] [facility], [place] [address] documented as of this encounter Results * [...] degenerative disc and degenerative endplate changes at [id number]. Maggy Buitrago NP IMG MR XSPECIALTY Final Result documented in this encounter Visit Diagnoses Diagnosis Spinal stenosis in cervical region- Primary Spinal stenosis in cervical region Cramp and spasm documented in this encounter Care Teams [employer] Assistant Manager Relationship Specialty Start Date End Date Emma Elizabeth PA [address] [facility] [place] [address] PCP - General 09/06/21 04/29/22 Aric Espinoza DO [address] [facility] [place] [address] PCP - General Internal Medicine 04/30/22 07/12/25 Aric Espinoza DO [address] [place] [address] [email or web address] PCP - General Internal Medicine 07/13/25 Aric Espinoza DO [address] [facility] [place] [address] [email or web address] Insurance Assigned Provider Internal Medicine 10/24/21 documented as of this encounter Additional Source Comments The information contained in this document represents components of the legal health record. It is not the complete legal health record.[facility]
--- OUTSIDE RECORDS SUMMARY | 2025-08-29 11:19 | XMS_ITS | Encounter Summary ---
Author Organization [facility] Address [address] [place] [address] Phone Care Team Providers Care Produce Clerk Name Role Phone Daríomelonie Emma GONZALEZ Primary Care Provider [phone] Bigda, Aric Davila DO Unavailable Bigda, Aric A DO Primary Care Provider [phone] Bigda, Aric A DO Primary Care Provider [phone] Encounter Details Date Type Department Care Team (Late st Contact Info) Description 04/15/2022 Procedure Pass [address] [address] Social History Tobacco Use Types Packs/Day Years [...] st Contact Info) Description 08/23/2025 Procedure Pass [address] [address] 10/01/2025 9:25 AM EST Appointment [address] [address] Cain Christiansen MD [address] [place] [address] [facility], [facility] [place] [address] documented as of this encounter Visit Diagnoses Not on filedocumented in this encounter Care Teams Produce Clerk Relationship Specialty Start Date End Date Emma Elizabeth PA [address] [place] [address] PCP - General 09/06/21 04/29/22 Aric Espinoza DO [address] [place] [address] PCP - General Internal Medicine 04/30/22 07/12/25 Aric Espinoza DO [address] [place] [address] [place] [address] PCP - General Internal Medicine 07/13/25 Aric Espinoza DO [address] [place] [address] Insurance Assigned Provider Internal Medicine 10/24/21 documented as of this encounter Additional Source Comments The information contained in this document represents components of the legal health record. It is not the complete legal health record.[facility]
--- OUTSIDE RECORDS SUMMARY | 2025-08-29 11:19 | XMS_ITS | Encounter Summary ---
Author Organization [facility] Address [address] [place] [address] Phone Care Team Providers Care Trolley Collector Name Role Phone Aric Espinoza DO Unavailable Olga, Aric Davila DO Primary Care Provider [phone] Bigda, Aric Davila DO Primary Care Provider [phone] Encounter Details Date Type Department Care Team (Late st Contact Info) Description 05/02/2022 Procedure Pass [address] [address] Social History Tobacco Use Types Packs/Day Years [...] Contact Info) Description 08/23/2025 Procedure Pass [address] [address] 10/01/2025 9:25 AM EST Appointment [address] [address] Cain Christiansen MD [address] [place] [address] [facility] [place] [address] [email or web address] documented as of this encounter Visit Diagnoses Not on filedocumented in this encounter Care Teams Trolley Collector Relationship Specialty Start Date End Date Aric Espinoza DO [email or web address] PCP - General Internal Medicine 04/30/22 07/12/25 Aric Espinoza DO [address] [place] [address] [email or web address] PCP - General Internal Medicine 07/13/25 Aric Espinoza DO [email or web address] Insurance Assigned Provider Internal Medicine 10/24/21 documented as of this encounter Additional Source Comments The information contained in this document represents components of the legal health record. It is not the complete legal health record.[facility]
--- OUTSIDE RECORDS SUMMARY | 2025-08-29 11:20 | XMS_ITS | Clinical Summary ---
Author Organization [facility] Address [address] [place] [address] Phone Care Team Providers Care Practice Support Specialist Name Role Phone Aric Espinoza DO Unavailable Aric Espinoza DO Primary Care Provider [phone] Allergies No known active allergies Medications omeprazole [...] mL See Adm Inst Once 05/17/2025 08/15/2025 Ended triamcinolone acetonide (KENALOG-40) 40 mg/mL injection 40 mgIndications:Greate r trochanteric bursitis of right hip 40 mg See Adm Inst Once 05/17/2025 08/15/2025 Ended ROPivacaine (PF) (NAROPIN) 0.5% injection 3 mLIndications:Greate r trochanteric bursitis of right hip 3 mL See Adm Inst Once 05/17/2025 08/15/2025 Ended Active Problems Problem Noted Date Diagnosed Date [...] Encounters Date Type Department Care Team Description 08/23/2025 9:45 AM EST Office Visit [facility] [address] [place], [place] [id number] Cain Christiansen MD Greater trochanteric bursitis of right hip (Primary Dx); Lumbar radiculopathy; Primary osteoarthritis of left hip; Fusion of lumbosacral spine from Last 3 Months Family History Medical [...] EDT Inhaled Oxygen Concentration - - Weight 72.6 kg (160 lb) 08/23/2025 9:51 AM EST Height 147.3 cm (4' 10 ) 05/17/2025 10:54 AM EDT Body Mass Index 33.44 05/17/2025 10:54 AM EDT Plan of Treatment Upcoming Encounters Date Type Department Care Team (Late st Contact Info) Description 08/23/2025 Procedure Pass [address] [address] 10/01/2025 9:25 AM EST Appointment [address] [address] Cain Christiansen MD [address] [place] [address] [facility] [place] [address] [email or web address] Health Maintenance Due Date Last Done Comments DEPRESSION SCREENING 1950 ZOSTER VACCINES (1 of 2) 1988 10/20/2014 OSTEOPOROSIS SCREENING INITIAL (ONE-TIME) 2003 RSV VACCINE (1 - 1-dose 75+ series) 2013 INFLUENZA VACCINE (#1) 2025 2, 09/27/2019, 07/01/2016, Additional history exists COVID-19 VACCINE [...] patient's age to complete this topic IPV VACCINES Aged Out No longer eligi ble based on patient's age to complete this topic MENINGOCOCCAL VACCINES (ACWY) Aged Out No longer eligible based on patient's age to complete this topic MENINGOCOCCAL VACCINES (B) Aged Out N o longer eligible based on patient's age to complete this topic Medical Devices Implanted Type Area Accounting Support Specialist Device Identifier Shelf Expiration Date Model / Serial / Lot Putty Bone Graft 5cc I-Factor Peptide Enhanced - [id number] Implanted:Qty: 1 on 12/29/2018 by Alfa Chan MD at [facility] Right: Spine Lumbar [employer] 09/18/2021 [id number] / / [id number] Thoracolumbar Spacer 41c10dd Capstone Peek Implant - [id number] Implanted:Qty: 1 on 12/29/2018 by Alfa Chan MD at [facility] N/A: Spine Lumbar [employer] 04/04/2025 [id number] / / [id number] Thoracolumbar Spacer [id number] Verte Stack Peek - [id number] Implanted:Qty: 1 on 12/29/2018 by Alfa Chan MD at [facility] N/A: Spine Lumbar [employer] 12/07/2019 [id number] / / [id number] Screw Spine Cd Horizon Sextant Ii Ss Hexagonal Break Off - [id number] Implanted:Qty: 6 on 12/29/2018 by Alfa Chan MD at [facility] [employer] [id number] / / Screw Bone 6.5x35mm Spine Cannulated Cd Horizon Legacy Multiaxial Titanium Osteogrip Dual Lead Thread Pedicle - [id number] Implanted:Qty: 1 on 12/29/2018 by Alfa Chan MD at [facility] [employer] [id number] / / Screw Bone 40x6.5mm Spine Cannulated Cd Horizon Legacy Multiaxial Titanium Osteogrip Dual Lead Thread Pedicle - [id number] Implanted:Qty: 1 on 12/29/2018 by Alfa Chan MD at [facility] [employer] [id number] / / Screw Bone 6.5x45mm Spine Cannulated Cd Horizon Legacy Multiaxial Titanium Osteogrip Dual Lead Thread Pedicle - [id number] Implanted:Qty: 3 on 12/29/2018 by Alfa hCan MD at [facility] [employer] [id number] / / Lumbar Gumaro 5.5x55mm Sextant Titanium Prebent - [id number] Implanted:Qty: 2 on 12/29/2018 by Alfa Chan MD at [facility] [employer] [id number] / / Screw Bone 6.5x30mm Spine Multi Axial Cannulated Legacy - [id number] Implanted:Qty: 1 on 12/29/2018 by Alfa Chan MD at [facility] N/A: Spine Lumbar [employer] [id number] / / Procedures Procedure Name Priority Date/Time Associated Diagnosis Comments THYROID STIMULATING HORMONE (TSH) Routine 03/22/2025 10:20 AM EDT Hypothyroidism, unspecified type from Last 3 Months or Most Recently Relevant to Health Maintenance Results * TSH (03/22/2025 10:20 AM EDT) TSH 1.49 0.27 - 4.20 uIU/mL [facility] Blood 03/22/2025 10:2 0 AM EDT 03/22/2025 10:22 AM EDT us Emma GONZALEZ LAB BLOOD BKR ORDERABLES Fi nal Result [facility] [address] [place] [address] from Last 3 Months or Most Recently Relevant to Health Maintenance Insurance [employer]IC[employer] PREFERRED HMO REPLACEMENT MEDICARE PART A [...] HMO REPLACEMENT MEDICARE PART A & B Advance Directives For more information, please contact: [phone] (9AM - 5PM Shira/[facility], Friday-Friday) * Full Code (Presumed) (Latest Code Status on File) Date Activated Date Inactivated Comments 12/29/2018 4:07 PM 12/31/2018 8:08 PM Care Teams Practice Support Specialist Relationship Specialty Start Date End Date Aric Espinoza DO [address] [place] [address] [email or web address] PCP - General Internal Medicine 07/13/25 Aric Espinoza DO Insurance Assigned Provider Internal Medicine 10/24/21 Additional Source Comments The information contained in this document represents components of the legal health record. It is not the complete legal health record.[facility]
--- OUTSIDE RECORDS SUMMARY | 2025-08-29 11:20 | XMS_ITS | Encounter Summary ---
Author Organization [facility] Address [address] [place] [address] [place] [address] Phone Care Team Providers Care Toll Bridge Attendant Name Role Phone Anthonyjosemanuel, Aric Lola DO Primary Care Provider [phone] Emma Elizabeth Primary Care Provider [phone] Bigda, Aric A DO Unavailable Bigda, Aric A DO Primary Care Provider [phone] Bigda, Aric A DO Primary Care Provider [phone] Encounter Details Date Type Department Care Team (Late st Contact Info) Description 02/20/2021 Ancillary Orders Virtual Department [address] [place] [address] Emma Elizabeth PA [address] [place] [address] [place] [address] Pain and swelling of right lower extremity [...] Contact Info) Description 08/23/2025 Procedure Pass [address] [address] 10/01/2025 9:25 AM EST Appointment [address] [address] Cain Christiansen MD [address] [place] [address] Orth[facility], [facility] [place] [address] [email or web address] documented as of this encounter Results * [...] deep venous thrombosis. 2.2.5 cm Walker's cyst. Emma GONZALEZ CV US VASCULAR Final Resul t documented in this encounter Visit Diagnoses Diagnosis Pain and swelling of right lower extremity Pain and swelling of right lower extremity documented in this encounter Care Teams Toll Bridge Attendant Relationship Specialty Start Date End Date Aric Espinoza DO PCP - General Internal Medicine 10/01/17 09/05/21 Emma Elizabeth PA [address] [place] [address] [place] [address] PCP - General 09/06/21 04/29/22 Aric Espinoza DO PCP - General Internal Medicine 04/30/22 07/12/25 Aric Espinoza DO [address] [facility] [place] [address] PCP - General Internal Medicine 07/13/25 Aric Espinoza DO Insurance Assigned Provider Internal Medicine 10/24/21 documented as of this encounter Additional Source Comments The information contained in this document represents components of the legal health record. It is not the complete legal health record.[facility]
--- OUTSIDE RECORDS SUMMARY | 2025-08-29 11:20 | XMS_ITS | Encounter Summary ---
Author Organization [facility] Address [address] [place] [address] Phone Care Team Providers Care Eyeglass Frames Polisher Name Role Phone Anthonyjosemanuel, Aric Lola DO Primary Care Provider [phone] Emma Elizabeth Primary Care Provider [phone] Bigda, Aric A DO Unavailable Bigda, Aric A DO Primary Care Provider [phone] Bigda, Aric A DO Primary Care Provider [phone] Encounter Details Date Type Department Care Team (Latest Contact Info) Description 11/02/2019 Transcribe Orders Virtual Department [address] [place] [address] Oumou Farooq PA-C [address] Joe[address] [place] [address] [email or web address] Cervicalgia (Primary Dx) Social History Tobacco Use [...] st Contact Info) Description 08/23/2025 Procedure Pass [address] [address] 10/01/2025 9:25 AM EST Appointment [address] [place] [address] Cain Christiansen MD [address] [place] [address] [facility] [place], [place] [address] [email or web address] documented as of this encounter Results * [...] Cervicalgia documented in this encounter Care Teams Eyeglass Frames Polisher Relationship Specialty Start Date End Date Aric Espinoza DO PCP - General Internal Medicine 10/01/17 09/05/21 Emma Elizabeth PA [address] [place] [address] PCP - General 09/06/21 04/29/22 Aric Espinoza DO PCP - General Internal Medicine 04/30/22 07/12/25 Aric Espinoza DO [address] [facility] [address] PCP - General Internal Medicine 07/13/25 Aric Espinoza DO [email or web address] Insurance Assigned Provider Internal Medicine 10/24/21 documented as of this encounter Additional Source Comments The information contained in this document represents components of the legal health record. It is not the complete legal health record.[facility]
--- OUTSIDE RECORDS SUMMARY | 2025-08-29 11:20 | XMS_ITS | Clinical Summary ---
Author Organization [address] [facility] [place] [facility] Address [address] [place] [address] Phone Care Team Providers Care Furnace Utility Operator Name Role Phone Glenn Emma GONZALEZ Primary Care Provider [phone] Allergies No known active allergies Medications atorvastatin [...] had lumbar spine MRI 03/07/2024 ordered from [facility]. She has pedicle screws and hardware from [...] any worsening symptoms, all questions answered. Immunizations Immunization Administration Dates Next Due Influenza Quadravalent, 0.5m [...] - [place] [employer] Care Teams Furnace Utility Operator Relationship Specialty Start Date End Date Emma Elizabeth PA [address] [place] [address] PCP - General 10/28/24
--- OUTSIDE RECORDS SUMMARY | 2025-08-29 11:20 | XMS_ITS | Encounter Summary ---
Author Organization [facility] Address [address] [address] Phone Care Team Providers Care Enrollment Nurse Name Role Phone Olga, Aric Davila DO Unavailable Bigda, Aric A DO Primary Care Provider [phone] Bigda, Aric A DO Primary Care Provider [phone] Encounter Details Date Type Department Care Team (Latest Contact Info) Description 05/07/2023 Transcribe Orders Virtual Department [address] [place] [address] Emma Elizabeth PA [address] [place] [address] [place] [address] Urinary incontinence, unspecified type (Primary Dx) Social [...] Contact Info) Description 08/23/2025 Procedure Pass [address] [address] 10/01/2025 9:25 AM EST Appointment [address] [address] Cain Christiansen MD [address] [place] [address] [facility] Medicine, [place] [address] [email or web address] [...] wall thickening. Prevoid volume 255 mL. Postvoid uprupp303 mL (accumulation during the course the examination was more than thelittle that was voided). IMPRESSION: Post void residual volume 280 mL. us Emma GONZALEZ IMG US RENAL Final Resul t documented in this encounter Visit Diagnoses Diagnosis Urinary incontinence, unspecified type- Primary Urinary incontinence, unspecified type documented in this encounter Care Teams Enrollment Nurse Relationship Specialty Start Date End Date Aric Espinoza DO PCP - General Internal Medicine 04/30/22 07/12/25 Aric Espinoza DO [address] [place] [address] PCP - General Internal Medicine 07/13/25 Aric Espinoza DO Insurance Assigned Provider Internal Medicine 10/24/21 documented as of this encounter Additional Source Comments The information contained in this document represents components of the legal health record. It is not the complete legal health record.[facility]
== END 2025-08-29 10:46 | disposition home or self-care (01) ==
LOC: HO.HUSH 09:54
PROVIDERS: PCP Physician Assistant; Visit Provider Urology
DX: N81.10 Cystocele, unspecified (principal); R33.9 Retention of urine, unspecified; R32 Unspecified urinary incontinence
CPT/HCPCS: 99214; G2211

== ENCOUNTER → 2025-08-29 09:53 | Outpatient (BNVA) | payer MEDICARE, SELFPAY | PROVIDERS: PCP Physician Assistant; Visit Provider Urology | DX: N81.10 Cystocele, unspecified (principal); R32 Unspecified urinary incontinence; R33.9 Retention of urine, unspecified | CPT/HCPCS: 51798; 99212 ==

== ENCOUNTER 2025-08-31 13:42 | Outpatient (REF) | payer MEDICARE, SELFPAY ==
--- OUTSIDE RECORDS SUMMARY | 2025-08-31 16:46 | XMS_ITS | Encounter Summary ---
Author Organization [facility] Address [address] [place] [address] [place] [address] Phone Care Team Providers Care Parts Cleaner Name Role Phone Olga, Aric Lola DO Primary Care Provider [phone] Emma Elizabeth Primary Care Provider [phone] Bigda, Aric A DO Unavailable Bigda, Aric A DO Primary Care Provider + Bigda, Aric A DO Primary Care Provider + Encounter Details Date Type Department Care Team (Latest Contact Info) Description 03/10/2019 Transcribe Orders Virtual Department [address] [place] [address] Alfa Chan MD [address] [place] [address] [email or web address] Joseline (Primary Dx) Social [...] st Contact Info) Description 08/23/2025 Procedure Pass [address] [address] 10/01/2025 9:25 AM EST Appointment [address] [address] Cain Christiansen MD [address] [place] [address] Orthopedics & Sports Medicine, [facility] [place] [address] [email or web address] documented as of this encounter Results * [...] movements documented in this encounter Care Teams Parts Cleaner Relationship Specialty Start Date End Date Aric Espinoza DO [email or web address] PCP - General Internal Medicine 10/01/17 09/05/21 Emma Elizabeth PA [address] [place] [address] PCP - General 09/06/21 04/29/22 Aric Espinoza DO PCP - General Internal Medicine 04/30/22 07/12/25 Aric Espinoza DO [address] [facility] [place] [address] [email or web address] PCP - General Internal Medicine 07/13/25 Aric Espinoza DO [email or web address] Insurance Assigned Provider Internal Medicine 10/24/21 documented as of this encounter Additional Source Comments The information contained in this document represents components of the legal health record. It is not the complete legal health record.[facility]
--- OUTSIDE RECORDS SUMMARY | 2025-08-31 16:46 | XMS_ITS | Encounter Summary ---
Author Organization [facility] Address [address] [place] [address] [place] [address] Phone Care Team Providers Care Pattern Hand Name Role Phone Aric Espinoza DO Unavailable Olga, Aric Davila DO Primary Care Provider [phone] Bigda, Aric Davila DO Primary Care Provider [phone] Reason for Referral * MRI/CAT Scan - Closed Specialty Diagnoses / Procedures Referred By Sid cisneros Referred To Contact Radiology Diagnoses Cyst of pancreas Procedures MRI Cholangiopancreatography (MRCP) MRI Abdomen Emma Elizabeth PA [address] [place] [address] Phone: tel: fax: Referral ID Status Reason Start Date Expiration Date Visits Re quested Visits Authorized [id number] Closed 11/05/2024 11/05/2025 1 1 Encounter Details Date Type Department Care Team (Latest Contact Info) Description 11/05/2024 Transcribe Orders Virtual Department [address] [place] [address] Emma Elizabeth PA [address] [place] [address] Cyst of pancreas (Primary Dx) Social History [...] Contact Info) Description 08/23/2025 Procedure Pass [address] [address] 10/01/2025 9:25 AM EST Appointment [address] [address] Cain Christiansen MD [address] [place] [address] Orth[facility] Medicine, [place] [address] [email or web address] documented as of this encounter Results * [...] MRI LUMBAR SPINE (NEURO) WITHOUT CONTRAST ; [id number] FINDINGS: Lower chest: No effusions. 0.6 cm [...] pancreas documented in this encounter Care Teams Pattern Hand Relationship Specialty Start Date End Date Aric Espinoza DO [email or web address] PCP - General Internal Medicine 04/30/22 07/12/25 Aric Espinoza DO [address] [place] [address] PCP - General Internal Medicine 07/13/25 Aric Espinoza DO Insurance Assigned Provider Internal Medicine 10/24/21 documented as of this encounter Additional Source Comments The information contained in this document represents components of the legal health record. It is not the complete legal health record.[facility]
--- OUTSIDE RECORDS SUMMARY | 2025-08-31 16:46 | XMS_ITS | Encounter Summary ---
Author Organization [facility] Address [address] [place] [address] [place] [address] Phone Care Team Providers Care Wrestling Coach Name Role Phone Anthonyjosemanuel, Aric Lola DO Primary Care Provider [phone] Emma Elizabeth Primary Care Provider [phone] Bigda, Aric A DO Unavailable Bigda, Aric A DO Primary Care Provider [phone] Bigda, Aric A DO Primary Care Provider [phone] Encounter Details Date Type Department Care Team (Late st Contact Info) Description 06/30/2018 Ancillary Orders Virtual Department [address] [place] [address] Oumou Farooq PA-C [address] Joe[address] [place] [address] [email or web address] Chronic low back pain, unspecified [...] st Contact Info) Description 08/23/2025 Procedure Pass [facility] [address] [place] [address] 10/01/2025 9:25 AM EST Appointment [facility] [address] [place] [address] Cain Christiansen MD [address] [place] [address] Orthopedics & Sports Medicine, [facility] [place] [address] [email or web address] documented as of this encounter Results * [...] unspecified documented in this encounter Care Teams Wrestling Coach Relationship Specialty Start Date End Date Aric Espinoza DO PCP - General Internal Medicine 10/01/17 09/05/21 Emma Elizabeth PA [address] [place] [address] [place] [address] PCP - General 09/06/21 04/29/22 Aric Espinoza DO [email or web address] PCP - General Internal Medicine 04/30/22 07/12/25 Aric Espinoza DO [address] [place] [address] [email or web address] PCP - General Internal Medicine 07/13/25 Aric Espinoza DO [email or web address] Insurance Assigned Provider Internal Medicine 10/24/21 documented as of this encounter Additional Source Comments The information contained in this document represents components of the legal health record. It is not the complete legal health record.[facility]
--- OUTSIDE RECORDS SUMMARY | 2025-08-31 16:46 | XMS_ITS | Encounter Summary ---
Author Organization [facility] Address [address] [place], [place] [address] Phone Care Team Providers Care Coconut Boiler Name Role Phone Anthonyjosemanuel, Aric Lola DO Primary Care Provider [phone] Emma Elizabeth Primary Care Provider [phone] Bigda, Aric A DO Unavailable Bigda, Aric A DO Primary Care Provider + Bigda, Aric A DO Primary Care Provider + Encounter Details Date Type Department Care Team (Late st Contact Info) Description 05/31/[address] [address] Social History Tobacco Use Types Packs/Day Years [...] st Contact Info) Description 08/23/2025 Procedure Pass [address] [address] 10/01/2025 9:25 AM EST Appointment [address] [address] Cain Christiansen MD [address] [place] [address] Orth[facility] Sports [place], [place] [address] [email or web address] documented as of this encounter Visit Diagnoses Not on filedocumented in this encounter Care Teams Coconut Boiler Relationship Specialty Start Date End Date Aric Espinoza DO [email or web address] PCP - General Internal Medicine 10/01/17 09/05/21 Emma Elizabeth PA [address] [place] [address] [place] [address] PCP - General 09/06/21 04/29/22 Aric Espinoza DO [email or web address] PCP - General Internal Medicine 04/30/22 07/12/25 Aric Espinoza DO [address] [place] [address] [place] [address] [email or web address] PCP - General Internal Medicine 07/13/25 Aric Espinoza DO [email or web address] Insurance Assigned Provider Internal Medicine 10/24/21 documented as of this encounter Additional Source Comments The information contained in this document represents components of the legal health record. It is not the complete legal health record.[facility]
--- OUTSIDE RECORDS SUMMARY | 2025-08-31 16:46 | XMS_ITS | Encounter Summary ---
Author Organization [facility] Address [address] [facility] [address] [place] [address] Phone Care Team Providers Care Forge Shop Supervisor Name Role Phone Olga, Aric Davila DO Unavailable Bigda, Aric A DO Primary Care Provider [phone] Bigda, Aric A DO Primary Care Provider [phone] Encounter Details Date Type Department Care Team (Latest Contact Info) Description 09/20/2024 Transcribe Orders Virtual Department [address] [place] [address] Emma Elizabeth PA 6 [facility] [place] [address] Left knee pain, unspecified chronicity (Primary Dx) [...] st Contact Info) Description 08/23/2025 Procedure Pass [address] [address] 10/01/2025 9:25 AM EST Appointment [address] [address] Cain Christiansen MD [address] [place] [address] Orthopedics & Sports [place], [place] [address] [email or web address] documented as of this encounter [...] clinician's provided indication for this examination in [facility]: Outside Radiology Order; knee pain COMPARISON: XR KNEE 4 OR MORE VIEWS (LEFT) FINDINGS: Left Knee: No acute fracture or dislocation. There are mild tricompartmental degenerative changes. No joint effusion. Superior patellar enthesophyte. Procedure Note Rivera Mccabe MD - 09/20/2024 XR KNEE 4 OR MORE VIEWS (LEFT) Referring clinician's provided indication for this examination in [facility]:Outside Radiology Order; knee pain COMPARISON: XR KNEE [...] chronicity documented in this encounter Care Teams Forge Shop Supervisor Relationship Specialty Start Date End Date Aric Espinoza DO [email or web address] PCP - General Internal Medicine 04/30/22 07/12/25 Aric Espinoza DO [address] [place] [address] [email or web address] PCP - General Internal Medicine 07/13/25 Aric Espinoza DO [email or web address] Insurance Assigned Provider Internal Medicine 10/24/21 documented as of this encounter Additional Source Comments The information contained in this document represents components of the legal health record. It is not the complete legal health record.[facility]
--- OUTSIDE RECORDS SUMMARY | 2025-08-31 16:46 | XMS_ITS | Encounter Summary ---
Author Organization [facility] Address [address] [place] [address] Phone Care Team Providers Care Dryland Farmer Name Role Phone Olga Aric Davila DO Primary Care Provider [phone] Emma Elizabeth Primary Care Provider [phone] Bigda, Aric Davila DO Unavailable Bigda, Aric A DO Primary Care Provider [phone] Bigda, Aric A DO Primary Care Provider [phone] Reason for Referral * MRI/CAT Scan - Closed Specialty Diagnoses / Procedures Referred By Sid cisneros Referred To Contact Radiology Diagnoses Transient cerebral ischemia, unspecified type Procedures MRI Brain Oumou Farooq PA-C Phone: tel: fax: mailto:[email or web address] Referral ID Status Reason Start Date Expiration Date Visits Re quested Visits Authorized [id number] Closed 05/31/2019 05/30/2020 1 1 Encounter Details Date Type Department Care Team (Latest Contact Info) Description 05/31/2019 Transcribe Orders Virtual Department 30 [place] [address] Oumou Farooq PA-C [address] [place] [address] [email or web address] Transient cerebral ischemia, unspecified type [...] st Contact Info) Description 08/23/2025 Procedure Pass [address] [address] 10/01/2025 9:25 AM EST Appointment [address] [address] Cain Christiansen MD [address] [place] [address] Orthopedics & Sports Medicine, [place] [address] [email or web address] documented as of this encounter Results * [...] inflammatory change, similar to prior. POS - [id number] Narrative 06/08/2019 8:37 AM EDT HISTORY: Aphasia [...] inflammatory change, similar to prior. POS - [id number] January Oseas PELAEZ IMG MR HEAD/NECK Final Resul t documented in this encounter Visit Diagnoses Diagnosis Transient cerebral ischemia, unspecified type- Primary Transient cerebral ischemia, unspecified type documented in this encounter Care Teams Dryland Farmer Relationship Specialty Start Date End Date Aric Espinoza DO [email or web address] PCP - General Internal Medicine 10/01/17 09/05/21 Emma Elizabeth PA 6 [facility] [place] [address] PCP - General 09/06/21 04/29/22 Aric Espinoza DO [email or web address] PCP - General Internal Medicine 04/30/22 07/12/25 Aric Espinoza DO [address] [facility] [place] [address] [email or web address] PCP - General Internal Medicine 07/13/25 Aric Espinoza DO [email or web address] Insurance Assigned Provider Internal Medicine 10/24/21 documented as of this encounter Additional Source Comments The information contained in this document represents components of the legal health record. It is not the complete legal health record.[facility]
--- OUTSIDE RECORDS SUMMARY | 2025-08-31 16:46 | XMS_ITS | Encounter Summary ---
Author Organization [facility] Address [address] [place] [address] Phone Care Team Providers Care Bone Crusher Name Role Phone Anthonyjosemanuel Aric Davila DO Primary Care Provider [phone] Emma Elizabeth Primary Care Provider [phone] Bigda, Aric Davila DO Unavailable Bigda, Aric A DO Primary Care Provider [phone] Bigda, Aric A DO Primary Care Provider [phone] Reason for Referral * MRI/CAT Scan - Closed Specialty Diagnoses / Procedures Referred By Sid cisneros Referred To Contact Radiology Diagnoses Lumbosacral radiculopathy Procedures MRI Lumbar Spine MRI Lumbar Spine Eleazar Guerra NP Phone: tel: fax: mailto:[email or web address] Referral ID Status Reason Start Date Expiration Date Visits Re quested Visits Authorized [id number] Closed 08/28/2018 08/28/2019 1 1 Encounter Details Date Type Department Care Team (Latest Contact Info) Description 08/28/2018 Ancillary Orders Virtual Department 30 [place] [address] Eleazar Guerra NP [address] [place] [address] [email or web address] Lumbosacral radiculopathy Social History Tobacco Use Types [...] st Contact Info) Description 08/23/2025 Procedure Pass [address] [address] 10/01/2025 9:25 AM EST Appointment [address] [address] Cain Christiansen MD [address] [place] [address] Orthopedics & Sports Medicine, [place] [address] [email or web address] documented as of this encounter Results * [...] unspecified documented in this encounter Care Teams Bone Crusher Relationship Specialty Start Date End Date Aric Espinoza DO PCP - General Internal Medicine 10/01/17 09/05/21 Emma Elizabeth PA 6 [facility] [place] [address] PCP - General 09/06/21 04/29/22 Aric Espinoza DO PCP - General Internal Medicine 04/30/22 07/12/25 Aric Espinoza DO [address] [place] [address] PCP - General Internal Medicine 07/13/25 Aric Espinoza DO [email or web address] Insurance Assigned Provider Internal Medicine 10/24/21 documented as of this encounter Additional Source Comments The information contained in this document represents components of the legal health record. It is not the complete legal health record.[facility]
--- OUTSIDE RECORDS SUMMARY | 2025-08-31 16:46 | XMS_ITS | Encounter Summary ---
Author Organization [facility] Address [address] [place] [address] [place] [address] Phone Care Team Providers Care Mail Machine Operator Name Role Phone Anthonyjosemanuel, Aric Lola DO Primary Care Provider [phone] Emma Elizabeth Primary Care Provider [phone] Bigda, Aric A DO Unavailable Bigda, Aric A DO Primary Care Provider [phone] Bigda, Aric A DO Primary Care Provider [phone] Encounter Details Date Type Department Care Team (Latest Contact Info) Description 08/28/2018 Ancillary Orders Virtual Department [address] [place] [address] Eleazar Guerra, REFUSE AND RECYCLING WORKER [address] [place] [address] .The car easily beat Left lumbosacral radiculopathy Social History Tobacco Use [...] Contact Info) Description 08/23/2025 Procedure Pass [address] [address] 10/01/2025 9:25 AM EST Appointment [address] [place] [address] Cain Christiansen MD [address] [place] [address] Orthopedics & Sports Medicine, [place] [address] documented as of this encounter Visit Diagnoses Diagnosis Left lumbosacral radiculopathy documented in this encounter Care Teams Mail Machine Operator Relationship Specialty Start Date End Date Aric Espinoza DO PCP - General Internal Medicine 10/01/17 09/05/21 Emma Elizabeth PA [address] [place] [address] [place] [address] PCP - General 09/06/21 04/29/22 Aric Espinoza DO PCP - General Internal Medicine 04/30/22 07/12/25 Aric Espinoza DO [address] [place] [address] [place] [address] PCP - General Internal Medicine 07/13/25 Aric Espinoza DO Insurance Assigned Provider Internal Medicine 10/24/21 documented as of this encounter Additional Source Comments The information contained in this document represents components of the legal health record. It is not the complete legal health record.[facility]
--- OUTSIDE RECORDS SUMMARY | 2025-08-31 16:46 | XMS_ITS | Encounter Summary ---
Author Organization [facility] Address [address] [place] [address] [place] [address] Phone Care Team Providers Care Coiled Coil Inspector Name Role Phone Aric Espinoza DO Unavailable Anthonyda, Aric Davila DO Primary Care Provider [phone] Bigda, Aric Davila DO Primary Care Provider [phone] Encounter Details Date Type Department Care Team (Late st Contact Info) Description 11/05/2024 Procedure Pass [address] [address] Social History Tobacco Use Types Packs/Day Years [...] Contact Info) Description 08/23/2025 Procedure Pass [address] [address] 10/01/2025 9:25 AM EST Appointment [facility], [address] [address] Cain Christiansen MD [address] [place] [address] Orthopedics & Sports Medicine, [place] [address] documented as of this encounter Visit Diagnoses Not on filedocumented in this encounter Care Teams Coiled Coil Inspector Relationship Specialty Start Date End Date Aric Espinoza DO PCP - General Internal Medicine 04/30/22 07/12/25 Aric Espinoza DO [address] [place] [address] PCP - General Internal Medicine 07/13/25 Aric Espinoza DO Insurance Assigned Provider Internal Medicine 10/24/21 documented as of this encounter Additional Source Comments The information contained in this document represents components of the legal health record. It is not the complete legal health record.[facility]
--- OUTSIDE RECORDS SUMMARY | 2025-08-31 16:47 | XMS_ITS | Encounter Summary ---
Author Organization [facility] Address [address] [place] [address] Phone Care Team Providers Care Wire Worker Name Role Phone Aric Espinoza DO Unavailable Anthonyda, Aric Davila DO Primary Care Provider [phone] Bigda, Aric Davila DO Primary Care Provider [phone] Encounter Details Date Type Department Care Team (Late st Contact Info) Description 02/05/2024 Procedure Pass [address] [address] Social History Tobacco Use Types Packs/Day Years [...] (Late Contact Info) Description 08/23/2025 Procedure Pass [address] [address] 10/01/2025 9:25 AM EST Appointment [facility], [address] [address] Cain Christiansen MD [address] [place] [address] Orthopedics & Sports Medicine, [place] [address] documented as of this encounter Visit Diagnoses Not on filedocumented in this encounter Care Teams Wire Worker Relationship Specialty Start Date End Date Aric Espinoza DO PCP - General Internal Medicine 04/30/22 07/12/25 Aric Espinoza DO [address] [place] [address] PCP - General Internal Medicine 07/13/25 Aric Espinoza DO Insurance Assigned Provider Internal Medicine 10/24/21 documented as of this encounter Additional Source Comments The information contained in this document represents components of the legal health record. It is not the complete legal health record.[facility]
--- OUTSIDE RECORDS SUMMARY | 2025-08-31 16:47 | XMS_ITS | Encounter Summary ---
Author Organization [facility] Address [address] [place] [address] Phone Care Team Providers Care Price Lister Name Role Phone Anthonyjosemanuel, Aric Lola DO Primary Care Provider [phone] Emma Elizabeth Primary Care Provider [phone] Bigda, Aric A DO Unavailable Bigda, Aric A DO Primary Care Provider [phone] Bigda, Aric A DO Primary Care Provider [phone] Encounter Details Date Type Department Care Team (Latest Contact Info) Description 11/02/2019 Transcribe Orders Virtual Department [address] [place] [address] Oumou Farooq PA-C [address] [place] [address] [email or web address] Cervicalgia (Primary Dx) Social History [...] st Contact Info) Description 08/23/2025 Procedure Pass [address] [address] 10/01/2025 9:25 AM EST Appointment [address] [place] [address] Cain Christiansen MD [address] [place] [address] Orthopedics & Sports Medicine, [place] [address] [email or web address] documented as of this encounter Results * [...] Cervicalgia documented in this encounter Care Teams Price Lister Relationship Specialty Start Date End Date Aric Espinoza DO [email or web address] PCP - General Internal Medicine 10/01/17 09/05/21 Emma Elizabeth PA 6 [facility] [place] [address] PCP - General 09/06/21 04/29/22 Aric Espinoza DO PCP - General Internal Medicine 04/30/22 07/12/25 Aric Espinoza DO [address] [facility] [place] [address] PCP - General Internal Medicine 07/13/25 Aric Espinoza DO [email or web address] Insurance Assigned Provider Internal Medicine 10/24/21 documented as of this encounter Additional Source Comments The information contained in this document represents components of the legal health record. It is not the complete legal health record.[facility]
--- OUTSIDE RECORDS SUMMARY | 2025-08-31 16:47 | XMS_ITS | Clinical Summary ---
Author Organization [facility] Address [address] [place] [address] Phone Care Team Providers Care Hot Mill Operator Name Role Phone Glenn Emma GONZALEZ Primary Care Provider [phone] Allergies No known active allergies Medications atorvastatin [...] had lumbar spine MRI 03/07/2024 ordered from [facility]. She has pedicle screws and hardware [...] patient. Patient had EMG 03/18/[address] Kowng that did not show any acute radicular [...] - [place] [employer] Care Teams Hot Mill Operator Relationship Specialty Start Date End Date Emma Elizabeth PA [address] [place] [address] PCP - General 10/28/24
--- OUTSIDE RECORDS SUMMARY | 2025-08-31 16:47 | XMS_ITS | Encounter Summary ---
Author Organization [facility] Address [address] [place] [address] Phone Care Team Providers Care Commercial Front Load Driver Name Role Phone Anthonyjosemanuel, Aric Lola DO Primary Care Provider [phone] Emma Elizabeth Primary Care Provider [phone] Bigda, Aric A DO Unavailable Bigda, Aric A DO Primary Care Provider [phone] Bigda, Aric A DO Primary Care Provider [phone] Reason for Referral * MRI/CAT Scan - Closed Specialty Diagnoses / Procedures Referred By Sid cisneros Referred To Contact Radiology Diagnoses Contusion of left knee, initial encounter Procedures MRI Knee (Left) Emma Elizabeth PA Phone: tel: fax: Referral ID Status Reason Start Date Expiration Date Visits Re quested Visits Authorized [id number] Closed 08/10/2021 08/10/2022 1 1 Encounter Details Date Type Department Care Team (Latest Contact Info) Description 08/10/2021 Transcribe Orders Virtual Department 30 [place] [address] Emma Elizabeth PA [address] [place] [address] [place] [address] Contusion of left knee, initial encounter (Primary [...] Contact Info) Description 08/23/2025 Procedure Pass [address] [address] 10/01/2025 9:25 AM EST Appointment [address] [address] Cain Christiansen MD [address] [place] [address] Orthopedics & Sports Medicine, [place] [address] [email or web address] documented as of [...] encounter documented in this encounter Care Teams Commercial Front Load Driver Relationship Specialty Start Date End Date Aric Espinoza DO PCP - General Internal Medicine 10/01/17 09/05/21 Emma Elizabeth PA 6 [facility] [place] [address] PCP - General 09/06/21 04/29/22 Aric Espinoza DO PCP - General Internal Medicine 04/30/22 07/12/25 Aric Espinoza DO [address] [place] [address] PCP - General Internal Medicine 07/13/25 Aric Espinoza DO Insurance Assigned Provider Internal Medicine 10/24/21 documented as of this encounter Additional Source Comments The information contained in this document represents components of the legal health record. It is not the complete legal health record.[facility]
--- OUTSIDE RECORDS SUMMARY | 2025-08-31 16:47 | XMS_ITS | Data Portability ---
Author Organization [facility] Main [facility] Address [address] [facility] [place] [address] Care Team Providers Care Power Regulator Name Role Phone LEO AVILA ([place]) [...] Address Organization Details Recorded Time Spinal stenosis 99436612 Active [address], [address], [place], [address], [facility] 9 11:21:13 Arthritis 7042025 Active [address], [address], [place], [address], [facility] [employer] 9 11:21:34 Gastroesoph ageal reflux disease 640232998 Active [address], [address], [place], [address], [facility] [employer] 9 11:21:38 Hyperlipide montez 89239876 Active [address], [address], [place], [address], [place] [employer] 9 11:21:45 Hypothyroid ism 39208605 Active [address], [address], [place], [address], [facility] 9 11:21:51 Pain of right hip joint 1862369846804 02 Active [address], [address], [place], [address], [facility] 9 11:22:02 Inflammatio n of sacroiliac joint 27528885 Active [address], [address], [place], [address], [facility] 9 11:23:14 Seasonal allergy 277128424 Active [address], [address], [place], [address], [facility] 9 11:23:25 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 Procedures Surgical History Date Name Laterality Status Provider Name and Address Organization Details Recorded Time 3 hysterectomy completed [address], [address], [place], [address], [facility] 01/01/2019 11:23:53 Imaging Results None recorded. Procedure [...] % 91 % 147.32 cm 33.2 kg/m2 39018.1 9 g 122/64 mm[Hg] VLADISLAV ABEBE [address] [place] [address], [address], [place], [address], [facility] 9 11:19:24 Date Recorded Body height Heart rate Respiratory rate Body temperature Systolic And Diastolic Provider Name and Address Organization Details Last Updated DateTime 9 147.32 cm 61 /min 20 /min 98.4 [degF] 100/45 mm[Hg] VLADISLAV[address], [address], [place], [address], [facility] 9 08:54:35 Date Recorded Body height Systolic And Diastolic Provider Name and Address Organization Details Last Updated DateTime 01/05/2019 147.32 cm 108/58 mm[Hg] Lavon Bowie MD [address] [facility], [address], [place], [address], [facility] 01/05/2019 11:44:03 Date Recorded Body height Heart rate Respiratory rate Body temperature Systolic And Diastolic Provider Name and Address Organization Details Last Updated DateTime 9 147.32 cm 61 /min 20 /min 99.1 [degF] 108/45 mm[Hg] VLADISLAV [address], [address], [place], [address], [facility] 9 16:04:03 Social History Question Answer Notes LastModified by Organizat ion Details LastModified Time Tobacco Smoking Status Never Smoker Not Available [facility] 08/15/2020 03:13:20 Do You Have An Advance Directive? Yes Full Code [id number] Information not available 08/15/2020 How Much Tobacco Do You Chew? None [id number] Information not available 08/15/2020 What Was The Date Of Your Most Recent Tobacco Screening? 01/11/2019 [id number] Information not available 08/15/2020 How Much Tobacco Do You Smoke? No [id number] Information not available 08/15/2020 Has Tobacco Cessation Counseling Been Provided? No [id number] Information not available 08/15/2020 How Many Years Have You Smoked Tobacco? 0 [id number] Information not available 08/15/2020 Sex: Unknown Functional Status Question Answer Note LastModified by Organization D etails LastModified Time What is your level of alcohol consumption? None [id number] Information not available 08/15/2020 Mental Status None [...] ICD10 Code Diagnosis IMO Codes Diagnosis Note [id number] VLADISLAV AVILA [address] [place] [address] 01/01/2019 11:16:40 01/07/2019 11:38:30 Pain of right hip joint 4627520465 [address] M25.551 See HPI s/p fusionPT/O T eval and treat-alex ent appears very drowsy and sedated today, will decrease oxycodone to only 5 mg q 4 hours PRN, had 10 this morning and overnight. Spinal stenosis 24941703 M48.04 gabapentin 100 mg TIDoxycodo ne as needed, monitor for pain control Hypothyroidism 49727079 E03.8 levothyrox ine 50 mcg daily, monitor TSH as needed Gastroesop hageal reflux disease 132221642 K21.9 Prilosec 20 mg daily, monitor for reflux Depressive disorder 1678 9007 F33.8 Celexa 10 mg daily, monitor mood and consult NEG if needed Constipation 93677575 K5 9.03 Add colace 100 mg BID [id number] VLADISLAV AVILA [address] [place] [address] 01/04/2019 08:46:18 01/07/2019 11:53:38 Pain of right hip joint 0638422916 11484 M25.551 See HPI s/p fusionObta in STAT xrays of lumbo sacral region 2 viewsCall ortho and inform him of pain statusgive one time increased oxy dose of 10 mg now [id number] MD LEO Griffin [address] [place] [address] 01/05/2019 11:16:35 01/07/2019 12:46:07 Spinal stenosis 41829928 M48.062 see HPILumbar spinal stenosis with radiculopa thyunderwe ntexcision of L4-5 extradural massexcisi on of right L5-S1 foraminal disc herniation L4-5 and L5-S1 posterior and lateral fusion with segmental screw fixation and bone graftfollo w surgery recsmonito r for pain control and constipati onPT OT eval and treat Anemia due to blood loss 175739832 D50.0 Post op anemiarepe at cbcmonitor need for tx Unsteady gait 491270372 R26.81 PT OT eval and treatmonit or fall risk Gastroesop hageal reflux disease 103125859 K21.9 omeprazole 20 mg qdmonitor for sx relief Hypothyroidism 47626313 E03.8 synthroid 50 mcg qdmonitor tsh prn Hyperlipidemia 37033304 E78.49 carrying dxnot maintained on statin at baselineap pears diet controlled [id number] VLADISLAV LORD LEO AVILA [address] [place] [address] 01/11/2019 15:35:26 01/21/2019 13:36:24 Spinal stenosis 92310327 M48.062 see HPILumbar spinal stenosis with radiculopa [...] at home Anemia due to blood loss 388279961 D50.0 resolved Gastroesop hageal reflux disease 944284499 K21.9 omeprazole 20 mg qd Hypothyroidism 92941221 E03.8 synthroid 50 mcg qdmonitor tsh outpt Hyperlipidemia 65247514 E78.49 carrying dxnot maintained on statin at baselineap pears diet controlled Health Concerns Section Related Observation LastModified by Organization Detai ls LastModified Time None Recorded Concern Status LastModified by Organization Details LastModified Time None Recorded Advance Directives Directive Y: Full Code Payers Insurance Date Sequence Insurance Name Policy Number Policy Cordova Covered Member ID Cordova Member ID Guarantor Name 01/21/2019 1 [facility] - MEDICARE PREFERRED (MEDICARE REPLACEMENT HMO) CHANDU Andrade [id number] Joyce Andrade Notes Date Note Type [...] GERD, arthritis and spinal stenosis VLADISLAV ABEBE [address] [place] [address], [address], [place], [address], [facility] 01/05/2019 16:30:48 01/04/2019 text/html This is an [...] pain was to be expected. VLADISLAV [address] [facility], [address], [place], [address], [facility] 01/04/2019 08:59:48 01/05/2019 text/html Patient is [...] care and therapy Lavon Bowie MD [address] [facility], [address], [place], [address], [facility] [employer] 01/05/2019 11:44:28 01/11/2019 text/html This patient is [...] Patient had fall shortly after arrival at [facility], ortho was updated and x [...] hld, hypothyroid, spinal stenosis, VLADISLAV LORD [address] [facility], [address], [place], [address], [facility] 01/21/2019 12:41:10 OBGyn Episode No OBEpisode recorded.
--- OUTSIDE RECORDS SUMMARY | 2025-08-31 16:47 | XMS_ITS | Encounter Summary ---
Author Organization [facility] Address [address] [place] [address] Phone Care Team Providers Care Featheredger And Reducer Machine Name Role Phone Daríomelonie Emma GONZALEZ Primary Care Provider [phone] Bigda, Aric Davila DO Unavailable Bigda, Aric A DO Primary Care Provider [phone] Bigda, Aric A DO Primary Care Provider [phone] Encounter Details Date Type Department Care Team (Late st Contact Info) Description 04/15/2022 Procedure Pass [address] [address] Social History Tobacco Use Types Packs/Day Years [...] st Contact Info) Description 08/23/2025 Procedure Pass [address] [address] 10/01/2025 9:25 AM EST Appointment [address] [address] Cain Christiansen MD [address] [place] [address] Orthopedics & Sports Medicine, [facility] [place] [address] documented as of this encounter Visit Diagnoses Not on filedocumented in this encounter Care Teams Featheredger And Reducer Machine Relationship Specialty Start Date End Date Emma Elizabeth PA 6 [facility] [place] [address] PCP - General 09/06/21 04/29/22 Aric Espinoza DO 6 [facility] [place] [address] PCP - General Internal Medicine 04/30/22 07/12/25 Aric Espinoza DO [address] [place] [address] [place] [address] PCP - General Internal Medicine 07/13/25 Aric Espinoza DO 6 [place] [address] Insurance Assigned Provider Internal Medicine 10/24/21 documented as of this encounter Additional Source Comments The information contained in this document represents components of the legal health record. It is not the complete legal health record.[facility]
--- OUTSIDE RECORDS SUMMARY | 2025-08-31 16:47 | XMS_ITS | Encounter Summary ---
Author Organization [facility] Address [address] [place] [address] [place] [address] Phone Care Team Providers Care Farmworker Fryer Farm Name Role Phone Aric Espinoza DO Unavailable Olga, Aric Davila DO Primary Care Provider [phone] Bigda, Aric Davila DO Primary Care Provider [phone] Reason for Referral * - Closed Specialty Diagnoses / Procedures Referred By Contac t Referred To Contact Radiology Diagnoses Claudication Procedures US Lower Extremity Arteries (YOKASTA) Physio Complete Bilat Emma Elizabeth PA 6 [facility] [place] [address] Phone: tel: fax: Referral ID Status Reason Start Date Expiration Date Visits Re quested Visits Authorized [id number] Closed 02/12/2024 02/11/2025 1 1 Encounter Details Date Type Department Care Team (Latest Contact Info) Description 02/12/2024 Ancillary Orders [facility] [address] [place] [address] Emma Elizabeth PA 6 [facility] [place] [address] Claudication (Primary Dx) Social History Tobacco Use [...] st Contact Info) Description 08/23/2025 Procedure Pass [address] [address] 10/01/2025 9:25 AM EST Appointment [address] [address] Cain Christiansen MD [address] [place] [address] Orthopedics & Sports Medicine, [facility] [place] [address] [email or web address] documented as of this encounter Results [...] disease documented in this encounter Care Teams Farmworker Fryer Farm Relationship Specialty Start Date End Date Aric Espinoza DO PCP - General Internal Medicine 04/30/22 07/12/25 Aric Espinoza DO [address] [place] [address] PCP - General Internal Medicine 07/13/25 Aric Espinoza DO Insurance Assigned Provider Internal Medicine 10/24/21 documented as of this encounter Additional Source Comments The information contained in this document represents components of the legal health record. It is not the complete legal health record.[facility]
--- OUTSIDE RECORDS SUMMARY | 2025-08-31 16:47 | XMS_ITS | Encounter Summary ---
Author Organization [facility] Address [address] [facility] [address] [place] [address] Phone Care Team Providers Care Mechanical Manufacturing Technician Name Role Phone Olga, Aric Davila DO Unavailable Bigda, Aric A DO Primary Care Provider [phone] Bigda, Aric A DO Primary Care Provider [phone] Encounter Details Date Type Department Care Team (Latest Contact Info) Description 04/16/2024 Transcribe Orders Virtual Department [address] [place] [address] Emma Elizabeth PA 6 [facility] [place] [address] Left shoulder pain, unspecified chronicity (Primary Dx) [...] st Contact Info) Description 08/23/2025 Procedure Pass [address] [address] 10/01/2025 9:25 AM EST Appointment [address] [address] Cain Christiansen MD [address] [place] [address] Orthopedics & Sports Medicine, [place] [address] [email or web address] documented as of this encounter Results * XR SHOULDER 2 VIEWS (LEFT) (04/21/2024 11:09 AM EDT) Anatomical Region Laterality Modality Shoulder Left Computed Radiogr aphy 04/21/2024 1:06 PM EDT Impressions 04/21/2024 1:07 PM EDT No acute osseous abnormality. Mild acromioclavicular joint degenerative changes. Narrative 04/21/2024 1:07 PM EDT XR SHOULDER 2 OR MORE VIEWS (LEFT) Referring clinician's provided indication for this examination in [facility]: Outside Radiology Order; left shoulder pain [...] chronicity documented in this encounter Care Teams Mechanical Manufacturing Technician Relationship Specialty Start Date End Date Aric Espinoza DO [email or web address] PCP - General Internal Medicine 04/30/22 07/12/25 Aric Espinoza DO [address] [place] [address] [email or web address] PCP - General Internal Medicine 07/13/25 Aric Espinoza DO [email or web address] Insurance Assigned Provider Internal Medicine 10/24/21 documented as of this encounter Additional Source Comments The information contained in this document represents components of the legal health record. It is not the complete legal health record.[facility]
--- OUTSIDE RECORDS SUMMARY | 2025-08-31 16:47 | XMS_ITS | Encounter Summary ---
Author Organization [facility] Address [address] [place] [address] Phone Care Team Providers Care Head Athletic Trainer/Strength Coach Name Role Phone Anthonyjosemanuel, Aric Lola DO Primary Care Provider [phone] Emma Elizabeth Primary Care Provider [phone] Bigda, Aric A DO Unavailable Bigda, Aric A DO Primary Care Provider [phone] Bigda, Aric A DO Primary Care Provider [phone] Encounter Details Date Type Department Care Team (Latest Contact Info) Description 08/08/2021 Transcribe Orders Virtual Department [address] [place] [address] Emma Elizabeth PA [address] [place] [address] [place] [address] Left knee pain, unspecified chronicity (Primary Dx); [...] st Contact Info) Description 08/23/2025 Procedure Pass [address] [address] 10/01/2025 9:25 AM EST Appointment [address] [place] [address] Cain Christiansen MD [address] [place] [address] Orthopedics & Sports Medicine, [place] [address] [email or web address] documented as of this encounter Results * XR KNEE 4 OR MORE VIEWS (LEFT) (08/09/2021 9:45 AM EDT) Anatomical Region Laterality Modality Knee Left Computed Radiogr aphy 08/09/2021 9:52 AM EDT Impressions 08/09/2021 9:53 AM EDT No acute bony abnormality apparent. POS - [id number] Narrative 08/09/2021 9:53 AM EDT COMPARISON: None [...] No acute bony abnormality apparent. POS - [id number] Emma GONZALEZ IMG XR LOWER EXTREMITY Chikis l Result * XR Tibia Fibula 2 Views (Left) (08/09/2021 9:44 AM EDT) Anatomical Region Laterality Modality Leg Left Computed Radiogr aphy 08/09/2021 9:53 AM EDT Impressions 08/09/2021 9:53 AM EDT No acute bony abnormality. POS [id number] Narrative 08/09/2021 9:53 AM EDT Frontal and lateral views disclose no fracture, subluxation, or other significant abnormality involving the visualized regional skeletal structures. Procedure Note Rafiq Rocha MD - 08/09/2021 Frontal and lateral views disclose no fracture, subluxation, or othersignificant abnormality involving the visualized regional skeletalstructures. IMPRESSION: No acute bony abnormality. POS [id number] us Emma GONZALEZ IMG XR LOWER EXTREMITY [...] limb documented in this encounter Care Teams Head Athletic Trainer/Strength Coach Relationship Specialty Start Date End Date Aric Espinoza DO PCP - General Internal Medicine 10/01/17 09/05/21 Emma Elizabeth PA 6 [facility] [address] PCP - General 09/06/21 04/29/22 Aric Espinoza DO PCP - General Internal Medicine 04/30/22 07/12/25 Aric Espinoza DO [address] [place] [address] PCP - General Internal Medicine 07/13/25 Aric Espinoza DO [email or web address] Insurance Assigned Provider Internal Medicine 10/24/21 documented as of this encounter Additional Source Comments The information contained in this document represents components of the legal health record. It is not the complete legal health record.[facility]
--- OUTSIDE RECORDS SUMMARY | 2025-08-31 16:47 | XMS_ITS | Encounter Summary ---
Author Organization [facility] Address [address] [address] Phone Care Team Providers Care Artist'S Representative Name Role Phone Olga, Aric Davila DO Unavailable Bigda, Aric A DO Primary Care Provider [phone] Bigda, Aric A DO Primary Care Provider [phone] Encounter Details Date Type Department Care Team (Latest Contact Info) Description 05/07/2023 Transcribe Orders Virtual Department 30 [place] [address] Emma Elizabeth PA [address] [place] [address] [place] [address] Urinary incontinence, unspecified type (Primary Dx) Social [...] Contact Info) Description 08/23/2025 Procedure Pass [address] [address] 10/01/2025 9:25 AM EST Appointment [address] [address] Cain Christiansen MD [address] [place] [address] Orthopedics & Sports Medicine, [place] [address] [email or web address] documented as of this encounter Results * [...] wall thickening. Prevoid volume 255 mL. Postvoid mL (accumulation during the course the examination was more than thelittle that was voided). IMPRESSION: Post void residual volume 280 mL. us Emma GONZALEZ IMG US RENAL Final Resul t documented in this encounter Visit Diagnoses Diagnosis Urinary incontinence, unspecified type- Primary Urinary incontinence, unspecified type documented in this encounter Care Teams Artist'S Representative Relationship Specialty Start Date End Date Aric Espinoza DO PCP - General Internal Medicine 04/30/22 07/12/25 Aric Espinoza DO [address] [place] [address] PCP - General Internal Medicine 07/13/25 Aric Espinoza DO Insurance Assigned Provider Internal Medicine 10/24/21 documented as of this encounter Additional Source Comments The information contained in this document represents components of the legal health record. It is not the complete legal health record.[facility]
--- OUTSIDE RECORDS SUMMARY | 2025-08-31 16:47 | XMS_ITS | Encounter Summary ---
Author Organization [facility] Address [address] [facility] [address] [place] [address] Phone Care Team Providers Care Legal Secretary Receptionist Name Role Phone Olag, Aric Davila DO Unavailable Bigda, Aric A DO Primary Care Provider [phone] Bigda, Aric A DO Primary Care Provider [phone] Encounter Details Date Type Department Care Team (Late Contact Info) Description 12/12/2023 Ancillary Orders [facility], X-Ray - [address] [address] Emma Elizabeth PA 6 [facility] [place] [address] Other specified soft tissue disorders (Primary Dx) [...] st Contact Info) Description 08/23/2025 Procedure Pass [facility], [address] [address] 10/01/2025 9:25 AM EST Appointment [address] [address] Cain Christiansen MD [address] [place] [address] Orthopedics & Sports Medicine, [place] [address] [email or web address] documented as of this encounter Results * [...] disorders documented in this encounter Care Teams Legal Secretary Receptionist Relationship Specialty Start Date End Date Aric Espinoza DO [email or web address] PCP - General Internal Medicine 04/30/22 07/12/25 Aric Espinoza DO [address] [place] [address] PCP - General Internal Medicine 07/13/25 Aric Espinoza DO [email or web address] Insurance Assigned Provider Internal Medicine 10/24/21 documented as of this encounter Additional Source Comments The information contained in this document represents components of the legal health record. It is not the complete legal health record.[facility]
--- OUTSIDE RECORDS SUMMARY | 2025-08-31 16:47 | XMS_ITS | Encounter Summary ---
Author Organization [facility] Address [address] [place] [address] [place] [address] Phone Care Team Providers Care Patient Consumer Marketer Name Role Phone Emma Elizabeth Primary Care Provider [phone] Bigda, Aric Davila DO Unavailable Anthonyda, Aric A DO Primary Care Provider [phone] Bigda, Aric A DO Primary Care Provider [phone] Reason for Referral * MRI/CAT Scan - Closed Specialty Diagnoses / Procedures Referred By Sid cisneros Referred To Contact Radiology Diagnoses Spinal stenosis in cervical region Procedures MRI Cervical Spine Maggy Buitrago NP [address] [place] [address] Phone: tel: fax: [email or web address] Referral ID Status Reason Start Date Expiration Date Visits Re quested Visits Authorized [id number] Closed 04/15/2022 04/15/2023 1 1 Encounter Details Date Type Department Care Team (Latest Contact Info) Description 04/15/2022 Transcribe Orders Virtual Department [address] [place] [address] Maggy Buitrago NP [address] [place] [phone] [email or web address] Spinal stenosis in cervical region (Primary Dx) [...] st Contact Info) Description 08/23/2025 Procedure Pass [address] [address] 10/01/2025 9:25 AM EST Appointment [address] [address] Cain Christiansen MD [address] [place] [address] Orthopedics & Sports Medicine, [place] [address] documented as of this encounter Results * [...] degenerative disc and degenerative endplate changes at [id number]. Maggy Buitrago NP IMG MR XSPECIALTY Final Result documented in this encounter Visit Diagnoses Diagnosis Spinal stenosis in cervical region- Primary Spinal stenosis in cervical region Cramp and spasm documented in this encounter Care Teams Patient Consumer Marketer Relationship Specialty Start Date End Date Emma Elizabeth PA 6 [facility] [place] [address] PCP - General 09/06/21 04/29/22 Aric Espinoza DO 6 [facility] [place] [address] PCP - General Internal Medicine 04/30/22 07/12/25 Aric Espinoza DO [address] [place] [address] [email or web address] PCP - General Internal Medicine 07/13/25 Aric Espinoza DO 6 [facility] [place] [address] [email or web address] Insurance Assigned Provider Internal Medicine 10/24/21 documented as of this encounter Additional Source Comments The information contained in this document represents components of the legal health record. It is not the complete legal health record.[facility]
--- OUTSIDE RECORDS SUMMARY | 2025-08-31 16:47 | XMS_ITS | Encounter Summary ---
Author Organization [facility] Address [address] [place] [address] Phone Care Team Providers Care Taproom Attendant Name Role Phone Anthonyjosemanuel, Aric Lola Primary Care Provider [phone] Emma Elizabeth Primary Care Provider [phone] Bigda, Aric A DO Unavailable Bigda, Aric A DO Primary Care Provider [phone] Bigda, Aric A DO Primary Care Provider [phone] Encounter Details Date Type Department Care Team (Late st Contact Info) Description 12/29/2018 Procedure Pass OR Admitting Dept - Virtual Department [address] [place] [address] Social History Tobacco Use Types Packs/Day Years [...] Contact Info) Description 08/23/2025 Procedure Pass [address] [address] 10/01/2025 9:25 AM EST Appointment [address] [address] Cain Christiansen MD [address] [place] [address] Orthopedics & Sports Medicine, [facility] [place] [address] documented as of this encounter Visit Diagnoses Not on filedocumented in this encounter Care Teams Taproom Attendant Relationship Specialty Start Date End Date Aric Espinoza DO PCP - General Internal Medicine 10/01/17 09/05/21 Emma Elizabeth PA [address] [place] [address] [place] [address] PCP - General 09/06/21 04/29/22 Aric Espinoza DO PCP - General Internal Medicine 04/30/22 07/12/25 Aric Espinoza DO [address] [place] [address] [place] [address] PCP - General Internal Medicine 07/13/25 Aric Espinoza DO Insurance Assigned Provider Internal Medicine 10/24/21 documented as of this encounter Additional Source Comments The information contained in this document represents components of the legal health record. It is not the complete legal health record.[facility]
--- OUTSIDE RECORDS SUMMARY | 2025-08-31 16:47 | XMS_ITS | Encounter Summary ---
Author Organization [facility] Address [address] [place] [address] Phone Care Team Providers Care Chicken Handler Name Role Phone Anthonyjosemanuel, Aric A DO Primary Care Provider [phone] Emma Elizabeth Primary Care Provider [phone] Bigda, Aric A DO Unavailable Bigda, Aric A DO Primary Care Provider [phone] Bigda, Aric A DO Primary Care Provider [phone] Encounter Details Date Type Department Care Team (Late st Contact Info) Description 01/14/2019 Ancillary Orders [facility] X-Ray - [address] [address] Michael Farrell PA [address] [place] [address] [email or web address] Spinal stenosis, lumbar region with neurogenic claudication; [...] st Contact Info) Description 08/23/2025 Procedure Pass [facility], Mri - [address] [address] 10/01/2025 9:25 AM EST Appointment [facility], [facility] [address] [place] [address] Cain Christiansen MD [address] [place] [address] Orthopedics & Sports Medicine, [place] [address] [email or web address] documented as of this encounter Results * [...] region documented in this encounter Care Teams Chicken Handler Relationship Specialty Start Date End Date Aric Espinoza DO [email or web address] PCP - General Internal Medicine 10/01/17 09/05/21 Emma Elizabeth PA 6 [facility] [place] [address] PCP - General 09/06/21 04/29/22 Aric Espinoza DO PCP - General Internal Medicine 04/30/22 07/12/25 Aric Espinoza DO [address] [facility] [place] [address] PCP - General Internal Medicine 07/13/25 Aric Espinoza DO Insurance Assigned Provider Internal Medicine 10/24/21 documented as of this encounter Additional Source Comments The information contained in this document represents components of the legal health record. It is not the complete legal health record.[facility]
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
--- OUTSIDE RECORDS SUMMARY | 2025-08-31 16:47 | XMS_ITS | Encounter Summary ---
Author Organization [facility] Address [address] [place] [address] [place] [address] Phone Care Team Providers Care Insulation Worker Furnace Installer Name Role Phone Aric Espinoza DO Unavailable Olga, Aric A DO Primary Care Provider [phone] Bigda, Aric A DO Primary Care Provider [phone] Encounter Details Date Type Department Care Team (Late st Contact Info) Description 04/30/2022 Ancillary Orders [facility] X-Ray [address] [address] Maggy Buitrago NP [address] [place] [phone] [email or web address] Pain Social History Tobacco Use Types Packs/Day [...] st Contact Info) Description 08/23/2025 Procedure Pass [address] [address] 10/01/2025 9:25 AM EST Appointment [address] [address] aCin Christiansen MD [address] [place] [address] [facility] [place] [address] [email or web address] documented as of this encounter Results * XR THORACIC SPINE 3 VIEW (04/30/2022 9:10 AM EDT) Anatomical Region Laterality Modality T-spine Computed Radiogr aphy 04/30/2022 11:2 5 AM EDT Impressions 04/30/2022 11:27 AM EDT Upper thoracic scoliotic curvature with moderate lower cervical degenerative disc disease and mild thoracic degenerative disc changes/spondylosis. No acute bony abnormality suggested. POS - [id number] Narrative 04/30/2022 11:27 AM EDT COMPARISON: None [...] No acute bony abnormality suggested. POS - [id number] Maggy Buitrago TECHNICAL MAINTENANCE SPECIALIST IMG XR SPINE Final Result documented in this encounter Visit Diagnoses Diagnosis Pain Generalized pain Pain Generalized pain documented in this encounter Care Teams Insulation Worker Furnace Installer Relationship Specialty Start Date End Date Aric Espinoza DO PCP - General Internal Medicine 04/30/22 07/12/25 Aric Espinoza DO [address] [place] [address] PCP - General Internal Medicine 07/13/25 Aric Espinoza DO Insurance Assigned Provider Internal Medicine 10/24/21 documented as of this encounter Additional Source Comments The information contained in this document represents components of the legal health record. It is not the complete legal health record.[facility]
--- OUTSIDE RECORDS SUMMARY | 2025-08-31 16:47 | XMS_ITS | Encounter Summary ---
Author Organization [facility] Address [address] [place] [address] Phone Care Team Providers Care Mixer Diamond Powder Name Role Phone Aric Espinoza DO Unavailable Olga, Aric Davila DO Primary Care Provider [phone] Bigda, Aric Davila DO Primary Care Provider [phone] Encounter Details Date Type Department Care Team (Late st Contact Info) Description 05/02/2022 Procedure Pass [address] [address] Social History Tobacco Use Types Packs/Day Years [...] st Contact Info) Description 08/23/2025 Procedure Pass [address] [address] 10/01/2025 9:25 AM EST Appointment [address] [address] Cain Christiansen MD [address] [place] [address] [facility] [place] [address] [email or web address] documented as of this encounter Visit Diagnoses Not on filedocumented in this encounter Care Teams Mixer Diamond Powder Relationship Specialty Start Date End Date Aric Espinoza DO [email or web address] PCP - General Internal Medicine 04/30/22 07/12/25 Aric Espinoza DO [address] [place] [address] [email or web address] PCP - General Internal Medicine 07/13/25 Aric Espinoza DO Insurance Assigned Provider Internal Medicine 10/24/21 documented as of this encounter Additional Source Comments The information contained in this document represents components of the legal health record. It is not the complete legal health record.[facility]
--- OUTSIDE RECORDS SUMMARY | 2025-08-31 16:47 | XMS_ITS | Encounter Summary ---
Author Organization [facility] Address [address] [place] [address] Phone Care Team Providers Care Farm Advisor Name Role Phone Aric Espinoza DO Unavailable Olga, Aric Davila DO Primary Care Provider [phone] Bigda, Aric Davila DO Primary Care Provider [phone] Reason for Referral * MRI/CAT Scan - Closed Specialty Diagnoses / Procedures Referred By Contac t Referred To Contact Radiology Diagnoses Radiculopathy, lumbar region Procedures MRI Lumbar Spine Maggy Buitrago NP Phone: tel: fax: [email or web address] Referral ID Status Reason Start Date Expiration Date Visits Re quested Visits Authorized [id number] Closed 02/05/2024 02/04/2025 1 1 Encounter Details Date Type Department Care Team (Latest Contact Info) Description 02/05/2024 Transcribe Orders Virtual Department [address] [place] [address] Maggy Buitrago NP [address] [place] [phone] [email or web address] Radiculopathy, lumbar region (Primary Dx) Social History [...] Contact Info) Description 08/23/2025 Procedure Pass [address] [address] 10/01/2025 9:25 AM EST Appointment [address] [address] Cain Christiansen MD [address] [place] [address] [facility], [place] [address] documented as of this encounter Results * [...] communicated on 03/10/2024 1:12 AM, Message ID [id number]. Narrative 03/10/2024 1:12 AM EDT MRI LUMBAR [...] L4 and L5 right laminectomy with L4- W1wqldbjtyy fusion with carolina and pedicle screw constructs. No compressionfracture or marrow replacing lesion. DISCS: Disc desiccation T10-T11 and T12-S1. Endplate marrow edema [id number]. CONUS: Normal appearance and terminates at L1. [...] was communicated on 03/10/2024 1:12 AM,Message ID [id number]. Maggy Buitrago NP IMG MR XSPECIALTY Final Result documented in this encounter Visit Diagnoses Diagnosis Radiculopathy, lumbar region- Primary Thoracic or lumbosacral neuritis or radiculitis, unspecified Radiculopathy, lumbar region Thoracic or lumbosacral neuritis or radiculitis, unspecified documented in this encounter Care Teams Farm Advisor Relationship Specialty Start Date End Date Aric Espinoza DO PCP - General Internal Medicine 04/30/22 07/12/25 Aric Espinoza DO [address] [place] [address] PCP - General Internal Medicine 07/13/25 Aric Espinoza DO Insurance Assigned Provider Internal Medicine 10/24/21 documented as of this encounter Additional Source Comments The information contained in this document represents components of the legal health record. It is not the complete legal health record.[facility]
--- OUTSIDE RECORDS SUMMARY | 2025-08-31 16:47 | XMS_ITS | Encounter Summary ---
Author Organization [facility] Address [address] [place] [address] Phone Care Team Providers Care Pallet Rectifier Name Role Phone Anthonyjosemanuel, Aric Lola Primary Care Provider [phone] Emma Elizabeth Primary Care Provider [phone] Bigda, Aric A DO Unavailable Bigda, Aric A DO Primary Care Provider [phone] Bigda, Aric A DO Primary Care Provider [phone] Encounter Details Date Type Department Care Team (Late st Contact Info) Description 08/28/2018 Procedure Pass [address] [address] Social History Tobacco Use Types Packs/Day Years [...] st Contact Info) Description 08/23/2025 Procedure Pass [address] [address] 10/01/2025 9:25 AM EST Appointment [address] [address] Cain Christiansen MD [address] [place] [address] [facility], [place] [address] documented as of this encounter Visit Diagnoses Not on filedocumented in this encounter Care Teams Pallet Rectifier Relationship Specialty Start Date End Date Airc Espinoza DO PCP - General Internal Medicine 10/01/17 09/05/21 Emma Elizabeth PA [address] [place] [address] [place] [address] PCP - General 09/06/21 04/29/22 Aric Espinoza DO PCP - General Internal Medicine 04/30/22 07/12/25 Aric Espinoza DO [address] [place] [address] [place] [address] PCP - General Internal Medicine 07/13/25 Aric Espinoza DO Insurance Assigned Provider Internal Medicine 10/24/21 documented as of this encounter Additional Source Comments The information contained in this document represents components of the legal health record. It is not the complete legal health record.[facility]
--- OUTSIDE RECORDS SUMMARY | 2025-08-31 16:47 | XMS_ITS | Encounter Summary ---
Author Organization [facility] Address [address] [place] [address] Phone Care Team Providers Care Military Equipment Specialist Name Role Phone Anthonyjosemanuel, Aric Lola DO Primary Care Provider [phone] Emma Elizabeth Primary Care Provider [phone] Bigda, Aric A DO Unavailable Bigda, Aric A DO Primary Care Provider [phone] Bigda, Aric A DO Primary Care Provider [phone] Encounter Details Date Type Department Care Team (Late st Contact Info) Description 08/10/2021 Procedure Pass [address] [address] Social History Tobacco Use Types Packs/Day Years [...] st Contact Info) Description 08/23/2025 Procedure Pass [address] [address] 10/01/2025 9:25 AM EST Appointment [address] [address] Cain Christiansen MD [address] [place] [address] [facility], [place] [address] documented as of this encounter Visit Diagnoses Not on filedocumented in this encounter Care Teams Military Equipment Specialist Relationship Specialty Start Date End Date Aric Espinoza DO PCP - General Internal Medicine 10/01/17 09/05/21 Emma Elizabeth PA [address] [place] [address] [place] [address] PCP - General 09/06/21 04/29/22 Aric Espinoza DO PCP - General Internal Medicine 04/30/22 07/12/25 Aric Espinoza DO [address] [place] [address] [place] [address] PCP - General Internal Medicine 07/13/25 Aric Espinoza DO Insurance Assigned Provider Internal Medicine 10/24/21 documented as of this encounter Additional Source Comments The information contained in this document represents components of the legal health record. It is not the complete legal health record.[facility]
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
--- OUTSIDE RECORDS SUMMARY | 2025-08-31 16:48 | XMS_ITS | Clinical Summary ---
Author Organization [facility] Address [address] [place] [address] Phone Care Team Providers Care Loss Prevention Manager Name Role Phone Aric Espinoza DO Unavailable Aric Espinoza DO Primary Care Provider [phone] Allergies No known active allergies Medications omeprazole [...] Description 08/23/2025 9:45 AM EST Office Visit [facility] & Sports Medicine [address] [place], [place] [id number] Cain Christiansen MD Greater trochanteric bursitis of [...] st Contact Info) Description 08/23/2025 Procedure Pass [address] [address] 10/01/2025 9:25 AM EST Appointment [address] [address] Cain Christiansen MD [address] [place] [address] [facility] [place] [address] [email or web address] Health Maintenance Due Date Last Done Comments [...] this topic Medical Devices Implanted Type Area Hris Specialist Device Identifier Shelf Expiration Date Model / Serial / Lot Putty Bone Graft 5cc I-Factor Peptide Enhanced - [id number] Implanted:Qty: 1 on 12/29/2018 by Alfa Chan MD at [facility] Right: Spine Lumbar [employer] 09/18/2021 [id number] / / [id number] Thoracolumbar Spacer 55r33ch [employer] Peek Implant - [id number] Implanted:Qty: 1 on 12/29/2018 by Alfa Chan MD at [facility] N/A: Spine Lumbar [employer] 04/04/2025 [id number] / / [id number] Thoracolumbar Spacer 43y46xd Verte Stack Peek - [id number] Implanted:Qty: 1 on 12/29/2018 by Alfa Chan MD at [facility] N/A: Spine Lumbar [employer] 12/07/2019 [id number] / / [id number] Screw Spine Cd Horizon Sextant Ii Ss Hexagonal Break Off - [id number] Implanted:Qty: 6 on 12/29/2018 by Alfa Chan MD at [facility] [employer] [id number] / / Screw Bone 6.5x35mm Spine Cannulated Cd Horizon Legacy Multiaxial Titanium Osteogrip Dual Lead Thread Pedicle - [id number] Implanted:Qty: 1 on 12/29/2018 by Alfa Chan MD at [facility] [employer] [id number] / / Screw Bone 40x6.5mm Spine Cannulated Cd [employer] Legacy Multiaxial Titanium Osteogrip Dual Lead Thread Pedicle - [id number] Implanted:Qty: 1 on 12/29/2018 by Alfa Chan MD at [facility] [employer] [id number] / / Screw Bone 6.5x45mm Spine Cannulated Cd [employer] Legacy Multiaxial Titanium Osteogrip Dual Lead Thread Pedicle - [id number] Implanted:Qty: 3 on 12/29/2018 by Alfa Chan MD at [facility] [employer] [id number] / / Lumbar Gumaro 5.5x55mm Sextant Titanium Prebent - [id number] Implanted:Qty: 2 on 12/29/2018 by Alfa Chan MD at [facility] [employer] [id number] / / Screw Bone 6.5x30mm Spine Multi Axial Cannulated Legacy - [id number] Implanted:Qty: 1 on 12/29/2018 by Alfa Chan MD at [facility] N/A: Spine Lumbar [employer] [id number] / / Procedures Procedure Name Priority Date/Time Associated Diagnosis Comments THYROID STIMULATING HORMONE (TSH) Routine 03/22/2025 10:20 AM EDT Hypothyroidism, unspecified type from Last 3 Months or Most Recently Relevant to Health Maintenance Results * TSH (03/22/2025 10:20 AM EDT) TSH 1.49 0.27 - 4.20 uIU/mL [facility] Blood 03/22/2025 10:2 0 AM EDT 03/22/2025 10:22 AM EDT us Emma GONZALEZ LAB BLOOD BKR ORDERABLES Fi nal Result [facility] [address] [place] [address] from Last 3 Months or [...] Advance Directives For more information, please contact: [phone] (9AM - 5PM [facility], Friday-Friday) * Full Code (Presumed) (Latest Code Status on File) Date Activated Date Inactivated Comments 12/29/2018 4:07 PM 12/31/2018 8:08 PM Care Teams Loss Prevention Manager Relationship Specialty Start Date End Date Aric Espinoza DO [address] [place] [address] PCP - General Internal Medicine 07/13/25 Aric Espinoza DO Insurance Assigned Provider Internal Medicine 10/24/21 Additional Source Comments The information contained in this document represents components of the legal health record. It is not the complete legal health record.[facility]
--- OUTSIDE RECORDS SUMMARY | 2025-08-31 16:48 | XMS_ITS | Encounter Summary ---
Author Organization [facility] Address [address] [place] [address] [place] [address] Phone Care Team Providers Care Electronics Recycler Name Role Phone Anthonyjosemanuel, Aric Lola DO Primary Care Provider [phone] Emma Elizabeth Primary Care Provider [phone] Bigda, Aric A DO Unavailable Bigda, Aric A DO Primary Care Provider [phone] Bigda, Aric A DO Primary Care Provider [phone] Encounter Details Date Type Department Care Team (Late st Contact Info) Description 02/20/2021 Ancillary Orders Virtual Department [address] [place] [address] Emma Elizabeth PA [address] [place] [address] [place] [address] Pain and swelling of right lower extremity [...] st Contact Info) Description 08/23/2025 Procedure Pass [address] [address] 10/01/2025 9:25 AM EST Appointment [address] [address] Cain Christiansen MD [address] [place] [address] Orthopedics & Sports Medicine, [place] [address] [email or web address] documented as [...] extremity documented in this encounter Care Teams Electronics Recycler Relationship Specialty Start Date End Date Aric Espinoza DO PCP - General Internal Medicine 10/01/17 09/05/21 Emma Elizabeth PA [address] [place] [address] [place] [address] PCP - General 09/06/21 04/29/22 Aric Espinoza DO PCP - General Internal Medicine 04/30/22 07/12/25 Aric Espinoza DO [address] [facility], [place] [address] PCP - General Internal Medicine 07/13/25 Aric Espinoza DO Insurance Assigned Provider Internal Medicine 10/24/21 documented as of this encounter Additional Source Comments The information contained in this document represents components of the legal health record. It is not the complete legal health record.[facility]
[2025-08-31 18:03] LABS: MANUAL DIFF FLAG NO
[2025-08-31 18:19] LABS: Uric Acid 7.2 mg/dL (2.4-5.7)
[2025-08-31 19:09] LABS: Hematocrit 36.0 % (37.0-47.0); Hemoglobin 11.6 g/dl (12.0-16.0); Imm Gran Abs Auto 0.03 X10*3/uL (0.00-0.03); Imm Gran Pct Auto 0.4 % (0.0-0.4); Lymphocytes Absolute Auto 2.9 X10*3/uL (1.2-4.9); Mean Corpuscular HGB Conc 32.2 g/dl (31.0-35.0); Mean Corpuscular Hemoglobin 31.9 pg (27.0-33.0); Mean Corpuscular Volume 98.9 fL (80.0-98.0); NRBC Abs Auto 0.000 X10*3/uL (0.0-0.012); NRBC Pct Auto 0.0 /100WBC (0.0-0.2); Platelet Count 235 X10*3/uL (160-400); Red Blood Count 3.64 X10*6/uL (4.20-5.50); White Blood Count 8.0 X10*3/uL (4.8-10.8)
== END 2025-08-31 13:43 | disposition home or self-care (01) ==
LOC: HO.MANLDS 13:42
PROVIDERS: Visit Provider Physician Assistant
DX: M10.9 Gout, unspecified (principal)
CPT/HCPCS: 36415; 84550; 85025